=== PATIENT | female | born 1955 | race Caucasian/White ===

== ENCOUNTER 2019-11-27 08:09 | Outpatient (CLI) | payer OTHER, MEDICARE, SELFPAY ==
[2019-11-27 08:45] LABS: Basophils Percent Auto 0.6 % (0.2-1.2); Eosinophils Absolute Auto 0.1 K/mm3 (0-0.3); Eosinophils Percent Auto 1.4 % (0-4.4); Hematocrit 40.6 % (37.0-47.0); Hemoglobin 13.6 g/dL (12.0-15.0); Immature Granulocyte Absolute 0.01 K/mm3 (0.00-0.031); Immature Granulocyte Percent A 0.2 % (0-0.5); Lymphocytes Absolute Auto 1.58 K/mm3 (0.9-3.2); Lymphocytes Percent Auto 31.2 % (18.3-44.2); Mean Corpuscular HGB Conc 33.5 g/dl (32-36); Mean Corpuscular Hemoglobin 30.6 pg (26-34); Mean Corpuscular Volume 91.2 fl (80-100); Monocytes Absolute Auto 0.4 K/mm3 (0.1-0.6); Monocytes Percent Auto 7.5 % (2.6-8.5); Neutrophils Percent Auto 59.1 % (45.5-73.1); Platelet Count Result 275 k/mm3 (150-375); Red Blood Count 4.45 M/mm3 (4.2-5.4); Red Cell Distribution Width 13.2 % (11.5-14.5); White Blood Count 5.1 K/mm3 (4.5-10.0)
[2019-11-27 08:50] LABS: Add Urine Microscopic? YES; Appearance Urine Clear (Clear); Bacteria Urine Trace /hpf; Bilirubin Urine Negative (Negative); Blood Urine Negative (Negative); Color Urine Yellow (Yellow); Glucose Urine UA Negative (Negative); Ketones Urine Negative (Negative); Leukocyte Esterase Ur 1+ LEU/UL (NEGATIVE); Mucus Urine Rare /lpf; Nitrate Urine Negative (Negative); Protein Urine Negative (Negative); RBC Urine 0-2 /hpf (0-2); Specific Grav Ur 1.013 (1.001-1.035); Squamous Epithelial Cell Urine Many /hpf (Few); Transitional Epi Cells Urine Rare /hpf (None Seen); Urobilinogen Urine Negative mg/dL (<2.0)
[2019-11-27 08:59] LABS: Alanine Aminotransferase 52 U/L (4-35); Albumin Level 4.4 g/dL (3.5-5.1); Alkaline Phosphatase 127 U/L (38-126); Aspartate Amino Transferase 50 U/L (14-36); Bilirubin,Total 0.3 mg/dL (0.2-1.3); Blood Urea Nitrogen 13 mg/dL (7-17); Calcium 9.6 mg/dL (8.4-10.2); Carbon Dioxide 27 mmol/L (22-30); Chloride 105 mmol/L (98-107); Cholesterol 173 mg/dL (0-200); Estimated Glomerular Filt Rate > 60; Glucose 97 mg/dL (65-105); HDL Direct 51 mg/dL; Potassium 4.4 mmol/L (3.4-5.0); Sodium 139 mmol/L (137-145); Triglycerides 112 mg/dL (<150)
[2019-11-27 09:10] LABS: LDL Cholesterol Direct 77 mg/dL
[2019-11-27 09:48] LABS: Vitamin D 25 Hydroxy 35.3 ng/mL
== END 2019-11-27 08:10 | disposition home or self-care (01) ==
PROVIDERS: PCP Internal Medicine; Visit Provider Internal Medicine
DX: A04.72 Enterocolitis due to Clostridium difficile, not specified as recurrent (principal); I10 Essential (primary) hypertension; Z79.899 Other long term (current) drug therapy
CPT/HCPCS: 36415; 80053; 80061; 81001; 82306; 84443; 85025

== ENCOUNTER 2019-12-22 09:44 | Outpatient (CLI) | payer MEDICARE, OTHER, SELFPAY ==
[2019-12-22 10:39] LABS: Add Urine Microscopic? YES; Appearance Urine Clear (Clear); Bacteria Urine Trace /hpf; Bilirubin Urine Negative (Negative); Blood Urine Negative (Negative); Color Urine Straw (Yellow); Glucose Urine UA Negative (Negative); Ketones Urine Negative (Negative); Leukocyte Esterase Ur Trace LEU/UL (Negative); Nitrate Urine Negative (Negative); Protein Urine Negative (Negative); RBC Urine 0-2 /hpf (0-2); Squamous Epithelial Cell Urine Few /hpf (Few); Urobilinogen Urine Negative mg/dL (<2.0); WBC Urine 0-3 /hpf
[2019-12-22 11:23] LABS: Alanine Aminotransferase 55 U/L (4-35); Albumin Level 4.3 g/dL (3.5-5.1); Alkaline Phosphatase 140 U/L (38-126); Aspartate Amino Transferase 45 U/L (14-36); Bilirubin,Total 0.3 mg/dL (0.2-1.3); Blood Urea Nitrogen 10 mg/dL (7-17); Calcium 9.2 mg/dL (8.4-10.2); Carbon Dioxide 21 mmol/L (22-30); Chloride 107 mmol/L (98-107); Estimated Glomerular Filt Rate 56; Glucose 97 mg/dL (65-105); Potassium 4.3 mmol/L (3.4-5.0); Sodium 137 mmol/L (137-145)
== END 2019-12-22 09:45 | disposition home or self-care (01) ==
PROVIDERS: PCP Internal Medicine; Visit Provider Internal Medicine
DX: R10.9 Unspecified abdominal pain (principal); N39.0 Urinary tract infection, site not specified
CPT/HCPCS: 36415; 80053; 81001

== ENCOUNTER 2019-12-22 17:31 | Outpatient (CLI) | payer MEDICARE, OTHER, SELFPAY ==
--- NOTE | ~2019-12-22 | CT_ITS ---
EXAMINATION: CT abdomen wo/w con DATE: 12/22/2019 18:38 INDICATION: Abnormal liver function tests. Abdominal pain. TECHNIQUE: Computed tomography (CT) of the abdomen was performed without and with 100 mL Omnipaque 35 0 intravenous contrast. Automated exposure control and iterative reconstruction technique were employ ed. The dose-length product was 1572.37 mGy-cm. COMPARISON: CT abdomen 08/06/2018 FINDINGS: The visualized portions of the lung bases demonstrate mild atelectasis. Emphysema is noted. The heart size is normal. No pericardial effusion. The liver demonstrates focal steatosis adjacent t o ligamentum teres. There are changes of cholecystectomy. The spleen, pancreas, adrenal glands, and k idneys are normal. There are no dilated loops of bowel. There are no pathologically enlarged lymph no juan francisco. There is no free intraperitoneal fluid. There is moderate stenosis of celiac and mild stenosis o f superior mesenteric artery. There is severe lower lumbar spondylosis. IMPRESSION: 1. No etiology for the patient's symptoms. Reviewed, dictated and finalized at location A.
== END 2019-12-22 17:32 | disposition home or self-care (01) ==
LOC: ANHIMG 17:32
PROVIDERS: PCP Internal Medicine; Visit Provider Internal Medicine
DX: R79.89 Other specified abnormal findings of blood chemistry (principal); R10.9 Unspecified abdominal pain
CPT/HCPCS: 36415; 74170; 80053; 81001; Q9967

== ENCOUNTER 2020-01-01 09:25 | Outpatient (CLI) | payer MEDICARE, OTHER, SELFPAY ==
[2020-01-01 11:31] LABS: Hepatitis C Virus Antibody Reactive (Negative)
== END 2020-01-01 09:26 | disposition home or self-care (01) ==
LOC: ANHLAB 09:26
PROVIDERS: PCP Internal Medicine; Visit Provider Internal Medicine
DX: B19.20 Unspecified viral hepatitis C without hepatic coma (principal)
CPT/HCPCS: 36415; 86803; 87522

== ENCOUNTER 2020-02-24 09:36 | Outpatient (CLI) | payer MEDICARE, OTHER, SELFPAY ==
[2020-02-24 10:38] LABS: Hematocrit 37.1 % (37.0-47.0); Hemoglobin 12.5 g/dL (12.0-15.0); Mean Corpuscular HGB Conc 33.7 g/dl (32-36); Mean Corpuscular Hemoglobin 30.2 pg (26-34); Mean Corpuscular Volume 89.6 fl (80-100); Mean Platelet Volume 10.1 fl (7.4-10.4); Platelet Count Result 223 k/mm3 (150-375); Red Blood Count 4.14 M/mm3 (4.2-5.4); Red Cell Distribution Width 14.4 % (11.5-14.5); White Blood Count 5.2 K/mm3 (4.5-10.0)
[2020-02-24 10:48] LABS: Prothrombin Time 12.9 Seconds (11.1-14.7)
[2020-02-24 10:54] LABS: Alanine Aminotransferase 31 U/L (4-35); Albumin Level 4.2 g/dL (3.5-5.1); Alkaline Phosphatase 134 U/L (38-126); Anion Gap 8 mmol/L (8-16); Aspartate Amino Transferase 36 U/L (14-36); Bilirubin,Total 0.4 mg/dL (0.2-1.3); Blood Urea Nitrogen 11 mg/dL (7-17); Carbon Dioxide 21 mmol/L (22-30); Chloride 108 mmol/L (98-107); Estimated Glomerular Filt Rate > 60; Glucose 95 mg/dL (65-105); Potassium 4.5 mmol/L (3.4-5.0); Sodium 137 mmol/L (137-145)
[2020-02-24 11:43] LABS: Hepatitis B Surface Antigen Negative (Negative)
[2020-02-24 12:01] LABS: Hepatitis B Surface Anti Res Negative
[2020-02-27 15:21] LABS: Hepatitis C Viral RNA PCR 5300000 IU/mL
[2020-02-27 21:16] LABS: Hepatitis B Core Ab Total Nonreactive (Nonreactive)
[2020-03-02 16:25] LABS: HCV Genotype, LiPA 1a
[2020-03-03 23:12] LABS: ALT 23 U/L (6-29); Alpha-2-Macroglobulin 294 mg/dL (106-279); Apolipoprotein A1 166 mg/dL (101-198); Fibrosis Score 0.22; Fibrosis Stage F0-F1; GGT 15 U/L (3-65); Haptoglobin 186 mg/dL (43-212); Necroinflammat Act Grade A0; Total Bilirubin 0.4 mg/dL (0.2-1.2)
== END 2020-02-24 09:37 | disposition home or self-care (01) ==
LOC: ANHLAB 09:40
PROVIDERS: PCP Internal Medicine; Visit Provider Internal Medicine Gastroenterology
DX: B19.20 Unspecified viral hepatitis C without hepatic coma (principal); R74.8 Abnormal levels of other serum enzymes; R10.9 Unspecified abdominal pain
CPT/HCPCS: 36415; 80053; 81596; 85027; 85610; 86704; 86706; 87340; 87522

== ENCOUNTER → 2020-05-30 07:59 | Outpatient (CLI) | payer MEDICARE, OTHER, SELFPAY ==
--- NOTE | ~2020-05-30 | XR_ITS ---
EXAMINATION: XR hip BI 2V w AP pelvis DATE: 05/30/2020 08:18 INDICATION: Bilateral hip pain TECHNIQUE: Anteroposterior, frog leg, and cross-table lateral views of affected hip were obtained. COMPARISON: 12/07/2013 FINDINGS: Bone alignment is normal. There is no fracture. Mild bilateral hip osteoarthritis is unchan ged. There are phleboliths of the pelvis. Severe lower lumbar spondylosis is noted. IMPRESSION: 1. No acute osseous abnormality. Reviewed, dictated and finalized at location A. 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
== END ==
PROVIDERS: PCP Internal Medicine; Visit Provider Nurse Practitioner Adult Health
DX: M25.559 Pain in unspecified hip (principal)
CPT/HCPCS: 73521

== ENCOUNTER 2020-08-17 10:32 | Outpatient (CLI) | payer MEDICARE, OTHER, SELFPAY ==
[2020-08-17 11:27] LABS: Hematocrit 31.9 % (37.0-47.0); Hemoglobin 10.3 g/dL (12.0-15.0); Mean Corpuscular HGB Conc 32.3 g/dl (32-36); Mean Corpuscular Hemoglobin 27.3 pg (26-34); Mean Corpuscular Volume 84.6 fl (80-100); Mean Platelet Volume 9.7 fl (7.4-10.4); Platelet Count Result 249 k/mm3 (150-375); Red Blood Count 3.77 M/mm3 (4.2-5.4); White Blood Count 5.8 K/mm3 (4.5-10.0)
[2020-08-17 11:40] LABS: Alanine Aminotransferase 26 U/L (4-35); Alkaline Phosphatase 111 U/L (38-126); Anion Gap 8 mmol/L (8-16); Aspartate Amino Transferase 32 U/L (14-36); Bilirubin,Total 0.2 mg/dL (0.2-1.3); Blood Urea Nitrogen 13 mg/dL (7-17); CRP < 0.5 mg/dL (<1.0); Calcium 9.2 mg/dL (8.4-10.2); Carbon Dioxide 24 mmol/L (22-30); Chloride 108 mmol/L (98-107); Estimated Glomerular Filt Rate > 60; Glucose 95 mg/dL (65-105); Sodium 140 mmol/L (137-145)
[2020-08-17 11:52] LABS: Erythrocyte Sedimentation Rate 28 mm/hr (0-20)
[2020-08-23 15:33] LABS: Tissue Transglutaminase IgA Ab 1 U/mL (<4)
== END 2020-08-17 10:33 | disposition home or self-care (01) ==
PROVIDERS: PCP Internal Medicine; Visit Provider Nurse Practitioner Family
DX: R19.7 Diarrhea, unspecified (principal); R10.9 Unspecified abdominal pain
CPT/HCPCS: 36415; 80053; 83516; 84443; 85027; 85652; 86140

== ENCOUNTER → 2020-08-22 13:41 | Outpatient (CLI) | payer MEDICARE, OTHER, SELFPAY ==
--- NOTE | ~2020-08-22 | CT_ITS ---
EXAMINATION: CT abdomen pelvis w con DATE: 08/22/2020 15:31 INDICATION: Diffuse abdominal and pelvic pain for 6 months. Nausea, constipation, diarrhea. TECHNIQUE: Computed tomography (CT) of the abdomen and pelvis was performed with 100 cc Omnipaque 350 intravenous contrast. Automated exposure control and iterative reconstruction technique were employe d. Exam dose: 996.48 mGy-cm total exam DLP. COMPARISON: 12/22/2019 CT abdomen pelvis FINDINGS: There is mild discoid scarring at the middle lobe and lingula. No infiltrate or consolidati on at the lung bases. Normal heart size. No pericardial or pleural effusion. Status post cholecystectomy. No bile duct or pancreatic duct dilatation. No hepatic, splenic, pancrea tic, and adrenal or renal space-occupying mass lesion. No urinary tract calculus or hydroureteronephr osis. The urinary bladder is unremarkable. Status post hysterectomy. There is extensive calcification of the abdominal aorta and calcifications at the origins of the lexie l arteries. No abdominal aortic aneurysm. No intraperitoneal or retroperitoneal or pelvic mass lesion or adenopathy or ascites. No bowel obstruction, bowel wall thickening, pneumatosis or intraperitoneal free air. Prominent degenerative disc disease at L5-S1. Osteopenia. IMPRESSION: Status post cholecystectomy Status post hysterectomy Reviewed, dictated and finalized at Location [facility]. Reviewed, dictated and finalized at location A.
== END ==
PROVIDERS: Visit Provider Nurse Practitioner Family
DX: R10.9 Unspecified abdominal pain (principal); Z90.49 Acquired absence of other specified parts of digestive tract
CPT/HCPCS: 74177; Q9967

== ENCOUNTER 2020-09-14 10:29 | Outpatient (CLI) | payer MEDICARE, OTHER, SELFPAY ==
[2020-09-14 10:49] LABS: Hematocrit 34.8 % (37.0-47.0); Hemoglobin 11.2 g/dL (12.0-15.0); Mean Corpuscular HGB Conc 32.2 g/dl (32-36); Mean Corpuscular Hemoglobin 27.7 pg (26-34); Mean Corpuscular Volume 86.1 fl (80-100); Mean Platelet Volume 9.3 fl (7.4-10.4); Platelet Count Result 267 k/mm3 (150-375); Red Blood Count 4.04 M/mm3 (4.2-5.4); Red Cell Distribution Width 15.2 % (11.5-14.5); White Blood Count 6.5 K/mm3 (4.5-10.0)
[2020-09-14 11:16] LABS: Iron 29 ug/dL (37-170)
[2020-09-14 11:26] LABS: Percent Iron Saturation 6 % (20-50)
== END 2020-09-14 10:30 | disposition home or self-care (01) ==
PROVIDERS: PCP Internal Medicine; Visit Provider Nurse Practitioner Family
DX: D50.9 Iron deficiency anemia, unspecified (principal); R10.9 Unspecified abdominal pain
CPT/HCPCS: 36415; 83540; 83550; 85027

== ENCOUNTER 2020-09-16 10:31 | Outpatient (CLI) | payer MEDICARE, OTHER, SELFPAY | END 2020-09-16 10:32 | disposition home or self-care (01) | LOC: ANHLAB 10:36 | PROVIDERS: PCP Internal Medicine; Visit Provider Nurse Practitioner Family | DX: G89.29 Other chronic pain (principal); R10.9 Unspecified abdominal pain | CPT/HCPCS: 84106 ==

== ENCOUNTER 2020-10-13 11:11 | Outpatient (CLI) | payer MEDICARE, OTHER, SELFPAY ==
[2020-10-13 11:33] LABS: Basophils Percent Auto 0.6 % (0.2-1.2); Eosinophils Absolute Auto 0.1 K/mm3 (0-0.3); Eosinophils Percent Auto 1.3 % (0-4.4); Hematocrit 36.6 % (37.0-47.0); Hemoglobin 12.1 g/dL (12.0-15.0); Immature Granulocyte Absolute 0.02 K/mm3 (0.00-0.031); Immature Granulocyte Percent A 0.3 % (0-0.5); Immature Reticulocyte Fraction 13.7 % (3.0-15.9); Lymphocytes Absolute Auto 1.88 K/mm3 (0.9-3.2); Mean Corpuscular HGB Conc 33.1 g/dl (32-36); Mean Corpuscular Hemoglobin 29.4 pg (26-34); Mean Corpuscular Volume 89.1 fl (80-100); Mean Platelet Volume 9.3 fl (7.4-10.4); Monocytes Absolute Auto 0.5 K/mm3 (0.1-0.6); Monocytes Percent Auto 7.7 % (2.6-8.5); Neutrophils Absolute Auto 4.4 K/mm3 (1.3-6.7); Neutrophils Percent Auto 63.1 % (45.5-73.1); Platelet Count Result 309 k/mm3 (150-375); Red Blood Count 4.11 M/mm3 (4.2-5.4); Red Cell Distribution Width 17.6 % (11.5-14.5); Reticulocyte Hemoglobin Conten 39.3 pg (28.2-35.7); Reticulocytes Absolute 0.09 B/L (32.2-175.7)
[2020-10-13 13:16] LABS: Iron 120 ug/dL (37-170)
[2020-10-13 13:19] LABS: Alanine Aminotransferase 26 U/L (4-35); Albumin Level 4.4 g/dL (3.5-5.1); Alkaline Phosphatase 102 U/L (38-126); Anion Gap 8 mmol/L (8-16); Aspartate Amino Transferase 29 U/L (14-36); Bilirubin,Total 0.2 mg/dL (0.2-1.3); Blood Urea Nitrogen 14 mg/dL (7-17); Calcium 10.3 mg/dL (8.4-10.2); Carbon Dioxide 23 mmol/L (22-30); Chloride 107 mmol/L (98-107); Estimated Glomerular Filt Rate > 60; Glucose 92 mg/dL (65-105); Lactate Dehydrogenase 535 U/L (313-618); Potassium 4.7 mmol/L (3.4-5.0); Sodium 138 mmol/L (137-145)
[2020-10-13 13:26] LABS: Percent Iron Saturation 33 % (20-50)
[2020-10-13 14:24] LABS: Folic Acid 9.3 ng/mL (2.76->20)
[2020-10-18 08:21] LABS: Albumin 3.9 g/dL (3.8-4.8); Alpha 1 Globulin 0.3 g/dL (0.2-0.3); Beta 1 Globulin 0.5 g/dL (0.4-0.6); Gamma Globulin 1.6 g/dL (0.8-1.7); Protein, Total 7.5 g/dL (6.1-8.1)
== END 2020-10-13 11:12 | disposition home or self-care (01) ==
PROVIDERS: PCP Internal Medicine; Visit Provider Internal Medicine Hematology & Oncology
DX: D64.9 Anemia, unspecified (principal)
CPT/HCPCS: 36415; 80053; 82607; 82728; 82746; 83540; 83550; 83615; 84155; 84165; 85025; 85046

== ENCOUNTER 2020-11-03 08:00 | Outpatient (CLI) | payer MEDICARE, OTHER, SELFPAY ==
[2020-11-03 09:03] LABS: Anion Gap 6 mmol/L (8-16); Blood Urea Nitrogen 8 mg/dL (7-17); Calcium 9.6 mg/dL (8.4-10.2); Carbon Dioxide 29 mmol/L (22-30); Chloride 107 mmol/L (98-107); Estimated Glomerular Filt Rate > 60; Glucose 89 mg/dL (65-105); Potassium 4.3 mmol/L (3.4-5.0); Sodium 142 mmol/L (137-145)
== END 2020-11-03 08:01 | disposition home or self-care (01) ==
LOC: ANHLAB 08:05
PROVIDERS: PCP Internal Medicine; Referring Provider Internal Medicine; Visit Provider Internal Medicine Cardiovascular Disease
DX: R07.89 Other chest pain (principal); I10 Essential (primary) hypertension; I51.81 Takotsubo syndrome
CPT/HCPCS: 36415; 80048

== ENCOUNTER 2020-12-06 01:35 | Day surgery (SDC) | payer MEDICARE, OTHER, SELFPAY ==
[2020-11-21 14:52] VITALS: BMI 35.9
[2020-12-06 06:25] VITALS: BP 138/89; PULSE 96; RESP 22; TEMP 36.2; O2SAT 98; BMI 35.9
[2020-12-06] MEDS: LACTATED RINGERS 1,000 ML 150 ML IV CONT (06:39)
--- NOTE | 2020-12-06 07:19 | WPDANESEPPF ---
Anes - Initial Pre Proc Eval Procedure: Operation Date: 12/06/20 07:30 Proposed Procedures p Colonoscopy - Amish Thrasher MD Date/Time: 12/06/20 07:19 Surgeon: Amish Thrasher MD Pre Op Diagnosis: diarrhea, abdominal pain Patient Data Age: 65 Gender: F Height: 1.63 m Weight: 95.1 kg Last Vital Signs Temp 97.2 F L 12/06/20 06:25 Pulse 96 12/06/20 06:25 Resp 22 H 12/06/20 06:25 BP 138/89 12/06/20 06:25 Pulse Ox 98 12/06/20 06:25 Allergies Allergy/AdvReac Type Severity Reaction Status Date / Time codeine Allergy Unknown itching Verified 12/06/20 06:24 hydrocodone Allergy Unknown Itching Verified 12/06/20 06:24 Home Medications Medication Instructions Recorded Confirmed Type aspirin 81 mg tablet,delayed 81 mg PO DAILY 04/24/19 12/06/20 History release ferrous sulfate 325 mg (65 mg 325 mg PO BID #60 tablet 09/14/20 12/06/20 Rx iron) tablet albuterol sulfate 90 mcg/actuation 1 puff INHALATION Q4H PRN #25.5 gm 10/06/20 12/06/20 Rx aerosol inhaler fluticasone 250 mcg-salmeterol 50 1 inh INHALATION BID #180 each 10/06/20 12/06/20 Rx mcg/dose blistr powdr for inhalation ipratropium 0.5 mg-albuterol 3 mg 3 ml INHALATION QID PRN #360 vial 10/06/20 12/06/20 Rx (2.5 mg base)/3 mL nebulization soln metoprolol succinate 25 mg 25 mg PO DAILY #90 tablet 10/06/20 12/06/20 Rx tablet,extended release 24 hr nitroglycerin 0.4 mg sublingual 0.4 mg SUBLINGUAL Q5M PRN #30 10/06/20 12/06/20 Rx tablet tablet omeprazole 40 mg capsule,delayed 40 mg PO DAILY #90 cap 10/06/20 12/06/20 Rx release pramipexole 0.5 mg tablet 0.5 mg PO BID #180 tablet 10/06/20 12/06/20 Rx duloxetine 30 mg capsule,delayed 30 mg PO DAILY #90 cap 11/03/20 12/06/20 Rx release losartan 100 mg tablet 100 mg PO DAILY 11/03/20 12/06/20 History cholestyramine (with sugar) 4 gram 4 g PO DAILY #378 g 11/18/20 12/06/20 Rx oral powder dicyclomine 20 mg PO BID 11/21/20 12/06/20 History hydrocodone-acetaminophen 1 tablet PO DAILY PRN 11/21/20 12/06/20 History [id number] [Creon] 3 cap PO TID 11/21/20 12/06/20 History Patient hx anesthesia problems: none Family hx anesthesia problems: none PMFSH Past Medical History Medical History Chronic abdominal pain Colon cancer screening Diarrhea Elevated liver enzymes Surgical History Surgical History Hx laparoscopic cholecystectomy Hx of appendectomy Hx of hysterectomy Family History Family History Mother Hypertension Carcinoma of colon Family history of Alzheimer's disease Family history of malignant neoplasm of uterus Father MVA (motor vehicle accident) Sibling Carcinoma of colon Hypertension CHF (congestive heart failure) Lung cancer Other Family history of chronic obstructive pulmonary disease Family history of emphysema Social History Social History (Updated 11/03/20 @ 08:35 by Tish Isabel MA) Smoking packs per day: 1 Smoking cigarettes per day: 20.0 Years smoked: 40 Smoking pack-years: 40.00 Smoking status: Current every day smoker Tobacco type: e-cigarettes/vaping Second hand tobacco smoke exposure: Yes Smoking end date: 06/10/17 Alcohol intake: current Substance use: never Living arrangements: with family Spiritual care concerns: No Anes - Eval Final PreProcedure Day of Procedure 12/06/20 07:19 Patient weight: obese Heart: regular rate and rhythm Lungs: clear to auscultation Airway: Mallampati scale class II Neurological: alert and oriented Last oral intake: >/= 8 hours ASA classification: III Emergent: no Anesthetic plan: proceed Anesthesia type and monitoring: general GIVS and standard monitoring Informed Consent: The patient's anesthetic plan and its attendant risks and benef
--- NOTE | 2020-12-06 07:29 | PM.HPGS ---
History of Present Illness History of Present Illness Consent: Risks, benefits, and alternatives have been discussed and questions answered. Patient agrees to proceed with procedure. Chief complaint: diarrhea, abdominal pain Narrative: Cheryl Womack is a 65 year old female here for colonoscopy. She has a long history of chronic abdominal pain but worsen lately, she is on dicyclomine to 20 mg TID which is helping some, also loose stools with mucus. Colonoscopy 10/2019 (Dr. Linn) showed small polyps, no colitis, random bx were normal. CT scan unremarkable for symptoms. Trial of creon did not help. Review of Systems Constitutional: Constitutional: Denies headache(s) and Denies weakness Eyes: Eyes: Denies blurry vision ENT: Reports Normal hearing present, Denies headache(s) and Denies neck pain Cardiovascular: Cardiovascular: Denies chest pain and Denies dyspnea Respiratory: Respiratory: Denies dyspnea Gastrointestinal: Gastrointestinal: Reports no additional gastrointestinal complaints Genitourinary: Genitourinary: Denies dysuria Musculoskeletal: Musculoskeletal: Denies neck pain Integumentary/Breasts: Skin/Breast: Denies dry skin Neurologic: Reports Normal hearing present, Denies headache(s) and Denies weakness Psychiatric: Psychiatric: Denies anxiety Endocrine: Endocrine: Denies change in body appearance Hematologic/Lymphatic: Hematologic/Lymphatic: Denies easy bleeding Allergic/Immunologic: Allergic/Immunologic: Denies urticaria PMFSH Past Medical History Medical History Chronic abdominal pain Colon cancer screening Diarrhea Elevated liver enzymes Surgical History Surgical History Hx laparoscopic cholecystectomy Hx of appendectomy Hx of hysterectomy Family History Family History Mother Hypertension Carcinoma of colon Family history of Alzheimer's disease Family history of malignant neoplasm of uterus Father MVA (motor vehicle accident) Sibling Carcinoma of colon Hypertension CHF (congestive heart failure) Lung cancer Other Family history of chronic obstructive pulmonary disease Family history of emphysema Social History Social History (Updated 11/03/20 @ 08:35 by Tish Isabel MA) Smoking packs per day: 1 Smoking cigarettes per day: 20.0 Years smoked: 40 Smoking pack-years: 40.00 Smoking status: Current every day smoker Tobacco type: e-cigarettes/vaping Second hand tobacco smoke exposure: Yes Smoking end date: 06/10/17 Alcohol intake: current Substance use: never Living arrangements: with family Spiritual care concerns: No Meds Home Medications and Allergies Home Medications Medication Instructions Recorded Confirmed Type aspirin 81 mg tablet,delayed 81 mg PO DAILY 04/24/19 12/06/20 History release ferrous sulfate 325 mg (65 mg 325 mg PO BID #60 tablet 09/14/20 12/06/20 Rx iron) tablet albuterol sulfate 90 mcg/actuation 1 puff INHALATION Q4H PRN #25.5 gm 10/06/20 12/06/20 Rx aerosol inhaler fluticasone 250 mcg-salmeterol 50 1 inh INHALATION BID #180 each 10/06/20 12/06/20 Rx mcg/dose blistr powdr for inhalation ipratropium 0.5 mg-albuterol 3 mg 3 ml INHALATION QID PRN #360 vial 10/06/20 12/06/20 Rx (2.5 mg base)/3 mL nebulization soln metoprolol succinate 25 mg 25 mg PO DAILY #90 tablet 10/06/20 12/06/20 Rx tablet,extended release 24 hr nitroglycerin 0.4 mg sublingual 0.4 mg SUBLINGUAL Q5M PRN #30 10/06/20 12/06/20 Rx tablet tablet omeprazole 40 mg capsule,delayed 40 mg PO DAILY #90 cap 10/06/20 12/06/20 Rx release pramipexole 0.5 mg tablet 0.5 mg PO BID #180 tablet 10/06/20 12/06/20 Rx duloxetine 30 mg capsule,delayed 30 mg PO DAILY #90 cap 11/03/20 12/06/20 Rx release losartan 100 mg tablet 100 mg PO DAILY 11/03/20 12/06/20 His
[2020-12-06 07:47] VITALS: BP 122/80; PULSE 76; RESP 20; O2SAT 100
[2020-12-06 07:57] VITALS: BP 126/81; PULSE 71; RESP 17; O2SAT 97
[2020-12-06 08:07] VITALS: BP 130/84; PULSE 70; RESP 16; O2SAT 99
== END 2020-12-06 08:15 | disposition home or self-care (01) ==
PROVIDERS: PCP Internal Medicine; Visit Provider Internal Medicine Gastroenterology
PROC: 0DJD8ZZ Inspection of Lower Intestinal Tract, Via Natural or Artificial Opening Endoscopic (ICD-10-PCS; CPT 45378; principal; 2020-12-06 07:30)
DX: R19.4 Change in bowel habit (principal); R19.7 Diarrhea, unspecified; Z86.010 Personal history of colon polyps; K64.8 Other hemorrhoids; K57.30 Diverticulosis of large intestine without perforation or abscess without bleeding; K52.89 Other specified noninfective gastroenteritis and colitis; R10.9 Unspecified abdominal pain; R74.01 Elevation of levels of liver transaminase levels; F17.290 Nicotine dependence, other tobacco product, uncomplicated; Z79.82 Long term (current) use of aspirin; Z79.51 Long term (current) use of inhaled steroids; E66.9 Obesity, unspecified; Z68.36 Body mass index [BMI] 36.0-36.9, adult
CPT/HCPCS: 45380; 88305; J2704; J7120

== ENCOUNTER 2021-02-21 09:09 | Outpatient (CLI) | payer MEDICARE, OTHER, SELFPAY ==
--- NOTE | ~2021-02-21 | MM_ITS ---
EXAMINATION: MM screening lety BI w faisal HISTORY: Screening TECHNIQUE: Craniocaudal and mediolateral oblique 3-D tomosynthesis images were obtained and synthetic 2-D images were generated. CAD analysis was submitted and interpreted. COMPARISON: No prior mammogram is available for comparison at this institution. BREAST PARENCHYMAL COMPOSITION: There are scattered areas of fibroglandular density. FINDINGS: There is no evidence of suspicious mass, calcification, or architectural distortion to sugg est malignancy in either breast. There has been no suspicious interval change. IMPRESSION: 1. No mammographic evidence of malignancy. 2. Recommend routine screening mammography in one year. BI-RADS Category 1: Negative Reviewed, dictated and finalized at location A.
== END 2021-02-21 09:10 | disposition home or self-care (01) ==
LOC: ANHIMG 09:11
PROVIDERS: PCP Internal Medicine; Visit Provider Internal Medicine
DX: Z12.31 Encounter for screening mammogram for malignant neoplasm of breast (principal)
CPT/HCPCS: 77063; 77067

== ENCOUNTER 2021-06-01 10:20 | Outpatient (CLI) | payer MEDICARE, OTHER, SELFPAY ==
--- NOTE | ~2021-06-01 | CT_ITS ---
EXAMINATION: CT abdomen pelvis w con DATE: 06/01/2021 11:18 INDICATION: Gastroenteritis. TECHNIQUE: Computed tomography (CT) of the abdomen and pelvis was performed with 100 cc Omnipaque 350 intravenous contrast. The dose-length product was 919.96 mGy-cm. Automated exposure control and iter ative reconstruction technique were employed. COMPARISON: CT dated 08/22/2020. FINDINGS: Lung bases are unremarkable. Heart size is normal. No significant pleural or pericardial ef fusion. There is atherosclerosis of the aorta without evidence for aneurysm. No lymphadenopathy. No f ree air or free fluid. Status post cholecystectomy and hysterectomy. The liver, spleen, pancreas, adrenal glands and kidneys are unremarkable. No hydronephrosis. Bladder is unremarkable. Nonobstructive bowel gas pattern. No abnormal pelvic masses or fluid collections. Mi ld lower lumbar spondylosis. No acute osseous abnormality. Mild osteoarthritis of the hips. IMPRESSION: 1. No acute abdominal abnormality. Reviewed, dictated and finalized at location A. 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
[2021-06-01 11:06] LABS: Estimated Glomerular Filt Rate > 60
[2021-06-01 11:49] LABS: Hematocrit 33.2 % (37.0-47.0); Hemoglobin 10.9 g/dL (12.0-15.0); Mean Corpuscular HGB Conc 32.8 g/dl (32-36); Mean Corpuscular Hemoglobin 30.7 pg (26-34); Mean Corpuscular Volume 93.5 fl (80-100); Mean Platelet Volume 9.2 fl (7.4-10.4); Platelet Count Result 274 k/mm3 (150-375); Red Blood Count 3.55 M/mm3 (4.2-5.4); Red Cell Distribution Width 12.6 % (11.5-14.5); White Blood Count 5.9 K/mm3 (4.5-10.0)
[2021-06-01 12:00] LABS: Alanine Aminotransferase 19 U/L (4-35); Albumin Level 4.1 g/dL (3.5-5.1); Alkaline Phosphatase 85 U/L (38-126); Anion Gap 9 mmol/L (8-16); Aspartate Amino Transferase 23 U/L (14-36); Bilirubin,Total 0.4 mg/dL (0.2-1.3); Blood Urea Nitrogen 14 mg/dL (7-17); Carbon Dioxide 22 mmol/L (22-30); Chloride 103 mmol/L (98-107); Estimated Glomerular Filt Rate > 60; Glucose 100 mg/dL (65-110); Potassium 4.1 mmol/L (3.4-5.0); Sodium 134 mmol/L (137-145)
== END 2021-06-01 10:21 | disposition home or self-care (01) ==
LOC: ANHIMG 10:21
PROVIDERS: PCP Internal Medicine; Visit Provider Nurse Practitioner Family
DX: K52.9 Noninfective gastroenteritis and colitis, unspecified (principal); B19.20 Unspecified viral hepatitis C without hepatic coma
CPT/HCPCS: 74177; 80053; 85027; Q9967

== ENCOUNTER 2021-06-29 10:18 | Outpatient (CLI) | payer MEDICARE, OTHER, SELFPAY ==
[2021-06-29 10:44] LABS: Lipase 79 U/L (23-300)
== END 2021-06-29 10:19 | disposition home or self-care (01) ==
LOC: ANHLAB 10:21
PROVIDERS: PCP Internal Medicine; Visit Provider Nurse Practitioner Family
DX: R11.0 Nausea (principal); R10.13 Epigastric pain
CPT/HCPCS: 36415; 83690

== ENCOUNTER 2021-07-11 01:23 | Day surgery (SDC) | payer MEDICARE, OTHER, SELFPAY ==
[2021-07-07 10:03] VITALS: BMI 35.7
[2021-07-11 07:50] VITALS: BP 123/77; PULSE 84; RESP 18; TEMP 35.9; O2SAT 98
[2021-07-11] MEDS: LACTATED RINGERS 1,000 ML 150 ML IV CONT (08:00)
--- NOTE | 2021-07-11 08:24 | WPDANESEPPF ---
Anes - Initial Pre Proc Eval Procedure: Operation Date: 07/11/21 09:00 Proposed Procedures p Esophagogastroduodenoscopy - Amish Thrasher MD Date/Time: 07/11/21 08:24 Surgeon: Amish Thrasher MD Pre Op Diagnosis: nausea Patient Data Age: 65 Gender: F Height: 1.65 m Weight: 96.7 kg Last Vital Signs Temp 35.9 C L 07/11/21 07:50 Pulse 84 07/11/21 07:50 Resp 18 07/11/21 07:50 BP 123/77 07/11/21 07:50 Pulse Ox 98 07/11/21 07:50 Allergies Allergy/AdvReac Type Severity Reaction Status Date / Time codeine Allergy Unknown itching Verified 07/11/21 07:48 hydrocodone Allergy Unknown Itching Verified 07/11/21 07:48 Home Medications Medication Instructions Recorded Confirmed Type aspirin 81 mg tablet,delayed 81 mg PO DAILY 04/24/19 07/07/21 History release fluticasone 250 mcg-salmeterol 50 1 inh INHALATION BID #180 each 10/06/20 07/07/21 Rx mcg/dose blistr powdr for inhalation hydrocodone-acetaminophen 1 tablet PO DAILY PRN 11/21/20 07/07/21 History budesonide 3 mg 6 mg PO DAILY 30 Days #60 ea 01/26/21 07/07/21 Rx capsule,delayed,extended release losartan 100 mg tablet 100 mg PO DAILY 02/14/21 07/07/21 History mesalamine 1.2 gram tablet,delayed 3.6 g PO DAILY 30 Days #90 tablet 02/28/21 07/07/21 Rx release albuterol sulfate 90 mcg/actuation 1 puff INHALATION Q4H PRN #25.5 gm 04/06/21 07/07/21 Rx aerosol inhaler duloxetine 30 mg capsule,delayed 30 mg PO DAILY #90 cap 04/06/21 07/07/21 Rx release ipratropium 0.5 mg-albuterol 3 mg 3 ml INHALATION QID PRN #360 vial 04/06/21 07/07/21 Rx (2.5 mg base)/3 mL nebulization soln metoprolol succinate 25 mg 25 mg PO DAILY #90 tablet 04/06/21 07/11/21 Rx tablet,extended release 24 hr pramipexole 0.5 mg tablet 0.5 mg PO BID #180 tablet 04/06/21 07/07/21 Rx amlodipine 2.5 mg tablet 5 mg PO DAILY tablet 06/01/21 07/07/21 History omeprazole 40 mg capsule,delayed 40 mg PO DAILY #90 cap 06/12/21 07/07/21 Rx release dicyclomine 10 mg capsule 20 mg PO TID PRN 30 Days #180 cap 06/21/21 07/07/21 Rx ondansetron 4 mg disintegrating 4 mg PO Q8H PRN #30 tablet 06/30/21 07/07/21 Rx tablet Patient hx anesthesia problems: none Family hx anesthesia problems: none Results Review: All pre-operative results and documents have been reviewed as part of the pre-operative evaluation. [facility] Past Medical History Medical History Anxiety Chronic abdominal pain Chronic obstructive pulmonary disease Colitis Colon cancer screening Diarrhea Elevated liver enzymes Essential hypertension Hepatitis C Nausea LESTER (obstructive sleep apnea) Restless legs syndrome (RLS) Surgical History Surgical History Hx laparoscopic cholecystectomy Hx of appendectomy Hx of hysterectomy Family History Family History Mother Hypertension Carcinoma of colon Family history of Alzheimer's disease Family history of malignant neoplasm of uterus Father MVA (motor vehicle accident) Sibling Carcinoma of colon Hypertension CHF (congestive heart failure) Lung cancer Other Family history of chronic obstructive pulmonary disease Family history of emphysema Social History Social History Smoking packs per day: 1 Smoking cigarettes per day: 20.0 Years smoked: 40 Smoking pack-years: 40.00 Smoking status: Former smoker Tobacco type: cigarettes Second hand tobacco smoke exposure: Yes Smoking end date: 06/10/17 Alcohol intake: never Alcohol use details: Social Substance use: never Substance use type: does not use Living arrangements: with family Spiritual care concerns: No Anes - Eval Final PreProcedure Day of Procedure 07/11/21 08:24 Patient weight: obese
--- NOTE | 2021-07-11 08:46 | WPDHPUPDATE1 ---
History and Physical Update Update Date/Time: 07/11/21 08:46 History and Physical has been reviewed, including an updated exam of the patient. There are NO changes in the patient's condition. Risks, benefits, and alternatives have been discussed and questions answered. Patient agrees to proceed with procedure.
[2021-07-11] MEDS: BENZOCAINE (*SP) 60 ML SPRAY CAN (HURRICAINE) 1 SPRAY MUCOUS MEM (08:50)
[2021-07-11 09:04] VITALS: BP 95/70; PULSE 62; RESP 18; O2SAT 100
[2021-07-11 09:14] VITALS: BP 110/59; PULSE 55; RESP 19; O2SAT 100
[2021-07-11 09:24] VITALS: BP 123/67; PULSE 51; RESP 17; O2SAT 100
== END 2021-07-11 09:36 | disposition home or self-care (01) ==
PROVIDERS: PCP Internal Medicine; Visit Provider Internal Medicine Gastroenterology
PROC: 0DJ08ZZ Inspection of Upper Intestinal Tract, Via Natural or Artificial Opening Endoscopic (ICD-10-PCS; CPT 43235; principal; 2021-07-11 09:00)
DX: K31.84 Gastroparesis (principal); K29.50 Unspecified chronic gastritis without bleeding; J44.9 Chronic obstructive pulmonary disease, unspecified; I10 Essential (primary) hypertension; G47.33 Obstructive sleep apnea (adult) (pediatric); F41.9 Anxiety disorder, unspecified; G25.81 Restless legs syndrome; Z86.19 Personal history of other infectious and parasitic diseases; Z79.82 Long term (current) use of aspirin; Z79.51 Long term (current) use of inhaled steroids; Z87.891 Personal history of nicotine dependence; E66.9 Obesity, unspecified; Z68.35 Body mass index [BMI] 35.0-35.9, adult
CPT/HCPCS: 43239; 88305; J2704; J7120

== ENCOUNTER 2021-08-29 09:28 | Outpatient (CLI) | payer MEDICARE, OTHER, SELFPAY ==
--- NOTE | ~2021-08-29 | NM_ITS ---
EXAM: NM gastric emptying study DATE: 08/29/2021 14:59 CDT INDICATION: Nausea TECHNIQUE: A gastric emptying study was performed using the methodology of Rema DIAZ, et al. J Nucl Med 2007; 48:568-572. The patient was given a meal consisting of 2 scrambled eggs labeled with mCi T c-99m sulfur colloid, 2 slices of toast, two packages of jam, and approximately 120 mL of water. Simu ltaneous anterior and posterior 1-min images of the abdomen were obtained with the patient supine at multiple time points over a total period of 4 hours. The geometric mean of anterior and posterior vie ws was determined, and the percentage retention was calculated for each time point. COMPARISON: CT dated 06/01/2021 FINDINGS: Gastric retention of the radiotracer-labeled meal was 40%, 6%, and 5% at the 1-hour, 2-shahzad r, and 4-hour time points, respectively. With this technique, apparent rapid gastric emptying is sugg ested by <30% gastric retention at 1 hour. Delayed gastric emptying is defined by gastric retention o f >90% at 1 hour, >60% retention at 2 hours, or >10% retention at 4 hours. IMPRESSION: 1. Normal gastric emptying. Reviewed, dictated and finalized at location A. IMPRESSION: 1. Normal gastric emptying.
== END 2021-08-29 09:29 | disposition home or self-care (01) ==
LOC: ANHIMG 09:29
PROVIDERS: PCP Internal Medicine; Visit Provider Internal Medicine Gastroenterology
DX: R10.9 Unspecified abdominal pain (principal); R11.0 Nausea
CPT/HCPCS: 78264; A9541

== ENCOUNTER 2021-09-04 08:55 | Outpatient (CLI) | payer MEDICARE, OTHER, SELFPAY ==
[2021-09-04 09:50] LABS: Iron 40 ug/dL (37-170)
[2021-09-04 09:54] LABS: Percent Iron Saturation 8 % (20-50)
[2021-09-04 10:20] LABS: Ferritin 6.02 ng/mL (11.1-264)
== END 2021-09-04 08:56 | disposition home or self-care (01) ==
PROVIDERS: PCP Internal Medicine; Visit Provider Nurse Practitioner Family
DX: K51.90 Ulcerative colitis, unspecified, without complications (principal); G25.81 Restless legs syndrome
CPT/HCPCS: 36415; 82728; 83540; 83550

== ENCOUNTER 2021-09-14 10:03 | Outpatient (CLI) | payer MEDICARE, OTHER, SELFPAY ==
--- NOTE | 2021-09-28 16:14 | WPDSLEEPSTUD ---
Sleep Study Date of Study: 09/14/21 Ordering Provider: Rizwan Martinez APRN Interpreting Physician: Oralia Fairchild DO Sleep Study Type: Split Polysomnogram Height: 1.63 m Weight: 99.79 kg Body Mass Index: 37.8 Neck Circumference (inches): 15.5 [place]: 5 Reason for Sleep Study The patient had a HSAT on 12/19/2017 that showed an AHI of 12.4 It was recommended that she have a PAP Titration. She never pursued it. Sleep History The patient is a 65-year-old female with COPD, asthma, restless leg syndrome, anxiety, hypertension, ulcerative colitis, chronic back pain on opiates, history hepatitis-C and history of tobacco use that had a sleep study ordered by the pulmonary group for further evaluation of sleep apnea. The patient states she occasionally awakens from sleep short of breath. She occasionally awakens at night with heartburn, belching or cough. She frequently snores and is constantly loud enough that others complain. She constantly has trouble sleeping when she has a cold. She occasionally wakes up gasping for air throughout the night. She occasionally has breathing problems at night observed by herself or others. She occasionally sweats excessively at night. She frequently has heart palpitations or irregular heartbeats during the night. She occasionally falls asleep during the day but never while driving. She rarely feels unable to move while waking up or falling asleep. She denies experiencing loss of muscle tone when extremely emotional. She occasionally has vivid dreamlike scenes upon awakening or falling asleep. She denies feeling afraid to go to sleep. She rarely has nightmares. She occasionally remembers her dreams. She frequently has thoughts racing through her mind. She occasionally feels sad, depressed and anxious. She occasionally notices parts of her body jerk. She occasionally kicks during the night. She constantly has crawling and aching feelings in her legs and occasionally has leg pain during the night. She occasionally grinds her teeth during sleep but rarely awakens with a morning jaw pain. She is frequently bothered by pain during the day and occasionally awakened by pain during the night. She rarely wakes up feeling stiff in the morning. She rarely wakes up with sore achy muscles. She rarely wakes up with pain in the neck, spine and other joints. She goes to bed between 10 and 11:00 p.m. on both weekdays and weekends. It takes her 1 hour to fall asleep. She wakes up twice throughout the night to use the restroom. She is able to fall back asleep within 15-20 minutes. She wakes up between 5 and 6:00 a.m. on the weekdays and between 5 and 7:00 a.m. on the weekends. She typically gets 5-6 hours of sleep per night. She does not stay in bed after waking up in the morning. She currently lives with her . Does not consume any caffeinated beverages within 2 hours of bedtime. She does not engage in physical exercise before bedtime. She will watch television before falling asleep. She will take naps in the afternoon or the evening and they are refreshing. She quit smoking cigarettes in 2018. She denies alcohol and recreational drug use. [facility] Past Medical History Medical History (Updated 09/28/21 @ 16:46 by Oralia Fairchild DO) Anxiety Chronic abdominal pain Chronic obstructive pulmonary disease Colitis Colon cancer screening Diarrhea Elevated liver enzymes Essential hypertension Hepatitis C Nausea LESTER (obstructive sleep apnea) Restless legs syndrome (RLS) Surgical History Surgical History Hx laparoscopic cholecystectomy Hx of appendectomy Hx of hysterectomy Family History Family History Mother Hypertension Carcinoma of colon Family history of Alzheimer's disease Family history of malignant neoplasm of uterus Father MVA (motor vehicle accident) Sibling Car
[2021-09-28 16:21] VITALS: BMI 37.8
== END 2021-09-15 06:55 | disposition home or self-care (01) ==
LOC: ANHCSM 10:04
PROVIDERS: PCP Internal Medicine; Visit Provider Nurse Practitioner Family
DX: G47.30 Sleep apnea, unspecified (principal); G47.33 Obstructive sleep apnea (adult) (pediatric)
CPT/HCPCS: 95811

== ENCOUNTER 2021-11-30 12:13 | Outpatient (CLI) | payer MEDICARE, OTHER, SELFPAY ==
[2021-11-30 12:54] LABS: Hematocrit 34.3 % (37.0-47.0); Hemoglobin 10.2 g/dL (12.0-15.0); Mean Corpuscular HGB Conc 29.7 g/dl (32-36); Mean Corpuscular Hemoglobin 25.2 pg (26-34); Mean Corpuscular Volume 84.7 fl (80-100); Mean Platelet Volume 9.3 fl (7.4-10.4); Platelet Count Result 280 k/mm3 (150-375); Red Blood Count 4.05 M/mm3 (4.2-5.4); Red Cell Distribution Width 19.9 % (11.5-14.5); White Blood Count 9.2 K/mm3 (4.5-10.0)
[2021-11-30 13:15] LABS: Alanine Aminotransferase 25 U/L (6-35); Albumin Level 4.2 g/dL (3.5-5.1); Alkaline Phosphatase 95 U/L (38-126); Anion Gap 4 mmol/L (8-16); Aspartate Amino Transferase 34 U/L (14-36); Bilirubin,Total 0.2 mg/dL (0.2-1.3); Blood Urea Nitrogen 11 mg/dL (7-17); CRP 0.6 mg/dL (<1.0); Calcium 8.7 mg/dL (8.4-10.2); Carbon Dioxide 26 mmol/L (22-30); Chloride 108 mmol/L (98-107); Estimated Glomerular Filt Rate > 60; Glucose 98 mg/dL (65-110); Lipase 40 U/L (23-300); Potassium 3.8 mmol/L (3.4-5.0); Sodium 138 mmol/L (137-145)
[2021-11-30 13:55] LABS: Erythrocyte Sedimentation Rate 23 mm/hr (0-20)
[2021-12-03 12:10] LABS: Hepatitis C RNA, Quant PCR <15 IU/mL
== END 2021-11-30 12:14 | disposition home or self-care (01) ==
LOC: ANHLAB 12:16
PROVIDERS: PCP Internal Medicine; Visit Provider Nurse Practitioner Family
DX: R10.13 Epigastric pain (principal); K51.919 Ulcerative colitis, unspecified with unspecified complications; R11.0 Nausea; K21.9 Gastro-esophageal reflux disease without esophagitis; Z86.19 Personal history of other infectious and parasitic diseases
CPT/HCPCS: 36415; 80053; 83690; 85027; 85652; 86140; 87522

== ENCOUNTER 2021-12-12 08:49 | Outpatient (CLI) | payer MEDICARE, OTHER, SELFPAY ==
[2021-12-12 09:43] LABS: Iron 26 ug/dL (37-170)
[2021-12-12 09:53] LABS: Percent Iron Saturation 6 % (20-50)
== END 2021-12-12 08:50 | disposition home or self-care (01) ==
LOC: ANHLAB 08:50
PROVIDERS: PCP Internal Medicine; Visit Provider Internal Medicine
DX: K51.90 Ulcerative colitis, unspecified, without complications (principal); D64.9 Anemia, unspecified
CPT/HCPCS: 36415; 82607; 82728; 82746; 83540; 83550

== ENCOUNTER 2022-01-10 09:45 | Outpatient (CLI) | payer MEDICARE, OTHER, SELFPAY ==
--- NOTE | ~2022-01-10 | CT_ITS ---
EXAMINATION:CT diagnostic chest wo con DATE: 01/10/2022 10:12 INDICATION: Pulmonary nodules. TECHNIQUE: Computed tomography (CT) of the chest was performed without intravenous contrast. Automate d exposure control and iterative reconstruction technique were employed. The dose-length product (DLP ) was 175.27 mGy-cm. COMPARISON: Chest CT 10/24/2018 FINDINGS: There is moderate emphysema. There is mild atelectasis bilaterally. There is a stable 3 mm nodule in left upper lobe. There is a stable 3 mm nodule at left major fissure. No pleural effusion. The heart size is normal. No pericardial effusion. There are changes of cholecystectomy. There is mod erate thoracic spondylosis. There is mild chronic anterior wedging of multiple vertebral bodies. IMPRESSION: 1. Stable small pulmonary nodules, likely benign. 2. Moderate emphysema. Reviewed, dictated and finalized at location A.
== END 2022-01-10 09:46 | disposition home or self-care (01) ==
LOC: ANHIMG 09:45
PROVIDERS: PCP Internal Medicine; Visit Provider Internal Medicine
DX: R91.8 Other nonspecific abnormal finding of lung field (principal); J43.9 Emphysema, unspecified; M47.814 Spondylosis without myelopathy or radiculopathy, thoracic region; M48.50XA Collapsed vertebra, not elsewhere classified, site unspecified, initial encounter for fracture
CPT/HCPCS: 71250

== ENCOUNTER 2022-01-31 10:59 | Outpatient (CLI) | payer MEDICARE, OTHER, SELFPAY ==
[2022-01-31 11:36] LABS: Basophils Percent Auto 0.5 % (0.2-1.2); Eosinophils Absolute Auto 0.1 K/mm3 (0-0.3); Eosinophils Percent Auto 0.8 % (0-4.4); Hematocrit 38.2 % (37.0-47.0); Hemoglobin 11.9 g/dL (12.0-15.0); Immature Granulocyte Absolute 0.03 K/mm3 (0.00-0.031); Immature Granulocyte Percent A 0.4 % (0-0.5); Immature Reticulocyte Fraction 17.3 % (3.0-15.9); Lymphocytes Absolute Auto 1.02 K/mm3 (0.9-3.2); Lymphocytes Percent Auto 13.1 % (18.3-44.2); Mean Corpuscular HGB Conc 31.2 g/dl (32-36); Mean Corpuscular Hemoglobin 27.7 pg (26-34); Mean Platelet Volume 9.6 fl (7.4-10.4); Monocytes Absolute Auto 0.5 K/mm3 (0.1-0.6); Monocytes Percent Auto 5.9 % (2.6-8.5); Neutrophils Absolute Auto 6.2 K/mm3 (1.3-6.7); Neutrophils Percent Auto 79.3 % (45.5-73.1); Platelet Count Result 251 k/mm3 (150-375); Red Blood Count 4.29 M/mm3 (4.2-5.4); Red Cell Distribution Width 18.5 % (11.5-14.5); Reticulocyte Hemoglobin Conten 29.8 pg (28.2-35.7); Reticulocyte Percent 0.99 % (0.7-4.3); Reticulocytes Absolute 0.04 B/L (32.2-175.7); White Blood Count 7.8 K/mm3 (4.5-10.0)
[2022-01-31 11:45] LABS: Alanine Aminotransferase 24 U/L (6-35); Albumin Level 4.3 g/dL (3.5-5.1); Alkaline Phosphatase 98 U/L (38-126); Anion Gap 7 mmol/L (8-16); Aspartate Amino Transferase 27 U/L (14-36); Bilirubin,Total 0.3 mg/dL (0.2-1.3); Blood Urea Nitrogen 11 mg/dL (7-17); Calcium 9.1 mg/dL (8.4-10.2); Carbon Dioxide 28 mmol/L (22-30); Chloride 101 mmol/L (98-107); Estimated Glomerular Filt Rate > 60; Glucose 105 mg/dL (65-110); Lactate Dehydrogenase 243 U/L (120-246); Potassium 4.1 mmol/L (3.4-5.0); Sodium 136 mmol/L (137-145)
== END 2022-01-31 11:00 | disposition home or self-care (01) ==
PROVIDERS: PCP Nurse Practitioner; Visit Provider Internal Medicine Hematology & Oncology
DX: D64.9 Anemia, unspecified (principal)
CPT/HCPCS: 36415; 80053; 83615; 85025; 85046

== ENCOUNTER 2022-02-08 11:12 | Outpatient (CLI) | payer MEDICARE, OTHER, SELFPAY ==
--- NOTE | ~2022-02-08 | XR_ITS ---
EXAMINATION: XR hip RT min 2V DATE: 02/08/2022 11:36 INDICATION: Right hip pain. TECHNIQUE: 2 views of right hip were obtained. COMPARISON: Right hip radiographs 05/30/2020 FINDINGS: Bone alignment is normal. No fracture. There is mild right hip osteoarthritis. IMPRESSION: 1. Mild right hip osteoarthritis. Reviewed, dictated and finalized at location A.
== END 2022-02-08 11:13 | disposition home or self-care (01) ==
PROVIDERS: PCP Nurse Practitioner; Visit Provider Nurse Practitioner
DX: M16.11 Unilateral primary osteoarthritis, right hip (principal)
CPT/HCPCS: 73502

== ENCOUNTER → 2022-03-23 07:22 | Outpatient (CLI) | payer MEDICARE, OTHER, SELFPAY ==
--- NOTE | ~2022-03-23 | MR_ITS ---
EXAMINATION: MR hip RT wo con DATE: 03/23/2022 08:13 INDICATION: Right hip pain TECHNIQUE: Magnetic resonance imaging (MRI) of the right hip was performed without intravenous contr ast. Sequences included full-field axial PD-weighted FS FSE and T1-weighted FSE, coronal of the pelvi s with PD-weighted FS FSE, T2-weighted FSE and T1-weighted FSE, small field of view of the right hip with axial PD-weighted FS FSE, sagittal PD-weighted FS FSE, coronal PD-weighted FS FSE and coronal T2 weighted FSE. Additional radial T1-weighted FGR oriented orthogonal to the acetabular rim were obt ained for evaluation of the labrum. COMPARISON: Pelvis and right hip radiographs dated 03/09/[address] abdomen and pelvis dated 08/22/2020. FINDINGS: Bones/labrum/cartilage: Alignment is normal. There is prominent marrow edema centered around region of cortical irregularity at the anteroinferior right femoral head where there is overlying partial-thickness cartilage loss in volving greater than 50% of the cartilage thickness. No evident fracture lines or double line sign of osteonecrosis. There is additional partial thickness cartilage loss with underlying subchondral stacey a-like signal change at the superolateral rim of the right acetabulum. The anterosuperior to posterio r superior right acetabular labrum is small, partially replaced by marginal osteophytes along the rim of the acetabulum. There is a small tear at the base of the posterosuperior labrum. More irregular d egenerative tear at the anterior labrum. Similar mild to moderate osteoarthritis at the right hip wit h marginal osteophytes replacing portions of the left acetabular labrum on the larger field of view i mages. Severe disc height loss with degenerative endplate changes at L5-S1. Mild disc height loss at L4-L5. Severe lower lumbar facet osteoarthritis. Fluid: Small right hip joint effusion with mild synovitis. Physiologic amount fluid at the left hip. No burs itis or other abnormal fluid collections. Soft tissues: Normal and symmetric muscle bulk and signal in the pelvis and visualized proximal thighs. The iliopso as, gluteal and proximal hamstring tendons are normal. The uterus is not identified and has likely be en surgically resected. Limited evaluation of visceral organs of the pelvis is otherwise unremarkable . No pathologically enlarged pelvic/inguinal lymphadenopathy. IMPRESSION: 1. Moderate right hip osteoarthritis with associated labral degeneration. 2. Region of prominent marrow edema with overlying irregular articular cortex at the anterior right f emoral head likely related to overlying high-grade chondromalacia. Differential would include healing fracture although no fracture line is appreciated and the location would be unusual for either direc t trauma or stress/insufficiency fracture. No MR imaging features to more specifically suggest osteon ecrosis. 3. Severe lumbosacral spondylosis. Reviewed, dictated and finalized at location B. IMPRESSION: 1. Moderate right hip osteoarthritis with associated labral degeneration. 2. Region of prominent marrow edema with overlying irregular articular cortex a t the anterior right femoral head likely related to overlying high-grade chondr omalacia. Differential would include healing fracture although no fracture line is appreciated and the location would be unusual for either direct trauma or s tress/insufficiency fracture. No MR imaging features to more specifically sugge st osteonecrosis. 3. Severe lumbosacral spondylosis.
== END ==
PROVIDERS: PCP Internal Medicine; Visit Provider Nurse Practitioner Family
DX: M16.11 Unilateral primary osteoarthritis, right hip (principal); M47.896 Other spondylosis, lumbar region
CPT/HCPCS: 73721

== ENCOUNTER 2022-04-09 12:48 | Outpatient (CLI) | payer MEDICARE, OTHER, SELFPAY ==
--- NOTE | ~2022-04-09 | XR_ITS ---
EXAMINATION: XR lg joint inject/asp w image DATE: 04/09/2022 13:28 INDICATION: Right hip arthritis. TECHNIQUE: A time-out was performed to verify the patient's name, date of , and procedure to b e performed. The procedure including the risks, benefits, and alternatives was discussed with the pat ient. Risks discussed included bleeding and infection. The patient understood the risks and agreed to proceed. The skin overlying the right hip joint was prepped and draped in usual sterile fashion. A nesthetic was administered with 1% lidocaine subcutaneously. A 22 G needle was advanced under fluoro scopic guidance into the joint. Subsequently, injectate consisting of 2 mL 0.5% lidocaine and 1 mL 8 0 mg/mL Depo-Medrol was instilled. The needle was removed and the entry site was cleaned and dressed . There were no immediate complications. Fluoroscopy exposure time was 0.1 minutes. The total number of images was 1. FINDINGS: Real-time fluoroscopy demonstrates the needle in the right hip joint. Patient's pain prior to procedure:9/10. Patient's pain following the procedure: 0/10. IMPRESSION: 1. Fluoroscopy guided right hip joint injection of local anesthetic and steroid with decrease in the patient's presenting pain. Reviewed, dictated and finalized at location A.
== END 2022-04-09 12:49 | disposition home or self-care (01) ==
LOC: ANHIMG 12:52
PROVIDERS: PCP Internal Medicine; Visit Provider Nurse Practitioner Family
DX: M16.11 Unilateral primary osteoarthritis, right hip (principal)
CPT/HCPCS: 20610; 77002; J1040

== ENCOUNTER 2022-05-25 06:53 | Outpatient (CLI) | payer MEDICARE, OTHER, SELFPAY ==
--- NOTE | ~2022-05-25 | MR_ITS ---
MRI of the lumbar spine Clinical History: Radiculopathy Technique: Axial T2-weighted images, and sagittal T1-weighted, T2-weighted, and T2 fat-sat images wer e acquired. Findings: There is no fracture or subluxation of the lumbar spine. Vertebral bodies maintain normal h eight and alignment. No suspicious bone marrow signal abnormality identified. At L1-L2, there is no disc bulge or herniation. No spinal canal stenosis or neural foraminal narrowin g. At L2-L3, there is no disc bulge or herniation. No spinal canal stenosis or neural foraminal narrowin g. At L3-L4, there is disc bulge and facet arthropathy, which contribute to focally severe thecal sac co mpression. Bilateral neural foramina are preserved. At L4-L5, there is disc bulge with mild facet arthropathy. There is minimal thecal sac compression. B ilateral neural foramina are preserved. At L5-S1, there is disc bulge and facet joint arthropathy. No manisha spinal canal stenosis. There is m ild left right neural foraminal narrowing. Left neural foramen preserved. Paravertebral soft tissues are unremarkable. Impression: Multifactorial severe thecal sac compression at L3-L4. Mild right neural foraminal narrowing at L5-S1. Reviewed, dictated and finalized at location [] HASING ANALYST Impression: Multifactorial severe thecal sac compression at L3-L4. Mild right neural foraminal narrowing at L5-S1.
== END 2022-05-25 06:54 ==
PROVIDERS: PCP Internal Medicine; Visit Provider Nurse Practitioner Family
DX: M54.16 Radiculopathy, lumbar region (principal)
CPT/HCPCS: 72148

== ENCOUNTER 2022-06-12 12:03 | Outpatient (CLI) | payer MEDICARE, OTHER, SELFPAY ==
[2022-06-12 12:57] LABS: Basophils Percent Auto 0.4 % (0.2-1.2); Eosinophils Absolute Auto 0.1 K/mm3 (0-0.3); Eosinophils Percent Auto 0.7 % (0-4.4); Hemoglobin 13.5 g/dL (12.0-15.0); Immature Granulocyte Absolute 0.05 K/mm3 (0.00-0.031); Immature Granulocyte Percent A 0.6 % (0-0.5); Lymphocytes Absolute Auto 1.65 K/mm3 (0.9-3.2); Lymphocytes Percent Auto 18.5 % (18.3-44.2); Mean Corpuscular HGB Conc 32.9 g/dl (32-36); Mean Corpuscular Volume 100.2 fl (80-100); Mean Platelet Volume 9.5 fl (7.4-10.4); Monocytes Absolute Auto 0.7 K/mm3 (0.1-0.6); Monocytes Percent Auto 7.6 % (2.6-8.5); Neutrophils Absolute Auto 6.4 K/mm3 (1.3-6.7); Neutrophils Percent Auto 72.2 % (45.5-73.1); Platelet Count Result 237 k/mm3 (150-375); Red Blood Count 4.09 M/mm3 (4.2-5.4); Red Cell Distribution Width 13.7 % (11.5-14.5); White Blood Count 8.9 K/mm3 (4.5-10.0)
[2022-06-12 19:15] LABS: Iron 258 ug/dL (37-170)
[2022-06-12 19:24] LABS: Percent Iron Saturation 75 % (20-50)
[2022-06-12 20:36] LABS: Folic Acid 5.5 ng/mL (2.76->20)
== END 2022-06-12 12:04 | disposition home or self-care (01) ==
PROVIDERS: PCP Internal Medicine; Visit Provider Internal Medicine Hematology & Oncology
DX: D64.9 Anemia, unspecified (principal)
CPT/HCPCS: 36415; 82607; 82728; 82746; 83540; 83550; 85025

== ENCOUNTER 2022-07-11 12:40 | Outpatient (CLI) | payer MEDICARE, OTHER, SELFPAY ==
--- NOTE | ~2022-07-11 | XR_ITS ---
EXAMINATION: XR lg joint inject/asp w image DATE: 07/11/2022 13:50 INDICATION: Right hip osteoarthritis and pain TECHNIQUE: A time-out was performed to verify the patient's name, date of , and procedure to b e performed. The procedure including the risks, benefits, and alternatives was discussed with the pat ient. Risks discussed included bleeding and infection. The patient understood the risks and agreed to proceed. The skin overlying the right hip joint was prepped and draped in usual sterile fashion. A nesthetic was administered with 1% lidocaine subcutaneously. A 22 G needle was advanced under fluoro scopic guidance into the joint. Injection of a small amount of gas with fluoroscopy along with spont aneous reflux of a small amount of joint fluid confirmed intra-articular position of the needle. Sub sequently, injectate consisting of 3 mL of a 2:1 mixture of 0.5% Marcaine: 80 mg/mL Depo-Medrol for a total dosage of 80 mg Depo-Medrol was instilled. Washout of contrast was seen confirming intra-artic ular administration. The needle was removed and the entry site was cleaned and dressed. There were n o immediate complications. Fluoroscopy exposure time was 0.1 minutes. The total number of images was 2. FINDINGS: Real-time fluoroscopy demonstrates the needle in the right hip joint. Patient's pain prior to procedure:7/10. Patient's pain following the procedure: 0/10. IMPRESSION: 1. Successful right hip joint injection of local anesthetic and steroid with decrease in the patient' s presenting pain. Reviewed, dictated and finalized at location A. IAGE THERAPIST IMPRESSION: 1. Successful right hip joint injection of local anesthetic and steroid with de crease in the patient's presenting pain.
== END 2022-07-11 12:41 | disposition home or self-care (01) ==
PROVIDERS: PCP Internal Medicine; Visit Provider Nurse Practitioner Family
DX: M16.11 Unilateral primary osteoarthritis, right hip (principal)
CPT/HCPCS: 20610; 77002

== ENCOUNTER 2022-08-30 09:49 | Outpatient (CLI) | payer MEDICARE, OTHER, SELFPAY ==
[2022-08-30 10:36] LABS: Cholesterol 147 mg/dL (0-200); HDL Direct 59 mg/dL; Triglycerides 76 mg/dL (<150)
[2022-08-30 10:47] LABS: LDL Cholesterol Direct 50 mg/dL
== END 2022-08-30 09:50 | disposition home or self-care (01) ==
LOC: ANHLAB 09:51
PROVIDERS: PCP Internal Medicine; Visit Provider Internal Medicine
DX: E78.5 Hyperlipidemia, unspecified (principal)
CPT/HCPCS: 36415; 80061

== ENCOUNTER 2022-09-07 10:48 | Outpatient (CLI) | payer MEDICARE, OTHER, SELFPAY ==
--- NOTE | ~2022-09-07 | XR_ITS ---
Lumbosacral Spine: AP and lateral views, with neutral, flexion, extension positioning Clinical History: Spinal stenosis Findings: The normal lordotic curve is maintained. No fracture evident. Minimal grade 1 anterolisthes is of L3 over L4 present, without instability. There is moderate degenerative disc narrowing at L5-S1 . There is facet arthropathy from L3 through S1. The sacroiliac joints are normally outlined. Impression: Minimal grade I interosseous of L3 over L4, without evidence for instability. [id number] degenerative spondylitic changes, as above. Reviewed, dictated and finalized at location M. Impression: Minimal grade I interosseous of L3 over L4, without evidence for instability. [id number] degenerative spondylitic changes, as above.
--- NOTE | ~2022-09-07 | XR_ITS ---
AP and lateral views of the left hip Clinical history: Pain Findings: No acute fracture or dislocation is seen. Osseous alignment is anatomic. The left hip joint and the left SI joint are preserved. Soft tissues are unremarkable. Impression: No significant abnormality is seen. Reviewed, dictated and finalized at [facility]. Impression: No significant abnormality is seen.
== END 2022-09-07 10:49 | disposition home or self-care (01) ==
PROVIDERS: PCP Internal Medicine; Visit Provider Neurological Surgery
DX: M25.552 Pain in left hip (principal); M48.07 Spinal stenosis, lumbosacral region; M47.896 Other spondylosis, lumbar region
CPT/HCPCS: 72110; 73502

== ENCOUNTER 2023-02-15 09:23 | Outpatient (CLI) | payer MEDICARE, OTHER, SELFPAY ==
--- NOTE | ~2023-02-15 | XR_ITS ---
Lumbosacral Spine: AP and lateral views Clinical History: Pain Findings: The normal lordotic curve is maintained. No fracture evident. There is 6 mm anterolisthesis of L3 over L4. There is moderate to advanced facet arthropathy from L3 through S1. There is probable minimal grade 1 anterolisthesis of L5 over S1. The sacroiliac joints are normally outlined. Impression: 6 mm anterolisthesis of L3 over L4. Probable minimal grade 1 anterolisthesis of L5 over S1. Facet arthropathy at the lower lumbar spine, as detailed above. Reviewed, dictated and finalized at location M. Impression: 6 mm anterolisthesis of L3 over L4. Probable minimal grade 1 anterolisthesis of L5 over S1. Facet arthropathy at the lower lumbar spine, as detailed above.
== END 2023-02-15 09:24 | disposition home or self-care (01) ==
PROVIDERS: PCP Nurse Practitioner Family; Visit Provider Neurological Surgery
DX: Z98.890 Other specified postprocedural states (principal)
CPT/HCPCS: 72100

== ENCOUNTER 2023-02-25 14:00 | Outpatient (CLI) | payer MEDICARE, OTHER, SELFPAY ==
--- NOTE | ~2023-02-25 | CT_ITS ---
EXAMINATION:CT lung screening DATE: 02/25/2023 14:33 INDICATION: Personal history of nicotine dependence. Smoker who quit 5 years ago with 40 pack year hi story. TECHNIQUE: Computed tomography (CT) of the chest was performed without intravenous contrast. Automate d exposure control and iterative reconstruction technique were employed. The dose-length product (DLP ) was 120.48 mGy-cm. COMPARISON: Chest CT 01/10/2022 FINDINGS: There is moderate emphysema. There is mild bronchiectasis in the inferior lungs. There are peripheral groundglass opacities in the lower lobes, likely atelectasis. There are a few scattered no dules in the lungs measuring up to 3 mm. No pleural effusion. The heart size is normal. No pericardia l effusion. There is mild aortic atherosclerosis. There are changes of cholecystectomy. There is mild chronic height loss of multiple vertebral bodies. There is moderate thoracic spondylosis. IMPRESSION: 1. Lung-RADS category 2: Benign appearance or behavior. Continue annual screening with noncontrast lo w-dose chest CT in 12 months. Reviewed, dictated and finalized at location E. IMPRESSION: 1. Lung-RADS category 2: Benign appearance or behavior. Continue annual screeni ng with noncontrast low-dose chest CT in 12 months.
== END 2023-02-25 14:01 | disposition home or self-care (01) ==
LOC: ANHIMG 14:03
PROVIDERS: PCP Nurse Practitioner Family; Visit Provider Nurse Practitioner Family
DX: Z12.2 Encounter for screening for malignant neoplasm of respiratory organs (principal); Z87.891 Personal history of nicotine dependence
CPT/HCPCS: 71271

== ENCOUNTER 2023-05-09 13:05 | Outpatient (CLI) | payer MEDICARE, OTHER, SELFPAY ==
--- NOTE | ~2023-05-09 | XR_ITS ---
CORRECTED REPORT exam description [facility] [place] This report was recreated on 05/09/23. Original report was TRICITY TRADING ANALYST EXAMINATION: XR lg joint inject/asp w image DATE: 05/09/2023 13:59 INDICATION: Left hip arthritis. TECHNIQUE: A time-out was performed to verify the patient's name, date of , and procedure to be performed. The procedure including the risks, benefits, and alternatives was discussed with the patient. Risks discussed included bleeding and infection. The patient understood the risks and agreed to proceed. The skin overlying the left hip joint was prepped and draped in usual sterile fashion. Anesthetic was administered with 1% lidocaine subcutaneously. A 22 G needle was advanced under fluoroscopic guidance into the joint. Subsequently, injectate consisting of 2 mL 0.5% bupivacaine and 1 mL 80 mg/mL Depo-Medrol was instilled. The needle was removed and the entry site was cleaned and dressed. There were no immediate complications. Fluoroscopy exposure time was 0.1 minutes. The total number of images was 1. FINDINGS: Real-time fluoroscopy demonstrates the needle in the left hip joint. Patient's pain prior to procedure:02/17. Patient's pain following the procedure: 06/19. IMPRESSION: 1. Fluoroscopy guided left hip joint injection of local anesthetic and steroid with decrease in the patient's presenting pain. Reviewed, dictated and finalized at location A. TRICITY TRADING ANALYST MTDD
== END 2023-05-09 13:06 | disposition home or self-care (01) ==
PROVIDERS: PCP Nurse Practitioner Family; Visit Provider Nurse Practitioner Family
DX: M16.12 Unilateral primary osteoarthritis, left hip (principal)
CPT/HCPCS: 20610; 77002; J1040

== ENCOUNTER 2023-05-29 09:19 | Outpatient (CLI) | payer MEDICARE, OTHER, SELFPAY ==
[2023-05-29 10:13] LABS: Basophils Percent Auto 0.5 % (0.2-1.2); Eosinophils Absolute Auto 0.2 K/mm3 (0-0.3); Eosinophils Percent Auto 3.1 % (0-4.4); Hematocrit 33.4 % (37.0-47.0); Hemoglobin 10.5 g/dL (12.0-15.0); Immature Granulocyte Absolute 0.02 K/mm3 (0.00-0.031); Immature Granulocyte Percent A 0.3 % (0-0.5); Lymphocytes Absolute Auto 1.55 K/mm3 (0.9-3.2); Lymphocytes Percent Auto 24.9 % (18.3-44.2); Mean Corpuscular HGB Conc 31.4 g/dl (32-36); Mean Corpuscular Hemoglobin 27.6 pg (26-34); Mean Corpuscular Volume 87.9 fl (80-100); Mean Platelet Volume 9.7 fl (7.4-10.4); Monocytes Absolute Auto 0.5 K/mm3 (0.1-0.6); Monocytes Percent Auto 8.2 % (2.6-8.5); Neutrophils Absolute Auto 3.9 K/mm3 (1.3-6.7); Platelet Count Result 269 k/mm3 (150-375); Red Cell Distribution Width 14.6 % (11.5-14.5); White Blood Count 6.2 K/mm3 (4.5-10.0)
[2023-05-29 10:33] LABS: Alanine Aminotransferase 22 U/L (6-35); Albumin Level 4.3 g/dL (3.5-5.1); Alkaline Phosphatase 104 U/L (38-126); Anion Gap 9 mmol/L (8-16); Aspartate Amino Transferase 23 U/L (14-36); Bilirubin,Total 0.3 mg/dL (0.2-1.3); Blood Urea Nitrogen 13 mg/dL (7-17); Calcium 9.3 mg/dL (8.4-10.2); Carbon Dioxide 24 mmol/L (22-30); Chloride 104 mmol/L (98-107); Cholesterol 191 mg/dL (0-200); Estimated Glomerular Filt Rate > 60; Glucose 94 mg/dL (65-110); HDL Direct 85 mg/dL; Sodium 137 mmol/L (137-145); Triglycerides 92 mg/dL (<150)
[2023-05-29 10:37] LABS: LDL Cholesterol Direct 75 mg/dL
[2023-05-29 10:48] LABS: Hemoglobin A1C 5.6 % (<5.7)
[2023-05-29 10:49] LABS: Creatinine Urine 133.3 mg/dL
[2023-05-29 10:54] LABS: Potassium 4.7 mmol/L (3.4-5.0)
[2023-05-29 10:55] LABS: MALB Creatinine Ratio < 4.5 mg/g (0-30); Microalbumin Urine Random < 6.0 mg/L (0-16.7)
[2023-05-29 11:03] LABS: Iron 43 ug/dL (37-170)
[2023-05-29 11:13] LABS: Percent Iron Saturation 10 % (20-50)
[2023-05-29 11:21] LABS: Free T4 Free Thyroxine 1.14 ng/mL (0.78-2.19)
== END 2023-05-29 09:20 | disposition home or self-care (01) ==
PROVIDERS: PCP Nurse Practitioner Family; Visit Provider Nurse Practitioner Family
DX: D50.9 Iron deficiency anemia, unspecified (principal); R19.7 Diarrhea, unspecified; F17.210 Nicotine dependence, cigarettes, uncomplicated; I10 Essential (primary) hypertension; J44.9 Chronic obstructive pulmonary disease, unspecified; R53.83 Other fatigue; R73.01 Impaired fasting glucose; R74.8 Abnormal levels of other serum enzymes
CPT/HCPCS: 36415; 80053; 80061; 82043; 83036; 83540; 83550; 84439; 84443; 85025

== ENCOUNTER 2023-06-06 07:53 | Outpatient (CLI) | payer MEDICARE, OTHER, SELFPAY ==
--- NOTE | ~2023-06-06 | MR_ITS ---
EXAMINATION: MR lumbar spine wo con DATE: 06/06/2023 08:44 INDICATION: Lumbar radiculopathy. TECHNIQUE: Magnetic resonance imaging (MRI) of the lumbar spine was performed without intravenous con trast. Sequences included sagittal T2-weighted FSE, sagittal T2-weighted FS FSE, sagittal T1-weighted FSE, and axial T2-weighted FSE. COMPARISON: Lumbar spine MRI 05/25/2022 FINDINGS: There is 3 mm anterolisthesis of L3 on L4. Vertebral body heights are normal. There is mild ly decreased disc height at L2-L3, moderately decreased disc height at L3-L4 and L4-L5, and severely decreased disc height at L5-S1. The distal spinal cord signal intensity is normal. The conus medullar is is at L1-L2. The following disc levels are specifically discussed: L1-L2: There is a left central extrusion. There is mild bilateral facet joint osteoarthritis. There i s no neural foraminal stenosis. There is mild central canal stenosis. L2-L3: The disc is bulging. There is mild bilateral facet joint osteoarthritis. There is mild bilater al neural foraminal stenosis. There is mild central canal stenosis. L3-L4: The disc is bulging and has an annular fissure. There is severe bilateral facet joint osteoart hritis. There is mild bilateral neural foraminal stenosis. There is mild central canal stenosis. Ther e is posterior decompression. L4-L5: The disc is bulging and has an annular fissure. There is severe bilateral facet joint osteoart hritis. There is mild bilateral neural foraminal stenosis. There is mild central canal stenosis. L5-S1: The disc is bulging and has an annular fissure. There is severe bilateral facet joint osteoart hritis. There is mild bilateral neural foraminal stenosis. There is mild central canal stenosis. IMPRESSION: 1. Severe lumbar spondylosis with interval surgical decompression at L3-L4. Reviewed, dictated and finalized at location A. STRIAL HEALTH AND SAFETY PROFESSOR
== END 2023-06-06 07:54 ==
LOC: MICIMG 07:55
PROVIDERS: PCP Nurse Practitioner Family; Visit Provider Nurse Practitioner Family
DX: M47.26 Other spondylosis with radiculopathy, lumbar region (principal)
CPT/HCPCS: 72148

== ENCOUNTER 2023-08-27 08:28 | Outpatient (CLI) | payer MEDICARE, OTHER, SELFPAY ==
--- NOTE | ~2023-08-27 | XR_ITS ---
EXAMINATION: XR lg joint inject/asp w image DATE: 08/27/2023 09:33 INDICATION: Left hip arthritis TECHNIQUE: A time-out was performed to verify the patient's name, date of , and procedure to b e performed. The procedure including the risks, benefits, and alternatives was discussed with the pat ient. Risks discussed included bleeding and infection. The patient understood the risks and agreed to proceed. The skin overlying the left hip joint was prepped and draped in usual sterile fashion. An esthetic was administered with 1% lidocaine subcutaneously. A 22 G needle was advanced under fluoros copic guidance into the joint. Injection of 1 mL of Omnipaque 240 confirmed intra-articular position of the needle. Subsequently, injectate consisting of 3 mL of a 2:1 mixture of 0.5% bupivacaine: 80 mg/mL Depo-Medrol for a total dosage of 80 mg Depo-Medrol was instilled. Washout of contrast was seen confirming intra-articular administration. The needle was removed and the entry site was cleaned and dressed. There were no immediate complications. Fluoroscopy exposure time was 0.1 minutes. The tota l number of images was 2. Total DAP was 0.428 mGycm^2 FINDINGS: Real-time fluoroscopy demonstrates the needle in the left hip joint. Patient's pain prior t o procedure:02/17. Patient's pain following the procedure: 06/19. IMPRESSION: 1. Successful left hip joint injection of local anesthetic and steroid with decrease in the patient's presenting pain. Reviewed, dictated and finalized at location A. IMPRESSION: 1. Successful left hip joint injection of local anesthetic and steroid with dec rease in the patient's presenting pain.
== END 2023-08-27 08:29 | disposition home or self-care (01) ==
PROVIDERS: PCP Nurse Practitioner Family; Visit Provider Nurse Practitioner Family
DX: M16.12 Unilateral primary osteoarthritis, left hip (principal)
CPT/HCPCS: 20610; 77002; J1040; Q9966

== ENCOUNTER 2023-09-16 11:29 | Outpatient (CLI) | payer MEDICARE, OTHER, SELFPAY ==
[2023-09-16 11:49] LABS: Hematocrit 40.4 % (37.0-47.0); Hemoglobin 13.1 g/dL (12.0-15.0); Mean Corpuscular HGB Conc 32.4 g/dl (32-36); Mean Corpuscular Volume 95.7 fl (80-100); Mean Platelet Volume 9.1 fl (7.4-10.4); Platelet Count Result 267 k/mm3 (150-375); Red Blood Count 4.22 M/mm3 (4.2-5.4); White Blood Count 8.3 K/mm3 (4.5-10.0)
[2023-09-16 12:01] LABS: Alanine Aminotransferase 30 U/L (6-35); Albumin Level 4.4 g/dL (3.5-5.1); Alkaline Phosphatase 115 U/L (38-126); Anion Gap 7 mmol/L (4-12); Aspartate Amino Transferase 26 U/L (14-36); Bilirubin,Total 0.3 mg/dL (0.2-1.3); Blood Urea Nitrogen 9 mg/dL (7-17); CRP 0.7 mg/dL (<1.0); Calcium 9.8 mg/dL (8.4-10.2); Carbon Dioxide 24 mmol/L (22-30); Chloride 107 mmol/L (98-107); Estimated Glomerular Filt Rate > 60; Glucose 106 mg/dL (65-110); Potassium 4.5 mmol/L (3.4-5.0); Sodium 138 mmol/L (137-145)
[2023-09-16 13:10] LABS: Erythrocyte Sedimentation Rate 25 mm/hr (0-20)
== END 2023-09-16 11:30 | disposition home or self-care (01) ==
LOC: ANHLAB 11:32
PROVIDERS: PCP Nurse Practitioner Family; Visit Provider Nurse Practitioner Family
DX: F17.210 Nicotine dependence, cigarettes, uncomplicated (principal); R19.7 Diarrhea, unspecified; K51.90 Ulcerative colitis, unspecified, without complications
CPT/HCPCS: 36415; 80053; 85027; 85652; 86140

== ENCOUNTER 2023-09-19 11:20 | Outpatient (CLI) | payer MEDICARE, OTHER, SELFPAY ==
[2023-09-19 12:41] LABS: Toxigenic C. Diff NEGATIVE (NEGATIVE)
[2023-10-16 18:03] LABS: Calprotectin, Stool 92 mcg/g
== END 2023-09-19 11:21 | disposition home or self-care (01) ==
LOC: ANHLAB 11:21
PROVIDERS: PCP Nurse Practitioner Family; Visit Provider Nurse Practitioner Family
DX: R19.7 Diarrhea, unspecified (principal); K51.90 Ulcerative colitis, unspecified, without complications
CPT/HCPCS: 83993; 87045; 87177; 87209; 87427; 87449; 87493

== ENCOUNTER 2024-03-02 10:32 | Outpatient (CLI) | payer MEDICARE, OTHER, SELFPAY ==
--- NOTE | ~2024-03-02 | CT_ITS ---
CT Scan of the Chest without Contrast: Clinical Indication: Lung cancer screening, nicotine dependence Technique: Contiguous sections were acquired throughout the chest without intravenous contrast. Dose reduction technique was used on this scan by utilizing automated exposure control and iterative recon struction technique. The dose-length product (DLP) was 96.22 mGy-cm. COMPARISON: 02/25/2023 Findings: There is no evidence of any significant mediastinal, hilar or axillary lymphadenopathy. The mediastin al soft tissues appear normal. There is no evidence of pleural or pericardial effusion. There is moderate emphysema with associated areas of interstitial change. No pulmonary nodule evident . Images through the upper abdomen reveal no abnormalities. Impression: Lung RADS 2: Benign appearance. 12 month follow-up screening CT advised. Reviewed, dictated and finalized at location . Impression: Lung RADS 2: Benign appearance. 12 month follow-up screening CT advised.
[2024-03-02 12:22] LABS: Iron 135 ug/dL (37-170)
[2024-03-02 12:32] LABS: Percent Iron Saturation 37 % (20-50)
[2024-03-02 12:35] LABS: Hemoglobin A1C 5.3 % (<5.7)
== END 2024-03-02 10:33 | disposition home or self-care (01) ==
PROVIDERS: PCP Nurse Practitioner Family; Visit Provider Nurse Practitioner Family
DX: Z12.2 Encounter for screening for malignant neoplasm of respiratory organs (principal); D64.9 Anemia, unspecified; D50.8 Other iron deficiency anemias; R73.01 Impaired fasting glucose; Z87.891 Personal history of nicotine dependence
CPT/HCPCS: 36415; 71271; 82728; 83036; 83540; 83550

== ENCOUNTER 2024-05-04 09:07 | Outpatient (CLI) | payer MEDICARE, OTHER, SELFPAY ==
--- NOTE | ~2024-05-04 | XR_ITS ---
3 VIEWS LUMBAR SPINE Ordering provider: Rosa Maria Lizarraga, FOOTWEAR SALES COORDINATOR History: . No injury lbp at L4-L5 for 2 weeks pain down left leg . Comparison: None. FINDINGS: VERTEBRAL BODIES:Postoperative changes at the level of L3-4. No visible fracture or subluxation. DISK SPACES: Severe narrowing of the disc L5-S1. Moderate narrowing of the disc L3-L4 and L4-L5. SOFT TISSUES: Atherosclerotic changes of the little toe. IMPRESSION: No acute osseous abnormality lumbar spine. Multilevel degenerative disc disease. Reviewed, dictated and finalized at location A. ANALYSIS OPERATOR
== END 2024-05-04 09:08 | disposition home or self-care (01) ==
PROVIDERS: PCP Nurse Practitioner Family; Visit Provider Nurse Practitioner Family
DX: M47.816 Spondylosis without myelopathy or radiculopathy, lumbar region (principal)
CPT/HCPCS: 72110

== ENCOUNTER 2024-05-26 12:46 | Outpatient (CLI) | payer MEDICARE, OTHER, SELFPAY ==
[2024-05-26 13:38] LABS: Hematocrit 33.1 % (37.0-47.0); Mean Corpuscular HGB Conc 33.2 g/dl (32-36); Mean Corpuscular Hemoglobin 31.6 pg (26-34); Mean Corpuscular Volume 95.1 fl (80-100); Mean Platelet Volume 9.2 fl (7.4-10.4); Platelet Count Result 280 k/mm3 (150-375); Red Blood Count 3.48 M/mm3 (4.2-5.4); Red Cell Distribution Width 13.8 % (11.5-14.5); White Blood Count 9.3 K/mm3 (4.5-10.0)
[2024-05-26 14:07] LABS: Alanine Aminotransferase 18 U/L (6-35); Alkaline Phosphatase 111 U/L (38-126); Anion Gap 4 mmol/L (4-12); Aspartate Amino Transferase 23 U/L (14-36); Bilirubin,Total 0.2 mg/dL (0.2-1.3); Blood Urea Nitrogen 11 mg/dL (7-17); CRP 0.7 mg/dL (<1.0); Calcium 9.3 mg/dL (8.4-10.2); Carbon Dioxide 24 mmol/L (22-30); Chloride 108 mmol/L (98-107); Estimated Glomerular Filt Rate > 60; Glucose 98 mg/dL (65-110); Potassium 4.2 mmol/L (3.4-5.0); Sodium 136 mmol/L (137-145)
[2024-05-26 15:34] LABS: Erythrocyte Sedimentation Rate 27 mm/hr (0-20)
== END 2024-05-26 12:47 | disposition home or self-care (01) ==
LOC: ANHLAB 12:48
PROVIDERS: PCP Nurse Practitioner Family; Visit Provider Nurse Practitioner Family
DX: K51.90 Ulcerative colitis, unspecified, without complications (principal); K21.9 Gastro-esophageal reflux disease without esophagitis
CPT/HCPCS: 36415; 80053; 85027; 85652; 86140

== ENCOUNTER 2024-07-01 10:05 | Outpatient (CLI) | payer MEDICARE, OTHER, SELFPAY ==
--- OUTSIDE RECORDS SUMMARY | 2024-07-02 23:02 | XMS_ITS | Referral Summary ---
Author Organization [facility] [employer] Address [address] [place] [address] Care Team Providers Care Senior Vice President And Chief Information Officer Name Role Phone Ruben Felix MD Primary Care Provider Source Comments [facility],non-[facility] Affiliates and Associated Physician Practices is amultiple site organization consisting of ambulatory clinics and hospital sitesin [place], [place], [place] and [place]. This disclosure is being madepursuant to the Care Everywhere program and may not contain all information available regarding this patient. Last updated 18.[facility] Allergies Active Allergy Reactions Criticality Noted Date Comments Codeine Unknown 09/11/2018 Medications * Be aware that medications may not be up to date on this document. Alwaysverify current medications with the patient. Medication Sig Dispensed Refills Start Date End Date Status losartan (COZAAR) 100 MG tablet TK 1 T PO QD 12/22/2019 Active omeprazole (PRILOSEC) 40 MG capsule 10/16/2018 Active aspirin EC (ECOTRIN) 81 MG tablet Take 81 mg by mouth once daily Active pramipexole (MIRAPEX) 0.5 MG tablet Take 0.5 mg by mouth once daily Active metoprolol tartrate (LOPRESSOR) 25 MG tablet 25 mg 08/13/2018 Active Albuterol Sulfate 108 (90 Base) MCG/ACT Inhale 180 mcg by mouth Active amitriptyline (ELAVIL) 50 MG tablet Take 50 mg by mouth at bedtime Active Active Problems Problem Noted Date Diagnosed Date Median arcuate ligament syndrome Social History Tobacco Use Types Packs/Day Years Used Date Smoking Tobacco: Never Smokeless Tobacco: Never Alcohol Use Standard Drinks/Week Comments Not Currently 0 (1 standard drink = 0.6 oz pur e alcohol) AUDIT-C Answer Date Recorded Q1: How often do you have a drink containing alc ohol? Never 01/07/2020 Average Number of Drinks Not on file 020 Frequency of Binge Drinking Not on file 12/10 Sex and Gender Information Value Date Recorded Sex Assigned at Not on file Gender Identity Not on file Sexual Orientation Not on file Last Filed Vital Signs Vital Sign Reading Time Taken Comments Blood Pressure 157/98 03/03/2020 9:14 AM CDT Pulse 77 03/03/2020 9:14 AM CDT Temperature 36.7 ??C (98 ??F) 03/03/2020 9:14 AM CDT Respiratory Rate 16 03/03/2020 9:14 AM CDT Oxygen Saturation 97% 03/03/2020 9:14 AM CDT Inhaled Oxygen Concentration - - Weight 93.4 kg (205 lb 12.8 oz) 03/03/2020 9:14 AM CDT Height 165.1 cm (5' 5 ) 03/03/2020 9:14 AM CDT Body Mass Index 34.25 03/03/2020 9:14 AM CDT Plan of Treatment Not on file Procedures Procedure Name Priority Date/Time Associated Diagnosis Comments BASIC METABOLIC PANEL (CALCIUM TOTAL) STAT 01/19/2020 9:17 AM CDT Preprocedural examination from Last 3 Months or Most Recently Relevant to Health Maintenance Results * (ABNORMAL) BASIC METABOLIC PANEL (CALCIUM TOTAL) (01/19/2020 9:17 AM CDT) BUN 10 7 - 26 mg/dL 01/19/2020 9:58 AM CDT [facility] Creatinine 0.9 0.6 - 1.2 mg/dL 01/19/2020 9:58 AM CDT [facility] Sodium 142 136 - 145 mmol/L 01/19/2020 9:58 AM CDT [facility] Potassium 3.8 3.5 - 4.5 mmol/L 01/19/2020 9:58 AM CDT [facility] Chloride 111(H) 98 - 107 mmol/L 01/19/2020 9:58 AM [facility] CO2 24 22 - 29 mmol/L 01/19/2020 9:58 AM [facility] Glucose 82 70 - 115 mg/dL 01/19/2020 9:58 AM [facility] Calcium 8.8 8.4 - 10.2 mg/dL 01/19/2020 9:58 AM [facility] Anion Gap 11 8 - 18 01/19/2020 9:58 AM [facility] BUN/Creatinine Ratio 11 7 - 23 01/19/2020 9:58 AM [facility] Osmolality Calculated 292 270 - 300 mOsm/kg 01/19/2020 9:58 AM [facility] eGFR >60 >60 mL/min/1.7 3 m2 01/19/2020 9:58 AM [facility] Blood BLOOD SPECIMEN / Unknown Venipuncture / Unknown 01/19/2020 9:17 AM T 01/19/2020 9:25 AM [facility] Ronnie Saldana MD LAB - CHEMISTRY [place] [facility] Organization Address City/State/ZIP Co de Phone Number [address] [address] [phone] from Last 3 Months or Most Recently Relevant to Health Maintenance Care Teams Senior Vice President And Chief Information Officer Relationship Specialty Start Date End Date Ruben Felix MD [address] [place] [address] PCP - General 01/02/20
--- OUTSIDE RECORDS SUMMARY | 2024-07-02 23:02 | XMS_ITS | Patient Health Summary ---
Author Organization [facility] [employer] Address [address] [place] [address] Care Team Providers Care Inclusion Special Educator Name Role Phone Ruben Felix MD Primary Care Provider [phone] Note from Formerly named [facility],non-owned Affiliates and Associated Physician Practices is amultiple site organization consisting of ambulatory clinics and hospital sitesin [place], [place], [place] and [place]. This disclosure is being madepursuant to the Care Everywhere program and may not contain all information available regarding this patient. Last updated 18.[facility] Allergies * Codeine(Unknown) Medications * Be aware that medications may not be up to date on this document. Alwaysverify current medications with the patient. * losartan (COZAAR) 100 MG tablet(Started 12/22/2019) TK 1 T PO QD * omeprazole (PRILOSEC) 40 MG capsule(Started 10/16/2018) * aspirin EC (ECOTRIN) 81 MG tablet Take 81 mg by mouth once daily * pramipexole (MIRAPEX) 0.5 MG tablet Take 0.5 mg by mouth once daily * metoprolol tartrate (LOPRESSOR) 25 MG tablet(Started 08/13/2018) 25 mg * Albuterol Sulfate 108 (90 Base) MCG/ACT Inhale 180 mcg by mouth * amitriptyline (ELAVIL) 50 MG tablet Take 50 mg by mouth at bedtime Active Problems Problem Noted Date Diagnosed Date [...] Mass Index 34.25 03/03/2020 9:14 AM CDT Procedures * IR VISCERAL ANGIO(Performed 01/19/2020) Performed for Median arcuate ligament syndrome (HCC) * OXYGEN(Performed 01/19/2020) * PT-INR [facility](Performed 01/19/2020) Performed for Abnormal coagulation profile , Preprocedural examination * BASIC METABOLIC PANEL (CALCIUM TOTAL)(Performed 01/19/2020) Performed for Preprocedural examination * CBC W/O DIFFERENTIAL(Performed 01/19/2020) Performed for Preprocedural examination Results * IR VISCERAL ANGIO (01/19/2020 11:23 AM CDT) Anatomical Region Laterality Modality Abdomen X-Ray Angiograph y 01/20/2020 6:26 AM CDT Narrative 01/20/2020 8:05 AM CDT PRE-PROCEDURE DIAGNOSIS: Concern for median arcuate ligament syndrome POST-PROCEDURE DIAGNOSIS: Abdominal pain PROCEDURE: 1. Ultrasound-guided access of the left femoral artery 2. Aortoiliofemoral angiogram 3. Visceral angiogram ATTENDING: Ronnie Devries MD DIESEL TRACTOR OPERATOR: Vladislav Rhodes MD ANESTHESIA: Moderate sedation INDICATIONS FOR PROCEDURE: The patient is a pleasant 64-year-old female with past history of chronic abdominal pain of unknown origin. She presented with extensive GI workup unable to find an etiology now with concerns for celiac artery compression on imaging. She presents for angiography of her mesenteric vasculature as well as provocative testing for median arcuate ligament syndrome. Risk benefits and alternatives of procedure were discussed with the patient for which she understood and desire to proceed. PROCEDURE IN DETAIL: The patient was brought into the angiography suite and transferred to the angiography table in supine position. Preinduction and incision safety checklists were used to verify the correct patient procedure and other critical information prior to beginning the case. She was prepped and draped in standard fashion. The left common femoral artery was identified with ultrasound guidance and subsequently the skin and subcutaneous tissue overlying the vessel was anesthetized with 1 percent lidocaine. A micropuncture kit was used to access the common femoral artery and spot fluoroscopy determined appropriate anatomic location. The microcatheter was then advanced and a hand-held injection run demonstrated widely patent femoral system. The microcatheter was then exchanged for a short diagnostic length 5 Cameroonian sheath. The guidewire and omniflush catheter were advanced to the level of L1 and an aortoiliofemoral angiogram was obtained. Angiography demonstrated widely patent abdominal aorta and iliac arteries bilaterally. The flush catheter was then advanced above the celiac artery and other images obtained. The celiac and SMA arteries were both noted to be widely patent along with both renals and inferior mesenteric artery. At this point the Omni Flush catheter was exchanged for a SOS catheter and the superior mesentery artery was cannulated. After selection of the SMA serial rounds of 3 mg of papaverine were injected into the SMA at no point which were the patient's symptoms able to be reproduced. At this point the wires and catheters were then withdrawn and a minx closure device was brought to the field and was deployed through the sheath according to director of institutional research's specifications. Additional pressure was held for 5 minutes. Patient tolerated the procedure well and was taken to postprocedural holding in stable condition. COMPLICATIONS: None apparent FLUOROSCOPY TIME: 8.6 minutes CONTRAST: 66 mL of Isovue-300 SEDATION: 1 mg of Versed, 50 mcg fentanyl ANGIOGRAPHIC FINDINGS: Pre-intervention: 1. Aortoiliofemoral arteries without stenosis 2. Mesenteric arteries without significant stenosis Post-intervention: Same IDr. RONNIE M.D. have personally reviewed and interpreted this examination/study. This report was electronically signed by RONNIE DEVRIES M.D. ??on 01/20/2020 8:05 AM . Procedure Note Ronnie Devries MD - 01/20/2020 PRE-PROCEDURE DIAGNOSIS: Concern for median arcuate ligament syndrome POST-PROCEDURE DIAGNOSIS: Abdominal pain PROCEDURE: 1. Ultrasound-guided access of the left femoral artery 2. Aortoiliofemoral angiogram 3. Visceral angiogram ATTENDING: Ronnie Devries MD DIESEL TRACTOR OPERATOR: Vladislav Rhodes MD ANESTHESIA: Moderate sedation INDICATIONS FOR PROCEDURE: The patient is a pleasant 64-year-old female with past history of chronic abdominal pain of unknown origin. She presented with extensive GI workup unable to find an etiology now with concerns for celiac artery compression on imaging. She presents for angiography of her mesenteric vasculature as well as provocative testing for median arcuate ligament syndrome. Risk benefits and alternatives of procedure were discussed with the patient for which she understood and desire to proceed. PROCEDURE IN DETAIL: The patient was brought into the angiography suite and transferred to the angiography table in supine position.Preinduction and incision safety checklists were used to verify the correct patient procedure and other critical information prior to beginning the case.She was prepped and draped in standard fashion. The left common femoralartery was identified with ultrasound guidance and subsequently the skin and subcutaneous tissue overlying the vessel was anesthetized with 1 percent lidocaine. A micropuncture kit was used to access the common femoral artery and spot fluoroscopy determined appropriate anatomic location.The microcatheter was then advanced and a hand-held injection rundemonstrated widely patent femoral system. The microcatheter was then exchanged for a short diagnostic length 5 Cameroonian sheath. The guidewire and omniflush catheter were advanced to the level of L1 and an aortoiliofemoral angiogram was obtained. Angiography demonstrated widely patent abdominal aorta and iliac arteries bilaterally. The flush catheter was thenadvanced above the celiac artery and other images obtained. The celiac and SMA arteries were both noted to be widely patent along with both renals and inferior mesenteric artery. At this point the Omni Flush catheter was exchanged for a SOS catheter and the superior mesentery artery was cannulated. After selection of the SMA serial rounds of 3 mg ofpapaverine were injected into the SMA at no point which were the patient's symptoms able to be reproduced. At this point the wires and catheters were then withdrawn and a minx closure device was brought to the field and was deployed through the sheath according to director of institutional research's specifications. Additional pressure was held for 5 minutes. Patient tolerated the procedure well and was taken to postprocedural holding in stable condition. COMPLICATIONS: None apparent FLUOROSCOPY TIME: 8.6 minutes CONTRAST: 66 mL of Isovue-300 SEDATION: 1 mg of Versed, 50 mcg fentanyl ANGIOGRAPHIC FINDINGS: Pre-intervention: 1. Aortoiliofemoral arteries without stenosis 2. Mesenteric arteries without significant stenosis Post-intervention: Same I, Dr. RONNIE DEVRIES M.D. have personally reviewed and interpreted this examination/study. This report was electronically signed by RONNIE DEVRIES M.D. on01/20/2020 8:05 AM . Ronnie Devries MD IR ORDERABLES * PT-INR [facility] (01/19/2020 9:17 AM CDT) PT 13.4 12.1 - 14.8 Seconds 01/19/2020 10:02 AM CDT [facility] INR 1.1 See Comment 01/19/2020 10:02 AM CDT [facility] Comment:The suggested therap eutic range for standard coumadin (warfarin) therapy is an INR of 2.0-3.0. For high-risk patients (Mechanical Mitral Valve Prosthesis, etc.), the suggested prophylactic therapeutic range is an INR of 2.5-3.5. Blood BLOOD SPECIMEN / Unknown Venipuncture / Unknown 01/19/2020 9:17 AM CDT 01/19/2020 9:24 AM CDT Ronnie Devries MD LAB - COAGULATION OR DERABLES [address] [address], [facility] [phone] * CBC W/O DIFFERENTIAL (01/19/2020 9:17 AM CDT) WBC 5.5 3.5 - 10.5 10? 3 /uL 01/19/2020 9:34 AM [facility] RBC 4.10 3.90 - 5.00 10? 6 /uL 01/19/2020 9:34 AM [facility] Hemoglobin 12.1 12.0 - 15.5 g/dL 01/19/2020 9:34 AM [facility] Hematocrit 36.5 35.0 - 45.0 % 01/19/2020 9:34 AM [facility] MCV 89.0 81.0 - 97.0 fL 01/19/2020 9:34 AM [facility] MCH 29.5 28.0 - 34.0 pg 01/19/2020 9:34 AM [facility] MCHC 33.2 32.0 - 36.0 g/dL 01/19/2020 9:34 AM [facility] Platelet Count 218 150 - 400 10? 3 /uL 01/19/2020 9:34 AM [facility] RDW-SD 46.7 36.0 - 50.0 fL 01/19/2020 9:34 AM [facility] RDW-CV 14.3 11.2 - 14.8 % 01/19/2020 9:34 AM [facility] MPV 10.2 9.3 - 12.8 fL 01/19/2020 9:34 AM [facility] nRBC Absolute 0.00 0 10? 3 /uL 01/19/2020 9:34 AM [facility] nRBC Auto 0.0 0 /100 WBC 01/19/2020 9:34 AM [facility] Blood BLOOD SPECIMEN / Unknown Venipuncture / Unknown 01/19/2020 9:17 AM CDT 01/19/2020 9:25 AM CDT Ronnie Devries MD LAB - HEMATOLOGY ORD ERABLES [address] [address], [facility] [phone] * (ABNORMAL) BASIC METABOLIC PANEL (CALCIUM TOTAL) (01/19/2020 9:17 AM CDT) BUN 10 7 - 26 mg/dL 01/19/2020 9:58 AM [facility] Creatinine 0.9 0.6 - 1.2 mg/dL 01/19/2020 9:58 AM [facility] Sodium 142 136 - 145 mmol/L 01/19/2020 9:58 AM [facility] Potassium 3.8 3.5 - 4.5 mmol/L 01/19/2020 9:58 AM [facility] Chloride 111(H) 98 - 107 mmol/L 01/19/2020 9:58 AM [facility] CO2 24 22 - 29 mmol/L 01/19/2020 9:58 AM [facility] Glucose 82 70 - 115 mg/dL 01/19/2020 9:58 AM [facility] Calcium 8.8 8.4 - 10.2 mg/dL 01/19/2020 9:58 AM [facility] Anion Gap 11 8 - 18 01/19/2020 9:58 AM [facility] BUN/Creatinine Ratio 11 7 - 23 01/19/2020 9:58 AM [facility] Osmolality Calculated 292 270 - 300 mOsm/kg 01/19/2020 9:58 AM [facility] eGFR >60 >60 mL/min/1.7 3 m2 01/19/2020 9:58 AM [facility] Blood BLOOD SPECIMEN / Unknown Venipuncture / Unknown 01/19/2020 9:17 AM CDT 01/19/2020 9:25 AM T Ronnie Devries MD LAB - CHEMISTRY [place]UC[place] POND [facility] Organization Address City/State/ZIP Co de Phone Number [facility] [address] [place] [id number] [phone] Care Teams Inclusion Special Educator Relationship Specialty Start Date End Date Ruben Felix MD [address] [place] [address] PCP - General 01/02/20
--- OUTSIDE RECORDS SUMMARY | 2024-07-02 23:02 | XMS_ITS | Clinical Summary ---
Author Organization [facility] [employer] Address [address] [place] [address] Care Team Providers Care Pellet Mill Operator Name Role Phone Ruben Felix MD Primary Care Provider [phone] Source Comments [facility] Affiliates and Associated Physician Practices is amultiple site organization consisting of ambulatory clinics and hospital sitesin [place], [place], [place] and [place]. This disclosure is being madepursuant to the Care Everywhere program and may not contain all information available regarding this patient. Last updated 18.[facility] [address] [employer] Allergies Active Allergy Reactions Criticality Noted Date [...] 03/03/2020 9:14 AM CDT Plan of Treatment Health Maintenance Due Date Last Done Comments BONE DENSITY TESTING 1954 COLOGUARD (AGES 45-75) - COLON CA SCREENING 1954 COLON MONITORING 1954 COLONOSCOPY - COLON CA SCREENING 1954 CT COLONOGRAPHY - COLON CA SCREENING 1954 Colorectal Cancer Screening 1954 FIT - COLON CA SCREENING 1954 FLEX SIG - COLON CA SCREENING 1954 LIPID TESTING 1954 MAMMOGRAM 1954 MEDICARE AWV ? 12 MONTHS 1954 HEPATITIS C SCREENING 09/27/1972 DTAP/TDAP/TD VACCINES (1 - Tdap) 1973 PNEUMOCOCCAL VACCINE 50+ (1 of 1 - PCV) 2004 ZOSTER VACCINE (1 of 2) 2004 SCREENING FOR DIABETES 01/18/2023 01/19/2020 COVID-19 VACCINE (1 - 2023- season) 2024 INFLUENZA VACCINE (#1) 2024 0, 02/27/2019, 03/07/2018, Additional history exists DEPRESSION SCREENING 06/10/2024 Respiratory Syncytial Virus (RSV) Vaccine Pt: or over 60 yrs (1 - 1-dose 75+ series) 2029 HEPATITIS B VACCINE Aged Out No longe r eligible based on patient's age to complete this topic HIB VACCINE Aged Out No longer eligi ble based on patient's age to complete this topic HPV VACCINE Aged Out No longer eligi ble based on patient's age to complete this topic MENINGOCOCCAL (Group B) VACCINE Aged Out No longer eligible based on patient's age to complete this topic MENINGOCOCCAL VACCINE Aged Out No blayne omega eligible based on patient's age to complete this topic Procedures Procedure Name Priority Date/Time Associated Diagnosis Comments BASIC METABOLIC PANEL (CALCIUM TOTAL) STAT 01/19/2020 9:17 AM CDT Preprocedural examination from Last 3 Months or Most Recently Relevant to Health Maintenance Results * (ABNORMAL) BASIC METABOLIC PANEL (CALCIUM TOTAL) (01/19/2020 9:17 AM CDT) BUN 10 7 - 26 mg/dL 01/19/2020 9:58 AM [facility] Creatinine 0.9 0.6 - 1.2 mg/dL 01/19/2020 9:58 AM [facility] Sodium 142 136 - 145 mmol/L 01/19/2020 9:58 AM [facility] Potassium 3.8 3.5 - 4.5 mmol/L 01/19/2020 9:58 AM [facility] Chloride 111(H) 98 - 107 mmol/L 01/19/2020 9:58 AM [facility] CO2 24 22 - 29 mmol/L 01/19/2020 9:58 AM [facility] Glucose 82 70 - 115 mg/dL 01/19/2020 9:58 AM [facility] Calcium 8.8 8.4 - 10.2 mg/dL 01/19/2020 9:58 AM [facility] Anion Gap 11 8 - 18 01/19/2020 9:58 AM CDT [facility] BUN/Creatinine Ratio 11 7 - 23 01/19/2020 9:58 AM CDT [facility] Osmolality Calculated 292 270 - 300 mOsm/kg 01/19/2020 9:58 AM CDT [facility] eGFR >60 >60 mL/min/1.7 3 m2 01/19/2020 9:58 AM CDT [facility] Blood BLOOD SPECIMEN / Unknown Venipuncture / Unknown 01/19/2020 9:17 AM CDT 01/19/2020 9:25 AM CDT Ronnie Saldana MD LAB - CHEMISTRY [place] [facility] [address] [place] [id number] [phone] from Last 3 Months or Most Recently Relevant to Health Maintenance Care Teams Pellet Mill Operator Relationship Specialty Start Date End Date Ruben Felix MD [address] [place] [address] PCP - General 01/02/20
--- OUTSIDE RECORDS SUMMARY | 2024-07-02 23:03 | XMS_ITS | Encounter Summary ---
Author Organization [facility] Address [address] [place] [address]. [place] [address] [place] [address] Care Team Providers Care Correspondence Analyst Name Role Phone Ruben Felix MD Primary Care Provider [phone] Les Das MD Unavailable [phone] Rizwan Martinez NP Unavailable Lou Brooks AUTO SLIP COVER INSTALLER Unavailable [phone] Shanice Askew NP Primary Care Provider [phone] Encounter Details Date Type Department Care Team (Late st Contact Info) Description 03/07/2022 Abstract [facility] [id number] Yolanda Ambriz MA Social History Tobacco Use Types Packs/Day Years Used Date Smoking Tobacco: Former Electronic Cigarettes Quit: 2018 Smokeless Tobacco: Never Comments:quit cigs 2017-quit vapes jun 2020 Alcohol Use Standard Drinks/Week Comments Yes 0 (1 standard drink = 0.6 oz pur e alcohol) very rarely AUDIT-C Answer Date Recorded Q1: How often do you have a drink containing alc ohol? 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 No / Unsure 03/05/2022 3:19 PM CDT documented as of this encounter Functional Status * RETIRED Are you deaf or do you have serious difficulty hearing Answer Date of Assessment Author Status No 09/29/2020 6:41 PM CDT Activ e * RETIRED Are you blind or do you have serious difficulty seeing, even when wearing glasses? Answer Date of Assessment Author Status No 09/29/2020 6:41 PM CDT Activ e * Do you have serious difficulty walking or climbing stairs? Answer Date of Assessment Author Status No 09/29/2020 6:41 PM CDT Moe Crawford RN Active * Do you have difficulty dressing or bathing? Answer Date of Assessment Author Status No 09/29/2020 6:41 PM CDT Moe Crawford RN Active * Because of a physical, mental, or emotional condition, do you have difficulty doing errands alone such as visiting a doctor's office or shopping? Answer Date of Assessment Author Status No 09/29/2020 6:41 PM CDT Moe Crawford RN Active documented as of this encounter Mental Status * Because of a physical, mental, or emotional condition, do you have serious difficulty concentrating, remembering, or making decisions? Answer Entry Date Author Status No 09/29/2020 6:41 PM CDT Moe Crawford RN Active documented in this encounter Plan of Treatment Upcoming Encounters Date Type Department Care Team (Late st Contact Info) Description 08/03/2024 4:50 PM MAINTENANCE SUPERVISOR Allied Health/Nurse Visit [facility] [address] [place], [place] [phone] Les Das MD [facility] [address] [place], [place] [id number] 11/04/2024 10:00 AM CDT Office Visit [facility] [address] [place] [address] Les Das MD Three [facility] [address] [place] [address] documented as of this encounter Goals Goal Patient Goal Type Associated Problems Recent Progress Patient-Stated? Author Health - patient able to perform ADLs independently General Magno Gonzalez RN documented as of this encounter Procedures Procedure Name Priority Date/Time Associated Diagnosis Comments COMPREHENSIVE METABOLIC PANEL Routine 09/16/2023 CBC, MANUAL DIFF Routine 09/16/2023 CBC (OUTSIDE LAB) Routine 01/31/2022 IRON BINDING TEST Routine 01/31/2022 IRON Routine 12/12/2021 FERRITIN Routine 12/12/2021 documented in this encounter Results * COMPREHENSIVE METABOLIC PANEL (09/16/2023) Pathologist [facility] SODIUM S/P/B 138 GLUCOSE 106 mg/dL AST 26 BUN 9 CREATININE S/P/B 0.80 0.5 - 1.0 CALCIUM S/P/B 9.8 POTASSIUM S/P/B 4.5 CHLORIDE S/P/B 107 ALT 30 GFR ESTIMATE >60 us Default History Genericprovider LABORATORY Edited Result - Final * CBC, MANUAL DIFF (09/16/2023) Pathologist [facility] WBC 8.3 HGB 13.1 HCT 40.4 PLT 267 us Default History Genericprovider LABORATORY Edited Result - Final * IRON BINDING TEST (01/31/2022) Pathologist [facility] IRON BINDING CAPACITY 406 01/31/2022 us Doc [facility] Abstract LABORATORY Final Result * CBC (OUTSIDE LAB) (01/31/2022) Pathologist [facility] WBC 7.8 HGB 11.9 HCT 38.2 PLT 251 01/31/2022 us Doc [facility] Abstract LAB-OUTSIDE/ABSTRACTED Final Result * FERRITIN (12/12/2021) Pathologist [facility] FERRITIN 10.20 12/12/2021 us Doc [facility] LABORATORY Final Result * IRON (12/12/2021) IRON 26 12/12/2021 us Doc [facility] LABORATORY Final Result documented in this encounter Visit Diagnoses Not on filedocumented in this encounter Care Teams Correspondence Analyst Relationship Specialty Start Date End Date Ruben Felix MD [address] [facility] [address] [place] [address] PCP - General INTERNAL MEDICINE 03/22/20 10/09/22 Shanice Askew NP [address] [place] [address] PCP - General Nurse Practitioner [facility] 05/11/24 Les Das MD Three [facility], [address] [place] [address] Physician CARDIOVASCULAR DISEASE 09/21/22 Rizwan Martinez NP [address] [place] [id number] PULMONARY DISEASE 05/11/24 Lou Brooks NP [address] [facility] [address] [place] [address] GASTROENTEROLOGY 05/11/24 documented as of this encounter
--- OUTSIDE RECORDS SUMMARY | 2024-07-02 23:03 | XMS_ITS | Clinical Summary ---
Author Organization [facility] Address [address] [place] [address]. [place] [address] [place] [address] Care Team Providers Care Construction Helper Name Role Phone Les Das MD Unavailable [phone] Rizwan Martinez NP Unavailable Lou Brooks NP Unavailable [phone] Shanice Askew NP Primary Care Provider [phone] Allergies No known active allergies Medications PROAIR HFA 108 (90 Base) MCG/ACT inhaler Inhale 2 puffs into the lungs every 4 (four) hours as needed. 01/11/20 20 Active omeprazole 40 MG capsule Take 1 capsule (40 mg total) by mouth daily. 01/11/20 20 Active pramipexole 0.5 MG tablet Take 1 tablet (0.5 mg total) by mouth 2 (two) times daily. Takes at noon and hs Active ipratropium-albute rol 0.5-2.5 (3) MG/3ML Solution Take 3 mLs by nebulization 4 (four) times daily as needed. 07/25/19 21 Active DULoxetine 30 MG capsule Take 1 capsule (30 mg total) by mouth daily. 11/03/19 21 Active budesonide EC 3 MG capsule Take 2 capsules (6 mg total) by mouth every morning. 06/01/20 21 Active amitriptyline 50 MG tablet Take 1 tablet (50 mg total) by mouth nightly at bedtime. 12/01/19 Active BREO ELLIPTA 100-25 MCG/INH inhaler Inhale 1 puff into the lungs daily. 11/22/19 Active ondansetron 4 MG disintegrating tablet Take 1 tablet (4 mg total) by mouth every 8 (eight) hours as needed for Nausea. 06/30/19 22 Active roflumilast (DALIRESP) 500 MCG Tab Take 1 tablet (0.5 mg total) by mouth daily. 07/15/19 Active FEROSUL 325 (65 Fe) MG tablet Take 1 tablet (325 mg total) by mouth daily with breakfast. 12/23/19 24 Active HYDROcodone-acetam inophen (NORCO) 10-325 MG tablet Take 1 tablet by mouth every 8 (eight) hours as needed for Pain. 01/13/20 24 Active rosuvastatin (CRESTOR) 5 MG tablet Take 1 tablet (5 mg total) by mouth nightly at bedtime. 90 tablet 1 04/29/20 24 Active apixaban (ELIQUIS) 5 MG tablet Take 1 tablet (5 mg total) by mouth 2 (two) times daily. 180 tablet 1 04/29/20 24 Active losartan (COZAAR) 50 MG tablet Take 1 tablet (50 mg total) by mouth nightly. 90 tablet 1 04/29/20 24 Active naloxone (NARCAN) 4 MG/0.1ML nasal spray 1 spray by Nasal route as needed for Opioid reversal. may repeat every 2 to 3 minutes in alternating nostrils until medical assistance becomes available 1 each 05/15/20 24 025 Active carvedilol (COREG) 3.125 MG tablet Take 1 tablet (3.125 mg total) by mouth 2 (two) times daily. 180 tablet 1 06/29/19 25 Active carvedilol (COREG) 3.125 MG tablet Take 1 tablet (3.125 mg total) by mouth 2 (two) times daily. 180 tablet 1 04/29/20 24 025 Discontin ued(Reord er) Active Problems Problem Noted Date Diagnosed Date Trigger middle finger of left hand 04/24/2024 Trigger index finger of left hand 04/24/2024 Trigger ring finger of left hand 04/24/2024 Spondylolisthesis 12/10/2023 ADAIR (dyspnea on exertion) 10/08/2023 PAD (peripheral artery disease) 10/08/2023 Essential (primary) hypertension 10/08/2023 Chest discomfort 10/08/2023 Chronic obstructive pulmonar y disease, unspecified COPD type ([facility]) 10/08/2023 Pulmonary hypertension ([facility]) 024 Syncope and collapse 09/23/2023 Overview (09/23/2023): KRIS SILVER implanted 09/23/23 for Syncope. Status post placement of implantable loop record er 09/23/2023 Overview (09/23/2023): KRIS SILVER implanted 09/23/23 for Syncope. Lumbar spondylosis 10/09/2022 Median arcuate ligament syndrome 09/29/2020 Takotsubo cardiomyopathy 03/24/2020 Overview (03/24/2020): Normal coronary arteries 08/12/18. LVEF recovered to normal 08/13/19 Biventricular congestive heart failure ([facility]) 08/10/2019 Overview (03/24/2020): Last Assessment & Plan: Continue Lasix. Controlled. Hypotension due to drugs 11/12/2018 Overview (09/29/2020): Last Assessment & Plan: Reduce lisinopril and Lasix Celiac artery atherosclerosis 09/24/2018 Overview (09/29/2020): Last Assessment & Plan: Impression: Patient with significant past history of abdominal and epigastric pain who was recently hospitalized worked up for an a myocardial infarction. CT examination revealed acute colitis and a atherosclerotic aorta, superior mesenteric artery and celiac artery. Her symptoms are not consistent with mesenteric ischemia. She is able tolerate diet, denies any food avoidance or postprandial pain. She does report upcoming appointment with her extension educator with anticipated upper and lower endoscopy. Plan: Follow up with GI. Patient follow up with vascular surgery on as-needed basis. Vasovagal syncope 09/15/2018 Overview (03/24/2020): Last Assessment & Plan: No history of suggestive of aborted sudden cardiac . Repeat echo. NICM (nonischemic cardiomyopathy) ([facility]) 09/15/2018 Overview (09/29/2020): Last Assessment & Plan: No syncope. Repeat echocardiogram. Continue losartan and Toprol. Vasovagal syncope 09/15/2018 Overview (09/29/2020): Last Assessment & Plan: No history of suggestive of aborted sudden cardiac . Repeat echo. Chest pain 10/28/2017 Overview (09/29/2020): Last Assessment & Plan: Cardiac catheterization August last year negative. Would not recommend repeating ischemic workup discussed with patient. I spent a total of 15 Face to Face minutes of which more than 50% of the time was spent in counseling and coordination of care. This time included: Discussion of chest pain Resolved Problems Problem Noted Date Diagnosed Date Resolved Date Hypotension 09/29/2020 10/01/2020 Encounters Date Type Department Care Team Description 06/29/2024 4:45 PM REEL STRIPPER Allied Health/Nurse Visit [facility], [address] [address] Les Das MD Remote Device Check 06/24/2024 Scan HEALTH INFO SRVCS Scanned, Doc Med Group 05/25/2024 4:15 PM REEL STRIPPER Allied Health/Nurse Visit [facility], [address] [address] Les Das MD Remote Device Check 05/21/2024 8:40 AM REEL STRIPPER Office Visit [facility] - [place] [address] Fernando Sandy MD Postop Followup (Left index, middle, and ring trigger finger release sx 05/15/24) 05/21/2024 Travel 05/18/2024 MyChart Message Enc [facility] [address] [address] [place], [facility] Provider Carelink Transmission Received 05/15/2024 11:50 AM REEL STRIPPER - 05/15/2024 12:51 PM REEL STRIPPER [place] [address] Fernando Sandy MD left middle, ring and index open trigger finger release 05/15/2024 11:32 AM REEL STRIPPER Anesthesia [place] [address] Christopher German MD Jackson, Samantha Rae, ENGAGEMENT ENGINEER 05/15/2024 8:46 AM REEL STRIPPER - 05/15/2024 1:35 PM REEL STRIPPER Hospital Encounter [facility] [place] [address] Fernando Sandy MD Discharge Disposition: Home or Self Care (Routine Discharge) 05/15/2024 Travel 05/11/2024 Telephone [facility] [address] [address] Les Das MD Surgical Clearance 05/11/2024 Travel 05/08/2024 Telephone [facility] [address] [address] Debra Li RN Information (Symptom event on Linq) 05/01/2024 Telephone [facility] [place] [address] [place] [address] Fernando Sandy MD Pre-op Question(s) 04/29/2024 10:00 AM REEL STRIPPER Office Visit [facility] [address] [address] Lashon Bennett, ENGAGEMENT ENGINEER Hypertension; CHF; Peripheral Vascular Disease; Follow Up 04/29/2024 Travel 04/24/2024 Prep for Procedure [facility] Medicine [facility] [address] [place] [address] Fernando Sandy MD 04/23/2024 2:20 PM REEL STRIPPER Office Visit [facility] Orthopedic & Sports [facility] [address] [place] [address] Fernando Sandy MD Follow Up (Left middle and ring finger trigger) 04/23/2024 Travel 04/20/2024 4:10 PM REEL STRIPPER Allied Health/Nurse Visit [facility], [address] [address] Les Das MD Remote Device Check 04/09/2024 Telephone [facility] Orthopedic Sports [facility] [address] [place] [address] Fernando Sandy MD Appointment Request from Last 3 Months Immunizations Name Administration Dates Next Due Fluzone 6 Months+ Quad (0.5 mL Prefilled Syringe) 03/25/2020 Influenza (Generic) 02/27/2019,02/26/2013 Influenza Adult (Generic) 03/25/2020,,03/06/2018,2016,02/26/2016,02/23/2015,03/23/2014 Pneumococcal (Prevnar 13) 03/30/2018,02/23/2015 Tdap (Generic) 02/19/2017 Family History Medical History Relation Comments Colon Cancer Brother 1 Hypertension Brother 1 Hypertension Brother 2 CHF Brother 3 Coronary artery disease Brother 3 S/p PCI Hypertension Brother 3 Hypertension Father in a car ac cident COPD Mother Heart Attack Mother Hypertension Mother TIA Mother COPD Sister Hypertension Sister Lung Cancer Sister Relation Status Comments Brother 1 Alive Brother 2 (Age 30) Brother 3 Alive Father Mother Sister Alive Social History Tobacco Use Types Packs/Day Years Used Date Smoking Tobacco: Former Cigarettes 1 47 1 971 - 2018 Electronic Cigarettes Smokeless Tobacco: Never Tobacco Cessation:Counseling Given: No Comments:Currently vapes Alcohol Use Standard Drinks/Week Comments Not Currently 0 (1 standard drink = 0.6 oz pur e alcohol) very rarely B1300 Health Literacy Answer Date Recor ded How often do you need to hav e someone help you when you read instructions, pamphlets, or other written material from your doctor or pharmacy? Never 12/10/2023 [facility] Utilities Answer Date Recorded In the past 12 months has e [employer], gas, oil, or water [employer] threatened to shut off services in your home? No 12/10/2023 Humiliation, Afraid, Rape, and Kick questionnair e Answer Date Recorded Within the last year, have y ou been afraid of your partner or ex-partner? No 12/10/2023 Within the last year, have y ou been humiliated or emotionally abused in other ways by your partner or ex-partner? No Within the last year, have y ou been kicked, hit, slapped, or otherwise physically hurt by your partner or ex-partner? No 12/10/2023 Within the last year, have y ou been raped or forced to have any kind of sexual activity by your partner or ex-partner? No 12/10/2023 AUDIT-C Answer Date Recorded Q1: How often do you have a drink containing alc ohol? Never 03/24/2020 Average Number of Drinks Not on file 020 Frequency of Binge Drinking Not on file 03/10 Overall Financial Resource Strain (CARDIA) Answe r Date Recorded How hard is it for you to pa y for the very basics like food, housing, medical care, and heating? Not hard at all 12/10/2023 PHQ-2 Answer Date Recorded Patient Health Questionnaire-2 Score 0 03/23/2024 [facility] [place] of Occupat ional Health - Occupational Stress Questionnaire Answer Date Recorded Do you feel stress - tense, restless, nervous, or anxious, or unable to sleep at night because your mind is troubled all the time - these days? Not at all 12/10/2023 Exercise Vital Sign Answer Date Recorde d On average, how many days pe r week do you engage in moderate to strenuous exercise (like a brisk walk)? 0 days 12/10/2023 On average, how many minutes do you engage in exercise at this level? 0 min 12/10/2023 Hunger Vital Sign Answer Date Recorded Within the past 12 months, y ou worried that your food would run out before you got the money to buy more. Never true 12/10/19 24 Within the past 12 months, t he food you bought just didn't last and you didn't have money to get more. Never true 12/10/2023 PRAPARE - Transportation Answer Date Re corded In the past 12 months, has l ack of transportation kept you from medical appointments or from getting medications? No 07/2023 In the past 12 months, has l ack of transportation kept you from meetings, work, or from getting things needed for daily living? No 12/10/2023 Housing Stability Vital Sign Answer Benito e Recorded In the last 12 months, was t here a time when you were not able to pay the mortgage or rent on time? No 10/09/2022 In the last 12 months, how many places have you lived? 1 10/09/2022 In the last 12 months, was t here a time when you did not have a steady place to sleep or slept in a jail (including now)? No 10/09/2022 Housing Stability Vital Sign Answer Benito e Recorded In the last 12 months, was t here a time when you were not able to pay the mortgage or rent on time? No 12/10/2023 In the past 12 months, how m any times have you moved where you were living? 1 12/10/2023 At any time in the past 12 m [facility], were you homeless or living in a jail (including now)? No 12/10/2023 Comments No Sex and Gender Information Value Date Recorded Sex Assigned at Not on file Legal Sex Female 6:32 PM CDT Gender Identity Female 06/02/2021 8:12 AM REEL STRIPPER Sexual Orientation Not on file Last Filed Vital Signs Vital Sign Reading Time Taken Comments Blood Pressure 125/68 05/21/2024 8:23 AM REEL STRIPPER Pulse 81 05/21/2024 8:23 AM REEL STRIPPER Temperature 35.9 ??C (96.7 ??F) 05/21/2024 8:23 AM CS T Respiratory Rate 18 05/15/2024 1:30 PM REEL STRIPPER Oxygen Saturation 100% 05/15/2024 1:30 PM REEL STRIPPER Inhaled Oxygen Concentration - - Weight 89.8 kg (198 lb) 05/21/2024 8:23 AM REEL STRIPPER Height 165.1 cm (5' 5 ) 05/21/2024 8:23 AM REEL STRIPPER Body Mass Index 32.95 05/21/2024 8:23 AM REEL STRIPPER Plan of Treatment Upcoming Encounters Date Type Department Care Team (Late st Contact Info) Description 08/03/2024 4:50 PM REEL STRIPPER Allied Health/Nurse Visit [facility], [address] [address] Les Das MD [facility], [address] [place] [address] 11/04/2024 10:00 AM CDT Office Visit [facility] [address] [address] Les Das MD [facility], [address] [place] [address] Health Maintenance Due Date Last Done Comments Colorectal Cancer Screening Colonoscopy (10 Years) 1954 Hepatitis C 1972 Mammogram Screening 1994 Lung Cancer Screening 2004 Zoster Vaccines (1 of 2) 2004 RSV Immunization or 60+ Years (1 - Risk 60-74 years 1-dose series) 2014 Pneumococcal Vaccine: 65+ Years (2 of 2 - PPSV23 or PCV20) 05/25/2018 03/30/2018, 02/23/2015 Annual Medicare Wellness Visit 10/03/2019 Dexa Scan (General) 10/03/2019 COVID-19 Vaccine ( season) 2024 04/15/2022, 06/08/2021, 10/05/2020, Additional history exists Influenza Adult (#1) 2024 03/25/2020, 03/25/2020, 02/27/2019, Additional history exists PHQ-2 (Physician [place]) 03/23/2025 03/23/2024 DTaP, Tdap and Td Vaccines (2 - Td or Tdap) 02/19/2027 02/19/2017 Meningococcal B Vaccine Aged Out No l onger eligible based on patient's age to complete this topic Meningococcal Vaccine Aged Out No blayne omega eligible based on patient's age to complete this topic RSV Immunizations Under 20 Months Aged Out No longer eligible based on patient's age to complete this topic Goals Goal Patient Goal Type Associated Problems Recent Progress Patient-Stated? Author Health - patient able to perform ADLs independently General No Magno Urrutia, data center solutions architect - family caregiver with be involved in care transitions and discharge planning Lifestyle No Oral Springer i, RN Medical Devices Implanted Type Area Room Cooler Installer Device Identifier Shelf Expiration Date Model / Serial / Lot Graft Bone Cancellous 5ml Freeze Dried Chips 9.5x4mm - [id number] Implanted:Qty: 1 on 12/10/2023 by Maya Smith MD at [facility] Bone N/A: Spine Lumbar [employer] [id number] 04/05/2028 [id number] / / [id number] Magnetos Implanted:Qty: 1 on 12/10/2023 by Maya Smith MD at [facility] Graft N/A: Spine Lumbar 08/09/2027 [id number] / / [id number] Implantable Loop Recorder Medtronic-09/22 Implanted:Qty: 1 on 09/23/2023 by Thomas Gaona MD Implantable Loop Recorder [employer] 02/23/2025 [id number] / [id number] / Juan Implanted:Qty: 2 on 12/10/2023 by Maya Smith MD at [facility] Juan N/A: Spine Lumbar [id number] / / Orthofix Body Top Loading Implanted:Qty: 4 on 12/10/2023 by Maya Smith MD at [facility] Screw N/A: Spine Lumbar [id number] / / Orthofix Set Screw Implanted:Qty: 4 on 12/10/2023 by Maya Smith MD at [facility] Screw N/A: Spine Lumbar [id number] / / Orthofix Screw Implanted:Qty: 4 on 12/10/2023 by Maya Smith MD at [facility] Screw N/A: Spine Lumbar [id number] / / Tissue Surgiflo 8ml - [id number] Implanted:Qty: 1 on 12/10/2023 by Maya Smith MD at [facility] [employer] [id number] / / Procedures Procedure Name Priority Date/Time Associated Diagnosis Comments INCISE FINGER TENDON SHEATH 05/15/2024 11:32 AM REEL STRIPPER Trigger middle finger of left hand Trigger index finger of left hand Trigger ring finger of left hand Case Notes SCHED BY CLIFF GUPTA from Last 3 Months Insurance [facility] MEDICARE [facility] Advance Directives * Full Code (Latest Code Status on File) Date Activated Date Inactivated Comments 12/10/2023 12:44 PM 12/11/2023 3:46 PM * Full Code Date Activated Date Inactivated Comments 09/29/2020 6:53 PM 10/01/2020 7:31 PM Care Teams Construction Helper Relationship Specialty Start Date End Date Shanice Askew NP [address] [place] [address] PCP - General Nurse Practitioner Family 05/11/24 Les Das MD [facility] [address] [place] [address] Physician CARDIOVASCULAR DISEASE 09/21/22 Rizwan Martinez NP [address] [facility] [address] [place] [id number] PULMONARY DISEASE 05/11/24 Lou Brooks NP [address] [facility] [address] [place], [place] [id number] GASTROENTEROLOGY 05/11/24
--- OUTSIDE RECORDS SUMMARY | 2024-07-02 23:03 | XMS_ITS | Encounter Summary ---
Author Organization [facility] Address [address] [place] [address]. 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 No / Unsure 10/18/2020 11:30 AM CDT documented as of this encounter Functional [...] st Contact Info) Description 08/03/2024 4:50 PM PROOFING MACHINE OPERATOR Allied Health/Nurse Visit [facility] THREE [facility], [address] [place] [address] Les Das MD Three [facility] [address] [place] [address] 11/04/2024 10:00 AM CDT Office Visit [facility] THREE [facility], [address] [place], [place] [id number] Les Das MD Three [facility] [address] [place], [place] [address] documented as of this encounter Goals Goal Patient Goal Type Associated Problems Recent Progress Patient-Stated? Author Health - patient able to perform ADLs independently General Magno Gonzalez RN documented as of this encounter Procedures Procedure Name Priority Date/Time Associated Diagnosis Comments BASIC METABOLIC PANEL Routine 11/03/2020 documented in this encounter Results * BASIC METABOLIC PANEL (11/03/2020) SODIUM S/P/B 142 POTASSIUM S/P/B 4.3 CO2 29 CHLORIDE S/P/B 107 GLUCOSE 89 mg/dL CALCIUM S/P/B 9.6 BUN 8 CREATININE S/P/B 0.70 0.5 - 1.0 EGFR NON-AFR. AMER. >60 <=90 11/03/2020 us Doc [facility] Abstract LABORATORY Final Result documented in this encounter Visit Diagnoses Not on filedocumented in this encounter Care Teams Cutter Barrel Drum Relationship Specialty Start Date End Date Ruben Felix MD [address] [place] [address] PCP - General INTERNAL MEDICINE 03/22/20 10/09/22 Shanice Askew NP [address] [place] [address] PCP - General Nurse Practitioner Family 05/11/24 Les Das MD Three [facility]., [address] [place], [place] [id number] Physician CARDIOVASCULAR DISEASE 09/21/22 Rizwan Martinez NP [address] [place] [address] PULMONARY DISEASE 05/11/24 Lou Brooks NP [address] [place], [place] [address] GASTROENTEROLOGY 05/11/24 documented as of this encounter
--- OUTSIDE RECORDS SUMMARY | 2024-07-02 23:03 | XMS_ITS | Encounter Summary ---
Author Organization [facility] Care Team Providers Care Stonemason Supervisor Name Role Phone Xander Patel MD Primary Care Provider [phone] Ruben Felix MD Primary Care Provider [phone] Jensen Lizarraga MD Unavailable [phone] Encounter Details Date Type Department Care Team (Latest Contact Info) Description 08/14/2018 Orders Only [facility] CLINCONV ProviderJohn MD [address] [place] [address] Social History Tobacco Use Types Packs/Day Years Used Date Smoking Tobacco: Never Assessed Comments Unknown Sex and Gender Information Value Date Recorded Sex Assigned at Not on file 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 Historical Provider [facility] GEREMIAS FARRELL Final Result documented in this encounter Visit Diagnoses Not on filedocumented in this encounter Additional Health Concerns Infection Onset Date Last Indicated Resolved Time MRSA Comment:under left arm 2013 03/24/2015 03/23/2015 01/25/2021 5 :00 AM CDT C. difficile 08/25/2019 08/24/2019 documented as of this encounter Care Teams Stonemason Supervisor Relationship Specialty Start Date End Date Xander Patel MD [address] [place] [address] PCP - General 07/25/18 05/19/19 Ruben Felix MD [address] [place] [address] PCP - General 05/20/19 Jensen Lizarraga MD [address] [place] [address] Early Childhood Education Instructor Cardiovascular Disease 08/14/19 documented as of this encounter
--- OUTSIDE RECORDS SUMMARY | 2024-07-02 23:03 | XMS_ITS | Encounter Summary ---
Author Organization [facility] Address [address] [place] [address]. [place] [address] [place] [address] Care Team Providers Care Agricultural Real Estate Agent Name Role Phone Les Das MD Unavailable [phone] Rizwan Martinez NP Unavailable Lou Brooks DYE EXPERT Unavailable [phone] Shanice Askew NP Primary Care Provider Encounter Details Date Type Department Care Team (Late st Contact Info) Description 05/18/2024 Knotice Message Enc [facility] [address] [address] [place], [facility] Provider Carelink Transmission Received Social History Tobacco Use Types Packs/Day Years Used Date Smoking Tobacco: Former Cigarettes 1 47 1 971 - 2018 Electronic Cigarettes Smokeless Tobacco: Never Comments:Currently vapes Alcohol Use Standard Drinks/Week Comments Not Currently 0 (1 standard drink = 0.6 oz pur e alcohol) very rarely B1300 Health Literacy Answer Date Recor ded How often do you need to hav e someone help you when you read instructions, pamphlets, or other written material from your doctor or pharmacy? Never 12/10/2023 [facility] Utilities Answer Date Recorded In the past 12 months has e electric, gas, oil, or water company threatened to shut off services in your [...] Recorded Patient Health Questionnaire-2 Score 0 03/23/2024 [facility] Occupat ional Health - Occupational Stress [...] place to sleep or slept in a usp (including now)? No 10/09/2022 Housing Stability Vital Sign Answer Benito e Recorded In the last 12 months, was t here a time when you were not able to pay the mortgage or rent on time? No 12/10/2023 In the past 12 months, how m any times have you moved where you were living? 1 12/10/2023 At any time in the past 12 m [facility], were you homeless or living in a usp (including now)? No 12/10/2023 Comments No Sex and Gender Information Value Date Recorded Sex Assigned at Not on file Legal Sex Female 6:32 PM CDT Gender Identity Female 06/02/2021 8:12 AM WAITRESS Sexual Orientation Not on file documented as of this encounter Functional Status * Are you deaf or do you have serious difficulty hearing Answer Date of Assessment Author Status No 12/10/2023 12:52 PM VIRGINIAT Vidya Sainz RN Active * Are you blind or do you have serious difficulty seeing, even when wearing glasses? Answer Date of Assessment Author Status No 12/10/2023 12:52 PM VIRGINIAT Vidya Sainz RN Active * Do you have serious difficulty walking or climbing stairs? Answer Date of Assessment Author Status No 12/10/2023 12:52 PM Vidya Brothers RN Active * Do you have difficulty dressing or bathing? Answer Date of Assessment Author Status No 12/10/2023 12:52 PM VIRGINIAT Vidya Sainz RN Active * Because of a physical, mental, or emotional condition, do you have difficulty doing errands alone such as visiting a doctor's office or shopping? Answer Date of Assessment Author Status No 12/10/2023 12:52 PM CDT Vidya Sainz RN Active documented as of this encounter Mental Status * Because of a physical, mental, or emotional condition, do you have serious difficulty concentrating, remembering, or making decisions? Answer Entry Date Author Status No 12/10/2023 12:52 PM CDT Vidya Sainz RN Active documented in this encounter Plan of Treatment Upcoming Encounters Date Type Department Care Team (Late st Contact Info) Description 08/03/2024 4:50 PM WAITRESS Allied Health/Nurse Visit [facility] [address] [place] [address] Les Das MD [facility], [address] [place] [address] 11/04/2024 10:00 AM CDT Office Visit [facility] [address] [place] [address] Les Das MD [facility], [address] [place], [place] [address] documented as of this encounter Goals Goal Patient Goal Type Associated Problems Recent Progress Patient-Stated? Author Health - patient able to perform ADLs independently General Magno Gonzalez RN Family - family caregiver with be involved in care transitions and discharge planning Lifestyle No Oral Springer i, RN documented as of this encounter Visit Diagnoses Not on filedocumented in this encounter Care Teams Agricultural Real Estate Agent Relationship Specialty Start Date End Date Shanice Askew NP [address] [facility] [place] [address] PCP - General Nurse Practitioner Family 05/11/24 Les Das MD [facility], [address] [place] [address] Physician CARDIOVASCULAR DISEASE 09/21/22 Rizwan Martinez NP [address] [place] [address] PULMONARY DISEASE 05/11/24 Lou Brooks NP [address] [place] [address] GASTROENTEROLOGY 05/11/24 documented as of this encounter
--- OUTSIDE RECORDS SUMMARY | 2024-07-02 23:03 | XMS_ITS | Encounter Summary ---
Author Organization [facility] Address [address] [place] [address]. [place] [address] [place] [address] Care Team Providers Care Certification Engineer Name Role Phone Les Das MD Unavailable [phone] Rizwan Martinez NP Unavailable Lou Brooks CARDIAC CATHETERIZATION TECHNOLOGIST Unavailable [phone] Shanice Askew NP Primary Care Provider [phone] Encounter Details Date Type Department Care Team (Late st Contact Info) Description 11/09/2023 Coremetricst Message Enc [facility] [place], [address] [place] [address] Prasanth Muro MD Three [facility]. [address] [place] [address] Earlier appointment Social History Tobacco Use Types Packs/Day Years Used Date Smoking Tobacco: Some Days Electronic Cigarettes Smokeless Tobacco: Never Alcohol Use Standard Drinks/Week Comments Not Currently 0 (1 standard drink = 0.6 oz pur e alcohol) very rarely Humiliation, Afraid, Rape, and Kick questionnair e Answer Date Recorded Within the last year, have y ou been afraid of your partner or ex-partner? No 10/09/2022 Within the last year, have y ou been humiliated or emotionally abused in other ways by your partner or ex-partner? No Within the last year, have y ou been kicked, hit, slapped, or otherwise physically hurt by your partner or ex-partner? No 10/09/2022 Within the last year, have y ou been raped or forced to have any kind of sexual activity by your partner or ex-partner? No 10/09/2022 AUDIT-C Answer Date Recorded Q1: How often [...] care, and heating? Not hard at all 10/09/2022 [facility] [place] of Occupat ional Health - Occupational Stress Questionnaire Answer Date Recorded Do you feel stress - tense, restless, nervous, or anxious, or unable to sleep at night because your mind is troubled all the time - these days? Not at all 10/09/2022 Exercise Vital Sign Answer Date Recorde d On average, how many days pe r week do you engage in moderate to strenuous exercise (like a brisk walk)? 0 days 10/09/2022 On average, how many minutes do you engage in exercise at this level? 0 min 10/09/2022 Hunger Vital Sign Answer Date Recorded Within the past 12 months, y ou worried that your food would run out before you got the money to buy more. Never true 10/10/19 23 Within the past 12 months, t he food you bought just didn't last and you didn't have money to get more. Never true 10/09/2022 PRAPARE - Transportation Answer Date Re corded In the past 12 months, has l ack of transportation kept you from medical appointments or from getting medications? No 07/2022 In the past 12 months, has l ack of transportation kept you from meetings, work, or from getting things needed for daily living? No 10/09/2022 Housing Stability Vital Sign Answer [...] place to sleep or slept in a residential (including now)? No 10/09/2022 Comments No Sex and Gender Information Value Date Recorded Sex Assigned at Not on file Legal Sex Female 6:32 PM CDT Gender Identity Female 06/02/2021 8:12 AM SOCIAL SCIENCE INSTRUCTOR Sexual Orientation Not on file documented as of this encounter Functional Status * Are you deaf or do you have serious difficulty hearing Answer Date of Assessment Author Status No 10/09/2022 3:36 PM CDT Vidya Sainz RN Active * Are you blind or do you have serious difficulty seeing, even when wearing glasses? Answer Date of Assessment Author Status No 10/09/2022 3:36 PM CDT Vidya Sainz RN Active * Do you have serious difficulty walking or climbing stairs? Answer Date of Assessment Author Status No 10/09/2022 3:36 PM CDT Vidya Sainz RN Active * Do you have difficulty dressing or bathing? Answer Date of Assessment Author Status No 10/09/2022 3:36 PM CDT Vidya Sainz RN Active * Because of a physical, mental, or emotional condition, do you have difficulty doing errands alone such as visiting a doctor's office or shopping? Answer Date of Assessment Author Status No 10/09/2022 3:36 PM VIRGINIAT Vidya Sainz RN Active documented as of this encounter Mental Status * Because of a physical, mental, or emotional condition, do you have serious difficulty concentrating, remembering, or making decisions? Answer Entry Date Author Status No 10/09/2022 3:36 PM Vidya Brothers RN Active documented in this encounter Plan of Treatment Upcoming Encounters Date Type Department Care Team (Late st Contact Info) Description 08/03/2024 4:50 PM SOCIAL SCIENCE INSTRUCTOR Allied Health/Nurse Visit [facility] [place], [address] [place] [address] Les Das MD Three [facility]., [address] [place], [place] [address] 11/04/2024 10:00 AM CDT Office Visit [facility] [place], [address] [place] [address] Les Das MD Three [facility], [address] [place] [address] documented as of this encounter Goals Goal Patient Goal Type Associated Problems Recent Progress Patient-Stated? Author Health - patient able to perform ADLs independently General No Magno Urrutia installation service representative - family caregiver with be involved in care transitions and discharge planning Lifestyle No Oral Springer i, RN documented as of this encounter Visit Diagnoses Not on filedocumented in this encounter Care Teams Certification Engineer Relationship Specialty Start Date End Date Shanice Askew NP [address] [place], [place] [address] PCP - General Nurse Practitioner Family 05/11/24 Les Das MD [facility], [address] [place] [address] Physician CARDIOVASCULAR DISEASE 09/21/22 Rizwan Martinez NP [address] [place] [address] PULMONARY DISEASE 05/11/24 Lou Brooks NP [address] [place] [address] GASTROENTEROLOGY 05/11/24 documented as of this encounter
--- OUTSIDE RECORDS SUMMARY | 2024-07-02 23:03 | XMS_ITS | Encounter Summary ---
Author Organization [facility] Care Team Providers Care Narcotics Agent Name Role Phone Xander Patel MD Primary Care Provider [phone] Ruben Felix MD Primary Care Provider [phone] Jensen Lizarraga MD Unavailable [phone] Encounter Details Date Type Department Care Team (Latest Contact Info) Description 08/11/2018 Orders Only [facility] CLINCONV ProviderJohn MD [address] [place] [address] Social History Tobacco Use Types Packs/Day Years Used Date Smoking Tobacco: Never Assessed Comments Unknown Sex and Gender Information Value Date Recorded Sex Assigned at Not on file Legal Sex Female 6:59 PM ORTHOPHOTOGRAPHY TECHNICIAN Gender Identity Not on file Sexual Orientation [...] documented as of this encounter Care Teams Narcotics Agent Relationship Specialty Start Date End Date Xander Patel MD [address] [place] [address] PCP - General 07/25/18 05/19/19 Ruben Felix MD [address] [place] [address] PCP - General 05/20/19 Jensen Lizarraga MD [address] [place] [address] Legal Services Professional Cardiovascular Disease 08/14/19 documented as of this encounter
--- OUTSIDE RECORDS SUMMARY | 2024-07-02 23:03 | XMS_ITS | Encounter Summary ---
Author Organization [facility] Address [address] [place] [address]. [place] [address] [place] [address] Care Team Providers Care Hospital Orderly Name Role Phone Les Das MD Unavailable [phone] Rizwan Martinez NP Unavailable Lou Brooks MARKETING RESEARCHER Unavailable Shanice Askew NP Primary Care Provider [phone] Encounter Details Date Type Department Care Team (Latest Contact Info) Description 06/24/2024 Scan HEALTH INFO SRVCS Scanned, Doc Med Group Social History Tobacco Use Types Packs/Day Years Used Date Smoking Tobacco: Former Cigarettes 1 47 1 97 - 2017 Electronic Cigarettes Smokeless Tobacco: Never Comments:Currently vapes Alcohol Use Standard Drinks/Week Comments Not Currently 0 (1 standard drink = 0.6 oz pur e alcohol) very rarely B1300 Health Literacy Answer Date Recor ded How often do you need to hav e someone help you when you read instructions, pamphlets, or other written material from your doctor or pharmacy? Never 12/10/2023 [facility] Utilities Answer Date Recorded In the [...] Recorded Patient Health Questionnaire-2 Score 0 03/23/2024 [facility] Occupat ional [facility] - Occupational Stress Questionnaire Answer Date Recorded [...] any time in the past 12 m [facility], were you homeless or living in a usp (including now)? No 12/10/2023 Comments No Sex and Gender Information Value Date Recorded Sex Assigned at Not on file Legal Sex Female 6:32 PM CDT Gender Identity Female 06/02/2021 8:12 AM WARP TESTER Sexual Orientation Not on file documented as of this encounter Functional Status * Are you deaf or do you have serious difficulty hearing Answer Date of Assessment Author Status No 12/10/2023 12:52 PM VIRGINIAT Vidya Saniz RN Active * Are you blind or [...] 12/10/2023 12:52 PM Vidya Brothers RN Active documented as of this encounter [...] st Contact Info) Description 08/03/2024 4:50 PM WARP TESTER Allied Health/Nurse Visit [facility] [address] [place] [address] Les Das MD [facility], [address] [place], [place] [address] 11/04/2024 10:00 AM CDT Office Visit [facility] [address] [place] [address] Les Das MD [facility], [address] [place], [place] [address] documented as of this encounter Goals Goal Patient Goal Type Associated Problems Recent Progress Patient-Stated? Author Health - patient able to perform ADLs independently General No Magno Urrutia RN Family - family caregiver with be involved in care transitions and discharge planning Lifestyle No Oral Springer i RN documented as of this encounter Visit Diagnoses Not on filedocumented in this encounter Care Teams Hospital Orderly Relationship Specialty Start Date End Date Shanice Askew NP [address] [facility] [place] [address] PCP - General Nurse Practitioner Family 05/11/24 Les Das MD [facility], [address] [place], [place] [address] Physician CARDIOVASCULAR DISEASE 09/21/22 Rizwan Martinez NP [address] [place] [address] PULMONARY DISEASE 05/11/24 Lou Brooks NP [address] [place], [place] [address] GASTROENTEROLOGY 05/11/24 documented as of this encounter
--- OUTSIDE RECORDS SUMMARY | 2024-07-02 23:03 | XMS_ITS | Clinical Summary ---
Author Organization [facility] Srikanth Baca Address [address] [place] [address] Care Team Providers Care Armor Reconnaissance Specialist Name Role Phone Ruben Felix MD Primary Care Provider [phone] Allergies Active Allergy Reactions Criticality Noted Date Comments Codeine Hives,Unknown High 09/11/2018 Medications albuterol HFA 90 mcg inhaler Take 2 Puffs by inhalation every 4 hours as needed. 0 Active amitriptyline (ELAVIL) 50 mg tablet Take 25 mg by mouth. Active aspirin (ECOTRIN EC) 81 mg Tablet, Delayed Release (E.C.) Take 81 mg by mouth. Active dicyclomine (BENTYL) 10 mg capsule Take 20 mg by mouth. 1 Active ferrous sulfate 325 mg (65 mg iron) tablet Take 325 mg by mouth. 9 Active fluticasone propion-salmetero L (ADVAIR DISKUS,WIXELA INHUB) 250-50 mcg/dose disk inhaler Take 1 Puff by inhalation. Active HYDROcodone-aceta minophen (NORCO) 7.5-325 mg Tablet Take 1 Tablet by mouth. 1 Active ipratropium-albut Favio (DUONEB) 0.5 mg-3 mg(2.5 mg base)/3 mL Solution for Nebulization Take 3 mL by inhalation. 9 Active metoprolol succinate (TOPROL XL) 25 mg Extended Release 24 hour tablet Take 25 mg by mouth. 0 Active nitroglycerin (NITROSTAT) 0.4 mg Tablet, Sublingual Place 0.4 mg under tongue every 5 minutes as needed. 0 Active omeprazole (PriLOSEC) 40 mg Capsule, Delayed Release(E.C.) Take 40 mg by mouth. 9 Active pramipexole (MIRAPEX) 0.5 mg tablet Take 0.5 mg by mouth. Active budesonide (ENTOCORT EC) 3 mg Enteric Coated 24 hour capsule TAKE TWO CAPSULES BY MOUTH DAILY FOR ONE MONTH 2 Active DULoxetine (CYMBALTA) 30 mg Capsule, Delayed Release(E.C.) 2 Active Breo Ellipta 100-25 mcg/dose Disk with Device 2 Active losartan (COZAAR) 100 mg tablet Take 100 mg by mouth daily. 2 Active ondansetron (ZOFRAN ODT) 4 mg Tablet, Rapid Dissolve dissolve ONE TABLET EVERY EIGHT HOURS NEEDED FOR NAUSEA AND VOMITING 2 Active ferrous sulfate 325 mg (65 mg iron) tabletIndications :Chronic anemia Take 1 Tablet (325 mg) by mouth 2 times daily. 60 Tablet 3 2 Active Active Problems Problem Noted Date Diagnosed Date Chronic anemia 10/13/2020 Family History Medical History Relation Name Comments Colon Cancer Brother 2 Uterine Cancer Mother Lung Cancer Sister Relation Name Status Comments Brother 1 Brother 2 Alive Brother 3 Alive Daughter Alive Father Mother Sister Alive Son 1 Alive Son 2 Alive Social History Tobacco Use Types Packs/Day Years Used Date Smoking Tobacco: Unknown Smokeless Tobacco: Never Tobacco Cessation:Counseling Given: Not Answered Alcohol Use Standard Drinks/Week Comments Yes 0 (1 standard drink = 0.6 oz pur e alcohol) Comments Unknown Sex and Gender Information Value Date Recorded Sex Assigned at Not on file Legal Sex Female 12:23 PM CDT Gender Identity Not on file Sexual Orientation Not on file Last Filed Vital Signs Vital Sign Reading Time Taken Comments Blood Pressure 169/87 02/07/2022 2:24 PM CDT Pulse 55 02/07/2022 2:24 PM CDT Temperature 36.2 ??C (97.1 ??F) 02/07/2022 2:24 PM CD T Respiratory Rate - - Oxygen Saturation 97% 02/07/2022 2:24 PM CDT Inhaled Oxygen Concentration - - Weight 100.7 kg (221 lb 14.4 oz) 02/07/2022 2:24 PM CDT Height 165.1 cm (5' 5 ) 02/07/2022 2:24 PM CDT Body Mass Index 36.93 02/07/2022 2:24 PM CDT Plan of Treatment Health Maintenance Due Date Last Done Comments BREAST CANCER SCREENING 1994 FIT-DNA Q 3 years 10/03/1999 FIT/FOBT Q 1 year 10/03/1999 Flex Sig/CT Colonography Q 5 years 10/03/1999 ZOSTER VACCINE (1 of 2) 2004 PNEUMOCOCCAL VACCINE 65+ YEA RS (2 of 2 - PPSV23) 03/31/2019 03/31/2018, 02/23/2015 OSTEOPOROSIS SCREENING 10/03/2019 INFLUENZA VACCINE (#1) 2024 03/25/2020, 2017 DTAP/TDAP/TD VACCINES (2 - Td or Tdap) 02/19/2027 RSV VACCINE (60+ or ) (1 - 1-dose 75+ series) 2029 COLORECTAL SCREENING 12/06/2030 12/06/2020, 10/16/19 20 Colorectal Cancer Screening 12/06/2030 Insurance MEDICARE PART A AND B [employer] Care Teams Armor Reconnaissance Specialist Relationship Specialty Start Date End Date Ruben Felix MD [address] [place] [address] PCP - General Internal Medicine 10/13/20
--- OUTSIDE RECORDS SUMMARY | 2024-07-02 23:03 | XMS_ITS | Clinical Summary ---
Author Organization [facility] [place] [facility] Address [address] [place] [address] Care Team Providers Care Wind Turbine Machinist Name Role Phone Ruben Felix MD Primary Care Provider [phone] Jensen Lizarraga MD Unavailable [phone] Allergies Active Allergy Reactions Criticality Noted Date Comments Codeine Unknown 09/11/2018 Medications albuterol sulfate 90 mcg/actuation aerosol powdr breath activated Inhale 180 mcg as needed Active amitriptyline (ELAVIL) 50 mg tablet Take 50 mg by mouth nightly Active aspirin 81 mg enteric coated tablet Take 81 mg by mouth daily Active fluticasone-salmete rol (ADVAIR DISKUS) 250-50 mcg/dose diskus inhaler Inhale 1 puff 2 (two) times a day Rinse mouth with water after use. Do not swallow. Active mirabegron ER (MYRBETRIQ) 25 mg tablet extended release 24 hr Take 25 mg by mouth daily Active pramipexole (MIRAPEX) 0.5 mg tablet Take 0.5 mg by mouth nightly Active ondansetron (ZOFRAN) 4 mg tablet Take 4 mg by mouth every 8 (eight) hours as needed Active oxyCODONE-acetamino phen (PERCOCET) 7.5-325 mg per tablet TAKE 1 TABLET PO EVERY 6 HOURS PRN 0 9 Active ipratropium-albuter ol (DUO-NEB) 0.5-2.5 mg/3 mL nebulizer solution 9 Active omeprazole (PriLOSEC) 40 mg capsule 9 Active furosemide (LASIX) 20 mg tablet Take 1 tablet (20 mg total) by mouth daily 90 tablet 3 9 Active nitroglycerin (NITROSTAT) 0.[address] 1 tablet (0.4 mg total) under the tongue every 5 (five) minutes as needed for chest pain 25 tablet 0 Active dicyclomine (BENTYL) 20 mg tablet 20 mg 0 Active ferrous sulfate 325 mg (65 mg of elemental iron) tablet 9 Active ibuprofen (ADVIL,MOTRIN) 600 mg tablet TAKE 1 TABLET PO TID PRN FOR PAIN 0 Active mesalamine (DELZICOL) 400 mg capsule (with del rel tablets) TK 2 CS PO TID 0 Active ondansetron ODT (ZOFRAN-ODT) 4 mg disintegrating tablet TAKE 1 TABLET PO BID PRN FOR NAUSEA DIRECTED 0 Active metroNIDAZOLE (FLAGYL) 500 mg tablet 500 mg 0 Active metoprolol (LOPRESSOR) 25 mg tablet 25 mg 9 Active Dificid tablet 0 Active hyoscyamine (LEVSIN) 0.125 mg SL tablet DISSOLVE 1 TABLET UNDER THE TONGUE Q 4 H PRN 0 Active metoprolol XL (TOPROL-XL) 25 mg extended release tablet Take 1 tablet (25 mg total) by mouth daily 90 tablet 0 Active losartan (COZAAR) 100 mg tablet TAKE 1 TABLET BY MOUTH EVERY DAY 90 tablet 0 Active Active Problems Problem Noted Date Diagnosed Date Biventricular congestive heart failure (CMS/HCC) 08/10/2019 Assessment & Plan (08/10/2019 8:30 AM TRANSPLANT WORKER): Continue Lasix. Controlled. Hypotension due to drugs 11/12/2018 Assessment & Plan (11/12/2018 9:55 AM CDT): Reduce lisinopril and Lasix Celiac artery atherosclerosis 09/24/2018 Assessment & Plan (09/24/2018 4:17 PM CDT): Impression: Patient with significant past history of [...] She does report upcoming appointment with her chick sexer with anticipated upper and lower endoscopy. Plan: Follow up with GI. Patient follow up with vascular surgery on as-needed basis. Dilated cardiomyopathy (CMS/HCC) 09/15/2018 Assessment & Plan (08/10/2019 8:28 AM TRANSPLANT WORKER): No syncope. Repeat echocardiogram. Continue losartan and Toprol. Assessment & Plan (11/12/2018 9:57 AM CDT): Newly diagnosed August this year. Cardiac catheterization negative. Blood pressure too low. Reduce lisinopril to 10 mg daily reduce Lasix to 20 mg daily. Repeat echocardiogram. Check CMP. If no significant improvement will consider ICD. Discussed with patient. Assessment & Plan (09/15/2018 8:50 AM CDT): Newly diagnosed. No history of syncope suggestive of arrhythmia. Continue lisinopril and metoprolol. Check CMP. Will repeat echocardiogram this summer. Vasovagal syncope 09/15/2018 Assessment & Plan (08/10/2019 8:29 AM TRANSPLANT WORKER): No history of suggestive of aborted sudden cardiac . Repeat echo. Assessment & Plan (11/12/2018 9:56 AM CDT): Two events not suggestive of arrhythmia Assessment & Plan (09/15/2018 8:51 AM CDT): Not suggestive of arrhythmia. Would not recommend outpatient monitoring at this time. Again follow up with GI and PV. Chest pain 10/28/2017 Assessment & Plan (08/10/2019 8:29 AM TRANSPLANT WORKER): Cardiac catheterization August last year negative. Would not recommend repeating ischemic workup discussed with patient. I spent a total of 15 Face to Face minutes of which more than 50% of the time was spent in counseling and coordination of care. This time included: Discussion of chest pain Immunizations Name Administration Dates Next Due Influenza, Quadrivalent, Spl it, Preservative Free, Intramuscular 03/07/2018 Pneumococcal Conjugate PCV 13 03/31/2018 Surgical History Surgery Date Site/Laterality Comments HYSTERECTOMY CHOLECYSTECTOMY NECK SURGERY Medical History Medical History Date Comments COPD (chronic obstructive pulmonary disease) (HC C) Pancreatitis Diabetes (HCC) Takotsubo cardiomyopathy Family History Medical History Relation Name Comments Hypertension Mother Relation Name Status Comments Father Mother Social History Tobacco Use Types Packs/Day Years Used Date Smoking Tobacco: Former Smokeless Tobacco: Never Alcohol Use Standard Drinks/Week Comments Never 0 (1 standard drink = 0.6 oz pur e alcohol) AUDIT-C Answer Date Recorded Frequency of Alcohol Consumption Never 09/15/2018 Average Number of Drinks Not on file 019 Frequency of Binge Drinking Not on file 01/2019 Comments Unknown Sex and Gender Information Value Date Recorded Sex Assigned at Not on file Legal Sex Female 6:59 PM TRANSPLANT WORKER Gender Identity Not on file Sexual Orientation Not on file Obstetrics History Last Filed Vital Signs Vital Sign Reading Time Taken Comments Blood Pressure 149/95 03/14/2020 9:45 PM CDT Pulse 59 03/14/2020 9:45 PM CDT Temperature 35.8 ??C (96.4 ??F) 03/14/2020 9:45 PM CD T Respiratory Rate - - Oxygen Saturation 99% 03/14/2020 9:45 PM CDT Inhaled Oxygen Concentration - - Weight 42.8 kg (94 lb 6.4 oz) 03/14/2020 9:45 PM CDT Height 162.6 cm (5' 4 ) 03/14/2020 9:45 PM CDT Body Mass Index 16.2 03/14/2020 9:45 PM CDT Plan of Treatment Health Maintenance Due Date Last Done Comments Breast Cancer Screening-Mammogram 1954 Colon Cancer Screening-Colonoscopy 1954 Depression Screening 1954 Fall Risk Assessment 1954 Osteoporosis Screening-Bone Density Scan 1954 Hepatitis B Screening 1972 Zoster Vaccine (1 of 2) 2004 Pneumococcal vaccine 65+ (2 of 2 - PPSV23 or PCV20) 05/26/2018 03/31/2018, 02/23/2015 Well Visit 65+ 10/03/2019 Covid-19 Vaccine (5 - 2023-2 5 season) 2024 04/15/2022, 06/08/2021, 10/05/2020, Additional history exists Influenza Vaccine (#1) 2024 2, 03/25/2020, 02/27/2019, Additional history exists DTaP/Tdap/Td Vaccine (2 - Td or Tdap) 02/19/2027 02/19/2017 Hepatitis C Screening Completed 02/06/2017 , 01/03/2017, 01/03/2017 Procedures Procedure Name Priority Date/Time Associated Diagnosis Comments HEPATITIS C RNA, QUANTITATIVE, PCR Routine 01/03/2017 8:06 AM CDT from Last 3 Months or Most Recently Relevant to Health Maintenance Results * (ABNORMAL) Hepatitis C (HCV) RNA PCR, quantitative (01/03/2017 8:06 AM CDT) Pathologist [facility] HBsAb log IU/mL 6.9 log IU 7 1:54 PM CDT [facility] HISTORICAL RESULTS Comment: INTERPRETIVE INFORMATION: Hepatitis C Virus by Quantitative ?? PCR ?? The quantitative range of this assay is 1.2 - 8.0 log IU/mL ?? (15- 100,000,000 IU/mL). ?? Limit of detection (LOD): ?? 15 IU/mL (1.2 log IU/mL) ?? LOD values do not apply to diluted specimens. ?? An interpretation of Not Detected does not rule out the ?? presence of PCR inhibitors in the patient specimen or ?? hepatitis C virus RNA concentrations below the level of ?? detection of the test. Care should be taken when ?? interpreting any single viral load determination. ?? This test should not be used for blood donor screening, ?? associated re-entry protocols, or for screening Human Cell, ?? Tissues and Cellular Tissue-Based Products (HCT/P). ?? HCV RNA IU/mL 7,400,000 IU/mL 01/05/2017 1:54 PM CDT [facility] HISTORICAL RESULTS HCV RNA result Detected( H) Not Detected 01/05/2017 1:54 PM [employer] [facility] HISTORICAL RESULTS HCV RNA See Note 01/05/2017 1:54 PM CDT [facility] HISTORICAL RESULTS Comment: Access [employer] Report using either link below: ?? -Direct access: ?? [email or web address] ?? -Enter Username, Password: [email or web address] ?? Username: [email or web address] ?? Password: [email or web address] ?? Performed by [employer], ?? [address] [place] [address] ?? [email or web address], Henrry Ocampo MD, Lab. Director ?? 01/03/2017 8:06 AM CDT 01/03/2017 8:33 AM CDT Reginald Linn MD LAB MICROBIOLOGY - GENERA L ORDERABLES Final Result [facility] HISTORICAL RESULTS from Last 3 Months or Most Recently Relevant to Health Maintenance Additional Health Concerns Infection Onset Date Last Indicated C. difficile 08/25/2019 08/24/2019 Insurance [facility] CLAIMS MEDICARE Care Teams Wind Turbine Machinist Relationship Specialty Start Date End Date Ruben Felix MD [address] [place] [address] PCP - General 05/20/19 Jensen Lizarraga MD [address] [place], [place] [id number] Machine Steak Tenderizer Cardiovascular Disease 08/14/19
--- OUTSIDE RECORDS SUMMARY | 2024-07-02 23:03 | XMS_ITS | Encounter Summary ---
Author Organization [facility] Address [address] [place] [address]. [place] [address] [place] [address] Care Team Providers Care Clubhouse Manager Name Role Phone Les Das MD Unavailable [phone] Rizwan Martinez NP Unavailable Lou Brooks STUDENT DEVELOPMENT ADVISOR Unavailable [phone] Shanice Askew NP Primary Care Provider [phone] Encounter Details Date Type Department Care Team (Late st Contact Info) Description 10/17/2023 Viroprot Message Enc [facility] [place] [address] Lashon Bennett, VICTORIAN LITERATURE PROFESSOR [address] [facility] [address] [place] [address] Test results Social History Tobacco Use Types Packs/Day Years [...] and heating? Not hard at all 10/09/2022 [facility] - [facility] Stress [...] place to sleep or slept in a intermediate (including now)? No 10/09/2022 Comments No Sex and Gender Information Value Date Recorded Sex Assigned at Not on file Legal Sex Female 6:32 PM CDT Gender Identity Female 06/02/2021 8:12 AM SHAREPOINT DEVELOPER Sexual Orientation Not on file documented as of this encounter Functional Status * Are you deaf or do you have serious difficulty hearing Answer Date of Assessment Author Status No 10/09/2022 3:36 PM VIRGINIAT Vidya Sainz RN Active * Are you blind or do you have serious difficulty seeing, even when wearing glasses? Answer Date of Assessment Author Status No 10/09/2022 3:36 PM VIRGINIAT Vidya Sainz RN Active * Do you have serious difficulty walking or climbing stairs? Answer Date of Assessment Author Status No 10/09/2022 3:36 PM VIRGINIAT Vidya Sainz RN Active * Do you have difficulty dressing or bathing? Answer Date of Assessment Author Status No 10/09/2022 3:36 PM VIRGINIAT Vidya Sainz RN Active * Because of a physical, mental, or emotional condition, do you have difficulty doing errands alone such as visiting a doctor's office or shopping? Answer Date of Assessment Author Status No 10/09/2022 3:36 PM Vidya Brothers RN Active documented as [...] st Contact Info) Description 08/03/2024 4:50 PM SHAREPOINT DEVELOPER Allied Health/Nurse Visit [facility], [address] [address] Les Das MD [facility] [address] [place], [place] [address] 11/04/2024 10:00 AM CDT Office Visit [facility] [place], [place] [address] Les Das MD Three [facility] [address] [place] [address] documented as of this encounter Goals Goal Patient Goal Type Associated Problems Recent Progress Patient-Stated? Author Health - patient able to perform ADLs independently General No Magno Urrutia, electronic components assembler - family caregiver with be involved in care transitions and discharge planning Lifestyle No Oral Springer i RN documented as of this encounter Visit Diagnoses Not on filedocumented in this encounter Care Teams Clubhouse Manager Relationship Specialty Start Date End Date Shanice Askew NP [address] [place], [place] [id number] PCP - General Nurse Practitioner Family 05/11/24 Les Das MD [facility] [address] [place], [place] [address] Physician CARDIOVASCULAR DISEASE 09/21/22 Rizwan Martinez NP [address] [place] [address] PULMONARY DISEASE 05/11/24 Lou Brooks NP [address] [place] [address] GASTROENTEROLOGY 05/11/24 documented as of this encounter
--- OUTSIDE RECORDS SUMMARY | 2024-07-02 23:03 | XMS_ITS | Referral Summary ---
Author Organization [facility] [place] [facility] Address [address] [place] [address] Care Team Providers Care Apprentice Funeral Director Name Role Phone Ruben Felix MD Primary Care Provider [phone] Jensen Lizarraga MD Unavailable [phone] Allergies Active Allergy Reactions Criticality Noted Date [...] 08/10/2019 Assessment & Plan (08/10/2019 8:30 AM SEARCH MARKETING SPECIALIST): Continue Lasix. Controlled. Hypotension due to drugs [...] She does report upcoming appointment with her international trade analyst with anticipated upper and lower endoscopy. Plan: Follow up with GI. Patient follow up with vascular surgery on as-needed basis. Dilated cardiomyopathy (CMS/HCC) 09/15/2018 Assessment & Plan (08/10/2019 8:28 AM SEARCH MARKETING SPECIALIST): No syncope. Repeat echocardiogram. Continue losartan and [...] 09/15/2018 Assessment & Plan (08/10/2019 8:29 AM SEARCH MARKETING SPECIALIST): No history of suggestive of aborted sudden cardiac . Repeat echo. Assessment & Plan (11/12/2018 9:56 AM CDT): Two events not suggestive of arrhythmia Assessment & Plan (09/15/2018 8:51 AM CDT): Not suggestive of arrhythmia. Would not recommend outpatient monitoring at this time. Again follow up with GI and PV. Chest pain 10/28/2017 Assessment & Plan (08/10/2019 8:29 AM SEARCH MARKETING SPECIALIST): Cardiac catheterization August last year negative. Would [...] Intramuscular 03/07/2018 Pneumococcal Conjugate PCV 13 03/31/2018 Social History Tobacco Use Types Packs/Day Years [...] on file Legal Sex Female 6:59 PM SEARCH MARKETING SPECIALIST Gender Identity Not on file Sexual Orientation [...] kg (94 lb 6.4 oz) 03/14/2020 9:45 P M CDT Height 162.6 cm (5' 4 ) 03/14/2020 9:45 PM CDT Body Mass Index 16.2 03/14/2020 9:45 PM CDT Plan of Treatment Not on file Procedures Procedure Name Priority Date/Time Associated Diagnosis Comments HEPATITIS C RNA, QUANTITATIVE, PCR Routine 01/03/2017 8:06 AM CDT from Last 3 Months or Most Recently Relevant to Health Maintenance Results * (ABNORMAL) Hepatitis C (HCV) RNA PCR, quantitative (01/03/2017 8:06 AM CDT) HBsAb log IU/mL 6.9 log IU 7 1:[address] [facility] HISTORICAL RESULTS Comment: INTERPRETIVE INFORMATION: Hepatitis C [...] RNA IU/mL 7,400,000 IU/mL 01/05/2017 1:54 PM T [facility] [employer] HISTORICAL RESULTS HCV RNA result Detected( H) Not Detected 01/05/2017 1:54 PM [facility] [employer] HISTORICAL RESULTS HCV RNA See Note 01/05/2017 1:54 PM [facility] [employer] HISTORICAL RESULTS Comment: Access [employer] Report using either link below: ?? -Direct access: ?? [email or web address] ?? -Enter Username, Password: [email or web address] ?? Username: [email or web address] ?? Password: [email or web address] ?? Performed by [employer], ?? [address] [place] [address] ?? [email or web address], Henrry Ocampo MD, Lab. Director ?? 01/03/2017 8:06 AM CDT 01/03/2017 8:33 AM CDT us Reginald Linn MD LAB MICROBIOLOGY - GENERA L ORDERABLES Final Result [facility] HISTORICAL RESULTS from Last 3 Months or Most Recently Relevant to Health Maintenance Additional Health Concerns Infection Onset Date Last Indicated C. difficile 08/25/2019 08/24/2019 Insurance [facility] CLAIMS MEDICARE Care Teams Apprentice Funeral Director Relationship Specialty Start Date End Date Ruben Felix MD [address] [place] [address] PCP - General 05/20/19 Jensen Lizarraga MD [address] [place] [address] Wig Dresser Cardiovascular Disease 08/14/19
--- OUTSIDE RECORDS SUMMARY | 2024-07-02 23:03 | XMS_ITS | Encounter Summary ---
Author Organization [facility] Address [address] [place] [address]. [place] [address] [place] [address] Care Team Providers Care Supervisory Clerk Name Role Phone Ruben Felix MD Primary Care Provider [phone] Les Das MD Unavailable [phone] Rizwan Martinez NP Unavailable Lou Brooks ENVIRONMENTAL QUALITY ANALYST Unavailable [phone] Shanice Askew NP Primary Care Provider [phone] Encounter Details Date Type Department Care Team (Late st Contact Info) Description 03/25/2020 Abstract [facility] at [address] [address] Yolanda Ambriz MA Social History Tobacco Use Types Packs/Day Years Used Date Smoking Tobacco: Every Day Electronic Cigarettes Last attem pted to quit: 2018 Smokeless Tobacco: Never Comments:quit cigs 2018-curr ently vapes Alcohol Use Standard Drinks/Week Comments Never 0 (1 standard drink = 0.6 oz pur e alcohol) AUDIT-C Answer Date Recorded Q1: How often do you have a drink containing alc ohol? Never 03/24/2020 Average Number of Drinks Not on file 020 Frequency of Binge Drinking Not on file 03/10 Comments Unknown Sex and Gender Information Value Date Recorded Sex Assigned at Not on file Legal Sex Female 6:32 PM CDT Gender Identity Female 06/02/2021 8:12 AM DISABILITY RATER Sexual Orientation Not on file COVID-19 Exposure Response Date Recorded In the last month, have you been in contact with someone who was confirmed or suspected to have Coronavirus / COVID-19? No / Unsure 03/24/2020 11:32 AM CDT documented as of this encounter Plan of Treatment Upcoming Encounters Date Type Department Care Team (Late st Contact Info) Description 08/03/2024 4:50 PM DISABILITY RATER [facility], [address] [address] Les Das MD [facility] [address] [place] [address] 11/04/2024 10:00 AM CDT [facility], [address] [address] Les Das MD [facility] [address] [place] [address] documented as of this encounter Procedures Procedure Name Priority Date/Time Associated Diagnosis Comments BNP Routine 03/15/2020 LIPID PANEL Routine 03/15/2020 documented in this encounter Results * LIPID PANEL (03/15/2020) CHOLESTEROL 161 HDL 63 TRIGLYCERIDES 134 LDL (CALCULATED) 71 03/15/2020 us Doc [facility] Final Result * BNP (03/15/2020) B TYPE NATRIURETIC PEPTIDE 10 03/15/2020 us Doc [facility] Final Result documented in this encounter Visit Diagnoses Not on filedocumented in this encounter Care Teams Supervisory Clerk Relationship Specialty Start Date End Date Ruben Felix MD [address] [place] [address] PCP - General INTERNAL MEDICINE 03/22/20 10/09/22 Shanice Askew NP [address] [place] [address] PCP - General Nurse Practitioner Family 05/11/24 Les Dsa MD [facility], [address] [place] [address] Physician CARDIOVASCULAR DISEASE 09/21/22 Rizwan Martinez NP [address] [place] [address] PULMONARY DISEASE 05/11/24 Lou Brooks NP [address] [place] [address] GASTROENTEROLOGY 05/11/24 documented as of this encounter
--- OUTSIDE RECORDS SUMMARY | 2024-07-02 23:03 | XMS_ITS | Encounter Summary ---
Author Organization [facility] Facility Care Team Providers Care Hand Meat Salter Name Role Phone Xander Patel MD Primary Care Provider [phone] Ruben Felix MD Primary Care Provider [phone] Jensen Lizarraga MD Unavailable [phone] Encounter Details Date Type Department Care Team (Latest Contact Info) Description 08/26/2018 Orders Only [facility] CLINCONV ProviderJohn MD [address] [place] [address] Social History Tobacco Use Types Packs/Day Years Used Date Smoking Tobacco: Never Assessed Comments Unknown Sex and Gender Information Value Date Recorded Sex Assigned at Not on file Legal Sex Female 6:59 PM AUDIO VISUAL PROJECT MANAGER Gender Identity Not on file Sexual Orientation [...] documented as of this encounter Care Teams Hand Meat Salter Relationship Specialty Start Date End Date Xander Patel MD [address] [place] [address] PCP - General 07/25/18 05/19/19 Ruben Felix MD [address] [place] [address] PCP - General 05/20/19 Jensen Lizarraga MD [address] [place] [address] Fur Dyer Cardiovascular Disease 08/14/19 documented as of this encounter
[2024-07-05 13:03] LABS: Fecal Fat, Ql Normal (Normal)
[2024-07-06 12:13] LABS: Lactoferrin, Stool COMMENT:
[2024-07-07 23:29] LABS: Pancreatic Elastase, Stool 173 mcg/g (>200)
== END 2024-07-01 10:06 | disposition home or self-care (01) ==
PROVIDERS: PCP Nurse Practitioner Family; Visit Provider Nurse Practitioner Family
DX: R19.7 Diarrhea, unspecified (principal); K51.919 Ulcerative colitis, unspecified with unspecified complications
CPT/HCPCS: 82653; 82705; 83630; 83993

== ENCOUNTER 2024-07-01 10:28 | Outpatient (CLI) | payer MEDICARE, OTHER, SELFPAY ==
--- NOTE | ~2024-07-01 | CT_ITS ---
EXAMINATION: CT lumbar spine wo con DATE: 07/01/2024 10:55 INDICATION: Lumbar radiculopathy. TECHNIQUE: Computed tomography (CT) of the lumbar spine was performed without intravenous contrast. A utomated exposure control and iterative reconstruction technique were employed. The dose-length produ ct was 751.83 mGy-cm. COMPARISON: Lumbar spine MRI 06/06/2023 FINDINGS: There is 8 degrees dextrocurvature of lumbar spine. There is 3 mm anterolisthesis of L3 on L4. There are changes of posterior fusion procedure at L3-L4 with pedicle screws. Vertebral body heig hts are normal. There is moderately decreased disc height at L2-L3, L3-L4, and L4-L5 and severely dec reased disc height at L5-S1. The following disc levels are specifically discussed: L1-L2: The disc does not extend beyond the endplate margin. There is mild bilateral facet joint osteo arthritis. There is no neural foraminal stenosis. There is no central canal stenosis. L2-L3: The disc is bulging. There is mild bilateral facet joint osteoarthritis. There is mild bilater al neural foraminal stenosis. There is mild central canal stenosis. L3-L4: The disc is bulging. There is severe bilateral facet joint osteoarthritis. There is mild bilat eral neural foraminal stenosis. There is mild central canal stenosis. There is posterior decompressio n. There is resection of left L3 inferior facet. L4-L5: The disc is bulging. There is severe bilateral facet joint osteoarthritis. There is mild bilat eral neural foraminal stenosis. There is mild central canal stenosis. L5-S1: The disc is bulging. There is severe bilateral facet joint osteoarthritis. There is mild bilat eral neural foraminal stenosis. There is mild central canal stenosis. IMPRESSION: 1. Severe lumbar spondylosis with mild worsening from 06/06/2023. 2. Posterior fusion procedure at L3-L4. Reviewed, dictated and finalized at location B. TRIC MOTOR REBUILDER
== END 2024-07-01 10:29 | disposition home or self-care (01) ==
LOC: MICIMG 10:28
PROVIDERS: PCP Nurse Practitioner Family; Visit Provider Nurse Practitioner Family
DX: M47.26 Other spondylosis with radiculopathy, lumbar region (principal); Z98.1 Arthrodesis status
CPT/HCPCS: 72131

== ENCOUNTER → 2024-09-23 06:58 | Outpatient (CLI) | payer MEDICARE, OTHER, SELFPAY ==
--- OUTSIDE RECORDS SUMMARY | 2024-09-23 07:56 | XMS_ITS | Encounter Summary ---
Author Organization [facility] Facility Care Team Providers Care Battery Repairer Name Role Phone Xander Patel MD Primary Care Provider [phone] Ruben Felix MD Primary Care Provider [phone] Jensen Lizarraga MD Unavailable [phone] Encounter Details Date Type Department Care Team (Latest Contact Info) Description 08/14/2018 Orders Only [facility] CLINCONV ProviderJohn MD [address] [place] [address] Social History Tobacco Use Types Packs/Day Years Used Date Smoking Tobacco: Never Assessed Comments Unknown Sex and Gender Information Value Date Recorded Sex Assigned at Not on file Legal Sex Female 6:59 PM EVIDENCE SPECIALIST Gender Identity Not on file Sexual [...] documented as of this encounter Care Teams Battery Repairer Relationship Specialty Start Date End Date Xander Patel MD [address] [place] [address] PCP - General 07/25/18 05/19/19 Ruben Felix MD [address] [facility] [address] [place] [address] PCP - General 05/20/19 Jensen Lizarraga MD [address] [facility] [address] [place] [address] Test Design Engineer Cardiovascular Disease 08/14/19 documented as of this encounter
--- OUTSIDE RECORDS SUMMARY | 2024-09-23 07:56 | XMS_ITS | Encounter Summary ---
Author Organization [facility] Address [address] [place] [address] Care Team Providers Care Audiologist Name Role Phone Ruben Felix MD Primary Care Provider [phone] Les Das MD Unavailable [phone] Rizwan Martinez NP Unavailable Lou Brooks REHABILITATION ENGINEER Unavailable [phone] Shanice Askew NP Primary Care Provider Encounter Details Date Type Department Care Team (Late st Contact Info) Description 03/25/2020 Abstract [facility] at [address] [address] Yolanda Ambriz MA Social History [...] Information Value Date Recorded Sex Assigned at Female 08/06/2024 9:35 AM DIRECTOR OF EVENT SALES Legal Sex Female 6:32 PM CDT Gender Identity Female 06/02/2021 8:12 AM DIRECTOR OF EVENT SALES Sexual Orientation Not on file COVID-19 Exposure Response Date Recorded In the last month, have you been in contact with someone who was confirmed or suspected to have Coronavirus / COVID-19? No / Unsure 03/24/2020 11:32 AM CDT documented as of this encounter Plan of Treatment Upcoming Encounters Date Type Department Care Team (Late st Contact Info) Description 10/12/2024 4:50 PM CDT Allied Health/[facility], [address] [address] Les Das MD [facility], [address] [place] [address] 10/28/2024 2:20 PM CDT Office Visit [facility] - [place] [place] [address] Imer Holly MD [address] [place] [address] 11/04/2024 10:00 AM CDT [facility] on [address] [address] Les Das MD [facility], [address] [place] [address] documented as of this encounter Procedures Procedure [...] on filedocumented in this encounter Care Teams Audiologist Relationship Specialty Start Date End Date Ruben Felix MD [address] [facility] [address] [place], [place] [address] PCP - General INTERNAL MEDICINE 03/22/20 10/09/22 Shanice Askew NP [address] [place], [place] [address] PCP - General Nurse Practitioner Family 05/11/24 Les Das MD [facility], [address] [place] [address] Physician CARDIOVASCULAR DISEASE 09/21/22 Rizwan Martinez NP [address] [place] [address] PULMONARY DISEASE 05/11/24 Lou Brooks NP [address] [place], [place] [address] GASTROENTEROLOGY 05/11/24 documented as of this encounter
--- OUTSIDE RECORDS SUMMARY | 2024-09-23 07:56 | XMS_ITS | Encounter Summary ---
Author Organization [facility] Address [address] [place] [address] Care Team Providers Care Vending Machine Operator Name Role Phone Ruben Felix MD Primary Care Provider [phone] Les Das MD Unavailable [phone] Rizwan Martinez NP Unavailable Lou Brooks MEDIA DEVELOPER Unavailable [phone] Shanice Askew NP Primary Care Provider [phone] Encounter Details Date Type Department Care Team (Late st Contact Info) Description 11/03/2020 Abstract [facility] [id number] Yolanda Ambriz MA Social History Tobacco Use [...] Sex Assigned at Female 08/06/2024 9:35 AM LOCKER PLANT ATTENDANT Legal Sex Female 6:32 PM CDT Gender Identity Female 06/02/2021 8:12 AM LOCKER PLANT ATTENDANT Sexual Orientation Not on file COVID-19 Exposure [...] 10/12/2024 4:50 PM CDT Allied Health/Nurse Visit [facility] on [facility], [address] [place], [place] [phone] Les Das MD [facility]., [address] [place], [place] [phone] 10/28/2024 2:20 PM CDT Office Visit [facility] Orthopedic & Sports Medicine - [address] [place] [address] Imer Holly MD [address] [place] [address] 11/04/2024 10:00 AM CDT [facility] Visit [facility], [address] [place] [address] Les Das MD [facility]., [address] [place], [place] [address] documented as of this encounter Goals Goal [...] on filedocumented in this encounter Care Teams Vending Machine Operator Relationship Specialty Start Date End Date Ruben Felix MD [address] [place] [address] PCP - General INTERNAL MEDICINE 03/22/20 10/09/22 Shanice Askew NP [address] [place] [address] PCP - General Nurse Practitioner Family 05/11/24 Les Das MD [facility], [address] [place] [address] Physician CARDIOVASCULAR DISEASE 09/21/22 Rizwan Martinez NP [address] [place] [address] PULMONARY DISEASE 05/11/24 Lou Brooks NP [address] [place] [address] GASTROENTEROLOGY 05/11/24 documented as of this encounter
--- OUTSIDE RECORDS SUMMARY | 2024-09-23 07:56 | XMS_ITS | Referral Summary ---
Author Organization [facility] Address [address] [place] [address] Care Team Providers Care Portable Grinding Machine Operator Name Role Phone Ruben Felix MD Primary Care Provider [phone] Jensen Lizarraga MD Unavailable [phone] Allergies Active Allergy Reactions Criticality Noted Date [...] Date Diagnosed Date Biventricular congestive heart failure 0 Assessment & Plan (08/10/2019 8:30 AM DIRECTOR MISSION): Continue Lasix. Controlled. Hypotension due to drugs [...] She does report upcoming appointment with her engine lathe tender with anticipated upper and lower endoscopy. Plan: Follow up with GI. Patient follow up with vascular surgery on as-needed basis. Dilated cardiomyopathy 09/15/2018 Assessment & Plan (08/10/2019 8:28 AM DIRECTOR MISSION): No syncope. Repeat echocardiogram. Continue losartan and [...] 09/15/2018 Assessment & Plan (08/10/2019 8:29 AM DIRECTOR MISSION): No history of suggestive of aborted sudden cardiac . Repeat echo. Assessment & Plan (11/12/2018 9:56 AM CDT): Two events not suggestive of arrhythmia Assessment & Plan (09/15/2018 8:51 AM CDT): Not suggestive of arrhythmia. Would not recommend outpatient monitoring at this time. Again follow up with GI and PV. Chest pain 10/28/2017 Assessment & Plan (08/10/2019 8:29 AM DIRECTOR MISSION): Cardiac catheterization August last year negative. Would not recommend repeating ischemic workup discussed with patient. I spent a total of 15 Face to Face minutes of which more than 50% of the time was spent in counseling and coordination of care. This time included: Discussion of chest pain Immunizations Immunization Administration Dates Next Due Influenza, Quadrivalent, Spl [...] on file Legal Sex Female 6:59 PM DIRECTOR MISSION Gender Identity Not on file Sexual Orientation Not on file Last Filed Vital Signs Vital Sign Reading Time Taken Comments Blood Pressure 149/95 03/14/2020 9:45 PM CDT Pulse 59 03/14/2020 9:45 PM CDT Temperature 35.8 C (96.4 F) 03/14/2020 9:45 PM CDT Respiratory Rate - - Oxygen Saturation 99% [...] 6.9 log IU 7 1:54 PM CDT [facility] HISTORICAL RESULTS Comment: INTERPRETIVE INFORMATION: Hepatitis C Virus by Quantitative PCR The quantitative range of this assay is 1.2 - 8.0 log IU/mL (15- 100,000,000 IU/mL). Limit of detection (LOD): 15 IU/mL (1.2 log IU/mL) LOD values do not apply to diluted specimens. An interpretation of Not Detected does not rule out the presence of PCR inhibitors in the patient specimen or hepatitis C virus RNA concentrations below the level of detection of the test. Care should be taken when interpreting any single viral load determination. This test should not be used for blood donor screening, associated re-entry protocols, or for screening Human Cell, Tissues and Cellular Tissue-Based Products (HCT/P). HCV RNA IU/mL 7,400,000 IU/mL 01/05/2017 1:[address] [facility] HISTORICAL RESULTS HCV RNA result Detected( H) Not Detected 01/05/2017 1:[address] [facility] HISTORICAL RESULTS HCV RNA See Note 01/05/2017 1:54 PM [facility] HISTORICAL RESULTS Comment: Access [employer] Enhanced Report using either link below: -Direct access: [email or web address] -Enter Username, Password: [email or web address] Username: [email or web address] Password: [email or web address] Performed by [employer], [address] [place] [address] [email or web address], Henrry Ocampo MD, Lab. Director 01/03/2017 8:06 AM CDT 01/03/2017 8:33 AM CDT Reginald Linn MD LAB MICROBIOLOGY - GENERA L ORDERABLES Final Result [facility] [employer] HISTORICAL RESULTS from Last 3 Months or Most Recently Relevant to Health Maintenance Additional Health Concerns Infection Onset Date Last Indicated C. difficile 08/25/2019 08/24/2019 Insurance [facility] MEDICARE Care Teams Portable Grinding Machine Operator Relationship Specialty Start Date End Date Ruben Felix MD [address] [address] PCP - General 05/20/19 Jensen Lizarraga MD [address] [place] [address] Bank Officer Cardiovascular Disease 08/14/19
--- OUTSIDE RECORDS SUMMARY | 2024-09-23 07:56 | XMS_ITS | Encounter Summary ---
Author Organization [facility] Facility Care Team Providers Care Auto Claim Representative Name Role Phone Xander Patel MD Primary Care Provider [phone] Ruben Felix MD Primary Care Provider [phone] Jensen Lizarraga MD Unavailable [phone] Encounter Details Date Type Department Care Team (Latest Contact Info) Description 08/11/2018 Orders Only [facility] CLINCONV ProviderJohn MD [address] [place] [address] Social History Tobacco Use Types Packs/Day Years Used Date Smoking Tobacco: Never Assessed Comments Unknown Sex and Gender Information Value Date Recorded Sex Assigned at Not on file Legal Sex Female 6:59 PM GUIDANCE AND CONTROL SYSTEM ENGINEER Gender Identity Not on file Sexual Orientation [...] documented as of this encounter Care Teams Auto Claim Representative Relationship Specialty Start Date End Date Xander Patel MD [address] [place] [address] PCP - General 07/25/18 05/19/19 Ruben Felix MD [address] [facility] [address] [place] [address] PCP - General 05/20/19 Jensen Lizarraga MD [address] [facility] [address] [place] [address] Procurement Professional Cardiovascular Disease 08/14/19 documented as of this encounter
--- OUTSIDE RECORDS SUMMARY | 2024-09-23 07:56 | XMS_ITS | Clinical Summary ---
Author Organization [facility] Address [address] [facility] [place] [address] Care Team Providers Care Lease Operator Name Role Phone Ruben Felix MD Primary Care Provider [phone] Source Comments [facility],non-[facility] Affiliates and Associated Physician Practices is amultiple site organization consisting of ambulatory clinics and hospital sitesin [place], [place], [place] and [place]. This disclosure is being madepursuant to the Care Everywhere program and may not contain all information available regarding this patient. Last updated 18.[facility] Allergies Active Allergy Reactions Criticality Noted Date Comments Codeine Unknown 09/11/2018 Medications * Be aware that medications may not be up to date on this document. Alwaysverify current medications with the patient. losartan (COZAAR) 100 MG tablet TK 1 [...] of Binge Drinking Not on file 12/10 Comments Unknown Sex and Gender Information Value Date Recorded Sex Assigned at Not on file Legal Sex Female 5:24 AM TRANSPORT TECHNICIAN Gender Identity Not on file Sexual Orientation Not on file Last Filed Vital Signs Vital Sign Reading Time Taken Comments Blood Pressure 157/98 03/03/2020 9:14 AM CDT Pulse 77 03/03/2020 9:14 AM CDT Temperature 36.7 C (98 F) 03/03/2020 9:14 AM CDT Respiratory Rate 16 [...] LIPID TESTING 1954 MAMMOGRAM 1954 MEDICARE AWV 12 MONTHS 1954 HEPATITIS C SCREENING 09/27/1972 DTAP/TDAP/TD VACCINES (1 - Tdap) 1973 PNEUMOCOCCAL VACCINE 50+ (1 of 1 - PCV) 2004 ZOSTER VACCINE (1 of 2) 2004 SCREENING FOR DIABETES 01/18/2023 01/19/2020 COVID-19 VACCINE ( season) 2024 DEPRESSION SCREENING 06/10/2024 INFLUENZA VACCINE (Season Ended) 2025 03/25/2020, 02/27/2019, 03/07/2018, Additional history exists Respiratory Syncytial Virus (RSV) Vaccine Pt: or [...] complete this topic MENINGOCOCCAL (Group B) VACCINE SHARED DECISION-MAKING Aged Out No longer eligible based on patient's age to complete this topic MENINGOCOCCAL GROUPS A/C/Y/W VACCINE Aged Out No longer eligible based [...] 7 - 26 mg/dL 01/19/2020 9:58 AM [facility] Creatinine 0.9 0.6 - 1.2 mg/dL 01/19/2020 9:58 AM [facility] Sodium 142 136 - 145 mmol/L 01/19/2020 9:58 AM [facility] Potassium 3.8 3.5 - 4.5 mmol/L 01/19/2020 9:58 AM [facility] Chloride 111(H) 98 - 107 mmol/L 01/19/2020 9:58 AM [facility] CO2 24 22 - 29 mmol/L 01/19/2020 9:58 AM [facility] Glucose 82 70 - 115 mg/dL 01/19/2020 9:58 AM [facility] Calcium 8.8 8.4 - 10.2 mg/dL 01/19/2020 9:58 AM [facility] Anion Gap 11 8 - 18 01/19/2020 9:58 AM [facility] BUN/Creatinine Ratio 11 7 - 23 01/19/2020 9:58 AM [facility] Osmolality Calculated 292 270 - 300 mOsm/kg 01/19/2020 9:58 AM CDT [facility] eGFR >60 >60 mL/min/1.7 3 m2 01/19/2020 9:58 AM [facility] Blood BLOOD SPECIMEN / Unknown Venipuncture / Unknown 01/19/2020 9:17 AM CDT 01/19/2020 9:25 AM CDT us Ronnie Saldana MD LAB - CHEMISTRY ORDERABLES nal Result [address] [address], [facility] [phone] from Last 3 Months or Most Recently Relevant to Health Maintenance Insurance MEDICARE [facility] Care Teams Lease Operator Relationship Specialty Start Date End Date Ruben Felix MD [address] [place] [phone] PCP - General 01/02/20
--- OUTSIDE RECORDS SUMMARY | 2024-09-23 07:56 | XMS_ITS | Encounter Summary ---
Author Organization [facility] Facility Care Team Providers Care Automotive Maintenance Technician Name Role Phone Xander Patel MD Primary Care Provider [phone] Ruben Felix MD Primary Care Provider [phone] Jensen Lizarraga MD Unavailable [phone] Encounter Details Date Type Department Care Team (Latest Contact Info) Description 08/26/2018 Orders Only [facility] CLINCONV ProviderJohn MD [address] [place] [address] Social History Tobacco Use Types Packs/Day Years Used Date Smoking Tobacco: Never Assessed Comments Unknown Sex and Gender Information Value Date Recorded Sex Assigned at Not on file Legal Sex Female 6:59 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
--- OUTSIDE RECORDS SUMMARY | 2024-09-23 07:56 | XMS_ITS | Encounter Summary ---
Author Organization [facility] Address [address] [place] [address] Care Team Providers Care Mixing Machine Tender Name Role Phone Les Das MD Unavailable [phone] Rizwan Martinez NP Unavailable Lou Brooks STEAM HEATING INSTALLER Unavailable [phone] Shanice Askew NP Primary Care Provider [phone] Encounter Details Date Type Department Care Team (Late st Contact Info) Description 11/09/2023 [employer] Message Enc [facility], [address] [place] [address] Prasanth Muro MD Three [facility]. [address] [place] [address] Earlier appointment Social History Tobacco [...] and heating? Not hard at all 10/09/2022 [facility] [place] of Occupat ional Health - Occupational Stress [...] place to sleep or slept in a mcc (including now)? No 10/09/2022 Comments No Sex and Gender Information Value Date Recorded Sex Assigned at Female 08/06/2024 9:35 AM BOND BROKER Legal Sex Female 6:32 PM CDT Gender Identity Female 06/02/2021 8:12 AM BOND BROKER Sexual Orientation Not on file documented as [...] 3:36 PM CDT Vidya Sainz RN Active documented as of this encounter Mental Status * Because of a physical, mental, or emotional condition, do you have serious difficulty concentrating, remembering, or making decisions? Answer Entry Date Author Status No 10/09/2022 3:36 PM VIRGINIAT Vidya Sainz RN Active documented in this encounter Plan of Treatment Upcoming Encounters Date Type Department Care Team (Late st Contact Info) Description 10/12/2024 4:50 PM CDT Allied Health/Nurse Visit [facility] THREE [facility], [place] [address] [place] [address] Les Das MD [facility], [address] [place], [place] [id number] 10/28/2024 2:20 PM CDT Office Visit [facility] Orthopedic & Sports Medicine - [place] [address] [place], [place] [phone] Imer Holly MD [address] [place], [place] [address] 11/04/2024 10:00 AM CDT Office Visit [facility] THREE [facility], [address] [place], [place] [id number] Les Das MD [facility], [address] [place], [place] [id number] documented as of this encounter Goals Goal Patient Goal Type Associated Problems Recent Progress Patient-Stated? Author Health - patient able to perform ADLs independently General No Magno Urrutia, offline cutter - family caregiver with be involved in care transitions and discharge planning Lifestyle No Oral Springer i, RN documented as of this encounter Visit Diagnoses Not on filedocumented in this encounter Care Teams Mixing Machine Tender Relationship Specialty Start Date End Date Shanice Askew NP [address] [place] [address] PCP - General Nurse Practitioner Family 05/11/24 Les Das MD [facility], [address] [place], [place] [id number] Physician CARDIOVASCULAR DISEASE 09/21/22 Rizwan Martinez NP [address] [place] [address] PULMONARY DISEASE 05/11/24 Lou Brooks NP [address] [facility] [address] [facility] [address] [place] [address] GASTROENTEROLOGY 05/11/24 documented as of this encounter
--- OUTSIDE RECORDS SUMMARY | 2024-09-23 07:56 | XMS_ITS | Encounter Summary ---
Author Organization [facility] Address [address] [place] [address] Care Team Providers Care Concrete Stone Finisher Name Role Phone Ruben Felix MD Primary Care Provider [phone] Les Das MD Unavailable [phone] Rizwan Martinez NP Unavailable Lou Brooks FINISHING FRAME RUNNER Unavailable [phone] Shanice Askew NP Primary Care Provider [phone] Encounter Details Date Type Department Care Team (Late st Contact Info) Description 03/07/2022 Abstract [facility] [id number] Yolanda Ambriz MA Social History Tobacco Use [...] Sex Assigned at Female 08/06/2024 9:35 AM LUMBER SALES SUPERVISOR Legal Sex Female 6:32 PM CDT Gender Identity Female 06/02/2021 8:12 AM LUMBER SALES SUPERVISOR Sexual Orientation Not on file COVID-19 [...] 10/12/2024 4:50 PM CDT Allied Health/Nurse Visit [facility] THREE [facility], [address] [place], [place] [id number] Les Das MD [facility] [address] [place], [place] [id number] 10/28/2024 2:20 PM CDT Office Visit [facility] Orthopedic & Sports Medicine - [place] [address] [place] [address] Imer Holly MD [address] [place] [address] 11/04/2024 10:00 AM CDT Office Visit [facility], [address] [place] [address] Les Das MD Three [facility]., [address] [place], [place] [address] documented as of this encounter Goals Goal Patient Goal Type Associated Problems Recent Progress Patient-Stated? Author Health - patient able to perform ADLs independently Magno Ferris RN documented as of this encounter Procedures Procedure Name Priority Date/Time Associated Diagnosis Comments COMPREHENSIVE METABOLIC PANEL Routine 09/16/2023 CBC, MANUAL DIFF Routine 09/16/2023 CBC (OUTSIDE LAB) Routine 01/31/2022 IRON BINDING TEST Routine 01/31/2022 IRON Routine 12/12/2021 FERRITIN Routine 12/12/2021 documented in this encounter Results * COMPREHENSIVE METABOLIC PANEL (09/16/2023) SODIUM S/P/B 138 GLUCOSE 106 mg/dL AST 26 BUN 9 CREATININE S/P/B 0.80 0.5 - 1.0 CALCIUM S/P/B 9.8 POTASSIUM S/P/B 4.5 CHLORIDE S/P/B 107 ALT 30 GFR ESTIMATE >60 us Default History Genericprovider LABORATORY Edited Result - Final * CBC, MANUAL DIFF (09/16/2023) Pathologist [facility] WBC 8.3 HGB 13.1 HCT 40.4 PLT 267 us Default History Genericprovider LABORATORY Edited Result - Final * IRON BINDING TEST (01/31/2022) Pathologist [facility] IRON BINDING CAPACITY 406 01/31/2022 us Doc [facility] Abstract LABORATORY Final Result * CBC (OUTSIDE LAB) (01/31/2022) Pathologist [facility] WBC 7.8 HGB 11.9 HCT 38.2 PLT 251 01/31/2022 us Doc [facility] Abstract LAB-OUTSIDE/ABSTRACTED Final Result * FERRITIN (12/12/2021) Pathologist [facility] FERRITIN 10.20 12/12/2021 us Doc [facility] Abstract LABORATORY Final Result * IRON (12/12/2021) Pathologist [facility] IRON 26 12/12/2021 us Doc [facility] Abstract LABORATORY Final Result documented in this encounter Visit Diagnoses Not on filedocumented in this encounter Care Teams Concrete Stone Finisher Relationship Specialty Start Date End Date Ruben Felix MD [address] [place] [address] PCP - General INTERNAL MEDICINE 03/22/20 10/09/22 Shanice Askew NP [address] [place] [address] PCP - General Nurse Practitioner [facility] 05/11/24 Les Das MD [facility], [address] [facility] [place] [address] Physician CARDIOVASCULAR DISEASE 09/21/22 Rizwan Martinez NP [address] [place] [address] PULMONARY DISEASE 05/11/24 Lou Brooks NP [address] [place] [address] GASTROENTEROLOGY 05/11/24 documented as of this encounter
--- OUTSIDE RECORDS SUMMARY | 2024-09-23 07:56 | XMS_ITS | Clinical Summary ---
Author Organization [facility] Address [address] [place] [address] Care Team Providers Care Water Trainer Name Role Phone Ruben Felix MD Primary Care Provider [phone] Jensen Lizarraga MD Unavailable [phone] Allergies Active Allergy Reactions Criticality Noted Date [...] 0 Assessment & Plan (08/10/2019 8:30 AM INSPECTOR WATER POLLUTION CONTROL): Continue Lasix. Controlled. Hypotension due to drugs [...] She does report upcoming appointment with her home health aid with anticipated upper and lower endoscopy. Plan: Follow up with GI. Patient follow up with vascular surgery on as-needed basis. Dilated cardiomyopathy 09/15/2018 Assessment & Plan (08/10/2019 8:28 AM INSPECTOR WATER POLLUTION CONTROL): No syncope. Repeat echocardiogram. Continue losartan and [...] 09/15/2018 Assessment & Plan (08/10/2019 8:29 AM INSPECTOR WATER POLLUTION CONTROL): No history of suggestive of aborted sudden cardiac . Repeat echo. Assessment & Plan (11/12/2018 9:56 AM CDT): Two events not suggestive of arrhythmia Assessment & Plan (09/15/2018 8:51 AM CDT): Not suggestive of arrhythmia. Would not recommend outpatient monitoring at this time. Again follow up with GI and PV. Chest pain 10/28/2017 Assessment & Plan (08/10/2019 8:29 AM INSPECTOR WATER POLLUTION CONTROL): Cardiac catheterization August last year negative. Would [...] on file Legal Sex Female 6:59 PM INSPECTOR WATER POLLUTION CONTROL Gender Identity Not on file Sexual Orientation [...] Pneumococcal vaccine 65+ (2 of 2 - PPSV23) 05/26/2018 03/31/2018, 02/23/2015 Well Visit 65+ 10/03/2019 Covid-19 Vaccine (2023-2 5 season) 2024 04/15/2022, 06/08/2021, 10/05/2020, Additional [...] IU/mL 6.9 log IU 7 1:54 PM 5k [facility] HISTORICAL RESULTS Comment: INTERPRETIVE INFORMATION: Hepatitis C [...] RNA IU/mL 7,400,000 IU/mL 01/05/2017 1:54 PM [facility]k [facility] HISTORICAL RESULTS HCV RNA result Detected( H) Not Detected 01/05/2017 1:54 PM [facility]k [facility] HISTORICAL RESULTS HCV RNA See Note 01/05/2017 1:54 PM 5k [facility] HISTORICAL RESULTS Comment: Access [facility] Enhanced Report using either link below: -Direct access: [email or web address] -Enter Username, Password: [email or web address] Username: [email or web address] Password: [email or web address] Performed by [facility], [address] [place] [id number] [email or web address], Henrry Ocampo MD, Lab. Director 01/03/2017 8:06 AM CDT 01/03/2017 8:33 AM CDT us Reginald Linn MD LAB MICROBIOLOGY - GENERA L ORDERABLES Final Result [facility] HISTORICAL RESULTS from Last 3 Months or Most Recently Relevant to Health Maintenance Additional Health Concerns Infection Onset Date Last Indicated C. difficile 08/25/2019 08/24/2019 Insurance [facility] CLAIMS MEDICARE Care Teams Water Trainer Relationship Specialty Start Date End Date Ruben Felix MD [address] [address] PCP - General 05/20/19 Jensen Lizarraga MD [address] [place] [address] Discharge Planner Cardiovascular Disease 08/14/19
--- OUTSIDE RECORDS SUMMARY | 2024-09-23 07:56 | XMS_ITS | Continuity of Care Document ---
Author Name [facility] Organization [facility] Care Team Providers Care Clinical Rehab Liaison Name Role Phone [facility] Unavailable Unavailable Medications Combined list of outpatient medications from Department of Defense and Veterans Affairs facilities.Medications provided include 1) outpatient medications from the last 15 months, and 2) patient-reported medications. Medication Details Route Status Patient Instructions Prescription Expires Prescription Number Last Dispense Date Ordering Provider Order Date Order Qty Source albuterol 2.5mg/3mL (0.083%) inhalation soln (3mL) See Instruct ions, # 360 mL, 1 total refill(s ), Hard Stop Complet ed 02/18/2024 3 2023 360.0 Ambulat ory Pharmac y albuterol 90 mcg inhaler [8.5g] See Instruct ions, 0, # 25.5 g, 1 total refill(s ), Hard Stop Ordered 12/17/2024 4 2023 25.5 Ambulat ory Pharmac y albuterol 90 mcg inhaler [8.5g] = 2 puff(s), Inhale, # 25.5 g, 1 total refill(s ), Hard Stop Inhala tion (breat he in) Ordered 04/29/2025 4 2023 25.5 Ambulat ory Pharmac y albuterol 90 mcg/inh inhalation aerosol INHALE 1 PUFF EVERY FOUR HOURS NEEDED FOR COPD DIRECTED , # 25.5 g, 1 total refill(s ), Acute Complet ed 08/05/2023 3 2023 25.5 Ambulat ory Pharmac y amitriptyli ne 50 mg tablet 50 mg, Oral, every day at bedtime, # 90 EA, 1 total refill(s ), Soft Stop Oral (given by mouth) Ordered 5 2024 90.0 Ambulat ory Pharmac y amitriptyli ne 50 mg tablet 50 mg, Oral, # 90 EA, 1 total refill(s ), Hard Stop Oral (given by mouth) Discont inued 08/17/2024 5 2024 90.0 Ambulat ory Pharmac y budesonide 3 mg oral delayed release capsule TAKE TWO CAPSULES BY MOUTH DAILY FOR ONE MONTH, # 60 EA, 2 total refill(s ), Acute Complet ed 03/26/2023 3 2022 60.0 Ambulat ory Pharmac y carvedilol 3.125 mg tablet See Instruct ions, # 180 EA, 1 total refill(s ), Hard Stop Ordered 06/29/2025 5 2024 180.0 Ambulat ory Pharmac y carvedilol 3.125 mg tablet See Instruct ions, # 180 EA, 0 total refill(s ), Hard Stop Complet ed 03/18/2024 4 2023 180.0 Ambulat ory Pharmac y carvedilol 3.125 mg tablet 3.125 mg, Oral, BID, # 180 EA, 1 total refill(s ), Hard Stop Oral (given by mouth) Ordered 04/29/2025 4 2023 180.0 Ambulat ory Pharmac y Daliresp 500 mcg tablet 500 mcg, Oral, Daily, # 90 EA, 3 total refill(s ), Hard Stop Oral (given by mouth) Ordered 12/17/2024 5 2024 90.0 Ambulat ory Pharmac y dicyclomine 10 mg capsule See Instruct ions, Oral, # 270 EA, 3 total refill(s ), Hard Stop Oral (given by mouth) Ordered 06/11/2025 5 2024 270.0 Ambulat ory Pharmac y dicyclomine 20 mg tablet 20 mg, Oral, TID, # 270 EA, 0 total refill(s ), Hard Stop Oral (given by mouth) Complet ed 02/18/2024 3 2023 270.0 Ambulat ory Pharmac y DULoxetine DR 30 mg capsule See dose instruct ions in comments , # 90 EA, 1 total refill(s ), Acute Complet ed 11/08/2023 3 2023 90.0 Ambulat ory Pharmac y DULoxetine DR 30 mg capsule 30 mg, Oral, Daily, # 90 EA, 1 total refill(s ), Hard Stop Oral (given by mouth) Discont inued 02/21/2024 4 2023 90.0 Ambulat ory Pharmac y DULoxetine DR 30 mg capsule See Instruct ions, # 90 EA, 1 total refill(s ), Soft Stop Ordered 5 2024 90.0 Ambulat ory Pharmac y DULoxetine DR 30 mg capsule 30 mg, Oral, Daily, # 90 EA, 1 total refill(s ), Hard Stop Oral (given by mouth) Discont inued 08/17/2024 4 2024 90.0 Ambulat ory Pharmac y Eliquis 5 mg tablet See Instruct ions, # 180 EA, 1 total refill(s ), Hard Stop Ordered 04/29/2025 5 2024 180.0 Ambulat ory Pharmac y Eliquis 5 mg tablet See Instruct ions, # 180 EA, 1 total refill(s ), Hard Stop Discont inued 07/13/2024 4 2024 180.0 Ambulat ory Pharmac y ferrous sulfate 325 mg tablet 325 mg, Oral, Daily, # 90 EA, 1 total refill(s ), Hard Stop Oral (given by mouth) Discont inued 02/21/2024 4 2023 90.0 Ambulat ory Pharmac y ferrous sulfate 325 mg tablet 325 mg, Oral, Daily, # 90 EA, 1 total refill(s ), Soft Stop Oral (given by mouth) Ordered 5 2024 90.0 Ambulat ory Pharmac y ferrous sulfate 325 mg tablet 325 mg, Oral, Daily, # 90 EA, 1 total refill(s ), Hard Stop Oral (given by mouth) Discont inued 08/17/2024 5 2024 90.0 Ambulat ory Pharmac y fluticasone -vilanterol 100-25 mcg inh(60EA/30 Dose) See Instruct ions, 0, # 180 EA, 3 total refill(s ), Hard Stop Discont inued 05/01/2024 4 2023 180.0 Ambulat ory Pharmac y fluticasone -vilanterol 100-25 mcg inh(60EA/30 Dose) = 1 puff(s), Oral, 0, # 180 EA, 3 total refill(s ), Hard Stop Oral (given by mouth) Discont inued 12/18/2023 4 2023 180.0 Ambulat ory Pharmac y fluticasone -vilanterol 100-25 mcg inh(60EA/30 Dose) See Instruct ions, 0, 0, # 180 EA, 3 total refill(s ), Hard Stop Ordered 04/29/2025 5 2024 180.0 Ambulat ory Pharmac y losartan 50 mg oral tablet TAKE ONE AND ONE-HALF TABLETS (75 MG TOTAL) BY MOUTH EVERY DAY *NEW DOSE*, # 135 EA, 1 total refill(s ), Acute Complet ed 03/05/2023 2 2022 135.0 Ambulat ory Pharmac y losartan 50 mg tablet See Instruct ions, # 90 EA, 1 total refill(s ), Hard Stop Ordered 04/29/2025 5 2024 90.0 Ambulat ory Pharmac y losartan 50 mg tablet 50 mg, Oral, Daily, # 90 EA, 1 total refill(s ), Hard Stop Oral (given by mouth) Discont inued 02/21/2024 4 2023 90.0 Ambulat ory Pharmac y losartan 50 mg tablet 50 mg, Oral, # 90 EA, 0 total refill(s ), Hard Stop Oral (given by mouth) Discont inued 12/23/2023 4 2023 90.0 Ambulat ory Pharmac y losartan 50 mg tablet 50 mg, Oral, Daily, # 90 EA, 1 total refill(s ), Hard Stop Oral (given by mouth) Discont inued 05/14/2024 4 2023 90.0 Ambulat ory Pharmac y mesalamine 1.2 g oral delayed release tablet TAKE 3 TABLETS BY MOUTH EVERY DAY DIRECTED , # 270 EA, 1 total refill(s ), Acute Complet ed 03/25/2023 3 2022 270.0 Ambulat ory Pharmac y mesalamine EC [Lialda] 1.2 g tablet 3.6 g, Oral, Daily, # 270 EA, 3 total refill(s ), Hard Stop Oral (given by mouth) Ordered 06/11/2025 5 2024 270.0 Ambulat ory Pharmac y metoprolol succinate 25 mg oral tablet, extended release TAKE ONE TABLET DAILY, # 90 EA, 1 total refill(s ), Acute Complet ed 11/07/2023 3 2023 90.0 Ambulat ory Pharmac y metoprolol succinate 25 mg oral tablet, extended release TAKE ONE TABLET DAILY, # 90 EA, 1 total refill(s ), Acute Complet ed 08/05/2023 3 2023 90.0 Ambulat ory Pharmac y omeprazole DR 40 mg capsule See dose instruct ions in comments , # 90 EA, 1 total refill(s ), Acute Complet ed 11/08/2023 3 2023 90.0 Ambulat ory Pharmac y omeprazole DR 40 mg capsule 40 mg, Oral, Daily, # 90 EA, 1 total refill(s ), Hard Stop Oral (given by mouth) Discont inued 02/21/2024 4 2023 90.0 Ambulat ory Pharmac y omeprazole DR 40 mg capsule 40 mg, Oral, Daily, # 90 EA, 1 total refill(s ), Soft Stop Oral (given by mouth) Ordered 5 2024 90.0 Ambulat ory Pharmac y omep[address]ole DR 40 mg capsule 40 mg, Oral, Daily, # 90 EA, 1 total refill(s ), Hard Stop Oral (given by mouth) Discont inued 08/17/2024 4 2024 90.0 Ambulat ory Pharmac y pramipexole 0.5 mg tablet See dose instruct ions in comments , # 180 EA, 1 total refill(s ), Acute Complet ed 11/07/2023 3 2023 180.0 Ambulat ory Pharmac y pramipexole 0.5 mg tablet 0.5 mg, Oral, BID, # 180 EA, 1 total refill(s ), Soft Stop Oral (given by mouth) Ordered 5 2024 180.0 Ambulat ory Pharmac y pramipexole 0.5 mg tablet 0.5 mg, Oral, BID, # 180 EA, 1 total refill(s ), Hard Stop Oral (given by mouth) Discont inued 02/21/2024 4 2023 180.0 Ambulat ory Pharmac y pramipexole 0.5 mg tablet 0.5 mg, Oral, BID, # 180 EA, 1 total refill(s ), Hard Stop Oral (given by mouth) Discont inued 08/17/2024 4 2024 180.0 Ambulat ory Pharmac y rosuvastati n 5 mg tablet 5 mg, Oral, Daily, # 90 EA, 0 total refill(s ), Hard Stop Oral (given by mouth) Complet ed 03/18/2024 4 2023 90.0 Ambulat ory Pharmac y rosuvastati n 5 mg tablet See Instruct ions, # 90 EA, 1 total refill(s ), Hard Stop Ordered 04/29/2025 5 2024 90.0 Ambulat ory Pharmac y Procedures Combined list of: 1) Procedures from Department of Veterans Affairs facilities going back up to thelast 18 months, not all VA non-surgical procedures are included; 2) All procedures from the Department of Defense facilities. Procedure Procedure Type Code Date Perfomer Comments Sourc e No data available for this section Ambulatory P harmacy Assessment and Plan Combined list of future care activities from Department of Defense and Veterans Affairs facilities (e.g., assessment and plan notes, appointments, orders, and referrals). Additional future care activities may be listed in the Plan of Care section. Result Assessment and Plan Date Source Assessment and Plan No data available for this section 09/23/2024 Ambulatory Pharmacy Functional Status Combined list of recent functional and cognitive assessments recorded at Department of Defense and Veterans Affairs (VA).VA Functional Leonard Measurement (FIM) Scale: 1 = Total Assistance (Subject = 0% +), 2 = Maximal Assistance (Subject = 25% +), 3 = Moderate Assistance (Subject = 50% +), 4 = Minimal Assistance (Subject = 75% +), 5 = Supervision, 6 = Modified Leonard (Device), 7 = Complete Leonard (Timely, Safely). Assessment Date/Time Source Assessment Type Assessment Skill Assessment Score Assessment Details No data available for this section
--- OUTSIDE RECORDS SUMMARY | 2024-09-23 07:56 | XMS_ITS | Encounter Summary ---
Author Organization [facility] Address [address] [place] [address] Care Team Providers Care Park Guard Name Role Phone Les Das MD Unavailable [phone] Rizwan Martinez NP Unavailable Lou Brooks SUPERINTENDENT TERMINAL Unavailable [phone] Shanice Askew NP Primary Care Provider [phone] Encounter Details Date Type Department Care Team (Late st Contact Info) Description 10/17/2023 [facility] Message Enc [facility] [address] [facility] [address], [address] [place] [address] Lashon Bennett FNP [address] [facility] [address] [place] [address] Test results Social History Tobacco [...] and heating? Not hard at all 10/09/2022 [facility] of Occupat ional Health - Occupational Stress [...] place to sleep or slept in a alf (including now)? No 10/09/2022 Comments No Sex and Gender Information Value Date Recorded Sex Assigned at Female 08/06/2024 9:35 AM SAFETY LEAD Legal Sex Female 6:32 PM CDT Gender Identity Female 06/02/2021 8:12 AM SAFETY LEAD Sexual Orientation Not on file documented as [...] 4:50 PM CDT Allied Health/Nurse Visit [facility] THREE [facility], [address] [address] Les Das MD [facility], [address] [place], [place] [id number] 10/28/2024 2:20 PM CDT Office Visit [facility] Orthopedic & Sports Medicine - [place] [address] [place], [place] [address] [phone] Imer Holly MD [address] [place] [address] 11/04/2024 10:00 AM CDT Office Visit [facility] THREE [facility], [address] [place], [place] [phone] Les Das MD [facility], [address] [place], [place] [id number] documented as of this encounter Goals Goal Patient Goal Type Associated Problems Recent Progress Patient-Stated? Author Health - patient able to perform ADLs independently General No Magno Urrutia RN Family - family caregiver with be involved in care transitions and discharge planning Lifestyle No Oral Springer i, RN documented as of this encounter Visit Diagnoses Not on filedocumented in this encounter Care Teams Park Guard Relationship Specialty Start Date End Date Shanice Askew NP [address] [place] [address] PCP - General Nurse Practitioner Family 05/11/24 Les Das MD [facility], [address] [place], [place] [phone] Physician CARDIOVASCULAR DISEASE 09/21/22 Rizwan Martinez NP [address] [place] [id number] PULMONARY DISEASE 05/11/24 Lou Brooks NP [address] [facility] [address] [place], [place] [address] GASTROENTEROLOGY 05/11/24 documented as of this encounter
--- OUTSIDE RECORDS SUMMARY | 2024-09-23 07:56 | XMS_ITS | Clinical Summary ---
Author Organization [facility] Address [address] [place] [address] Care Team Providers Care Tree Worker Name Role Phone Ruben Felix MD Primary Care Provider [phone] Allergies Active Allergy Reactions Criticality Noted Date [...] 55 02/07/2022 2:24 PM CDT Temperature 36.2 C (97.1 F) 02/07/2022 2:24 PM CDT Respiratory Rate - - Oxygen Saturation 97% 02/07/2022 2:24 PM CDT Inhaled Oxygen Concentration - - Weight 100.7 kg (221 lb 14.4 oz) 02/07/2022 2:24 PM CDT Height 165.1 cm (5' 5 ) 02/07/2022 2:24 PM CDT Body Mass Index 36.93 02/07/2022 2:24 PM CDT Plan of Treatment Health Maintenance Due Date Last Done Comments FIT-DNA Q 3 years 10/03/1999 FIT/FOBT Q 1 year 10/03/1999 Flex Sig/CT Colonography Q 5 years 10/03/1999 ZOSTER VACCINE (1 of 2) 2004 PNEUMOCOCCAL VACCINE 50+ YEA RS (2 of 2 - PPSV23) 03/31/2019 03/31/2018, 02/23/2015 OSTEOPOROSIS SCREENING 10/03/2019 BREAST CANCER SCREENING 02/21/2022 02/22/20, 02/21/2021, 05/26/2020 INFLUENZA VACCINE (#1) 2024 03/25/2020, 2017 DTAP/TDAP/TD VACCINES (2 - T d or Tdap) 02/19/2027 02/19/2017 RSV VACCINE (60+ or ) (1 - 1-dose 75+ series) 2029 COLORECTAL SCREENING 12/06/2030 12/06/2020, 10/16/19 Colorectal Cancer Screening 12/06/2030 Insurance MEDICARE PART A AND B [employer] Care Teams Tree Worker Relationship Specialty Start Date End Date Ruben Felix MD [address] [place] [id number] PCP - General Internal Medicine 10/13/20
--- OUTSIDE RECORDS SUMMARY | 2024-09-23 07:57 | XMS_ITS | Encounter Summary ---
Author Organization [facility] Address [address] [place] [id number] Care Team Providers Care Marketer Name Role Phone Les Das MD Unavailable [phone] Rizwan Martinez NP Unavailable Lou Brooks SOFTWARE LEAD Unavailable [phone] Shanice Askew NP Primary Care Provider [phone] Encounter Details Date Type Department Care Team (Late st Contact Info) Description 05/18/2024 [place] Message Enc [facility], [address] [address] [place], [facility] Provider Carelink Transmission Received Social History Tobacco [...] from your doctor or pharmacy? Never 12/10/2023 [facility] Utilities Answer Date Recorded In the past 12 months has th e electric, gas, oil, or water company [...] Recorded Patient Health Questionnaire-2 Score 0 03/23/2024 [facility] - Occupational Stress Questionnaire Answer Date Recorded [...] place to sleep or slept in a assisted (including now)? No 10/09/2022 Housing Stability Vital Sign Answer Benito e Recorded In the last 12 months, was t here a time when you were not able to pay the mortgage or rent on time? No 12/10/2023 In the past 12 months, how m any times have you moved where you were living? 1 12/10/2023 At any time in the past 12 m [facility], were you homeless or living in a assisted (including now)? No 12/10/2023 Comments No Sex and Gender Information Value Date Recorded Sex Assigned at Female 08/06/2024 9:35 AM SLIP MAKER Legal Sex Female 6:32 PM CDT Gender Identity Female 06/02/2021 8:12 AM SLIP MAKER Sexual Orientation Not on file documented as [...] 10/12/2024 4:50 PM CDT Allied Health/Nurse Visit [facility], [facility] [address] [place] [address] Les Das MD [facility], [address] [place], [place] [address] 10/28/2024 2:20 PM CDT Office Visit [facility] - [place] [address] [place] [address] Imer Holly MD [address] [place] [address] 11/04/2024 10:00 AM CDT Office Visit [facility], [facility] [address] [place] [address] Les Das MD [facility], [address] [place], [place] [address] documented as of this encounter Goals Goal Patient Goal Type Associated Problems Recent Progress Patient-Stated? Author Health - patient able to perform ADLs independently General No Magno Urrutia diesel engine tester - family caregiver with be involved in care transitions and discharge planning Lifestyle No Oral Springer i, RN documented as of this encounter Visit Diagnoses Not on filedocumented in this encounter Care Teams Marketer Relationship Specialty Start Date End Date Shanice Askew NP [address] [place] [address] PCP - General Nurse Practitioner Family 05/11/24 Les Das MD [facility], [address] [place] [address] Physician CARDIOVASCULAR DISEASE 09/21/22 Rizwan Martinez NP [address] [place] [address] PULMONARY DISEASE 05/11/24 Lou Brooks NP [address] [place], [place] [id number] GASTROENTEROLOGY 05/11/24 documented as of this encounter
--- OUTSIDE RECORDS SUMMARY | 2024-09-23 07:57 | XMS_ITS | Clinical Summary ---
Author Organization [facility] Address [address] [place] [address] Care Team Providers Care Organizational Development Specialist Name Role Phone Les Das MD Unavailable [phone] Rizwan Martinez NP Unavailable Lou Brooks FIXTURE REPAIRER FABRICATOR Unavailable [phone] Shanice Askew NP Primary Care Provider Allergies No known active allergies Medications PROAIR [...] 1 puff into the lungs daily. 11/22/19 22 Active ondansetron 4 MG disintegrating tablet Take 1 tablet (4 mg total) by mouth every 8 (eight) hours as needed for Nausea. 06/30/19 22 Active roflumilast (DALIRESP) 500 MCG Tab Take 1 tablet (0.5 mg total) by mouth daily. 07/15/19 24 Active FEROSUL 325 (65 Fe) MG tablet [...] daily. 180 tablet 1 06/29/19 25 Active Active Problems Problem Noted Date Diagnosed Date Trigger middle finger of left hand 04/24/2024 Trigger index finger of left hand 04/24/2024 Trigger ring finger of left hand 04/24/2024 Spondylolisthesis 12/10/2023 ADAIR (dyspnea on exertion) 10/08/2023 PAD (peripheral artery disease) 10/08/2023 Essential (primary) hypertension 10/08/2023 Chest discomfort 10/08/2023 Chronic obstructive pulmonar y disease, unspecified COPD type ([facility]) 10/08/2023 Pulmonary hypertension ([facility]) 024 Syncope and collapse 09/23/2023 Overview (09/23/2023): DOMENICO SILVER implanted 09/23/23 for Syncope. Status post placement of implantable loop record er 09/23/2023 Overview (09/23/2023): DOMENICO SILVER implanted 09/23/23 for Syncope. Lumbar spondylosis 10/09/2022 Median arcuate ligament syndrome 09/29/2020 Takotsubo cardiomyopathy 03/24/2020 Overview (03/24/2020): Normal coronary arteries 08/12/18. LVEF recovered to normal 08/13/19 Biventricular congestive heart failure ([facility]) 08/10/2019 Overview (03/24/2020): Last Assessment & Plan: [...] She does report upcoming appointment with her contract administration manager with anticipated upper and lower endoscopy. Plan: Follow up with GI. Patient follow up with vascular surgery on as-needed basis. Vasovagal syncope 09/15/2018 Overview (03/24/2020): Last Assessment & Plan: No history of suggestive of aborted sudden cardiac . Repeat echo. NICM (nonischemic cardiomyopathy) ([facility]) 09/15/2018 Overview (09/29/2020): Last Assessment & [...] Encounters Date Type Department Care Team Description 09/08/2024 6:42 AM CDT - 09/08/2024 11:59 PM CDT Hospital Encounter [place] [address] Artem Smith MD Discharge Disposition: Home or Self Care (Routine Discharge) 09/08/2024 Travel 09/07/2024 4:55 PM CDT Allied Health/Nurse Visit [facility], [place] [address] [place] [address] Les Das MD Remote Device Check 08/06/2024 9:38 AM PRICING CLERK - 08/06/2024 11:59 PM PRICING CLERK Hospital Encounter [facility] [place] [address] Artem Smith MD Discharge Disposition: Home or Self Care (Routine Discharge) 08/06/2024 Scan [facility] [address], [address] [place] [address] Scanned, Doc Pccl 08/06/2024 Telephone [facility] [address], [facility] [address] [place] [address] Samara Byers MA Other (MRI Compatibility ) 08/06/2024 Travel 08/03/2024 4:50 PM PRICING CLERK Allied Health/Nurse Visit [facility], [facility] [address] [place] [address] Les Das MD Remote Device Check 07/23/2024 Telephone [facility] [address], [facility] [address] [place] [address] Les Das MD Surgical Clearance 07/20/2024 10:50 AM PRICING CLERK Allied Health/Nurse Visit [facility], [facility] [address] [place] [address] Les Das MD Remote Device Check 06/29/2024 4:45 PM PRICING CLERK Allied Health/Nurse Visit [facility], [facility] [address] [place] [address] Les Das MD Remote Device Check from Last 3 Months Immunizations Immunization Administration Dates Next Due Fluzone 6 Months+ [...] from your doctor or pharmacy? Never 12/10/2023 [facility] Utilities Answer Date Recorded In the past 12 months has e [place], gas, oil, or water [employer] threatened to shut off services in your [...] Recorded Patient Health Questionnaire-2 Score 0 03/23/2024 [facility] [place] of Occupat ional Health - Occupational Stress [...] any time in the past 12 m [facility], were you homeless or living in a assisted (including now)? No 12/10/2023 Comments No Sex and Gender Information Value Date Recorded Sex Assigned at Female 08/06/2024 9:35 AM PRICING CLERK Legal Sex Female 6:32 PM CDT Gender Identity Female 06/02/2021 8:12 AM PRICING CLERK Sexual Orientation Not on file Last Filed Vital Signs Vital Sign Reading Time Taken Comments Blood Pressure 125/68 05/21/2024 8:23 AM PRICING CLERK Pulse 81 05/21/2024 8:23 AM PRICING CLERK Temperature 35.9 C (96.7 F) 05/21/2024 8:23 AM PRICING CLERK Respiratory Rate 18 05/15/2024 1:30 PM PRICING CLERK Oxygen Saturation 100% 05/15/2024 1:30 PM PRICING CLERK Inhaled Oxygen Concentration - - Weight 89.8 kg (198 lb) 05/21/2024 8:23 AM PRICING CLERK Height 165.1 cm (5' 5 ) 05/21/2024 8:23 AM PRICING CLERK Body Mass Index 32.95 05/21/2024 8:23 AM PRICING CLERK Plan of Treatment Upcoming Encounters Date Type Department Care Team (Late st Contact Info) Description 10/12/2024 4:50 PM CDT Allied Health/Nurse Visit [facility] on [address] [address] Les Das MD [facility], [address] [place], [place] [address] 10/28/2024 2:20 PM CDT Office Visit [facility] Orthopedic & Sports Medicine - [place] [address] [place] [address] Imer Holly MD [address] [place] [address] 11/04/2024 10:00 AM CDT Office Visit [facility] [address] [address] Les Das MD [facility], [address] [place], [place] [address] Health Maintenance Due Date Last Done Comments Colorectal Cancer Screening Colonoscopy (10 Years) 1954 Hepatitis C 1972 Mammogram Screening 1994 Lung Cancer Screening 2004 Zoster Vaccines (1 of 2) 2004 RSV Immunization or 60+ Years (1 - Risk 60-74 years 1-dose series) 2014 Pneumococcal Vaccine: 50+ Years (2 of 2 - PPSV23) 05/25/2018 03/30/2018, 02/23/2015 Annual Medicare Wellness Visit 10/03/2019 Dexa Scan (General) 10/03/2019 COVID-19 Vaccine ( season) 2024 04/15/2022, 06/08/2021, 10/05/2020, Additional history exists PHQ-2 (Physician [place]) 06/10/2024 03/23/2024 DTaP, Tdap and Td Vaccines (2 [...] perform ADLs independently General No Magno Urrutia, ash worker - family caregiver with be involved in care transitions and discharge planning Lifestyle No Oral Springer i, RN Medical Devices Implanted Type Area Welding Machine Operator Friction Device Identifier Shelf Expiration Date Model / Serial / Lot Graft Bone Cancellous 5ml Freeze Dried Chips 9.5x4mm - [id number] Implanted:Qty: 1 on 12/10/2023 by Artem Smith MD at [facility] Bone N/A: Spine Lumbar [employer] [id number] 04/05/2028 [id number] / / [id number] Magnetos Implanted:Qty: 1 on 12/10/2023 by Artem Smith MD at [facility] Graft N/A: Spine Lumbar 08/09/2027 [id number] / / [id number] Implantable Loop Recorder Medtronic-09/22 Implanted:Qty: 1 on 09/23/2023 by Thomas Gaona MD Implantable Loop Recorder [employer] 02/23/2025 [id number] / [id number] / Juan Implanted:Qty: 2 on 12/10/2023 by Artem Smith MD at [facility] Juan N/A: Spine Lumbar [id number] / / Orthofix Body Top Loading Implanted:Qty: 4 on 12/10/2023 by rAtem Smith MD at [facility] Screw N/A: Spine Lumbar [id number] / / Orthofix Set Screw Implanted:Qty: 4 on 12/10/2023 by Artem Smith MD at [facility] Screw N/A: Spine Lumbar [id number] / / Orthofix Screw Implanted:Qty: 4 on 12/10/2023 by Artem Smith MD at [facility] Screw N/A: Spine Lumbar [id number] / / Tissue Surgiflo 8ml - [id number] Implanted:Qty: 1 on 12/10/2023 by Artem Smith MD at [facility] [employer] 2991 / / Procedures Procedure Name Priority Date/Time Associated Diagnosis Comments MRI LUMB SPINE WO CON Routine 09/08/2024 8:09 AM CDT Lumbar spondylosis XR LUMB SPINE AP+LAT ONLY Routine 08/06/2024 9:53 AM PRICING CLERK Lumbar spondylosis from Last 3 Months Results * MRI LUMB SPINE WO CON (09/08/2024 8:09 AM CDT) Anatomical Region Laterality Modality Spine Magnetic Resonan ce 09/10/2024 2:24 AM CDT Impressions 09/10/2024 2:30 AM CDT IMPRESSION: 1. Multilevel degenerative changes as detailed above. 2. Posterior fusion hardware at L3-L4. Referred By: ARTEM SMITH Interpreted By: Eliseo Kaur MD, 09/10/2024 2:24 AM Narrative 09/10/2024 2:30 AM CDT [address] [address] EXAMINATION: MRI lumbar spine without contrast EXAM DATE/TIME: 09/08/2024 7:32 AM REASON FOR EXAM: 68 years of age, Female, with chronic low back pain, radiation to bilateral legs COMPARISON: Lumbar spine radiographs 08/06/2024 TECHNIQUE: Multiplanar, multisequence MRI of the lumbar spine was obtained without the use of an IV contrast agent. FINDINGS: Posterior fusion hardware at L3-L4. Vertebral body height and alignment are preserved. No edema is seen on STIR images. No suspicious marrow lesions are seen. Degenerative discogenic endplate marrow signal changes are seen at L5-S1. The visualized aspects of the distal cord are without signal abnormality. Level by level degenerative changes are as below: T12-L1: Bilateral facet hypertrophy. No spinal canal or neural foraminal stenosis. L1-L2: Bilateral facet hypertrophy. No spinal canal or neural foraminal stenosis. L2-L3: Bilateral facet hypertrophy. No significant spinal canal stenosis. Mild left neural foraminal stenosis. L3-L4: Postsurgical level. Bilateral facet hypertrophy. No significant spinal canal stenosis. Mild left neural foraminal stenosis. L4-L5: Disc bulge and bilateral facet hypertrophy resulting in mild/moderate spinal canal stenosis as well as mild left and mild/moderate right neural foraminal stenosis. L5-S1: Disc bulge and bilateral facet hypertrophy resulting in minimal spinal canal stenosis. There is also mild/moderate bilateral neural foraminal stenosis, right greater than left. No prevertebral soft tissue swelling is identified. Procedure Note Eliseo Kaur MD - 09/10/[address] [place] [address] EXAMINATION: MRI lumbar spine without contrast EXAM DATE/TIME: 09/08/2024 7:32 AM REASON FOR EXAM: 68 years of age, Female, with chronic low back pain,radiation to bilateral legs COMPARISON: Lumbar spine radiographs 08/06/2024 TECHNIQUE: Multiplanar, multisequence MRI of the lumbar spine was obtainedwithout the use of an IV contrast agent. FINDINGS: Posterior fusion hardware at L3-L4. Vertebral body height and alignment are preserved. No edema is seen onSTIR images. No suspicious marrow lesions are seen. Degenerative discogenic endplatemarrow signal changes are seen at L5-S1. The visualized aspects of the distal cord are without signalabnormality. Level by level degenerative changes are as below: T12-L1: Bilateral facet hypertrophy. No spinal canal or neural foraminalstenosis. L1-L2: Bilateral facet hypertrophy. No spinal canal or neural foraminalstenosis. L2-L3: Bilateral facet hypertrophy. No significant spinal canal stenosis.Mild left neural foraminal stenosis. L3-L4: Postsurgical level. Bilateral facet hypertrophy. No significantspinal canal stenosis. Mild left neural foraminal stenosis. L4-L5: Disc bulge and bilateral facet hypertrophy resulting inmild/moderate spinal canal stenosis as well as mild left and mild/moderateright neural foraminal stenosis. L5-S1: Disc bulge and bilateral facet hypertrophy resulting in minimalspinal canal stenosis. There is also mild/moderate bilateral neuralforaminal stenosis, right greater than left. No prevertebral soft tissue swelling is identified. IMPRESSION: 1. Multilevel degenerative changes as detailed above. 2. Posterior fusion hardware at L3-L4. Referred By: ARTEM SMITH Interpreted By: Eliseo Kaur MD, 09/10/2024 2:24 AM Artem Smith MD MRI Final Result * XR LUMB SPINE AP+LAT ONLY (08/06/2024 9:53 AM PRICING CLERK) Anatomical Region Laterality Modality Spine Radiographic Trini ging 08/10/2024 8:58 AM PRICING CLERK Impressions 08/10/2024 8:59 AM PRICING CLERK IMPRESSION: Posterior fusion of L3 and L4. No evidence of hardware failure or fracture. No malalignment or fracture. Moderate degenerative changes of the lumbar spine remain. Referred By: Interpreted By: Will Arroyo MD, 08/10/2024 8:58 AM Narrative 08/10/2024 8:59 AM PRICING CLERK [place] [address] EXAMINATION: LUMBAR SPINE EXAM DATE: 08/06/2024 9:53 AM REASON FOR EXAM: per neurosurgery Postoperative follow-up COMPARISON: 08/06/2024 TECHNIQUE:2 views FINDINGS: 5 lumbar-type vertebrae are identified. Posterior fusion of L3 and L4. No evidence of hardware failure or fracture. No malalignment or fracture. Moderate bilateral sacroiliac osteoarthritis. Moderate degenerative changes of the lumbar spine remain. Prior cholecystectomy. Atherosclerosis. Procedure Note Will Arroyo MD - 08/10/[address] [address] EXAMINATION: LUMBAR SPINE EXAM DATE: 08/06/2024 9:53 AM REASON FOR EXAM: per neurosurgery Postoperative follow-up COMPARISON: 08/06/2024 TECHNIQUE:2 views FINDINGS: 5 lumbar-type vertebrae are identified. Posterior fusion of L3 and L4. No evidence of hardware failure orfracture. No malalignment or fracture. Moderate bilateral sacroiliac osteoarthritis. Moderate degenerativechanges of the lumbar spine remain. Prior cholecystectomy. Atherosclerosis. IMPRESSION: Posterior fusion of L3 and L4. No evidence of hardware failure orfracture. No malalignment or fracture. Moderate degenerative changes ofthe lumbar spine remain. Referred By: Interpreted By: Will Arroyo MD, 08/10/2024 8:58 AM Artem Smith MD GENERAL IMAGING Final Result from Last 3 Months Insurance H[employer] MEDICARE [employer] Advance Directives * Full Code (Latest Code Status on File) Date Activated Date Inactivated Comments 12/10/2023 12:44 PM 12/11/2023 3:46 PM * Full Code Date Activated Date Inactivated Comments 09/29/2020 6:53 PM 10/01/2020 7:31 PM Care Teams Organizational Development Specialist Relationship Specialty Start Date End Date Shanice Askew NP [address] [place] [address] PCP - General Nurse Practitioner Family 05/11/24 Les Das MD [facility], [address] [place] [address] Physician CARDIOVASCULAR DISEASE 09/21/22 Rizwan Martinez NP [address] [facility] [address] [place] [address] PULMONARY DISEASE 05/11/24 Lou Brooks NP [address] [facility] [address] [place] [address] GASTROENTEROLOGY 05/11/24
[2024-10-21 14:07] VITALS: BMI 32.3
--- NOTE | 2024-10-21 14:07 | P.SLEEP_ITS ---
Sleep Study Date of Study: 09/23/24 Ordering Provider: Rizwan Martinez APRN Interpreting Physician: Oralia Fairchild DO Sleep Study Type: Split Polysomnogram Height: 1.65 m Weight: 87.997 kg Body Mass Index: 32.3 Neck Circumference (inches): 16 Bascom: 8 Reason for Sleep Study snoring, daytime hypersomnia Sleep History The patient is a 69-year-old female that had a sleep study ordered by the pulmonary group for evaluation of sleep apnea. The patient occasionally awakens from sleep short of breath. She occasionally snores and is frequently loud enough that others complain. She frequently has trouble sleeping when she has cold. She occasionally wakes gasping for air throughout the night. She frequently has breathing problems at night observed by herself or others. She occasionally sweats excessively night. He rarely has heart palpitations or irregular heartbeats during night. She rarely falls asleep during the day but never while driving. She denies cataplexy. She denies having trouble at school or work due to sleepiness. She rarely feels unable to move while waking up or falling asleep. She occasionally experiences vivid dreamlike scenes upon awakening or falling asleep. She rarely feels afraid of going to sleep. She occasionally has nightmares. She occasionally remembers her dreams. She occasionally has thoughts racing through her mind. She occasionally feels sad or depressed. She frequently has anxiety. She rarely has muscular tension. She occasionally notices parts of her body jerk. She rarely kicks during the night. She frequently has crawling and aching feelings in her legs and occasionally has leg pain during the night. She rarely grinds her teeth during sleep never awakens with jaw pain. She is frequently bothered by pain during the day but rarely awakened by pain night. She occasionally wakes up feeling stiff. She rarely wakes up with sore or achy muscles. She rarely wakes up with pain neck, spine joints. The patient goes to bed between 11:00 p.m. to 1:00 a.m. on weekdays and between 11:00 p.m. to 2:00 a.m. on the weekends. It takes her 15 minutes or longer to fall asleep. She wakes up 2-3 times throughout the night to urinate and it can take up to 2 hours to fall back asleep. She wakes up at 7:00 a.m. on weekdays and between 7-8 a.m. the weekends. She typically gets 4-6 sleep per night. She does not stay in bed after waking up in the morning. She currently lives . She denies consuming any caffeinated beverages within 2 hours of bedtime. She denies engaging in physical exercise before bedtime. She will watch television before falling asleep. She will take naps in the afternoon or the evening and they are refreshing. She consumes 1 cup of caffeinated beverage per day. She currently smokes half a pack of cigarettes per day. She denies alcohol and recreational drug use. 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 Trochanteric bursitis, right hip Hip pain Acute right hip pain History of tobacco abuse Asthma-COPD overlap syndrome Anemia Epigastric pain Ulcerative colitis Nausea Trochanteric bursitis of right hip LESTER (obstructive sleep apnea) Screening mammogram, encounter for Obesity (BMI 30-39.9) Colitis Chronic abdominal pain Anxiety Chronic abdominal pain Diarrhea Colon cancer screening Elevated liver enzymes Essential hypertension Chronic obstructive pulmonary disease Former smoker Restless legs syndrome (RLS) Chronic ulcerative colitis without complication Surgical History Surgical History Status post lumbar spine surgery for decompression of spinal cord History of neck surgery 2004 Hx of appendectomy Hx laparoscopic cholecystectomy Hx of hysterectomy Family History Family History Mother Hypertension Carcinoma of colon Family history of Alzheimer's disease Family history of malignant neoplasm of uterus Father MVA (motor vehicle accident) Alcoholism Sibling Carcinoma of colon Hypertension CHF (congestive heart failure) Lung cancer Other Family history of chronic obstructive pulmonary disease Family history of emphysema Social History Social History Social History: Patient stopped smoking 2017 Smoking packs per day: 1 Smoking cigarettes per day: 20.0 Years smoked: 40 Smoking pack-years: 40.00 Smoking status: Former smoker Tobacco type: cigarettes and e-cigarettes/vaping Second hand tobacco smoke exposure: Yes Smoking end date: 06/10/17 Alcohol intake: never Alcohol use details: Social Substance use: never Substance use type: does not use Do You Feel Safe in your Home?: Yes Lack of Transportation: No Lack of Food: Never True Current Housing: I Have Housing Concerned About Future Housing: No Difficulty Paying Gas/Electric Bills: No Difficulty Paying for Meds: No Currently Unemployed: No Education: High School Diploma/GED Difficulty w/ Childcare or Family Care: No Living arrangements: with family Occupation/Education: retired Gender identity (if verbalized by the patient): Female Sexual Orientation (if Verbalized by the Patient): Straight or Heterosexual Spiritual care concerns: No Agree to blood products: Yes Medications Home Medications Medication Instructions Recorded Confirmed Type ondansetron 4 mg disintegrating 4 mg PO Q8H PRN nausea and 04/10/22 08/13/24 Rx tablet vomiting #30 tabs carvedilol 3.125 mg tablet 3.125 mg PO BID 02/15/23 08/13/24 History albuterol sulfate 2.5 mg/3 mL 2.5 mg (3 mL) inhalation Q6H PRN 02/18/23 08/13/24 Rx (0.083 %) solution for nebulization shortness of breath or wheezing #360 mL cyclobenzaprine 10 mg tablet 10 mg PO TID PRN muscle spasm #1 02/18/23 08/13/24 Rx tablet hydrocodone 10 mg-acetaminophen 1 tablet PO QHS PRN 02/18/23 08/13/24 History 325 mg tablet inhalational spacing device #1 ea 04/03/23 08/13/24 Rx apixaban 5 mg tablet (Eliquis) 5 mg PO BID 10/29/23 08/13/24 History roflumilast 500 mcg tablet 500 mcg PO DAILY 90 days #90 tabs 12/18/23 08/13/24 Rx losartan 50 mg tablet 50 mg PO DAILY #90 tabs 02/13/24 08/07/24 Rx albuterol sulfate 90 mcg/actuation 1 - 2 puff inhalation Q4-6H PRN 04/29/24 08/13/24 Rx aerosol inhaler shortness of breath or wheezing 90 days #25.5 grams fluticasone furoate 100 1 inh inhalation DAILY 90 days 04/29/24 08/13/24 Rx mcg-vilanterol 25 mcg/dose #180 ea inhalation powder (Breo Ellipta) dicyclomine 10 mg capsule 10 mg PO TID PRN abdominal pain 3 06/11/24 08/13/24 Rx months #270 caps mesalamine 1.2 gram tablet,delayed 3.6 g (3 x 1.2 gram) PO DAILY 3 06/11/24 08/13/24 Rx release (Lialda) months #270 tabs budesonide 3 mg 3 mg PO DAILY #126 ea 07/09/24 08/13/24 Rx capsule,delayed,extended release amitriptyline 50 mg tablet See Rx Instructions .Route 08/13/24 08/13/24 Rx .COMPLEX #90 tabs duloxetine 30 mg capsule,delayed See Rx Instructions .Route 08/13/24 08/13/24 Rx release .COMPLEX #90 caps ferrous sulfate 325 mg (65 mg 325 mg PO DAILY #90 tabs 08/13/24 08/13/24 Rx iron) tablet (FeroSul) omeprazole 40 mg capsule,delayed 40 mg PO DAILY #90 caps 08/13/24 08/13/24 Rx release pramipexole 0.5 mg tablet 0.5 mg PO BID #180 tabs 08/13/24 08/13/24 Rx triamcinolone acetonide 0.1 % 1 applic topical BID PRN rash #30 08/13/24 08/13/24 Rx topical ointment grams eszopiclone 2 mg tablet 2 mg PO ONCE #1 tablet 09/21/24 Rx Sleep Procedure A full night split study using the [place] [email or web address] multi-channel system recorded the standard physiologic parameters including EEG, EOG, submentalis EMG, anterior tibialis EMG, EKG, body position, nasal and oral airflow using nasal pressure sensor and thermistor. Respiratory parameters of chest and abdominal movements were recorded with Respiratory Inductance Plethysmography belts. Oxygen saturation was recorded by pulse oximetry. Video monitoring was also performed. Sleep stages, periodic limb movements, and EEG arousals were scored in 30 second epochs according to the criteria of the AASM Scoring Manual. The Apnea-Hypopnea Index was calculated using CMS guidelines for definition of hypopnea with 4% O2 desaturations while scoring respiratory events. Sleep Architecture During the diagnostic portion of the study, the total recording time was 167.3 minutes. The total sleep time was 151.0 minutes. Sleep latency was 3.3 minutes. REM sleep was not achieved during this portion of the study. Sleep Efficiency was 90.3%. The patient had 9 awakenings for an awakening index of 3.6. Wake after sleep onset time was 13.0 minutes. The patient spent 17.5 minutes, 11.6% of total sleep time in Stage N1. The patient spent 125.0 minutes, 82.8% in Stage N2. The patient spent 8.5 minutes, 5.6% in Stage N3. The patient spent 0.0 minutes, 0.0% in Stage REM sleep. At 12:43:26 AM the patient was placed on PAP treatment and was titrated at pressures ranging from 5 cm H20 up to 15 cm H20. During the treatment portion of the study, the total recording time was 331.4 minutes. The total sleep time was 282.0 minutes. Sleep latency was 0.5 minutes. REM latency was 182.5 minutes. Sleep Efficiency was 85.1%. Wake after Sleep Onset time was 49.0 minutes. The patient spent 47.0 minutes, 16.7% of total sleep time in Stage N1. The patient spent 214.0 minutes, 75.9% in Stage N2. The patient spent 0.0 minutes, 0.0% in Stage N3. The patient spent 21.0 minutes, 7.4% in Stage REM. Respiratory Analysis During the diagnostic portion of the study, the patient had 25 hypopneas for an overall Apnea Hypopnea Index of 9.9 events per hour. The REM Apnea Hypopnea Index was 0. The NREM Apnea Hypopnea Index was 9.9. The patient had a Central Apnea Hypopnea Index of 0. There was no evidence of Roberto-Hidalgo Respirations. During the treatment portion of the study, the patient had 16 hypopneas and 6 obstructive apneas for an overall Apnea Hypopnea Index of 4.7 events per hour. The REM Apnea Hypopnea Index was 8.6. The NREM Apnea Hypopnea Index was 4.4. The patient had a Central Apnea Hypopnea Index of 0. There was no evidence of Roberto-Hidalgo Respirations. The patient was started on CPAP 5 cm H2O and titrated to CPAP 15 cm H2O due to obstructive apneas and hypopneas. The patient was able to fall asleep starting on CPAP 5 cm H2O. The patient was able to achieve REM sleep started on CPAP 11 cm H2O. The patient was able to achieve a residual AHI less than 5 with both NREM and REM sleep on 11 cm H2O. On CPAP 11 cm H2O, the patient spent 52 minutes in NREM and 21 minutes in REM with 4 hypopneas, resulting in an AHI of 3.3. On CPAP 13 cm H2O, the patient spent 46.5 minutes in NREM with no respiratory events, resulting in an AHI of 0. On CPAP 15 cm H2O, the patient spent 56.5 minutes in NREM with 1 hypopnea, resulting in an AHI of 3.2. The patient had a sleep efficiency of 94.8% on 11 cm, 76.9% on 13 cm and 91.9% on 15 cm. Arousals During the diagnostic portion of the study, there were a total of 101 arousals for an arousal index of 40.1. There were 16 respiratory arousals for an index of 6.4. There were 40 periodic limb movement arousals for an index of 15.9. There were 14 isolated limb movement arousals for an index of 5.6. There were 31 spontaneous arousals for an index of 12.3. During the treatment portion of the study, there were a total of 159 arousals for an index of 33.8. There were 19 respiratory arousals for an index of 4.0. There were 84 periodic limb movement arousals for an index of 17.9. There were 27 isolated limb movement arousals for an index of 5.7. There were 32 spontaneous arousals for an index of 6.8. Periodic Limb Movements During the diagnostic portion of the study, the patient had 19 isolated limb movements with an index of 7.5. The patient had 51 periodic limb movements with an index of 20.3, which is elevated (normal < 15). The patient had a total of 70 limb movements with a total limb movement index of 27.8. During the treatment portion of the study, the patient had 44 isolated limb movements with an index of 9.4. The patient had 138 periodic limb movements with an index of 29.4, which is elevated (normal < 15). The patient had a total of 182 limb movements with a total limb movement index of 38.7. Oximetry Data During the diagnostic portion of the study, the patient had an average oxygen saturation of 96% in wake with a minimum oxygen saturation of 90% and a maximum oxygen saturation of 99%. The patient had an average oxygen saturation of 92.1% in sleep with a minimum oxygen saturation of 86.0% and a maximum oxygen saturation of 99.0%. The patient had 38 oxygen desaturations resulting in an Oxygen Desaturation Index of 15.1. The patient spent 0.6 minutes, 0.3% of total sleep time with an oxygen saturation less than 88%. During the treatment portion of the study, the patient had an average oxygen saturation of 96.6% in wake with a minimum oxygen saturation of 91.0% and a maximum oxygen saturation of 99.0%. The patient had an average oxygen saturation of 95.4% in sleep with a minimum oxygen saturation of 89.0% and a maximum oxygen saturation of 99.0%. The patient had 32 oxygen desaturations resulting in an Oxygen Desaturation Index of 6.8. The patient spent 0 minutes of total sleep time with an oxygen saturation less than 88%. Snoring Profile Mild to moderate snoring was present in the baseline portion of the study. The snoring resolved once the patient was titrated to 13 cm H2O. Cardiac Profile The EKG lead showed normal sinus rhythm with rare PVCs. During the diagnostic portion of the study, the average pulse rate was 79.2 bpm. The minimum pulse rate was 60.0 bpm. The maximum pulse rate was 86.0 bpm. During the treatment portion of the study, the average pulse rate was 74.2 bpm. The minimum pulse rate was 52.0 bpm. The maximum pulse rate was 205.0 bpm. EEG Profile No signs of seizure activity seen. Assessment and Plan Assessment and Plan (1) LESTER (obstructive sleep apnea): Code(s): G47.33 - Obstructive sleep apnea (adult) (pediatric) Status: Acute Assessment and Plan: In the baseline portion of the study, the patient had an overall AHI of 9.9 with desaturation down to 86%. This is consistent with mild sleep apnea. The patient was started on CPAP 5 cm H2O and titrated to CPAP 15 cm H2O due to obstructive apneas and hypopneas. I recommend that the patient be prescribed CPAP 14 cm H2O, size medium Resmed AirTouch F20 full face mask, CPAP filters/tubing and heated humidity. This should be used with all episodes of sleep. Compliance should be reviewed within 31-90 days of starting therapy for usage greater than 4 hours per night greater than 70% of the nights. The patient should be asked about symptoms such as excessive daytime sleepiness, quality of sleep, decreased nocturia, increased mental functioning such as memory, mood, and concentration. The patient had a significant amount of periodic limb movements during the study. The frequency decreased drastically once the patient reached the optimal pressure setting. The patient's sleep history is suggestive of Restless Leg Syndrome. I recommend that the patient have a serum ferritin drawn for evaluation of iron deficiency anemia. If the patient has a serum ferritin less than 75 ng/mL, I recommend starting a daily iron supplement and a Vitamin C supplement for better absorption. If the serum ferritin is greater than 75 ng/mL, I recommend starting a dopamine agonist and titrating the dose until symptoms resolve. There are nonpharmacological methods to treat limb movements including daily exercise, stretching calf muscles before bed, avoiding excessive amounts of caffeine and alcohol, vitamin B supplementation, magnesium lotion massaged into legs before bed, and use of a weighted blanket. Data The data obtained during this sleep study is adequate for interpretation. Certification This sleep study has been reviewed by a board certified sleep medicine physician.
--- OUTSIDE RECORDS SUMMARY | 2024-10-30 07:00 | XMS_ITS | Continuity of Care Document ---
Author Name [facility] Organization [facility] Care Team Providers Care Communications Project Lead Name Role Phone [facility] Unavailable Unavailable Medications Combined list of outpatient [...] Pharmac y amitriptyli ne 50 mg tablet = 1 tab(s), Oral, every day at bedtime, # 90 EA, 1 total refill(s ), Soft Stop Oral (given by mouth) Ordered 5 2024 90.0 Ambulat ory Pharmac y amitriptyli ne 50 mg tablet = 1 tab(s), Oral, # 90 EA, 1 total refill(s ), Hard Stop Oral (given by mouth) Discont inued 08/17/2024 5 2024 90.0 Ambulat ory Pharmac y apixaban 5 mg tablet See Instruct ions, # 180 EA, 1 total refill(s ), Hard Stop Ordered 04/29/2025 5 2024 180.0 Ambulat ory Pharmac y budesonide 3 mg [...] ory Pharmac y carvedilol 3.125 mg tablet = 1 tab(s), Oral, BID, # 180 EA, 1 total refill(s ), Hard Stop Oral (given by mouth) Ordered 04/29/2025 4 2023 180.0 Ambulat ory Pharmac y CHOLESTYRAM INE (cholestyra mine (with sugar)), 4 G, POWDER, ORAL, Total Eclipse, 378 g CAN Active [id number] 4 2023 378 Pharmac y Data Transac tion Service Facilit y COZAAR (BRAND) 50 MG ORAL TAB Be careful if taking OTCs.Efrain e or use exactly as directed .Do not take if . 10/07/2024 [id number] 4 2023 90 [employer] Kali JO ([facility] dicyclomine 10 mg capsule See Instruct ions, Oral, # 270 EA, 3 total refill(s ), Hard Stop Oral (given by mouth) Ordered 06/11/2025 5 2024 270.0 Ambulat ory Pharmac y dicyclomine 20 mg tablet 20 mg, Oral, TID, # 270 EA, 0 total refill(s ), Hard Stop Oral (given by mouth) Complet ed 02/18/2024 3 2023 270.0 Ambulat ory Pharmac y DICYCLOMINE HCL (dicyclomin e HCl), 20 MG, TABLET, ORAL, AUROB[employer] PHARM, 100 ea. BOTTLE Active [id number] 4 2023 270 Pharmac y Data Transac tion Service Facilit y DULoxetine DR 30 mg capsule See [...] Pharmac y DULoxetine DR 30 mg capsule = 1 cap(s), Oral, Daily, # 90 EA, 1 total refill(s ), Hard Stop Oral (given by mouth) Discont inued 08/17/2024 4 2024 90.0 Ambulat ory Pharmac y DULOXETINE HCL (duloxetine HCl), 30 MG, CAPSULE DR, ORAL, Synchronized PHARMA L, 1000 ea. BOTTLE Active [id number] 4 2023 90 Pharmac y Data Transac tion Service Facilit y ELIQUIS (APIXABAN), 5 MG, TABLET, ORAL, BMS PRIMARYCARE , 60 ea. BOTTLE Active [id number] 4 2023 60 Pharmac y Data Transac tion Service Facilit y ELIQUIS (APIXABAN), 5 MG, TABLET, ORAL, BMS PRIMARYCARE , 60 ea. BOTTLE Active [id number] 4 2023 60 Pharmac y Data Transac tion Service Facilit y Eliquis 5 mg tablet See Instruct [...] Pharmac y ferrous sulfate 325 mg tablet = 1 tab(s), Oral, Daily, # 90 EA, 1 total refill(s ), Soft Stop Oral (given by mouth) Ordered 5 2024 90.0 Ambulat ory Pharmac y ferrous sulfate 325 mg tablet = 1 tab(s), Oral, Daily, # 90 EA, 1 total [...] 5 2024 180.0 Ambulat ory Pharmac y HYDROCODONE -ACETAMINOP HEN (HYDROCODON E/ACETAMINO PHEN), 10MG-325MG, TABLET, ORAL, MALLINCKROD T PH, 500 ea. BOTTLE Active [id number] 4 2023 90 Pharmac y Data Transac tion Service Facilit y HYDROCODONE -ACETAMINOP HEN (HYDROCODON E/ACETAMINO PHEN), 10MG-325MG, TABLET, ORAL, MALLINCKROD T PH, 500 ea. BOTTLE Active [id number] 4 2023 90 Pharmac y Data Transac tion Service Facilit y HYDROCODONE -ACETAMINOP HEN (HYDROCODON E/ACETAMINO PHEN), 10MG-325MG, TABLET, ORAL, MALLINCKROD T PH, 500 ea. BOTTLE Active [id number] 4 2023 90 Pharmac y Data Transac tion Service Facilit y LIDOCAINE (LIDOCAINE) , 5%(700MG), ADH. PATCH, TOPICAL, QUALITEST, 30 ea. BOX Active [id number] 4 2023 30 Pharmac y Data Transac tion Service Facilit y losartan 50 mg oral tablet TAKE ONE AND ONE-HALF TABLETS (75 MG TOTAL) BY MOUTH EVERY DAY *NEW DOSE*, # 135 EA, 1 total refill(s ), Acute Complet ed 03/05/2023 2 2022 135.0 Ambulat ory Pharmac y losartan 50 mg tablet See Instruct ions, # 90 EA, 1 total refill(s ), Hard Stop Discont inued 10/13/2024 5 2024 90.0 Ambulat ory Pharmac y [...] ory Pharmac y losartan 50 mg tablet = 1 tab(s), Oral, # 90 EA, 0 total refill(s ), Soft Stop Oral (given by mouth) Ordered 5 2024 90.0 Ambulat ory Pharmac y losartan 50 mg tablet = 1 tab(s), Oral, Daily, # 90 EA, 1 total refill(s ), Hard Stop Oral (given by mouth) Discont inued 05/14/2024 4 2023 90.0 Ambulat ory Pharmac y MESALAMINE (mesalamine ), 1.2 G, TABLET DR, ORAL, [employer], 120 ea. BOTTLE Active [id number] 4 2023 90 Pharmac y Data Transac tion Service Facilit y MESALAMINE (mesalamine ), 1.2 G, TABLET DR, ORAL, [employer], 120 ea. BOTTLE Active [id number] 4 2023 90 Pharmac y Data Transac tion Service Facilit y MESALAMINE (mesalamine ), 1.2 G, TABLET DR, ORAL, Celect, 120 ea. BOTTLE Active [id number] 4 2023 90 Pharmac y Data Transac tion Service Facilit y mesalamine 1.2 g oral delayed release tablet TAKE 3 TABLETS BY MOUTH EVERY DAY DIRECTED , # 270 EA, 1 total refill(s ), Acute Complet ed 03/25/2023 3 2022 270.0 Ambulat ory Pharmac y mesalamine EC [Lialda] 1.2 g tablet = 3 tab(s), Oral, Daily, # 270 EA, 3 total [...] 3 2023 90.0 Ambulat ory Pharmac y METRONIDAZO LE (metronidaz ole), 500 MG, TABLET, ORAL, VIONA PHARMACEU, 100 ea. BOTTLE Active [id number] 4 2023 30 Pharmac y Data Transac tion Service Facilit y OMEPRAZOLE (omeprazole ), 40 MG, CAPSULE DR, ORAL, [employer] PHARMA, 1000 ea. BOTTLE Active [id number] 4 2023 90 Pharmac y Data Transac tion Service Facilit y omeprazole DR 40 mg capsule See [...] Pharmac y omeprazole DR 40 mg capsule = 1 cap(s), Oral, Daily, # 90 EA, 1 total refill(s ), Soft Stop Oral (given by mouth) Ordered 5 2024 90.0 Ambulat ory Pharmac y omeprazole DR 40 mg capsule = 1 cap(s), Oral, Daily, # 90 EA, 1 total refill(s ), Hard Stop Oral (given by mouth) Discont inued 08/17/2024 4 2024 90.0 Ambulat ory Pharmac y pramipexole 0.5 mg tablet See dose instruct ions in comments , # 180 EA, 1 total refill(s ), Acute Complet ed 11/07/2023 3 2023 180.0 Ambulat ory Pharmac y pramipexole 0.5 mg tablet = 1 tab(s), Oral, BID, # 180 EA, 1 total refill(s ), Soft Stop Oral (given by mouth) Ordered 5 2024 180.0 Ambulat ory Pharmac y pramipexole 0.5 mg tablet 0.5 mg, Oral, BID, # 180 EA, 1 total refill(s ), Hard Stop Oral (given by mouth) Discont inued 02/21/2024 4 2023 180.0 Ambulat ory Pharmac y pramipexole 0.5 mg tablet = 1 tab(s), Oral, BID, # 180 EA, 1 total refill(s ), Hard Stop Oral (given by mouth) Discont inued 08/17/2024 4 2024 180.0 Ambulat ory Pharmac y PRAMIPEXOLE DIHYDROCHLO RIDE (PRAMIPEXOL E DI-HCL), 0.5 MG, TABLET, ORAL, TORRENT PHARMAC, 90 ea. BOTTLE Active [id number] 4 2023 180 Pharmac y Data Transac tion Service Facilit y ROFLUMILAST (roflumilas t), 500 MCG, TABLET, ORAL, AUROBINDO PHARM, 30 ea. BOTTLE Active [id number] 4 2023 30 Pharmac y Data Transac tion Service Facilit y ROFLUMILAST (roflumilas t), 500 MCG, TABLET, ORAL, AUROBINDO PHARM, 30 ea. BOTTLE Active [id number] 4 2023 30 Pharmac y Data Transac tion Service Facilit y roflumilast 500 mcg tablet = 1 tab(s), Oral, Daily, # 90 EA, 3 total refill(s ), Hard Stop Oral (given by mouth) Ordered 12/17/2024 5 2024 90.0 Ambulat ory Pharmac y rosuvastati n 5 mg tablet 5 mg, Oral, Daily, # 90 EA, 0 total refill(s ), Hard Stop Oral (given by mouth) Complet ed 03/18/2024 4 2023 90.0 Ambulat ory Pharmac y rosuvastati n 5 mg tablet = 1 tab(s), Oral, nightly at bedtime, # 90 EA, 0 total refill(s ), Soft Stop Oral (given by mouth) Ordered 5 2024 90.0 Ambulat ory Pharmac y rosuvastati n 5 mg tablet See Instruct ions, # 90 EA, 1 total refill(s ), Hard Stop Ordered 04/29/2025 5 2024 90.0 Ambulat ory Pharmac y ROSUVASTATI N CALCIUM (rosuvastat in calcium), 5 MG, TABLET, ORAL, [employer], 90 ea. BOTTLE Cancele d [id number] : 2023 0 Pharmac y Data Transac tion Service Facilit y Allergies, Adverse Reactions, Alerts Combined list of allergies from Department of Defense and Veterans Affairs facilities. It does not include entries that were removed or entered in error. Substance Category Reaction Severity Reaction type Status Date Reported Comments Source No Known Allergies Drug allergy (disorder) active 10/27/2010 [facility] ([facility] Immunizations Combined list of available immunizations from the Department of Defense and Veterans Affairs facilities. Immunization Series Date Given Administered By Site Reaction Lot Number CVX Code Drug Preschool Head Teacher Status Comments Source COVID-19, mRNA, LNP-S, PF, 30 mcg/0.3 mL dose 2020 JUSTINA, () Not Given COVID-19, mRNA, LNP-S, PF, 30 mcg/0.3 mL dose DoD COVID-19, mRNA, LNP-S, PF, 100 mcg or 50 mcg dose 2020 PAULO, [employer] (MOD) Not Given COVID-19, mRNA, LNP-S, PF, 100 mcg or 50 mcg dose DoD COVID-19, mRNA, LNP-S, PF, 100 mcg or 50 mcg dose 2020 PAULO, [employer] (MOD) Not Given COVID-19, mRNA, LNP-S, PF, 100 mcg or 50 mcg dose DoD influenza, injectable, quadrivalent, preservative free 2019 ALUL, () Not Given influenza , injectabl e, quadrival ent, preservat jennifer free DoD Procedures Combined list of: 1) Procedures from Department of Veterans Affairs facilities going back up to thelast 18 months, not all [place] non-surgical procedures are included; 2) All procedures from the Department of Defense facilities. Procedure Procedure Type Code Date Perfomer Comments Sourc e No data available for this section Ambulatory P harmacy Social History Combined list of available smoking, tobacco, and other social history from Department of Defense and Veterans Affairs facilities. Social History Type Response Date Comment Sourc e This section is an empty social history section. DoD Assessment and Plan Combined list of future care activities from Department of Defense and Veterans Affairs facilities (e.g., assessment and plan notes, appointments, orders, and referrals). Additional future care activities may be listed in the Plan of Care section. Result Assessment and Plan Date Source Assessment and Plan No data available for this section 10/30/2024 Ambulatory Pharmacy Functional Status Combined list of recent functional and cognitive assessments recorded at Department of Defense and Veterans Affairs (OR).VA Functional [place] Measurement (FIM) Scale: 1 = Total Assistance (Subject = 0% +), 2 = Maximal Assistance (Subject = 25% +), 3 = Moderate Assistance (Subject = 50% +), 4 = Minimal Assistance (Subject = 75% +), 5 = Supervision, 6 = Modified [place] (Device), 7 = Complete [place] (Timely, Safely). Assessment Date/Time Source Assessment Type Assessment Skill Assessment Score Assessment Details No data available for this section
--- OUTSIDE RECORDS SUMMARY | 2024-10-30 07:00 | XMS_ITS | Clinical Summary ---
Author Organization [facility] Srikanth Baca Address [address] [place] [address] Care Team Providers Care Senior Software Quality Engineer Name Role Phone Ruben Felix MD Primary Care Provider [phone] Allergies Active Allergy Reactions Criticality Noted Date [...] 12/06/2030 Insurance MEDICARE PART A AND B [employer] Care Teams Senior Software Quality Engineer Relationship Specialty Start Date End Date Ruben Felix MD [address] [place] [id number] PCP - General Internal Medicine 10/13/20
--- OUTSIDE RECORDS SUMMARY | 2024-10-30 07:00 | XMS_ITS | Patient Health Record ---
Author Organization [facility] Address [address] [address] Care Team Providers Care Water Gas Operator Name Role Phone OLGA STAFFORD Unavailable [phone] Reason For Referral No Information Plan Of Treatment No Information Insurance Providers Payer Name Payer Address Payer Phone Subscriber Number Group Number Insured Name Patient Relationship to Insured Coverage Start Date Coverage End Date [facility] [address] [place], [place] [id number] Cheryl Womack Self - patient is the insured 1
--- OUTSIDE RECORDS SUMMARY | 2024-10-30 07:00 | XMS_ITS | Encounter Summary ---
Author Organization [facility] Care Team Providers Care Senior Ios Software Engineer Name Role Phone Xander Patel MD Primary Care Provider [phone] Ruben Felix MD Primary Care Provider [phone] Jensen Lizarraga MD Unavailable [phone] Encounter Details Date Type Department Care Team (Latest Contact Info) Description 08/11/2018 Orders Only [facility] CLINCONV ProviderJohn MD [address] [place] [address] Social History Tobacco Use Types Packs/Day Years Used Date Smoking Tobacco: Never Assessed Comments Unknown Sex and Gender Information Value Date Recorded Sex Assigned at Not on file Legal Sex Female 6:59 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
--- OUTSIDE RECORDS SUMMARY | 2024-10-30 07:00 | XMS_ITS | Encounter Summary ---
Author Organization [facility] Facility Care Team Providers Care Human Resources Records Clerk Name Role Phone Xander Patel MD Primary Care Provider Ruben Felix MD Primary Care Provider [phone] Jensen Lizarraga MD Unavailable [phone] Encounter Details Date Type Department Care Team (Latest Contact Info) Description 08/14/2018 Orders Only [facility] CLINCONV ProviderJohn MD [address] [place] [address] Social History Tobacco Use Types Packs/Day Years Used Date Smoking Tobacco: Never Assessed Comments Unknown Sex and Gender Information Value Date Recorded Sex Assigned at Not on file 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 Gender Identity Not on file Sexual [...] documented as of this encounter Care Teams Human Resources Records Clerk Relationship Specialty Start Date End Date Xander Patel MD [address] [place] [address] PCP - General 07/25/18 05/19/19 Ruben Felix MD [address] [facility] [address] [place] [address] PCP - General 05/20/19 Jensen Lizarraga MD [address] [facility] [address] [place] [address] Programming Equipment Operator Cardiovascular Disease 08/14/19 documented as of this encounter
--- OUTSIDE RECORDS SUMMARY | 2024-10-30 07:00 | XMS_ITS | Clinical Summary ---
Author Organization [facility] [email or web address] Address [address] [place] [address] Care Team Providers Care Touch Up Painter Hand Name Role Phone Ruben Felix MD Primary Care Provider [phone] Source Comments [facility] Affiliates and Associated Physician Practices is amultiple site organization consisting of ambulatory clinics and hospital sitesin [place], [place], [place] and [place]. This disclosure is being madepursuant to the Care Everywhere program and may not contain all information available regarding this patient. Last updated 18.[facility] Allergies Active Allergy Reactions Criticality Noted [...] on file Legal Sex Female 5:24 AM CLIMATE CHANGE RISK ASSESSOR Gender Identity Not on file Sexual Orientation [...] 7 - 26 mg/dL 01/19/2020 9:58 AM [facility] Creatinine 0.9 0.6 - 1.2 mg/dL 01/19/2020 9:58 AM [facility] Sodium 142 136 - 145 mmol/L 01/19/2020 9:58 AM [facility] Potassium 3.8 3.5 - 4.5 mmol/L 01/19/2020 9:58 AM [facility] Chloride 111(H) 98 - 107 mmol/L 01/19/2020 9:58 AM [facility] CO2 24 22 - 29 mmol/L 01/19/2020 9:58 AM [facility] Glucose 82 70 - 115 mg/dL 01/19/2020 9:58 AM [facility] Calcium 8.8 8.4 - 10.2 mg/dL 01/19/2020 9:58 AM [facility] Anion Gap 11 8 - 18 01/19/2020 9:58 AM [facility] BUN/Creatinine Ratio 11 7 - 23 01/19/2020 9:58 AM [facility] Osmolality Calculated 292 270 - 300 mOsm/kg 01/19/2020 9:58 AM CDT [facility] eGFR >60 >60 mL/min/1.7 3 m2 01/19/2020 9:58 AM [facility] Blood BLOOD SPECIMEN / Unknown Venipuncture / Unknown 01/19/2020 9:17 AM CDT 01/19/2020 9:25 AM CDT us Ronnie Saldana MD LAB - CHEMISTRY ORDERABLES nal Result [address] [address], [facility] [phone] from Last 3 Months or Most Recently Relevant to Health Maintenance Insurance MEDICARE [facility] [place] Care Teams Touch Up Painter Hand Relationship Specialty Start Date End Date Ruben Felix MD [address] [place] [id number] PCP - General 01/02/20
--- OUTSIDE RECORDS SUMMARY | 2024-10-30 07:00 | XMS_ITS | Clinical Summary ---
Author Organization [facility] Address [address] [place] [address] Care Team Providers Care Bankruptcy Assistant Name Role Phone Ruben Felix MD Primary Care Provider [phone] Jensen Lizarraga MD Unavailable [phone] Allergies Active Allergy Reactions Criticality Noted Date [...] 0 Assessment & Plan (08/10/2019 8:30 AM RUBBER FACTORY WORKER): Continue Lasix. Controlled. Hypotension due to [...] She does report upcoming appointment with her adult basic education manager with anticipated upper and lower endoscopy. Plan: Follow up with GI. Patient follow up with vascular surgery on as-needed basis. Dilated cardiomyopathy 09/15/2018 Assessment & Plan (08/10/2019 8:28 AM RUBBER FACTORY WORKER): No syncope. Repeat echocardiogram. Continue losartan [...] 09/15/2018 Assessment & Plan (08/10/2019 8:29 AM RUBBER FACTORY WORKER): No history of suggestive of aborted sudden cardiac . Repeat echo. Assessment & Plan (11/12/2018 9:56 AM CDT): Two events not suggestive of arrhythmia Assessment & Plan (09/15/2018 8:51 AM CDT): Not suggestive of arrhythmia. Would not recommend outpatient monitoring at this time. Again follow up with GI and PV. Chest pain 10/28/2017 Assessment & Plan (08/10/2019 8:29 AM RUBBER FACTORY WORKER): Cardiac catheterization August last year negative. [...] on file Legal Sex Female 6:59 PM RUBBER FACTORY WORKER Gender Identity Not on file Sexual [...] 06/08/2021, 10/05/2020, Additional history exists Influenza Vaccine (Season Ended) 2025 04/15/2022, 03/25/2020, 02/27/2019, Additional history exists DTaP/Tdap/Td Vaccine [...] IU/mL 6.9 log IU 7 1:54 PM [employer] HISTORICAL RESULTS Comment: INTERPRETIVE INFORMATION: Hepatitis C [...] RNA IU/mL 7,400,000 IU/mL 01/05/2017 1:54 PM [employer] HISTORICAL RESULTS HCV RNA result Detected( H) Not Detected 01/05/2017 1:54 PM [employer] HISTORICAL RESULTS HCV RNA See Note 01/05/2017 1:54 PM [employer] HISTORICAL RESULTS Comment: Access [employer] Enhanced Report using either link below: -Direct access: [email or web address] -Enter Username, Password: [email or web address] Username: [email or web address] Password: [email or web address] Performed by [employer], [address] [place] [id number] [email or web address], Henrry Ocampo MD, Lab. Director 01/03/2017 8:06 AM CDT 01/03/2017 8:33 AM CDT us Reginald Linn MD LAB MICROBIOLOGY - GENERA L ORDERABLES Final Result [employer] HISTORICAL RESULTS from Last 3 Months or Most Recently Relevant to Health Maintenance Additional Health Concerns Infection Onset Date Last Indicated C. difficile 08/25/2019 08/24/2019 Insurance [facility] CLAIMS MEDICARE Care Teams Bankruptcy Assistant Relationship Specialty Start Date End Date Ruben Felix MD [address] [address] PCP - General 05/20/19 Jensen Lizarraga MD [address] [place] [address] Assessment Expert Cardiovascular Disease 08/14/19
--- OUTSIDE RECORDS SUMMARY | 2024-10-30 07:00 | XMS_ITS | Encounter Summary ---
Author Organization [facility] Facility Care Team Providers Care Head Grower Name Role Phone Xander Patel MD Primary Care Provider [phone] Ruben Felix MD Primary Care Provider [phone] Jensen Lizarraga MD Unavailable [phone] Encounter Details Date Type Department Care Team (Latest Contact Info) Description 08/26/2018 Orders Only [facility] CLINCONV ProviderJohn MD [address] [place] [address] Social History Tobacco Use Types Packs/Day Years Used Date Smoking Tobacco: Never Assessed Comments Unknown Sex and Gender Information Value Date Recorded Sex Assigned at Not on file Legal Sex Female 6:59 PM BAND CUTTING MACHINE OPERATOR Gender Identity Not on file Sexual [...] documented as of this encounter Care Teams Head Grower Relationship Specialty Start Date End Date Xander Patel MD [address] [place] [address] PCP - General 07/25/18 05/19/19 Ruben Felix MD [address] [facility] [address] [place] [address] PCP - General 05/20/19 Jensen Lizarraga MD [address] [facility] [address] [place] [address] Latin Teacher Cardiovascular Disease 08/14/19 documented as of this encounter
--- OUTSIDE RECORDS SUMMARY | 2024-10-30 07:00 | XMS_ITS | Referral Summary ---
Author Organization [facility] Address [address] [place] [address] Care Team Providers Care Freight Rate Analyst Name Role Phone Ruben Felix MD Primary Care Provider [phone] Jensen Lizarraga MD Unavailable [phone] Allergies Active Allergy Reactions Criticality Noted Date [...] 0 Assessment & Plan (08/10/2019 8:30 AM WAREHOUSE LOGISTICS COORDINATOR): Continue Lasix. Controlled. Hypotension due to drugs [...] She does report upcoming appointment with her catcher helper with anticipated upper and lower endoscopy. Plan: Follow up with GI. Patient follow up with vascular surgery on as-needed basis. Dilated cardiomyopathy 09/15/2018 Assessment & Plan (08/10/2019 8:28 AM WAREHOUSE LOGISTICS COORDINATOR): No syncope. Repeat echocardiogram. Continue losartan and [...] 09/15/2018 Assessment & Plan (08/10/2019 8:29 AM WAREHOUSE LOGISTICS COORDINATOR): No history of suggestive of aborted sudden cardiac . Repeat echo. Assessment & Plan (11/12/2018 9:56 AM CDT): Two events not suggestive of arrhythmia Assessment & Plan (09/15/2018 8:51 AM CDT): Not suggestive of arrhythmia. Would not recommend outpatient monitoring at this time. Again follow up with GI and PV. Chest pain 10/28/2017 Assessment & Plan (08/10/2019 8:29 AM WAREHOUSE LOGISTICS COORDINATOR): Cardiac catheterization August last year negative. Would [...] on file Legal Sex Female 6:59 PM WAREHOUSE LOGISTICS COORDINATOR Gender Identity Not on file Sexual Orientation [...] log IU 7 1:54 PM CDT [facility] HISTORICAL RESULTS Comment: INTERPRETIVE INFORMATION: Hepatitis C [...] IU/mL 7,400,000 IU/mL 01/05/2017 1:54 PM T [facility] HISTORICAL RESULTS HCV RNA result Detected( H) Not Detected 01/05/2017 1:54 PM CDT [facility] HISTORICAL RESULTS HCV RNA See Note 01/05/2017 1:54 PM [facility] [employer] HISTORICAL RESULTS Comment: Access [facility] Enhanced Report using either link below: -Direct access: [email or web address] -Enter Username, Password: [email or web address] Username: [email or web address] Password: [email or web address] Performed by [facility] [employer], [address] [place] [address] [email or web address], Henrry Ocampo MD, Lab. Director 01/03/2017 8:06 AM CDT 01/03/2017 8:33 AM CDT Reginald Linn MD LAB MICROBIOLOGY - GENERA L ORDERABLES Final Result [facility] [employer] HISTORICAL RESULTS from Last 3 Months or Most Recently Relevant to Health Maintenance Additional Health Concerns Infection Onset Date Last Indicated C. difficile 08/25/2019 08/24/2019 Insurance [facility] CLAIMS MEDICARE Care Teams Freight Rate Analyst Relationship Specialty Start Date End Date Ruben Felix MD [address] [address] PCP - General 05/20/19 Jensen Lizarraga MD [address] [place] [address] Colon Therapist Cardiovascular Disease 08/14/19
== END ==
LOC: ANHCSM 10-30 06:58
PROVIDERS: PCP Nurse Practitioner Family; Visit Provider Nurse Practitioner Family
DX: G47.33 Obstructive sleep apnea (adult) (pediatric) (principal)
CPT/HCPCS: 95811

== ENCOUNTER 2024-12-08 09:17 | Outpatient (CLI) | payer MEDICARE, OTHER, SELFPAY ==
--- OUTSIDE RECORDS SUMMARY | 2024-12-08 09:25 | XMS_ITS | Clinical Summary ---
Author Organization [facility] kajeet Address [address] [facility] [place] [address] Care Team Providers Care Seam Stayer Name Role Phone Ruben Felix MD Primary Care Provider [phone] Source Comments [facility] Affiliates and Associated Physician Practices is amultiple site organization consisting of ambulatory clinics and hospital sitesin [place] and [place]. This disclosure is being madepursuant to the Care Everywhere program and may not contain all information available regarding this patient. 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9 0.6 - 1.2 mg/dL 01/19/2020 9:58 AM [facility] Sodium 142 136 - 145 mmol/L 01/19/2020 9:58 AM [facility] Potassium 3.8 3.5 - 4.5 mmol/L 01/19/2020 9:58 AM [facility] Chloride 111(H) 98 - 107 mmol/L 01/19/2020 9:58 AM [facility] CO2 24 22 - 29 mmol/L 01/19/2020 9:58 AM [facility] Glucose 82 70 - 115 mg/dL 01/19/2020 9:58 AM [facility] Calcium 8.8 8.4 - 10.2 mg/dL 01/19/2020 9:58 AM CDT [facility] Anion Gap 11 8 - 18 01/19/2020 9:58 AM T [facility] BUN/Creatinine Ratio 11 7 - 23 01/19/2020 9:58 AM T [facility] Osmolality Calculated 292 270 - 300 mOsm/kg 01/19/2020 9:58 AM CDT [facility] eGFR >60 >60 mL/min/1.7 3 m2 01/19/2020 9:58 AM T [facility] Blood BLOOD SPECIMEN / Unknown Venipuncture / Unknown 01/19/2020 9:17 AM CDT 01/19/2020 9:25 AM CDT Ronnie Saldana MD LAB - CHEMISTRY ORDERABLES nal Result [address] [address], [facility] [phone] from Last 3 Months or Most Recently Relevant to Health Maintenance Insurance MEDICARE [facility] Care Teams Seam Stayer Relationship Specialty Start Date End Date Ruben Felix MD [address] [place] [address] PCP - General 01/02/20
--- OUTSIDE RECORDS SUMMARY | 2024-12-08 09:25 | XMS_ITS | Clinical Summary ---
Author Organization [facility] Srikanth Baca Address [address] [facility] [place] [address] Care Team Providers Care Wound Treatment Rn Name Role Phone Ruben Felix MD Primary Care Provider [phone] Allergies Active Allergy Reactions Criticality Noted Date [...] 2:24 PM CDT Height 165.1 cm (5' 5) 02/07/2022 2:24 PM CDT Body Mass Index [...] 12/06/2030 Insurance MEDICARE PART A AND B [employer] Care Teams Wound Treatment Rn Relationship Specialty Start Date End Date Ruben Felix MD [address] [place] [address] PCP - General Internal Medicine 10/13/20
--- OUTSIDE RECORDS SUMMARY | 2024-12-08 09:25 | XMS_ITS | Encounter Summary ---
Author Organization [facility] Facility Care Team Providers Care Chemist Organic Name Role Phone Xander Patel MD Primary Care Provider [phone] Ruben Felix MD Primary Care Provider [phone] Jensen Lizarraga MD Unavailable [phone] Encounter Details Date Type Department Care Team (Latest Contact Info) Description 08/11/2018 Orders Only [facility] CLINCONV ProviderJohn MD [address] [place] [address] Social History Tobacco Use Types Packs/Day Years Used Date Smoking Tobacco: Never Assessed Comments Unknown Sex and Gender Information Value Date Recorded Sex Assigned at Not on file Legal Sex 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
--- OUTSIDE RECORDS SUMMARY | 2024-12-08 09:25 | XMS_ITS | Encounter Summary ---
Author Organization [facility] Facility Care Team Providers Care Clinical Laboratory Aide Name Role Phone Xander Patel MD Primary Care Provider [phone] Ruben Felix MD Primary Care Provider [phone] Jensen Lizarraga MD Unavailable [phone] Encounter Details Date Type Department Care Team (Latest Contact Info) Description 08/26/2018 Orders Only [facility] CLINCONV ProviderJohn MD [address] [place] [address] Social History Tobacco Use Types Packs/Day Years Used Date Smoking Tobacco: Never Assessed Comments Unknown Sex and Gender Information Value Date Recorded Sex Assigned at Not on file 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
--- OUTSIDE RECORDS SUMMARY | 2024-12-08 09:25 | XMS_ITS | Encounter Summary ---
Author Organization [facility] Address [address] [place] [address] Care Team Providers Care Cleaning Validation Consultant Name Role Phone Ruben Felix MD Primary Care Provider [phone] Les Das MD Unavailable [phone] Rizwan Martinez NP Unavailable Lou Brooks INSPECTOR [employer] Unavailable [phone] Shanice Askew NP Primary Care Provider [phone] Encounter Details Date Type Department Care Team (Late st Contact Info) Description 11/03/2020 Abstract [facility] [id number] Yolanda Ambriz MA Social History Tobacco Use [...] Sex Assigned at Female 08/06/2024 9:35 AM SENIOR DATABASE PROGRAMMER Legal Sex Female 6:32 PM CDT Gender Identity Female 06/02/2021 8:12 AM SENIOR DATABASE PROGRAMMER Sexual Orientation Not on file COVID-19 Exposure [...] Author Status No 09/29/2020 6:41 PM CDT oMe Crawford RN Active documented in this encounter Plan of Treatment Upcoming Encounters Date Type Department Care Team (Late st Contact Info) Description 12/21/2024 4:45 PM CDT Allied Health/Nurse Visit [facility] Nguyen-O'F fidelia [facility], [address] [place], [place] [id number] Les Das MD [facility], [address] [place], [place] [id number] 12/23/2024 2:00 PM CDT Appointment [facility] [place] [address] Imer Holly MD [address] [place] [address] 12/28/2024 7:40 AM CDT Office Visit [facility] Orthopedic & Sports Medicine - [place] [address] [place] [address] Temo Peralta PA [address] [place] [address] 01/12/2025 10:35 AM CDT Hospital Encounter [facility] [place] [address] Imer Holly MD [address] [place] [address] 01/12/2025 10:35 AM CDT - 01/12/2025 1:17 PM CDT Surgery [facility] [place] [address] Imer Holly MD [address] [place] [address] LEFT TOTAL HIP ARTHROPLASTY 01/25/2025 8:40 AM CDT Office Visit [facility] Orthopedic & Sports [facility] [address] [place] [address] Temo Peralta PA [address] [place] [address] 05/18/2025 10:15 AM SENIOR DATABASE PROGRAMMER Office Visit [facility] Nguyen-O'F allon [facility], [address] [place] [address] Les Das MD Three [facility], [address] [place] [address] Scheduled Procedures Name Priority Associated Diagnoses Date/Ti me ARTHROPLASTY HIP TOTAL ANTERIOR APPROACH Primary osteoarthritis of left hip 01/12/2025 10:35 AM CDT documented as of this encounter Goals Goal [...] on filedocumented in this encounter Care Teams Cleaning Validation Consultant Relationship Specialty Start Date End Date Ruben Felix MD [address] [place] [address] PCP - General INTERNAL MEDICINE 03/22/20 10/09/22 Shanice Askew NP [address] [place] [address] PCP - General Nurse Practitioner Family 05/11/24 Les Das MD [address] [place] [address] Physician CARDIOVASCULAR DISEASE 09/21/22 Rizwan Martinez NP [address] [place] [address] PULMONARY DISEASE 05/11/24 Lou Brooks NP [address] [place] [address] GASTROENTEROLOGY 05/11/24 documented as of this encounter
--- OUTSIDE RECORDS SUMMARY | 2024-12-08 09:25 | XMS_ITS | Encounter Summary ---
Author Organization 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
--- OUTSIDE RECORDS SUMMARY | 2024-12-08 09:25 | XMS_ITS | Encounter Summary ---
Author Organization [facility] Address [address] [place] [address] Care Team Providers Care Turpentiner Name Role Phone Les Das MD Unavailable [phone] Rizwan Martinez NP Unavailable Lou Brooks COORDINATOR OF HEALTH SERVICES Unavailable [phone] Shanice Askew NP Primary Care Provider [phone] Encounter Details Date Type Department Care Team (Late st Contact Info) Description 05/18/2024 Yunait Message Enc [facility]O'[facility]o arroyo [facility], [address] [address] [place], [facility] Provider Carelink Transmission Received Social History [...] from your doctor or pharmacy? Never 12/10/2023 [facility] Utilities Answer Date Recorded In [...] Recorded Patient Health Questionnaire-2 Score 0 03/23/2024 [facility] Occupat ional [facility] - Occupational Stress Questionnaire Answer Date [...] Sex Assigned at Female 08/06/2024 9:35 AM HEAD ANIMAL KEEPER Legal Sex Female 6:32 PM CDT Gender Identity Female 06/02/2021 8:12 AM HEAD ANIMAL KEEPER Sexual Orientation Not on file documented as [...] 12/21/2024 4:45 PM CDT Allied Health/Nurse Visit [facility], [address] [place] [address] Les Das MD Three [facility], [address] [place] [address] 12/23/2024 2:00 PM CDT Appointment [facility] [place] [address] Imer Holly MD [address] [place] [address] 12/28/2024 7:40 AM CDT Office Visit [facility] Orthopedic & Sports Medicine - [place] [address] [place] [address] Temo Peralta PA [address] [place] [address] 01/12/2025 10:35 AM CDT Hospital Encounter [facility] [place] [address] Imer Holly MD [address] [place] [address] 01/12/2025 10:35 AM CDT - 01/12/2025 1:17 PM CDT Surgery [facility] [place] [address] Imer Holly MD [address] [place] [address] LEFT TOTAL HIP ARTHROPLASTY 01/25/2025 8:40 AM CDT Office Visit [facility] Orthopedic & Sports Medicine - [place] [address] [place] [address] Temo Peralta PA [address] [place] [address] 05/18/2025 10:15 AM HEAD ANIMAL KEEPER Office Visit [place] Wendy-O'F allon [facility], [address] [place] [address] Les Das MD Three [facility] [address] [place] [address] Scheduled Procedures Name Priority Associated Diagnoses Date/Ti me ARTHROPLASTY HIP TOTAL ANTERIOR APPROACH Primary osteoarthritis of left hip 01/12/2025 10:35 AM CDT documented as of this encounter Goals Goal Patient Goal Type Associated Problems Recent Progress Patient-Stated? Author Health - patient able to perform ADLs independently General No Magno Urrutia fabric finisher - family caregiver with be involved in care transitions and discharge planning Lifestyle No Orla Springer i RN documented as of this encounter Visit Diagnoses Not on filedocumented in this encounter Care Teams Turpentiner Relationship Specialty Start Date End Date Shanice Askew NP [address] [place] [address] PCP - General Nurse Practitioner Family 05/11/24 Les Das MD Three [facility] [address] [place] [address] Physician CARDIOVASCULAR DISEASE 09/21/22 Rizwan Martinez NP [address] [place] [id number] PULMONARY DISEASE 05/11/24 Lou Brooks NP [address] [place], [place] [id number] GASTROENTEROLOGY 05/11/24 documented as of this encounter
--- OUTSIDE RECORDS SUMMARY | 2024-12-08 09:25 | XMS_ITS | Encounter Summary ---
Author Organization [facility] Address [address] [place] [address] Care Team Providers Care Central Office Repairer Name Role Phone Ruben Felix MD Primary Care Provider [phone] Les Das MD Unavailable [phone] Rizwan Martinez NP Unavailable Lou Brooks MOLDER FOAM RUBBER Unavailable [phone] Shanice Askew NP Primary Care Provider [phone] Encounter Details Date Type Department Care Team (Late st Contact Info) Description 03/25/2020 Abstract [facility] at [address] [address] Yolanda Ambriz MA Social History [...] Assigned at Female 08/06/2024 9:35 AM HEAD OF LOSS PREVENTION Legal Sex Female 6:32 PM CDT Gender Identity Female 06/02/2021 8:12 AM HEAD OF LOSS PREVENTION Sexual Orientation Not on file COVID-19 Exposure [...] 4:45 PM CDT Allied Health/Nurse Visit [facility]'F allonancy [facility], [address] [place] [address] Les Das MD Three [facility], [address] [place] [address] 12/23/2024 2:00 PM CDT Appointment [facility] [place] [address] Imer Holly MD [address] [place] [address] 12/28/2024 7:40 AM CDT Office Visit [facility] Medical Group Orthopedic & Sports Medicine - [place] [address] [place] [address] Temo Peralta PA [address] [place] [address] 01/12/2025 10:35 AM CDT Hospital Encounter [facility] [address] Imer Holly MD [address] [place] [address] 01/12/2025 10:35 AM CDT - 01/12/2025 1:17 PM CDT Surgery [facility] [place] [address] Imer Holly MD [address] [place] [address] LEFT TOTAL HIP ARTHROPLASTY 01/25/2025 8:40 AM CDT Office Visit [facility] Medical Group Orthopedic & Sports Medicine - [place] [address] [place] [address] Teom Peralta PA [address] [place] [address] 05/18/2025 10:15 AM HEAD OF LOSS PREVENTION Office Visit [facility] Nguyen-O'Raul mistry [facility], [address] [place] [address] Les Das MD Three [facility] [address] [place] [address] Scheduled Procedures Name Priority Associated Diagnoses Date/Ti me ARTHROPLASTY HIP TOTAL ANTERIOR APPROACH Primary osteoarthritis of left hip 01/12/2025 10:35 AM CDT documented as of this encounter Procedures Procedure Name Priority Date/Time Associated Diagnosis Comments BNP Routine 03/15/2020 LIPID PANEL Routine 03/15/2020 documented in this encounter Results * LIPID PANEL (03/15/2020) Pathologist [facility] CHOLESTEROL 161 HDL 63 TRIGLYCERIDES 134 LDL (CALCULATED) 71 03/15/2020 us Doc [facility]ORATORY Final Result * BNP (03/15/2020) Pathologist [facility] B TYPE NATRIURETIC PEPTIDE 10 03/15/2020 us Doc [facility] LABORATORY Final Result documented in this encounter Visit Diagnoses Not on filedocumented in this encounter Care Teams Central Office Repairer Relationship Specialty Start Date End Date Ruben Felix MD [address] [facility] [address] [place] [address] PCP - General INTERNAL MEDICINE 03/22/20 10/09/22 Shanice Askew NP [address] [place] [address] PCP - General Nurse Practitioner Family 05/11/24 Les Das MD [facility], [address] [place] [address] Physician CARDIOVASCULAR DISEASE 09/21/22 Rizwan Martinez NP [address] [place] [address] PULMONARY DISEASE 05/11/24 Lou Brooks NP [address] [place] [address] GASTROENTEROLOGY 05/11/24 documented as of this encounter
--- OUTSIDE RECORDS SUMMARY | 2024-12-08 09:25 | XMS_ITS | Encounter Summary ---
Author Organization [facility] Address [address] [place] [address] Care Team Providers Care Dampener Name Role Phone Les Das MD Unavailable [phone] Rizwan Martinez NP Unavailable Lou Brooks [address] STRE[address] DEPARTMENT Unavailable [phone] Shanice Askew NP Primary Care Provider [phone] Encounter Details Date Type Department Care Team (Late st Contact Info) Description 10/17/2023 [employer]arms Message Enc [facility] [address] [facility] [address], [address] [place] [address] Lashon Bennett FNP 3 [facility] [address] [place] [address] Test results Social History Tobacco [...] and heating? Not hard at all 10/09/2022 [facility]at ional [facility] - Occupational Stress [...] place to sleep or slept in a nursing home (including now)? No 10/09/2022 Comments No Sex and Gender Information Value Date Recorded Sex Assigned at Female 08/06/2024 9:35 AM PEER EDUCATOR Legal Sex Female 6:32 PM CDT Gender Identity Female 06/02/2021 8:12 AM PEER EDUCATOR Sexual Orientation Not on file documented as [...] CDT Allied Health/Nurse Visit Steph Nguyen-O'F fidelia [address] [address] Les Das MD Three [facility], [address] [place] [address] 12/23/2024 2:00 PM CDT Appointment [facility] [place] [address] Imer Holly MD [address] [place] [address] 12/28/2024 7:40 AM CDT Office Visit [facility] Medical Group Orthopedic & Sports Medicine [facility] [address] [place] [address] Temo Peralta PA [address] [place] [address] 01/12/2025 10:35 AM CDT Hospital Encounter [facility] [place] [address] Imer Holly MD [address] [place] [address] 01/12/2025 10:35 AM CDT - 01/12/2025 1:17 PM CDT Surgery [facility] [place] [address] Imer Holly MD [address] [place] [address] LEFT TOTAL HIP ARTHROPLASTY 01/25/2025 8:40 AM CDT Office Visit [facility] Medical [facility] Orthopedic & Sports [facility] [address] [place] [address] Temo Peralta PA [address] [place] [address] 05/18/2025 10:15 AM PEER EDUCATOR Office Visit [facility] THREE [facility], [address] [place] [address] Les Das MD Three [facility], [address] [place] [address] Scheduled Procedures Name Priority Associated Diagnoses Date/Ti [...] on filedocumented in this encounter Care Teams Dampener Relationship Specialty Start Date End Date Shanice Askew NP [address] [place], [place] [id number] PCP - General Nurse Practitioner Family 05/11/24 Les Das MD Three [facility], [address] [place] [address] Physician CARDIOVASCULAR DISEASE 09/21/22 Rizwan Martinez NP [address] [place] [id number] PULMONARY DISEASE 05/11/24 Lou Brooks NP [address] [place] [address] GASTROENTEROLOGY 05/11/24 documented as of this encounter
--- OUTSIDE RECORDS SUMMARY | 2024-12-08 09:25 | XMS_ITS | Referral Summary ---
Author Organization [facility] Address [address] [place] [address] Care Team Providers Care Cmo Name Role Phone Ruben Felix MD Primary Care Provider [phone] Jensen Lizarraga MD Unavailable [phone] Allergies Active Allergy Reactions Criticality Noted Date [...] 0 Assessment & Plan (08/10/2019 8:30 AM GAS TURBINE MECHANIC): Continue Lasix. Controlled. Hypotension due to drugs [...] She does report upcoming appointment with her beam warper with anticipated upper and lower endoscopy. Plan: Follow up with GI. Patient follow up with vascular surgery on as-needed basis. Dilated cardiomyopathy 09/15/2018 Assessment & Plan (08/10/2019 8:28 AM GAS TURBINE MECHANIC): No syncope. Repeat echocardiogram. Continue losartan and [...] 09/15/2018 Assessment & Plan (08/10/2019 8:29 AM GAS TURBINE MECHANIC): No history of suggestive of aborted sudden cardiac . Repeat echo. Assessment & Plan (11/12/2018 9:56 AM CDT): Two events not suggestive of arrhythmia Assessment & Plan (09/15/2018 8:51 AM CDT): Not suggestive of arrhythmia. Would not recommend outpatient monitoring at this time. Again follow up with GI and PV. Chest pain 10/28/2017 Assessment & Plan (08/10/2019 8:29 AM GAS TURBINE MECHANIC): Cardiac catheterization August last year negative. Would [...] on file Legal Sex Female 6:59 PM GAS TURBINE MECHANIC Gender Identity Not on file Sexual Orientation [...] 9:45 PM CDT Height 162.6 cm (5' 4) 03/14/2020 9:45 PM CDT Body Mass Index [...] 6.9 log IU 7 1:54 PM CDT [facility] HISTORICAL RESULTS Comment: INTERPRETIVE INFORMATION: Hepatitis [...] IU/mL 7,400,000 IU/mL 01/05/2017 1:54 PM T [facility] HISTORICAL RESULTS HCV RNA result Detected( H) Not Detected 01/05/2017 1:54 PM CDT [facility] HISTORICAL RESULTS HCV RNA See Note 01/05/2017 1:54 PM [facility] HISTORICAL RESULTS Comment: Access Bumpr Enhanced Report using either link below: -Direct access: [email or web address] -Enter Username, Password: [email or web address] Username: [email or web address] Password: [email or web address] Performed by [employer], [address] [place] [address] [email or web address], Henrry Ocampo MD, Lab. Director 01/03/2017 8:06 AM CDT 01/03/2017 8:33 AM CDT Reginald Linn MD LAB MICROBIOLOGY - GENERA L ORDERABLES Final Result [facility] [email or web address] HISTORICAL RESULTS from Last 3 Months or Most Recently Relevant to Health Maintenance Additional Health Concerns Infection Onset Date Last Indicated C. difficile 08/25/2019 08/24/2019 Insurance [facility] CLAIMS MEDICARE Care Teams Cmo Relationship Specialty Start Date End Date Ruben Felix MD [address] [address] PCP - General 05/20/19 Jensen Lizarraga MD [address] [place] [address] Home Theatre Technician Cardiovascular Disease 08/14/19
--- OUTSIDE RECORDS SUMMARY | 2024-12-08 09:25 | XMS_ITS | Encounter Summary ---
Author Organization [facility] Address [address] [place] [address] Care Team Providers Care Hip Hop Dancer Name Role Phone Ruben Felix MD Primary Care Provider [phone] Les Das MD Unavailable [phone] Rizwan Martinez NP Unavailable Lou Brooks LANGUAGES AND LITERATURE INSTRUCTOR Unavailable [phone] Shanice Askew NP Primary Care Provider [phone] Encounter Details Date Type Department Care Team (Late st Contact Info) Description 03/07/2022 Abstract [facility] [id number] Yolanda Ambriz MA Social History Tobacco Use [...] Sex Assigned at Female 08/06/2024 9:35 AM BILLING SPECIALIST Legal Sex Female 6:32 PM CDT Gender Identity Female 06/02/2021 8:12 AM BILLING SPECIALIST Sexual Orientation Not on file COVID-19 Exposure [...] Allied Health/Nurse Visit Steph Nguyen-[facility] f[facility] THREE [facility], [address] [place] [address] Les Das MD [facility] [address] [place], [place] [id number] 12/23/2024 2:00 PM CDT Appointment [facility] [place] [address] Imer Holly MD [address] [place] [address] 12/28/2024 7:40 AM CDT Office Visit [facility] Orthopedic & Sports Medicine [facility] [address] [place] [address] Temo Peralta PA [address] [place] [address] 01/12/2025 10:35 AM CDT Hospital Encounter [facility] [place] [address] Imer Holly MD [address] [place] [address] 01/12/2025 10:35 AM CDT - 01/12/2025 1:17 PM CDT Surgery [facility] [place] [address] Imer Holly MD [address] [place] [address] LEFT TOTAL HIP ARTHROPLASTY 01/25/2025 8:40 AM CDT Office Visit [facility] Orthopedic & Sports [facility] [address] [place] [address] Temo Peralta PA [address] [place] [address] 05/18/2025 10:15 AM BILLING SPECIALIST Office Visit [facility] f[facility] THREE [facility] [address] [place] [address] Les Das MD Three [facility] [address] [place] [address] Scheduled Procedures Name Priority Associated Diagnoses Date/Ti [...] Results * COMPREHENSIVE METABOLIC PANEL (09/16/2023) Pathologist [facility] SODIUM S/P/B 138 GLUCOSE 106 mg/dL AST 26 BUN 9 CREATININE S/P/B 0.80 0.5 - 1.0 CALCIUM S/P/B 9.8 POTASSIUM S/P/B 4.5 CHLORIDE S/P/B 107 ALT 30 GFR ESTIMATE >60 us Default History Genericprovider LABORATORY Edited Result - Final * CBC, MANUAL DIFF (09/16/2023) Pathologist [facility] WBC 8.3 HGB 13.1 HCT 40.4 PLT 267 us Default History Genericprovider LABORATORY Edited Result - Final * IRON BINDING TEST (01/31/2022) Pathologist [facility] IRON BINDING CAPACITY 406 01/31/2022 us Doc [facility] Abstract LABORATORY Final Result * CBC (OUTSIDE LAB) (01/31/2022) WBC 7.8 HGB 11.9 HCT 38.2 PLT 251 01/31/2022 us Doc [facility] Abstract LAB-OUTSIDE/ABSTRACTED Final Result * FERRITIN (12/12/2021) FERRITIN 10.20 12/12/2021 us Doc [facility] LABORATORY Final Result * IRON (12/12/2021) IRON 26 12/12/2021 us Doc [facility] LABORATORY Final Result documented in this encounter Visit Diagnoses Not on filedocumented in this encounter Care Teams Hip Hop Dancer Relationship Specialty Start Date End Date Ruben Felix MD [address] [place], [place] [id number] PCP - General INTERNAL MEDICINE 03/22/20 10/09/22 Shanice Askew NP [address] [place] [address] PCP - General Nurse Practitioner Family 05/11/24 Les Das MD Three [facility], [address] [place] [address] Physician CARDIOVASCULAR DISEASE 09/21/22 Rizwan Martinez NP [address] [place] [address] PULMONARY DISEASE 05/11/24 Lou Brooks NP [address] [facility] [address] [place] [address] GASTROENTEROLOGY 05/11/24 documented as of this encounter
--- OUTSIDE RECORDS SUMMARY | 2024-12-08 09:25 | XMS_ITS | Encounter Summary ---
Author Organization [facility] Address [address] [place] [address] Care Team Providers Care Marketing Communications Manager Name Role Phone Les Das MD Unavailable [phone] Rizwan Martinez NP Unavailable Lou Brooks DIRECTOR OF SUSTAINABILITY PROGRAMS Unavailable [phone] Shanice Askew NP Primary Care Provider [phone] Encounter Details Date Type Department Care Team (Late st Contact Info) Description 11/09/2023 Invisible Puppy Message Enc [facility] THREE [facility], [address] [place] [address] Prasanth Muro MD Three [facility]. [address] [place] [address] Earlier appointment Social History Tobacco [...] and heating? Not hard at all 10/09/2022 [facility] of Occupat ional Health - Occupational Stress [...] place to sleep or slept in a senior living (including now)? No 10/09/2022 Comments No Sex and Gender Information Value Date Recorded Sex Assigned at Female 08/06/2024 9:35 AM TALENT ACQUISITION ASSISTANT Legal Sex Female 6:32 PM CDT Gender Identity Female 06/02/2021 8:12 AM TALENT ACQUISITION ASSISTANT Sexual Orientation Not on file documented as [...] PM CDT Allied Health/Nurse Visit Steph Nguyen-O'F allon THREE [facility], [address] [address] Les Cummins MD Three [facility], [address] [place] [address] 12/23/2024 2:00 PM CDT Appointment [facility] [place] [address] Imer Holly MD [address] [place] [address] 12/28/2024 7:40 AM CDT Office Visit [facility] Medical Group Orthopedic & Sports Medicine [facility] [address] [place] [address] Temo Peralta PA [address] [place] [address] 01/12/2025 10:35 AM CDT Hospital Encounter [facility] [place] [address] Imer Holly MD [address] [place] [address] 01/12/2025 10:35 AM CDT - 01/12/2025 1:17 PM CDT Surgery [facility] [place] [address] Imer Holly MD [address] [place] [address] LEFT TOTAL HIP ARTHROPLASTY 01/25/2025 8:40 AM CDT Office Visit [facility] Medical [facility] Orthopedic & Sports [facility] [address] [place] [address] Temo Peralta PA [address] [place] [address] 05/18/2025 10:15 AM TALENT ACQUISITION ASSISTANT Office Visit [facility] THREE [facility], [address] [place] [address] Les Das MD Three [facility], [address] [place] [address] Scheduled Procedures Name Priority Associated Diagnoses Date/Ti [...] on filedocumented in this encounter Care Teams Marketing Communications Manager Relationship Specialty Start Date End Date Shanice Askew NP [address] [place] [address] PCP - General Nurse Practitioner Family 05/11/24 Les Das MD Three [facility], [address] [place] [address] Physician CARDIOVASCULAR DISEASE 09/21/22 Rizwan Martinez NP [address] [place] [id number] PULMONARY DISEASE 05/11/24 Lou Brooks NP [address] [place] [address] GASTROENTEROLOGY 05/11/24 documented as of this encounter
--- OUTSIDE RECORDS SUMMARY | 2024-12-08 09:25 | XMS_ITS | Clinical Summary ---
Author Organization [facility] Address [address] [place] [address] Care Team Providers Care Aircraft Sheet Metal Mechanic Name Role Phone Ruben Felix MD Primary Care Provider [phone] Jensen Lizarraga MD Unavailable [phone] Allergies Active Allergy Reactions Criticality Noted Date [...] 0 Assessment & Plan (08/10/2019 8:30 AM HARP REGULATOR): Continue Lasix. Controlled. Hypotension due to drugs [...] She does report upcoming appointment with her medical territory manager with anticipated upper and lower endoscopy. Plan: Follow up with GI. Patient follow up with vascular surgery on as-needed basis. Dilated cardiomyopathy 09/15/2018 Assessment & Plan (08/10/2019 8:28 AM HARP REGULATOR): No syncope. Repeat echocardiogram. Continue losartan and [...] 09/15/2018 Assessment & Plan (08/10/2019 8:29 AM HARP REGULATOR): No history of suggestive of aborted sudden cardiac . Repeat echo. Assessment & Plan (11/12/2018 9:56 AM CDT): Two events not suggestive of arrhythmia Assessment & Plan (09/15/2018 8:51 AM CDT): Not suggestive of arrhythmia. Would not recommend outpatient monitoring at this time. Again follow up with GI and PV. Chest pain 10/28/2017 Assessment & Plan (08/10/2019 8:29 AM HARP REGULATOR): Cardiac catheterization August last year negative. Would [...] on file Legal Sex Female 6:59 PM HARP REGULATOR Gender Identity Not on file Sexual Orientation [...] IU/mL 6.9 log IU 7 1:54 PM [employer] HISTORICAL RESULTS Comment: INTERPRETIVE INFORMATION: Hepatitis C [...] RNA IU/mL 7,400,000 IU/mL 01/05/2017 1:54 PM [employer] HISTORICAL RESULTS HCV RNA result Detected( H) Not Detected 01/05/2017 1:54 PM [employer] HISTORICAL RESULTS HCV RNA See Note 01/05/2017 1:54 PM [employer] HISTORICAL RESULTS Comment: Access Serveron Enhanced Report using either link below: -Direct access: [email or web address] -Enter Username, Password: [email or web address] Username: [email or web address] Password: [email or web address] Performed by [employer], [address] [place] [id number] [email or web address], Henrry Ocampo MD, Lab. Director 01/03/2017 8:06 AM CDT 01/03/2017 8:33 AM CDT us Reginald Linn MD LAB MICROBIOLOGY - GENERA L ORDERABLES Final Result [facility] HISTORICAL RESULTS from Last 3 Months or Most Recently Relevant to Health Maintenance Additional Health Concerns Infection Onset Date Last Indicated C. difficile 08/25/2019 08/24/2019 Insurance [facility] CLAIMS MEDICARE Care Teams Aircraft Sheet Metal Mechanic Relationship Specialty Start Date End Date Ruben Felix MD [address] [address] PCP - General 05/20/19 Jensen Lizarraga MD [address] [place] [address] Deputy Probation Officer Cardiovascular Disease 08/14/19
--- OUTSIDE RECORDS SUMMARY | 2024-12-08 09:26 | XMS_ITS | Continuity of Care Document ---
Author Name [facility] Organization [facility] Care Team Providers Care Custom Seamstress Name Role Phone [facility] Unavailable Unavailable Medications Combined list of outpatient medications from Department of Defense and Veterans Affairs facilities.Medications provided include 1) outpatient medications from the last 15 months, and 2) patient-reported medications. Medication Details Route Status Patient Instructions Prescription Expires Prescription Number Last Dispense Date Ordering Provider Order Date Order Qty Source CHOLESTYRAM INE (cholestyra mine (with sugar)), 4 G, POWDER, ORAL, Epicrisis, 378 g CAN Active [id number] 4 2023 378 Pharmac y Data Transac tion Service Facilit y COZAAR (BRAND) 50 MG ORAL TAB Be careful if taking OTCs.Efrain e or use exactly as directed .Do not take if . 10/07/2024 [id number] 2023 90 [facility] Kali JO ([facility]) ELIQUIS (APIXABAN), 5 MG, TABLET, ORAL, [facility] , 60 ea. BOTTLE Active [id number] 4 2023 60 Pharmac y Data Transac tion Service Facilit y ELIQUIS (APIXABAN), 5 MG, TABLET, ORAL, [facility] , 60 ea. BOTTLE Active [id number] 4 2023 60 Pharmac y Data Transac tion Service Facilit y HYDROCODONE -ACETAMINOP HEN (HYDROCODON E/ACETAMINO PHEN), 10MG-325MG, TABLET, ORAL, MALLINCKROD T PH, 500 ea. BOTTLE Active [id number] 4 2023 90 Pharmac y Data Transac tion Service Facilit y HYDROCODONE -ACETAMINOP HEN (HYDROCODON E/ACETAMINO PHEN), 10MG-325MG, TABLET, ORAL, MALLINCKROD T PH, 500 ea. BOTTLE Active [id number] 4 2023 90 Pharmac y Data Transac tion Service Facilit y LIDOCAINE (LIDOCAINE) , 5%(700MG), ADH. PATCH, TOPICAL, QUALITEST, 30 ea. BOX Active [id number] 2023 30 Pharmac y Data Transac tion Service Facilit y MESALAMINE (mesalamine ), 1.2 G, TABLET DR, ORAL, [employer], 120 ea. BOTTLE Active [id number] 4 2023 90 Pharmac y Data Transac tion Service Facilit y MESALAMINE (mesalamine ), 1.2 G, TABLET DR, ORAL, [employer], 120 ea. BOTTLE Active [id number] 4 2023 90 Pharmac y Data Transac tion Service Facilit y MESALAMINE (mesalamine ), 1.2 G, TABLET DR, ORAL, [employer], 120 ea. BOTTLE Active [id number] 4 2023 90 Pharmac y Data Transac tion Service Facilit y METRONIDAZO LE (metronidaz ole), 500 MG, TABLET, ORAL, VIONA PHARMACEU, 100 ea. BOTTLE Active [id number] 4 2023 30 Pharmac y Data Transac tion Service Facilit y OMEPRAZOLE (omeprazole ), 40 MG, CAPSULE DR, ORAL, ESTmob PHARMA, 1000 ea. BOTTLE Active [id number] 2023 90 Pharmac y Data Transac tion Service Facilit y PRAMIPEXOLE DIHYDROCHLO RIDE (PRAMIPEXOL E DI-HCL), 0.5 MG, TABLET, ORAL, TORRENT PHARMAC, 90 ea. BOTTLE Active [id number] 2023 180 Pharmac y Data Transac tion Service Facilit y ROFLUMILAST (roflumilas t), 500 MCG, TABLET, ORAL, AUROBINDO PHARM, 30 ea. BOTTLE Active [id number] 4 2023 30 Pharmac y Data Transac tion Service Facilit y ROFLUMILAST (roflumilas t), 500 MCG, TABLET, ORAL, AUROBINDO PHARM, 30 ea. BOTTLE Active [id number] 4 2023 30 Pharmac y Data Transac tion Service Facilit y ROSUVASTATI N CALCIUM (rosuvastat in calcium), 5 MG, TABLET, ORAL, [facility], 90 ea. BOTTLE Cancele d [id number] : 2023 0 Pharmac y Data Transac tion Service Facilit y Allergies, Adverse Reactions, Alerts Combined list of allergies from Department of Defense and Veterans Affairs facilities. It does not include entries that were removed or entered in error. Substance Category Reaction Severity Reaction type Status Date Reported Comments Source No Known Allergies Drug allergy (disorder) active 10/27/2010 [facility] Kali JO ([facility]) Immunizations Combined list of available immunizations from the Department of Defense and Veterans Affairs facilities. Immunization Series Date Given Administered By Site Reaction Lot Number CVX Code Drug Radiology Clerk Status Comments Source COVID-19, mRNA, LNP-S, PF, 30 mcg/0.3 mL dose 2020 JUSTINA, () Not Given COVID-19, mRNA, LNP-S, PF, 30 mcg/0.3 mL dose [facility] COVID-19, mRNA, LNP-S, PF, 100 mcg or 50 mcg dose 2020 PAULO, [employer] (MOD) Not Given COVID-19, mRNA, LNP-S, PF, 100 mcg or 50 mcg dose [facility] COVID-19, mRNA, LNP-S, PF, 100 mcg or 50 mcg dose 2020 PAULO, [employer] (MOD) Not Given COVID-19, mRNA, LNP-S, PF, 100 mcg or 50 mcg dose [facility] influenza, injectable, quadrivalent, preservative free 2019 ALUL, () Not Given influenza , injectabl e, quadrival ent, preservat jennifer free [facility] Social History Combined list of available smoking, tobacco, and other social history from Department of Defense and Veterans Affairs facilities. Social History Type Response Date Comment Sour e This section is an empty social history section. [facility]
--- OUTSIDE RECORDS SUMMARY | 2024-12-08 09:26 | XMS_ITS | Clinical Summary ---
Author Organization [facility] Address [address] [place] [address] Care Team Providers Care Hand Icer Name Role Phone Les Das MD Unavailable [phone] iRzwan Martinez NP Unavailable Lou Brooks RELATIONS SPECIALIST Unavailable [phone] Shanice Askew NP Primary Care Provider [phone] Allergies No known active allergies Medications PROAIR [...] total) by mouth nightly at bedtime. 12/01/19 22 Active BREO ELLIPTA 100-25 MCG/INH inhaler Inhale [...] as needed for Pain. 01/13/20 24 Active apixaban (ELIQUIS) 5 MG tablet Take 1 tablet (5 mg total) by mouth 2 (two) times daily. 180 tablet 1 04/29/20 24 Active naloxone (NARCAN) 4 MG/0.1ML nasal spray 1 spray by Nasal route as needed for Opioid reversal. may repeat every 2 to 3 minutes in alternating nostrils until medical assistance becomes available 1 each 05/15/20 24 025 Active Additional Information Patient not taking.Reported on 11/04/2024 carvedilol (COREG) 3.125 MG tablet Take 1 tablet (3.125 mg total) by mouth 2 (two) times daily. 180 tablet 1 06/29/19 25 Active losartan (COZAAR) 50 MG tablet Take 1 tablet (50 mg total) by mouth nightly. 90 tablet 10/13/19 25 Active rosuvastatin (CRESTOR) 5 MG tablet Take 1 tablet (5 mg total) by mouth nightly at bedtime. 90 tablet 10/27/19 25 Active dicyclomine (BENTYL) 10 MG capsule Take 3 capsules (30 mg total) by mouth 3 (three) times daily. Active esomeprazole (NEXIUM) 20 MG capsule (20 MG) Active mesalamine EC (LIALDA) 1.2 g Tab EC tablet 09/13/19 25 Active oxyCODONE-acetamin ophen (PERCOCET) 7.5-325 MG tablet (7.5-325 MG) Active Mesalamine (LIALDA OR) Take by mouth 3 (three) times daily. Active triamcinolone (KENALOG) 0.1 % ointment APPLY TOPICALLY TO THE AFFECTED AREA TWICE DAILY NEEDED FOR RASH 08/14/19 25 Active Active Problems Problem Noted Date Diagnosed Date Primary osteoarthritis of left hip 11/19/2024 Trigger middle finger of left hand 04/24/2024 Trigger index finger of left hand 04/24/2024 Trigger ring finger of left hand 04/24/2024 Spondylolisthesis 12/10/2023 ADAIR (dyspnea on exertion) 10/08/2023 PAD (peripheral artery disease) 10/08/2023 Essential (primary) hypertension 10/08/2023 Chest discomfort 10/08/2023 Chronic obstructive pulmonar y disease, unspecified COPD type ([facility]) 10/08/2023 Pulmonary hypertension ([facility]) 024 Syncope and collapse 09/23/2023 Overview (09/23/2023): KRIS SILVER implanted 09/23/23 for Syncope. Status post placement of implantable loop record er 09/23/2023 Overview (09/23/2023): KRIS SILVER implanted 09/23/23 for Syncope. Lumbar spondylosis 10/09/2022 Median arcuate ligament syndrome 09/29/2020 Takotsubo cardiomyopathy 03/24/2020 Overview (03/24/2020): Normal coronary arteries 08/12/18. LVEF recovered to normal 08/13/19 Biventricular congestive heart failure ([facility]) 08/10/2019 Overview (03/24/2020): Last Assessment & Plan: [...] She does report upcoming appointment with her polishing wheel repairer with anticipated upper and lower endoscopy. Plan: Follow up with GI. Patient follow up with vascular surgery on as-needed basis. Vasovagal syncope 09/15/2018 Overview (03/24/2020): Last Assessment & Plan: No history of suggestive of aborted sudden cardiac . Repeat echo. NICM (nonischemic cardiomyopathy) ([facility]) 09/15/2018 Overview (09/29/2020): Last Assessment & [...] Encounters Date Type Department Care Team Description 11/19/2024 Prep for Procedure [facility] Orthopedic & [facility] Medicine - [place] [address] [place] [address] Imer Holly MD 11/18/2024 Orders Only [facility] - [place] [address] [place] [address] Temo Peralta PA 11/16/2024 4:50 PM CDT Allied Health/Nurse Visit [facility], [address] [address] Les Das MD Remote Device Check 11/04/2024 10:00 AM CDT Office Visit [facility] [address] [address] Les Das MD Hypertension (6mo) 11/04/2024 Travel 11/04/2024 Telephone [facility] Orthopedic & Sports Medicine [facility] [address] [place] [address] Imer Holly MD Schedule Surgery 10/28/2024 2:20 PM CDT Office Visit [facility] Orthopedic & Sports Medicine [facility] [address] [place] [address] Imer Holly MD New Patient (Left hip) 10/28/2024 Travel 10/27/2024 Orders Only [facility]opedic [facility] Sports Medicine [facility] [address] [place] [address] Imer Holly MD 10/26/2024 Telephone [facility] [address] [address] Cindy Cunha [facility] Refill Request (Rosuvastatin/) 10/21/2024 8:45 AM CDT Allied Health/Nurse Visit [facility], [address] [address] Les Das MD 10/12/2024 4:50 PM CDT Allied Health/Nurse Visit [facility], [address] [address] Les Das MD Remote Device Check 10/12/2024 Telephone [facility], [address] [address] Les Das MD Refill Request (LOSARTAN) 09/08/2024 6:42 AM CDT - 09/08/2024 11:59 PM CDT Hospital En[facility] [place] [address] Artem Smith MD Discharge Disposition: Home or Self Care (Routine Discharge) 09/08/2024 Travel from Last 3 Months Immunizations Immunization Administration Dates Next Due Fluzone 6 Months+ Quad (0.5 mL Prefilled Syringe) 03/25/2020 Influenza (Generic) 02/27/2019,02/26/2013 Influenza Adult (Generic) 03/25/2020,,03/06/2018,2016,02/26/2016,02/23/2015,03/23/2014 Pneumococcal (Prevnar 13) 03/30/2018,02/23/2015 Tdap (Generic) 02/19/2017 Family History Medical History Relation Comments Colon Cancer Brother 1 Hypertension Brother 1 Drug Abuse Brother 2 Hypertension Brother 2 CHF Brother 3 Coronary artery disease Brother 3 S/p PCI Hypertension Brother 3 Alcohol Abuse Father Hypertension Father in a car ac cident Alcohol Abuse Mother Arthritis Mother COPD Mother Heart Attack Mother Hypertension Mother TIA Mother COPD Sister Cancer Sister Hypertension Sister Lung Cancer Sister Relation Status Comments Brother 1 Alive Brother 2 (Age 30) Brother 3 Alive Father Mother Sister Alive Social History Tobacco Use Types Packs/Day Years Used Date Smoking Tobacco: Some Days Cigarettes 1 47 Started: 1970; Last attempted to quit: 10/07/2018 Smokeless Tobacco: Never Tobacco Cessation:Ready to Q uit: Yes; Counseling Given: Yes Comments:Currently vapes Alcohol Use Standard Drinks/Week Comments Not Currently 0 (1 standard drink = 0.6 oz pur e alcohol) very rarely B1300 Health Literacy Answer Date Recor ded How often do you need to hav e someone help you when you read instructions, pamphlets, or other written material from your doctor or pharmacy? Never 12/10/2023 [facility] Utilities Answer Date Recorded In the past 12 months has [facility] electric, gas, oil, or water company threatened [...] Answer Date Recorded Patient Health Questionnaire-2 Score 1 10/28/2024 [facility] - Occupational [...] place to sleep or slept in a penitentiary (including now)? No 10/09/2022 Housing Stability Vital Sign Answer Benito e Recorded In the last 12 months, was t here a time when you were not able to pay the mortgage or rent on time? No 12/10/2023 In the past 12 months, how m any times have you moved where you were living? 1 12/10/2023 At any time in the past 12 m [facility], were you homeless or living in a penitentiary (including now)? No 12/10/2023 Comments No Sex and Gender Information Value Date Recorded Sex Assigned at Female 08/06/2024 9:35 AM JEWEL OLIVING MACHINE OPERATOR Legal Sex Female 6:32 PM CDT Gender Identity Female 06/02/2021 8:12 AM JEWEL OLIVING MACHINE OPERATOR Sexual Orientation Not on file Last Filed Vital Signs Vital Sign Reading Time Taken Comments Blood Pressure 118/74 11/04/2024 9:58 AM CDT Pulse 75 11/04/2024 9:58 AM CDT Temperature 36 C (96.8 F) 10/28/2024 2:34 PM CDT Respiratory Rate 18 05/15/2024 1:30 PM JEWEL OLIVING MACHINE OPERATOR Oxygen Saturation 94% 11/04/2024 9:58 AM CDT Inhaled Oxygen Concentration - - Weight 85.9 kg (189 lb 6.4 oz) 11/04/2024 9:58 A M CDT Height 165.1 cm (5' 5) 11/04/2024 9:58 AM CDT Body Mass Index 31.52 11/04/2024 9:58 AM CDT Plan of Treatment Upcoming Encounters Date Type Department Care Team (Late st Contact Info) Description 12/21/2024 4:45 PM CDT Allied Health/Nurse Visit [facility], [address] [place] [address] Les Das MD Three [facility] [address] [place] [address] 12/23/2024 2:00 PM CDT Appointment [facility] [address] Imer Holly MD [address] [place] [address] 12/28/2024 7:40 AM CDT Office Visit [facility] - [place] [address] [place] [address] Temo Peralta PA [address] [place] [address] 01/12/2025 10:35 AM CDT Hospital Encounter [facility] [address] Imer Holly MD [address] [place] [address] 01/12/2025 10:35 AM CDT - 01/12/2025 1:17 PM CDT [place] [address] Imer Holly MD [address] [place] [address] LEFT TOTAL HIP ARTHROPLASTY 01/25/2025 8:40 AM CDT Office Visit [facility] - [place] [address] [place] [address] Temo Peralta PA [address] [place] [address] 05/18/2025 10:15 AM JEWEL OLIVING MACHINE OPERATOR Office Visit [facility], [address] [place] [address] Les Das MD Three [facility] [address] [place] [address] Scheduled Procedures Name Priority Associated Diagnoses Date/Ti me ARTHROPLASTY HIP TOTAL ANTERIOR APPROACH Primary osteoarthritis of left hip 01/12/2025 10:35 AM CDT Health Maintenance Due Date Last Done Comments [...] Dexa Scan (General) 10/03/2019 COVID-19 Vaccine ( - season) 2024 04/15/2022, 06/08/2021, 10/05/2020, Additional history exists ASCVD LDL 10/09/2024 10/10/2023, 09/09, 03/15/2020 DTaP, Tdap and Td Vaccines (2 - Td or Tdap) 02/19/2027 02/19/2017 PHQ-2 (Physician [place]) Completed 10/28/2024 Meningococcal B Vaccine Aged Out No l [...] perform ADLs independently General No Magno Urrutia, safety and occupational health manager - family caregiver with be involved in care transitions and discharge planning Lifestyle No Oral Rios RN Autogenerated Goal Care Plan Autogenerated Problem No Vandana Dickey RN Medical Devices Implanted Type Area Production Pattern Maker Device Identifier Shelf Expiration Date Model / Serial / Lot Graft Bone Cancellous 5ml Freeze Dried Chips 9.5x4mm - [id number] Implanted:Qty: 1 on 12/10/2023 by Artem Smith MD at [facility] Bone N/A: Spine Lumbar [employer] [id number] 04/05/2028 [id number] / / [id number] Magnetos Implanted:Qty: 1 on 12/10/2023 by Artem Smith MD at [facility] Graft N/A: Spine Lumbar 08/09/2027 [id number] / / [id number] Implantable Loop Recorder Medtronic-09/22 Implanted:Qty: 1 on 09/23/2023 by Thomas Gaona MD Implantable Loop Recorder [employer] 02/23/2025 [id number] / [id number] / Juan Implanted:Qty: 2 on 12/10/2023 by Artem Smith MD at [facility] Juan N/A: Spine Lumbar [id number] / / Orthofix Body Top Loading Implanted:Qty: 4 on 12/10/2023 by Artem Smith MD at [facility] Screw N/A: Spine Lumbar 36-210 / / Orthofix Set Screw Implanted:Qty: 4 on 12/10/2023 by Artem Smith MD at [facility] Screw N/A: Spine Lumbar 36-2000 / / Orthofix Screw Implanted:Qty: 4 on 12/10/2023 by Artem Smith MD at [facility] Screw N/A: Spine Lumbar [id number] / / Tissue Surgiflo 8ml - [id number] Implanted:Qty: 1 on 12/10/2023 by Artem Smith MD at [facility] Sealant [employer] - [id number] / / Procedures Procedure Name Priority Date/Time Associated Diagnosis Comments OXR PELVIS AP+LT HIP 2V Routine 10/28/2024 2:20 PM CDT Left hip pain MRI LUMB SPINE WO CON Routine 09/08/2024 8:09 AM CDT Lumbar spondylosis LIPID PANEL Routine 10/10/2023 8:32 AM CDT PAD (peripheral artery disease) Essential (primary) hypertension from Last 3 Months or Most Recently Relevant to Health Maintenance Results * OXR PELVIS AP+LT HIP 2V (10/28/2024 2:20 PM CDT) Anatomical Region Laterality Modality Pelvis, Hip Radiographic Trini ging Narrative 10/29/2024 10:46 AM CDT PROCEDURE: OXR PELVIS AP+LT HIP 2V VIEWS: 3 DATE: 10/28/24 CLINICAL INDICATION: FINDINGS: Severe degenerative changes of the left hip with joint space loss. Spurring also present around the hip. Moderate degenerative changes of the right hip. No fractures. IMPRESSION: Degenerative changes of the bilateral hips left worse than right. us Imer Holly MD GENERAL IMAGING Final Result * MRI LUMB SPINE WO CON (09/08/2024 8:09 AM CDT) Anatomical Region Laterality Modality Spine Magnetic Resonan ce 09/10/2024 2:24 AM CDT Impressions 09/10/2024 2:30 AM CDT IMPRESSION: 1. Multilevel degenerative changes as detailed above. 2. Posterior fusion hardware at L3-L4. Referred By: ARTEM SMITH Interpreted By: Eliseo Kaur MD, 09/10/2024 2:24 AM Narrative 09/10/2024 2:30 AM CDT [address] [address] EXAMINATION: MRI lumbar spine without contrast EXAM [...] Procedure Note Eliseo Kaur MD - 09/10/2024 [facility] [address] [place], [place] [address] EXAMINATION: MRI lumbar spine without contrast EXAM [...] Artem Smith MD MRI Final Result * LIPID PANEL (10/10/2023 8:32 AM CDT) CHOLESTEROL 163 <200 MG/DL 10/10/2023 9:48 AM CDT [facility] TRIGLYCERIDES 90 <150 MG/DL 10/10/2023 9:48 AM CDT [facility] HDL 71 >40.0 MG/DL 10/10/2023 9:48 AM CDT [facility] LDL (CALCULATED) 74 <100 MG/DL 10/10/19 9:48 AM CDT [facility] NON HDL CHOLESTEROL 92 <130 MG/DL 10/09 9:48 AM CDT [facility] CHOL/HDL RATIO 2.3 0.0 - 4.5 10/10/2023 9:48 AM CDT [facility] VLDL CALCULATION 18 5 - 55 MG/DL 10/10/2023 9:48 AM CDT [facility] LIPID INTERPRETATION 10/10/2023 9:48 AM CDT [facility] Comment: NIH CONCENSUS REPORT RECOMMENDATIONS: ADULT CHILD LOW RISK: CHOLESTEROL <200 <170 TRIGLYCERIDE <150 --- HDL >=60 --- LDL <100 <110 BORDERLINE: CHOLESTEROL 200-239 170-199 TRIGLYCERIDE 150-199 --- HDL 40-59 --- LDL 100-159 110-129 HIGH RISK: CHOLESTEROL >=240 >=200 TRIGLYCERIDE >=200 --- HDL <40 --- LDL >=160 >=130 10/10/2023 8:32 AM CDT [facility] Final Result [facility] [address] [place] [address], [place] [phone] from Last 3 Months or Most Recently Relevant to Health Maintenance Additional Health Concerns Active Problems Noted Date Diagnosed Date Autogenerated Problem 11/19/2024 Insurance [facility]IC[facility] [employer] Advance Directives * Full Code (Latest Code Status on File) Date Activated Date Inactivated Comments 12/10/2023 12:44 PM 12/11/2023 3:46 PM * Full Code Date Activated Date Inactivated Comments 09/29/2020 6:53 PM 10/01/2020 7:31 PM Care Teams Hand Icer Relationship Specialty Start Date End Date Shanice Askew NP [address] [place], [place] [phone] PCP - General Nurse Practitioner Family 05/11/24 Les Das MD [facility], [address] [place] [address] Physician CARDIOVASCULAR DISEASE 09/21/22 Rizwan Martinez NP [address] [place] [address] PULMONARY DISEASE 05/11/24 Lou Brooks NP [address] [place], [place] [id number] GASTROENTEROLOGY 05/11/24
[2024-12-08 09:44] LABS: Hematocrit 33.0 % (37.0-47.0); Hemoglobin 10.8 g/dL (12.0-15.0); Mean Corpuscular HGB Conc 32.7 g/dl (32-36); Mean Corpuscular Hemoglobin 32.3 pg (26-34); Mean Corpuscular Volume 98.8 fl (80-100); Platelet Count Result 245 k/mm3 (150-375); Red Blood Count 3.34 M/mm3 (4.2-5.4); White Blood Count 8.6 K/mm3 (4.5-10.0)
[2024-12-08 10:12] LABS: Alanine Aminotransferase 20 U/L (6-35); Albumin Level 4.0 g/dL (3.5-5.1); Alkaline Phosphatase 88 U/L (38-126); Anion Gap 7 mmol/L (4-12); Aspartate Amino Transferase 27 U/L (14-36); Bilirubin,Total 0.2 mg/dL (0.2-1.3); Blood Urea Nitrogen 9 mg/dL (7-17); CRP. < 0.5 mg/dL (<1.0); Calcium 9.1 mg/dL (8.4-10.2); Carbon Dioxide 23 mmol/L (22-30); Chloride 109 mmol/L (98-107); Estimated Glomerular Filt Rate > 60; Glucose 102 mg/dL (65-110); Potassium 4.0 mmol/L (3.4-5.0); Sodium 139 mmol/L (137-145); Total Protein 7.2 g/dL (6.3-8.2)
[2024-12-08 11:17] LABS: Toxigenic C. Diff NEGATIVE (NEGATIVE)
[2024-12-14 17:18] LABS: Calprotectin, Stool. 72 mcg/g
== END 2024-12-08 09:18 | disposition home or self-care (01) ==
PROVIDERS: PCP Nurse Practitioner Family; Visit Provider Nurse Practitioner Family
DX: R19.7 Diarrhea, unspecified (principal)
CPT/HCPCS: 36415; 80053; 83993; 85027; 85652; 86140; 87045; 87177; 87209; 87269; 87427; 87449; 87493

== ENCOUNTER 2025-03-11 10:51 | Outpatient (CLI) | payer MEDICARE, OTHER, SELFPAY ==
--- OUTSIDE RECORDS SUMMARY | 2025-03-11 11:26 | XMS_ITS | Encounter Summary ---
Author Organization [facility] Address [address] [place] [address] Care Team Providers Care Hydrogen Cell Tender Name Role Phone Ruben Felix MD Primary Care Provider [phone] Les Das MD Unavailable [phone] Rizwan Martinez NP Unavailable Lou Brooks DRYWALL HANGER HELPER Unavailable [phone] Shanice Askew NP Primary Care Provider [phone] Encounter Details Date Type Department Care Team (Late st Contact Info) Description 03/07/2022 Abstract [facility], [address] [address] Yolanda Ambriz MA Social History Tobacco Use [...] Sex Assigned at Female 08/06/2024 9:35 AM OCCUPATIONAL HEALTH MANAGER Legal Sex Female 6:32 PM CDT Gender Identity Female 06/02/2021 8:12 AM OCCUPATIONAL HEALTH MANAGER Sexual Orientation Not on file COVID-19 Exposure [...] No 09/29/2020 6:41 PM CDT Moe Crawford R N Active * Because of a physical, mental, [...] Care Team (Late st Contact Info) Description 03/03/2025 11:59 PM CDT Anesthesia Event [facility] [place] [address] Abiola Turner, BREAKER MACHINE TENDER [address] [place] [address] 03/23/2025 Hospital Encounter [facility] [place] [address] Imer Holly MD [address] [place] [address] 03/24/2025 10:00 AM CDT Appointment [facility] [place] [address] Samina Maurer PA [address] [address] 04/05/2025 4:20 PM CDT Allied Health/Nurse Visit [facility] [address] Les Das MD [facility], [address] [place] [address] 05/18/2025 10:15 AM OCCUPATIONAL HEALTH MANAGER Office Visit [facility] THREE [address] [address] Les Das MD [facility], [address] [place] [address] Scheduled Procedures Name Priority Associated Diagnoses Date/Ti me ARTHROPLASTY HIP TOTAL ANTER IOR APPROACH Primary osteoarthritis of left hip documented as of this encounter Goals Goal [...] * COMPREHENSIVE METABOLIC PANEL (09/16/2023) Pathologist [facility] SODIUM S/P/B 138 GLUCOSE 106 mg/dL AST 26 BUN 9 CREATININE S/P/B 0.80 0.5 - 1.0 CALCIUM S/P/B 9.8 POTASSIUM S/P/B 4.5 CHLORIDE S/P/B 107 ALT 30 GFR ESTIMATE >60 us Default History Genericprovider LABORATORY Edited Result - Final * CBC, MANUAL DIFF (09/16/2023) Pathologist [facility] WBC 8.3 HGB 13.1 HCT 40.4 PLT 267 us Default History Genericprovider LABORATORY Edited Result - Final * IRON BINDING TEST (01/31/2022) Pathologist [facility] IRON BINDING CAPACITY 406 01/31/2022 us Doc [facility] Abstract LABORATORY Final Result * CBC (OUTSIDE LAB) (01/31/2022) Pathologist [facility] WBC 7.8 HGB 11.9 HCT 38.2 PLT 251 01/31/2022 us Doc [facility] Abstract LAB-OUTSIDE/ABSTRACTED Final Result * FERRITIN (12/12/2021) [facility] FERRITIN 10.20 12/12/2021 us Doc [facility] Abstract LABORATORY Final Result * IRON (12/12/2021) IRON 26 12/12/2021 us Doc [facility] Abstract LABORATORY Final Result documented in this encounter Visit Diagnoses Not on filedocumented in this encounter Care Teams Hydrogen Cell Tender Relationship Specialty Start Date End Date Ruben Felix MD [address] [place], [place] [phone] PCP - General INTERNAL MEDICINE 03/22/20 10/09/22 Shanice Askew NP [address] [place] [address] PCP - General Nurse Practitioner Family 05/11/24 Les Das MD [facility], [address] [place] [address] Physician CARDIOVASCULAR DISEASE 09/21/22 Rizwan Martinez NP [address] [place] [id number] PULMONARY DISEASE 05/11/24 Lou Brooks NP [address] [place], [place] [id number] GASTROENTEROLOGY 05/11/24 documented as of this encounter
--- OUTSIDE RECORDS SUMMARY | 2025-03-11 11:26 | XMS_ITS | Encounter Summary ---
Author Organization [facility] Address [address] [place] [address] Care Team Providers Care Industrial Court Magistrate Name Role Phone Les Das MD Unavailable [phone] Rizwan Martinez NP Unavailable Lou Brooks MECHANICAL DRAWING TEACHER Unavailable [phone] Shanice Askew NP Primary Care Provider [phone] Encounter Details Date Type Department Care Team (Late st Contact Info) Description 11/09/2023 [facility] Message Enc [facility], [facility] [address] [place] [address] Prasanth Muor MD Three [facility]. [facility] [address] [place] [address] Earlier appointment Social History Tobacco [...] and heating? Not hard at all 10/09/2022 [facility] - Occupational [...] place to sleep or slept in a fpc (including now)? No 10/09/2022 Comments No Sex and Gender Information Value Date Recorded Sex Assigned at Female 08/06/2024 9:35 AM WHITEPRINTING MACHINE OPERATOR Legal Sex Female 6:32 PM CDT Gender Identity Female 06/02/2021 8:12 AM WHITEPRINTING MACHINE OPERATOR Sexual Orientation Not on file documented as [...] Description 03/03/2025 11:59 PM CDT Anesthesia Event [facility] [place] [address] Abiola Turner, OCCUPATIONAL THERAPY MANAGER [address] [place] [address] 03/23/[address] [facility] [place] [address] Imer Holly MD [address] [place] [address] 03/24/2025 10:00 AM CDT Appointment [facility] [place] [address] Samina Maurer PA [address] [address] 04/05/2025 4:20 PM CDT Allied Health/Nurse Visit [facility] [address] [address] Les Das MD Three [facility], [address] [address] 05/18/2025 10:15 AM WHITEPRINTING MACHINE OPERATOR Office Visit [facility] [address] [address] Les Das MD [facility], [facility] [address] [place], [place] [address] Scheduled Procedures Name Priority Associated Diagnoses Date/Ti me ARTHROPLASTY HIP TOTAL ANTER IOR APPROACH Primary osteoarthritis of left hip documented as of this encounter Goals Goal Patient Goal Type Associated Problems Recent Progress Patient-Stated? Author Health - patient able to perform ADLs independently General Magno Gonzalez, hotel yardperson - family caregiver with be involved in care transitions and discharge planning Lifestyle No Casimiro rob er, Oral Aleman RN documented as of this encounter Visit Diagnoses Not on filedocumented in this encounter Care Teams Industrial Court Magistrate Relationship Specialty Start Date End Date Shanice Askew NP [address] [facility], [place] [phone] PCP - General Nurse Practitioner Family 05/11/24 Les Das MD [facility], [address] [place] [address] Physician CARDIOVASCULAR DISEASE 09/21/22 Rizwan Martinez NP [address] [place] [phone] PULMONARY DISEASE 05/11/24 Lou Brooks NP [address] [place], [place] [id number] GASTROENTEROLOGY 05/11/24 documented as of this encounter
--- OUTSIDE RECORDS SUMMARY | 2025-03-11 11:26 | XMS_ITS | Encounter Summary ---
Author Organization [facility] Address [address] [place] [address] Care Team Providers Care Board Lining Machine Operator Name Role Phone Ruben Felix MD Primary Care Provider [phone] Les Das MD Unavailable [phone] Rizwan Martinez NP Unavailable Lou Brooks PROPERTY INSPECTOR Unavailable [phone] Shanice Askew NP Primary Care Provider [phone] Encounter Details Date Type Department Care Team (Late st Contact Info) Description 11/03/2020 Abstract [facility], [address] [address] Yolanda Ambriz MA Social History Tobacco Use [...] Sex Assigned at Female 08/06/2024 9:35 AM UNDERCUTTER OPERATOR Legal Sex Female 6:32 PM CDT Gender Identity Female 06/02/2021 8:12 AM UNDERCUTTER OPERATOR Sexual Orientation Not on file COVID-19 [...] Description 03/03/2025 11:59 PM CDT Anesthesia Event [facility] [place] [address] Abiola Turner, BURNER TENDER 1 [place] [address] 03/23/2025 Hospital Encounter [facility] [place] [address] Imer Holly MD [address] [place] [address] 03/24/2025 10:00 AM CDT Appointment [facility] [place] [address] Samina Maurer PA [address] [address] 04/05/2025 4:20 PM CDT Allied Health/Nurse Visit [facility] THREE [facility], [address] [address] Les Das MD Three [facility], [address] [place] [address] 05/18/2025 10:15 AM UNDERCUTTER OPERATOR Office Visit [facility] [place] [facility], [address] [address] Les Das MD Three [facility], [address] [place] [address] Scheduled Procedures Name Priority Associated Diagnoses Date/Ti me ARTHROPLASTY HIP TOTAL ANTER IOR APPROACH Primary osteoarthritis of left hip documented as of this encounter Goals Goal Patient Goal Type Associated Problems Recent Progress Patient-Stated? Author Health - patient able to perform ADLs independently Magno Ferris, RN documented as of this encounter Procedures [...] on filedocumented in this encounter Care Teams Board Lining Machine Operator Relationship Specialty Start Date End Date Ruben Felix MD [address] [facility] [address] [place] [address] PCP - General INTERNAL MEDICINE 03/22/20 10/09/22 Shanice Askew NP [address] [place] [address] PCP - General Nurse Practitioner Family 05/11/24 Les Das MD [facility], [address] [place] [address] Physician CARDIOVASCULAR DISEASE 09/21/22 Rizwan Martinez NP [address] [place] [address] PULMONARY DISEASE 05/11/24 Lou Brooks NP [address] [place] [address] GASTROENTEROLOGY 05/11/24 documented as of this encounter
--- OUTSIDE RECORDS SUMMARY | 2025-03-11 11:26 | XMS_ITS | Clinical Summary ---
Author Organization [facility] Address [address] [facility] [place] [address] Care Team Providers Care Human Resources Team Member Name Role Phone Ruben Fleix MD Primary Care Provider [phone] Source Comments [facility] Affiliates and Associated Physician Practices is amultiple site organization consisting of ambulatory clinics and hospital sitesin [place], [place], [place] and [place]. This disclosure is being madepursuant to the Care Everywhere program and may not contain all information available regarding this patient. Last updated 18.[facility] Allergies Active Allergy Reactions Criticality Noted Date [...] on file Legal Sex Female 5:24 AM CLINICAL INFORMATICS MANAGER Gender Identity Not on file Sexual [...] 2) 2004 SCREENING FOR DIABETES 01/18/2023 01/19/2020 DEPRESSION SCREENING 06/10/2024 COVID-19 VACCINE ( season) 2025 INFLUENZA VACCINE (#1) 2025 0, 02/27/2019, 03/07/2018, Additional history exists Respiratory Syncytial [...] 7 - 26 mg/dL 01/19/2020 9:58 AM [facility] Creatinine 0.9 0.6 - 1.2 mg/dL 01/19/2020 9:58 AM [facility] Sodium 142 136 - 145 mmol/L 01/19/2020 9:58 AM [facility] Potassium 3.8 3.5 - 4.5 mmol/L 01/19/2020 9:58 AM [facility] Chloride 111(H) 98 - 107 mmol/L 01/19/2020 9:58 AM [facility] CO2 24 22 - 29 mmol/L 01/19/2020 9:58 AM [facility] Glucose 82 70 - 115 mg/dL 01/19/2020 9:58 AM [facility] Calcium 8.8 8.4 - 10.2 mg/dL 01/19/2020 9:58 AM [facility] Anion Gap 11 8 - 18 01/19/2020 9:58 AM [facility] BUN/Creatinine Ratio 11 7 - 23 01/19/2020 9:58 AM [facility] Osmolality Calculated 292 270 - 300 mOsm/kg 01/19/2020 9:58 AM CDT [facility] eGFR >60 >60 mL/min/1.7 3 m2 01/19/2020 9:58 AM [facility] Blood BLOOD SPECIMEN / Unknown Venipuncture / Unknown 01/19/2020 9:17 AM CDT 01/19/2020 9:25 AM CDT us Ronnie Saldana MD LAB - CHEMISTRY ORDERABLES nal Result [address] [address], [facility] [phone] from Last 3 Months or Most Recently Relevant to Health Maintenance Insurance MEDICARE [facility] Care Teams Human Resources Team Member Relationship Specialty Start Date End Date Ruben Felix MD [address] [place] [phone] PCP - General 01/02/20
--- OUTSIDE RECORDS SUMMARY | 2025-03-11 11:26 | XMS_ITS | Encounter Summary ---
Author Organization [facility] Address [address] [place] [address] Care Team Providers Care Broker Assistant Name Role Phone Les Das MD Unavailable [phone] Rizwan Martinez NP Unavailable Lou Brooks REINFORCER Unavailable [phone] Shanice Askew NP Primary Care Provider [phone] Encounter Details Date Type Department Care Team (Late st Contact Info) Description 10/17/2023 [facility] Message Enc [facility] THREE [facility], [address] [place] [address] Lashon Bennett FNP 3 [facility] [address] [place], [place] [id number] Test results Social History Tobacco Use Types [...] and heating? Not hard at all 10/09/2022 [facility] - Occupational [...] place to sleep or slept in a care home (including now)? No 10/09/2022 Comments No Sex and Gender Information Value Date Recorded Sex Assigned at Female 08/06/2024 9:35 AM FRONT END DRUPAL DEVELOPER Legal Sex Female 6:32 PM CDT Gender Identity Female 06/02/2021 8:12 AM FRONT END DRUPAL DEVELOPER Sexual Orientation Not on file documented [...] Date Author Status No 10/09/2022 3:36 PM CDT Vidya Sainz RN Active documented in this encounter Plan of Treatment Upcoming Encounters Date Type Department Care Team (Late st Contact Info) Description 03/03/2025 11:59 PM CDT Anesthesia Event [facility] [place] [address] Abiola Turner, TARA [address] [place] [address] 03/23/[address] [facility] [place] [address] Imer Holly MD [address] [place] [address] 03/24/2025 10:00 AM CDT Appointment [facility] [place] [address] Samina Maurer PA [address] [address] 04/05/2025 4:20 PM CDT Allied Health/Nurse Visit [facility] [address] Les Das MD Three [facility], [address] [address] 05/18/2025 10:15 AM FRONT END DRUPAL DEVELOPER Office Visit [facility] [address] [address] Les Das MD [facility], [address] [address] Scheduled Procedures Name Priority Associated Diagnoses Date/Ti me ARTHROPLASTY HIP TOTAL ANTER IOR APPROACH Primary osteoarthritis of left hip documented as of this encounter Goals Goal Patient Goal Type Associated Problems Recent Progress Patient-Stated? Author Health - patient able to perform ADLs independently General No Magno Urrutia, transmission worker - family caregiver with be involved in care transitions and discharge planning Lifestyle No Oral Springer i RN documented as of this encounter Visit Diagnoses Not on filedocumented in this encounter Care Teams Broker Assistant Relationship Specialty Start Date End Date Shanice Askew NP [address] [facility] [place], [place] [address] PCP - General Nurse Practitioner Family 05/11/24 Les Das MD [facility], [address] [place] [address] Physician CARDIOVASCULAR DISEASE 09/21/22 Rizwan Martinez NP [address] [place] [address] PULMONARY DISEASE 05/11/24 Lou Brooks NP [address] [place], [place] [address] GASTROENTEROLOGY 05/11/24 documented as of this encounter
--- OUTSIDE RECORDS SUMMARY | 2025-03-11 11:27 | XMS_ITS | Encounter Summary ---
Author Organization [facility] Address [address] [place] [address] Care Team Providers Care Salesforce Specialist Name Role Phone Ruben Felix MD Primary Care Provider [phone] Les Das MD Unavailable [phone] Rizwan Martinez NP Unavailable Lou Brooks OCCUPATIONAL HEALTH AND SAFETY ADVISER Unavailable [phone] Shanice Askew NP Primary Care Provider [phone] Encounter Details Date Type Department Care Team (Late st Contact Info) Description 03/25/2020 Abstract [facility], [address] [address] Yolanda Ambriz MA Social History Tobacco Use [...] Sex Assigned at Female 08/06/2024 9:35 AM INSTRUMENT PROCESSING TECH Legal Sex Female 6:32 PM CDT Gender Identity Female 06/02/2021 8:12 AM INSTRUMENT PROCESSING TECH Sexual Orientation Not on file COVID-19 Exposure [...] Description 03/03/2025 11:59 PM CDT Anesthesia [place] [address] Abiola Turner CNP 1 [place] [address] 03/23/[address] [facility] [place] [address] Imer Holly MD [address] [place] [address] 03/24/2025 10:00 AM CDT Appointment [facility] [place] [address] Samina Maurer PA [address] [address] 04/05/2025 4:20 PM CDT Allied Health/Nurse Visit [facility] THREE [facility], [facility] [address] [place], [place] [address] Les Das MD Three [facility] [address] [place], [place] [address] 05/18/2025 10:15 AM INSTRUMENT PROCESSING TECH Office Visit [facility] THREE [facility], [address] [place] [address] Les Das MD Three [facility] [address] [place] [address] Scheduled Procedures Name Priority Associated Diagnoses Date/Ti me ARTHROPLASTY HIP TOTAL ANTER IOR APPROACH Primary osteoarthritis of left hip documented as of this encounter Procedures Procedure [...] on filedocumented in this encounter Care Teams Salesforce Specialist Relationship Specialty Start Date End Date Ruben Felix MD [address] [place] [address] PCP - General INTERNAL MEDICINE 03/22/20 10/09/22 Shanice Askew NP [address] [place] [address] PCP - General Nurse Practitioner Family 05/11/24 Les Das MD Three [facility] [address] [place] [address] Physician CARDIOVASCULAR DISEASE 09/21/22 Rizwan Martinez NP [address] [facility] [address] [place] [address] PULMONARY DISEASE 05/11/24 Lou Brooks NP [address] [place], [place] [address] GASTROENTEROLOGY 05/11/24 documented as of this encounter
--- OUTSIDE RECORDS SUMMARY | 2025-03-11 11:27 | XMS_ITS | Clinical Summary ---
Author Organization [facility] Srikanth Baca Address [address] [facility] [place] [address] Care Team Providers Care Therapist Respiratory Name Role Phone Ruben Felix MD Primary Care Provider [phone] Allergies Active Allergy Reactions Criticality Noted Date [...] 50+ YEA RS (2 of 2 - PCV20 or PCV21) 03/31/2019 03/31/2018, 02/23/2015 OSTEOPOROSIS SCREENING 10/03/2019 BREAST CANCER SCREENING 02/21/2022 02/22/20, 02/21/2021, 05/26/2020 INFLUENZA VACCINE (#1) 2025 03/25/2020, 2017 DTAP/TDAP/TD VACCINES (2 - T d or Tdap) 02/19/2027 02/19/2017 RSV VACCINE (60+ or ) (1 - 1-dose 75+ series) 2029 COLORECTAL SCREENING 12/06/2030 12/06/2020, 10/16/19 20 Colorectal Cancer Screening 12/06/2030 Insurance MEDICARE PART A AND B [employer] Care Teams Therapist Respiratory Relationship Specialty [place] [address] [place] [phone] PCP - General Internal Medicine 10/13/20
--- OUTSIDE RECORDS SUMMARY | 2025-03-11 11:27 | XMS_ITS | Encounter Summary ---
Author Organization [facility] Care Team Providers Care Tufting Machine Operator Single Needle Name Role Phone Xander Patel MD Primary Care Provider [phone] Ruben Felix MD Primary Care Provider [phone] Jensen Lizarraga MD Unavailable [phone] Encounter Details Date Type Department Care Team (Latest Contact Info) Description 08/11/2018 Orders Only [facility] ProviderJohn MD [address] [place] [address] Social History Tobacco Use Types Packs/Day Years Used Date Smoking Tobacco: Never Assessed Comments Unknown Sex and Gender Information Value Date Recorded Sex Assigned at Not on file Legal Sex Female 6:59 PM FARM RANCHER Gender Identity Not on file Sexual Orientation [...] documented as of this encounter Care Teams Tufting Machine Operator Single Needle Relationship Specialty Start Date End Date Xander Patel MD PCP - General 07/25/18 05/19/19 Ruben Felix MD [address] [address] PCP - General 05/20/19 Jensen Lizarraga MD [address] [address] Mill Machinist Cardiovascular Disease 08/14/19 documented as of this encounter
--- OUTSIDE RECORDS SUMMARY | 2025-03-11 11:27 | XMS_ITS | Clinical Summary ---
Author Organization [facility] Address [address] [place] [address] Care Team Providers Care Relay Shop Tester Name Role Phone Ruben Felix MD Primary Care Provider [phone] Jensen Lizarraga MD Unavailable [phone] Allergies Active Allergy Reactions Criticality Noted Date [...] 0 Assessment & Plan (08/10/2019 8:30 AM ENGLISH TUTOR): Continue Lasix. Controlled. Hypotension due to drugs [...] She does report upcoming appointment with her planogrammer with anticipated upper and lower endoscopy. Plan: Follow up with GI. Patient follow up with vascular surgery on as-needed basis. Dilated cardiomyopathy 09/15/2018 Assessment & Plan (08/10/2019 8:28 AM ENGLISH TUTOR): No syncope. Repeat echocardiogram. Continue losartan and [...] 09/15/2018 Assessment & Plan (08/10/2019 8:29 AM ENGLISH TUTOR): No history of suggestive of aborted sudden cardiac . Repeat echo. Assessment & Plan (11/12/2018 9:56 AM CDT): Two events not suggestive of arrhythmia Assessment & Plan (09/15/2018 8:51 AM CDT): Not suggestive of arrhythmia. Would not recommend outpatient monitoring at this time. Again follow up with GI and PV. Chest pain 10/28/2017 Assessment & Plan (08/10/2019 8:29 AM ENGLISH TUTOR): Cardiac catheterization August last year negative. Would [...] Date Comments COPD (chronic obstructive pulmonary disease) Pancreatitis Diabetes Takotsubo cardiomyopathy Family History Medical History Relation [...] on file Legal Sex Female 6:59 PM ENGLISH TUTOR Gender Identity Not on file Sexual Orientation [...] Pneumococcal vaccine 65+ (2 of 2 - PPSV23, PCV20, or PCV21) 05/26/2018 03/31/2018, 02/23/2015 Well Visit 65+ 10/03/2019 Covid-19 Vaccine (2024-2 6 season) 2025 04/15/2022, 06/08/2021, 10/05/2020, Additional history exists Influenza Vaccine (#1) 2025 2, 03/25/2020, 02/27/2019, Additional history exists DTaP/Tdap/Td [...] IU/mL 6.9 log IU 7 1:54 PM Grid Net[employer] [facility] HISTORICAL RESULTS Comment: INTERPRETIVE INFORMATION: Hepatitis C [...] RNA IU/mL 7,400,000 IU/mL 01/05/2017 1:54 PM Grid [employer] [facility] HISTORICAL RESULTS HCV RNA result Detected( H) Not Detected 01/05/2017 1:54 PM Grid [employer] [facility] [facility] HISTORICAL RESULTS HCV RNA See Note 01/05/2017 1:54 PM Grid [employer] HISTORICAL RESULTS Comment: Access Cupple Enhanced Report using either link below: -Direct access: [email or web address] -Enter Username, Password: [email or web address] Username: [email or web address] Password: [email or web address] Performed by [employer], [address] [place] [address] www.[employer], Henrry Ocampo MD, Lab. Director 01/03/2017 8:06 AM CDT 01/03/2017 8:33 AM CDT us Reginald Linn MD LAB MICROBIOLOGY - GENERA L ORDERABLES Final Result [employer] [facility] HISTORICAL RESULTS from Last 3 Months or Most Recently Relevant to Health Maintenance Additional Health Concerns Infection Onset Date Last Indicated C. difficile 08/25/2019 08/24/[address] [facility] CLAIMS Care Teams Relay Shop Tester Relationship Specialty Start Date End Date Ruben Felix MD [address] [address] PCP - General 05/20/19 Jensen Lizarraga MD [address] [address] Security Management Specialist Cardiovascular Disease 08/14/19
--- OUTSIDE RECORDS SUMMARY | 2025-03-11 11:27 | XMS_ITS | Encounter Summary ---
Author Organization [facility] Address [address] [place] [address] Care Team Providers Care Manager Private Name Role Phone Les Das MD Unavailable [phone] Rizwan Martinez NP Unavailable Lou Brooks CHEMIST ASSISTANT Unavailable Shanice Askew NP Primary Care Provider [phone] Reason for Referral * Imaging (Routine) - Authorized Specialty Diagnoses / Procedures Referred By Contac t Referred To Contact RADIOLOGY Diagnoses Leg pain Leg swelling Procedures [facility] Samina Maurer PA 3 [facility] [address] [place] [address] Phone: tel: fax: Referral ID Status Reason Start Date Expiration Date V isits Requested Visits Authorized [id number] Authorized 03/10/2025 04/10/2026 1 1 Encounter Details Date Type Department Care Team (Late st Contact Info) Description 03/10/2025 Orders Only [facility] THREE [facility] [address] [place], [place] [id number] Samina Maurer PA [address] [address] Social History Tobacco Use Types Packs/Day Years Used Date Smoking Tobacco: Former Cigarettes 1 47.2 1 971 - 10/07/2018 Smokeless Tobacco: Never Comments:Currently vapes Alcohol Use Standard Drinks/Week Comments Not Currently 0 (1 standard drink = 0.6 oz pur e alcohol) very rarely B1300 Health Literacy Answer Date Recor ded How often do you need to hav e someone help you when you read instructions, pamphlets, or other written material from your doctor or pharmacy? Never 12/10/2023 [facility] Utilities Answer Date Recorded In the past 12 months has [facility], gas, oil, or water [employer] threatened to shut off services in your [...] Recorded Patient Health Questionnaire-2 Score 1 10/28/2024 [facility] [place] of Occupat ional Health - Occupational Stress [...] place to sleep or slept in a prison (including now)? No 10/09/2022 Housing Stability Vital [...] time in the past [address] [facility], were you homeless or living in a prison (including now)? No 12/10/2023 Comments No Sex and Gender Information Value Date Recorded Sex Assigned at Female 08/06/2024 9:35 AM ACQUISITION ASSOCIATE Legal Sex Female 6:32 PM CDT Gender Identity Female 06/02/2021 8:12 AM ACQUISITION ASSOCIATE Sexual Orientation Not on file documented as of this encounter Functional Status * Are you deaf or do you have serious difficulty hearing Answer Date of Assessment Author Status No 12/10/2023 12:52 PM CDT Vidya Sainz RN Active * Are you blind or do you have serious difficulty seeing, even when wearing glasses? Answer Date of Assessment Author Status No 12/10/2023 12:52 PM CDT Vidya Sainz RN Active * Do you have serious difficulty walking or climbing stairs? Answer Date of Assessment Author Status No 12/10/2023 12:52 PM CDT Vidya Sainz RN Active * Do you have difficulty dressing or bathing? Answer Date of Assessment Author Status No 12/10/2023 12:52 PM CDT Vidya Sainz RN Active * [...] Date Author Status No 12/10/2023 12:52 PM VIRGINIAT Vidya Sainz RN Active documented in this encounter Plan of Treatment Upcoming Encounters Date Type Department Care Team (Late st Contact Info) Description 03/03/2025 11:59 PM CDT Anesthesia Event [place] [address] Abiola Turner, HAIR BALER 1 [place] [address] 03/23/[address] [facility] [facility] [place] [address] Imer Holly MD [address] [place] [address] 03/24/2025 10:00 AM CDT Appointment [facility] Vascular Lab ONE [facility] [place] [address] Samina Maurer PA [address] [address] 04/05/2025 4:20 PM CDT Allied Health/Nurse Visit [facility] THREE [facility], [address] [address] Les Das MD Three [facility]., Suite [facility] [place] [address] 05/18/2025 10:15 AM ACQUISITION ASSOCIATE [facility] THREE [facility], [address] [address] Les Das MD Three [facility]., [address] [place] [address] Scheduled Orders Name Type Priority Associated Diagnoses Orde r Schedule [facility] Routine Leg pain Leg swelling Expected: 03/10/2025 (Approximate), Expires: 03/10/2026 Scheduled Procedures Name Priority Associated Diagnoses Date/Ti me ARTHROPLASTY HIP TOTAL ANTER IOR APPROACH Primary osteoarthritis of left hip documented as of this encounter Goals Goal Patient Goal Type Associated Problems Recent Progress Patient-Stated? Author Health - patient able to perform ADLs independently General No Magno Urrutia, material liaison - family caregiver with be involved in care transitions and discharge planning Lifestyle No Oral Rios RN Autogenerated Goal Care Plan Autogenerated Problem No Vandana Dickey RN documented as of this encounter Visit Diagnoses Diagnosis Primary osteoarthritis of left hip- Primary Primary localized osteoarthrosis, pelvic region and thigh Leg pain- Primary Pain in limb Leg swelling Swelling of limb documented in this encounter Additional Health Concerns Active Problems Noted Date Diagnosed Date Autogenerated Problem 11/19/2024 documented as of this encounter Care Teams Manager Private Relationship Specialty Start Date End Date Shanice Askew NP [address] [place] [address] PCP - General Nurse Practitioner Family 05/11/24 Les Das MD [facility], [address] [place] [address] Physician CARDIOVASCULAR DISEASE 09/21/22 Rizwan Martinez NP [address] [facility] [address] [place] [address] PULMONARY DISEASE 05/11/24 Lou Brooks NP [address] [facility] [address] [place] [address] GASTROENTEROLOGY 05/11/24 documented as of this encounter
--- OUTSIDE RECORDS SUMMARY | 2025-03-11 11:27 | XMS_ITS | Encounter Summary ---
Author Organization [facility] Address [address] [place] [address] Care Team Providers Care Cane Stripper Name Role Phone Les Das MD Unavailable [phone] Rizwan Martinez NP Unavailable Lou Brooks LOG MARKER Unavailable [phone] Shanice Askew NP Primary Care Provider [phone] Reason for Visit * Reason Onset Date Comments Advise 03/09/2025 Encounter Details Date Type Department Care Team (Late st Contact Info) Description 03/09/2025 Telephone [facility], [address] [place] [address] Les Das MD [facility], [address] [place] [address] Advise Social History Tobacco Use Types Packs/Day Years [...] your doctor or pharmacy? Never 12/10/2023 [facility] Utilities Answer Date Recorded In the past 12 months has [facility] electric, gas, oil, or water company [...] Recorded Patient Health Questionnaire-2 Score 1 10/28/2024 [facility] - Occupational [...] a senior living (including now)? No 10/09/2022 Housing Stability Vital Sign Answer Benito e Recorded In the last 12 months, was t here a time when you were not able to pay the mortgage or rent on time? No 12/10/2023 In the past 12 months, how m any times have you moved where you were living? 1 12/10/2023 At any time in the past 12 m [facility], were you homeless or living in a senior living (including now)? No 12/10/2023 Comments No Sex and Gender Information Value Date Recorded Sex Assigned at Female 08/06/2024 9:35 AM SAWMILL WORKER Legal Sex Female 6:32 PM CDT Gender Identity Female 06/02/2021 8:12 AM SAWMILL WORKER Sexual Orientation Not on file documented as [...] Sainz RN Active documented in this encounter Progress Notes * Shelly Mendez - 03/10/2025 2:00 PM CDT Ordered. Contacted pt to let them know I was calling CS to schedule and will call them back with a day/time. * Rea Weeks RN - 03/10/2025 1:49 PM CDT Patient voiced understanding and is agreeable to the plan. No further questions at this time Rea LUND * TERRELL Hernandez - 03/10/2025 1:11 PM CDT Please order ABIs. We can consider a referral to Dr. Muro after those are done depending on the results. I reviewed her ECG. It looks similar to her prior ones and is not a cause of concern. She had a reassuring stress test 08/2023 as well. * Gunjan Lira RN - 03/09/2025 4:35 PM CDT Patient is stating that she is having pain in her legs-the front from the knee down bilaterally andshe states that she was supposed to have surgery with Dr. Holly for hip replacement but Dr. Holly is now out on medical leave until June so that is being post phoned. However she states that Dr. Holly told her that her leg pain is not hip related and to reach outto our office for further testing Also she had a EKG and she saw the mychart and is wanting us to review this as it said possible [place] on the narrative. I did offer reassurance that it could be computer relayed now physician relayed and that did offer reassurance. I told her I would still have it reviewed and let her know. documented in this encounter Plan of Treatment Upcoming Encounters Date Type Department Care Team (Late st Contact Info) Description 03/03/2025 11:59 PM CDT Anesthesia Event [facility] [place] [address] Abiola Turner, DIAMOND GRINDER [address] [place] [address] 03/23/[address] [facility] [place] [address] Imer Holly MD [address] [place] [address] 03/24/2025 10:00 AM CDT Appointment [facility] [place] [address] Samina Maurer PA [address] [address] 04/05/2025 4:20 PM CDT Allied Health/Nurse Visit [facility], [facility] [address] [place] [address] Les Das MD [facility], [address] [place] [address] 05/18/2025 10:15 AM SAWMILL WORKER Office Visit [facility] [place] [facility], [facility] [address] [place] [address] Les Das MD [facility], [facility] [address] [place], [place] [id number] Scheduled Procedures Name Priority Associated Diagnoses Date/Ti [...] filedocumented in this encounter Additional Health Concerns Active Problems Noted Date Diagnosed Date Autogenerated Problem 11/19/2024 documented as of this encounter Care Teams Cane Stripper Relationship Specialty Start Date End Date Shanice Askew NP [address] [place], [place] [id number] PCP - General Nurse Practitioner Family 05/11/24 Les Das MD [facility], [address] [place] [address] Physician CARDIOVASCULAR DISEASE 09/21/22 Rizwan Martinez NP [address] [place] [id number] PULMONARY DISEASE 05/11/24 Lou Brooks NP [address] [facility] [address] [place] [address] GASTROENTEROLOGY 05/11/24 documented as of this encounter
--- OUTSIDE RECORDS SUMMARY | 2025-03-11 11:27 | XMS_ITS | Encounter Summary ---
Author Organization [facility] Care Team Providers Care Hi Lift Operator Name Role Phone Xander Patel MD Primary Care Provider [phone] Ruben Felix MD Primary Care Provider [phone] Jensen Lizarraga MD Unavailable [phone] Encounter Details Date Type Department Care Team (Latest Contact Info) Description 08/14/2018 Orders Only [facility] ProviderJohn MD [address] [place] [address] Social History Tobacco Use Types Packs/Day Years Used Date Smoking Tobacco: Never Assessed Comments Unknown Sex and Gender Information Value Date Recorded Sex Assigned at Not on file Legal Sex Female 6:59 PM COMPOSITE WORKER Gender Identity Not on file Sexual [...] documented as of this encounter Care Teams Hi Lift Operator Relationship Specialty Start Date End Date Xander Patel MD PCP - General 07/25/18 05/19/19 Ruben Felix MD [address] [address] PCP - General 05/20/19 Jensen Lizarraga MD [address] [address] Hand Loom Weaver Cardiovascular Disease 08/14/19 documented as of this encounter
--- OUTSIDE RECORDS SUMMARY | 2025-03-11 11:27 | XMS_ITS | Patient Health Record ---
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
--- OUTSIDE RECORDS SUMMARY | 2025-03-11 11:27 | XMS_ITS | Clinical Summary ---
Author Organization [facility] Address [facility] [place] [address] Care Team Providers Care Lead Android Developer Name Role Phone Les Das MD Unavailable [phone] Rizwan Martinez NP Unavailable Lou Brooks SHOW GIRL Unavailable [phone] Shanice Askew NP Primary Care Provider [phone] Allergies No known active allergies Medications PROAIR HFA 108 (90 Base) MCG/ACT inhaler Inhale 2 puffs into the lungs every 4 (four) hours as needed. Active omeprazole 40 MG capsule Take 1 capsule (40 mg total) by mouth daily. Active pramipexole 0.5 MG tablet Take 1 tablet (0.5 mg total) by mouth 2 (two) times daily. Takes at noon and hs Active ipratropium-albut leslie 0.5-2.5 (3) MG/3ML Solution Take 3 mLs by nebulization 4 (four) times daily as needed. Active DULoxetine 30 MG capsule Take 1 capsule (30 mg total) by mouth daily. Active amitriptyline 50 MG tablet Take 1 tablet (50 mg total) by mouth nightly at bedtime. Active BREO ELLIPTA 100-25 MCG/INH inhaler Inhale 1 puff into the lungs daily. Active ondansetron 4 MG disintegrating tablet Take 1 tablet (4 mg total) by mouth every 8 (eight) hours as needed for Nausea. Active roflumilast (DALIRESP) 500 MCG Tab Take 1 tablet (0.5 mg total) by mouth daily. Active FEROSUL 325 (65 Fe) MG tablet Take 1 tablet (325 mg total) by mouth daily with breakfast. Active HYDROcodone-aceta minophen (NORCO) 10-325 MG tablet Take 1 tablet by mouth every 8 (eight) hours as needed for Pain. Active naloxone (NARCAN) 4 MG/0.1ML nasal spray 1 spray by Nasal route as needed for Opioid reversal. may repeat every 2 to 3 minutes in alternating nostrils until medical assistance becomes available 1 each 024 2024 Active dicyclomine (BENTYL) 10 MG capsule Take 3 capsules (30 mg total) by mouth 3 (three) times daily. Active Mesalamine (LIALDA OR) Take 1.2 mg by mouth 3 (three) times daily. Takes 2 tabs in am and 1 at noon Active carvedilol (COREG) 3.125 MG tablet Take 1 tablet (3.125 mg total) by mouth 2 (two) times daily. 180 tablet 1 Active losartan (COZAAR) 50 MG tablet Take 1 tablet (50 mg total) by mouth nightly. 90 tablet 1 Active apixaban (ELIQUIS) 5 MG tablet Take 1 tablet (5 mg total) by mouth 2 (two) times daily. 180 tablet 1 Active rosuvastatin (CRESTOR) 5 MG tablet Take 1 tablet (5 mg total) by mouth nightly at bedtime. 90 tablet 1 Active MAGNESIUM GLYCINATE OR Take 1 tablet by mouth daily. Active colestipol (COLESTID) 1 g tablet Take 2 tablets (2 g total) by mouth daily. At noon Active azelastine (ASTELIN) 0.1 % nasal spray 025 Active budesonide EC 3 MG capsule Take 2 capsules (6 mg total) by mouth every morning. Unsure of on this 021 2024 Discontinued(E rror) esomeprazole (NEXIUM) 20 MG capsule (20 MG) 2024 Discontinued mesalamine EC (LIALDA) 1.2 g Tab EC tablet 025 2024 Discontinued oxyCODONE-acetami nophen (PERCOCET) 7.5-325 MG tablet (7.5-325 MG) 03/03 Discontinued triamcinolone (KENALOG) 0.1 % ointment APPLY TOPICALLY TO THE AFFECTED AREA TWICE DAILY NEEDED FOR RASH 025 2024 Discontinued Active Problems Problem Noted Date Diagnosed Date Primary osteoarthritis of left hip 11/19/2024 Trigger middle finger of left hand 04/24/2024 Trigger index finger of left hand 04/24/2024 Trigger ring finger of left hand 04/24/2024 Spondylolisthesis 12/10/2023 ADAIR (dyspnea on exertion) 10/08/2023 PAD (peripheral artery disease) 10/08/2023 Essential (primary) hypertension 10/08/2023 Chest discomfort 10/08/2023 Chronic obstructive pulmonar y disease, unspecified COPD type ([facility]) 10/08/2023 Pulmonary hypertension ([facility]) 024 Syncope and collapse 09/23/2023 Overview (09/23/2023): KRIS SILVER implanted 09/23/23 for Syncope. Status post placement of implantable loop record er 09/23/2023 Overview (09/23/2023): KRIS SILVER implanted 09/23/23 for Syncope. Lumbar spondylosis 10/09/2022 Median arcuate ligament syndrome 09/29/2020 Takotsubo cardiomyopathy 03/24/2020 Overview (03/24/2020): Normal coronary arteries 08/12/18. 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 Plan: Follow up with GI. Patient follow up with vascular surgery on as-needed basis. Vasovagal syncope 09/15/2018 Overview (03/24/2020): Last Assessment & Plan: No history of suggestive of aborted sudden cardiac . Repeat echo. NICM (nonischemic cardiomyopathy) ([facility]/ CC) 09/15/2018 Overview (09/29/2020): Last Assessment & [...] Encounters Date Type Department Care Team Description 03/10/2025 Orders Only [facility], [address] [address] Samina Maurer PA 03/09/2025 Telephone [facility], [address] [address] Les Das MD Advise 03/09/2025 Telephone [facility] Medical [facility] - [place] [address] [place] [address] Imer Yen MD Called To Cancel Office Appt.; Surgery Follow Up 03/08/2025 7:40 AM CDT Office Visit [facility] Medical [facility] [place] [address] [place] [address] Temo Peralta PA Follow Up (Pre op Left THR ) 03/08/2025 Travel 03/04/2025 Orders Only [facility] Orth[facility] Sports Medicine [facility] [address] [place] [address] Imer Yen MD 03/03/2025 12:19 PM CDT - 03/03/2025 2:08 PM CDT Hospital Encounter [facility] [place] [address] Imer Yen MD Discharge Disposition: Home or Self Care (Routine Discharge) 03/03/2025 Travel 03/01/2025 4:40 PM CDT Allied Health/Nurse Visit [facility], [place] [address] [place] [address] Les Das MD Remote Device Check 01/25/2025 4:40 PM CDT Allied Health/Nurse Visit [facility] [address] Les Das MD Remote Device Check 01/22/2025 10:30 AM CDT - 01/22/2025 11:59 PM CDT Hospital Encounter [facility] [place] [address] Antonietta Jorge NP Discharge Disposition: Home or Self Care (Routine Discharge) 01/22/2025 Travel 01/21/2025 Telephone [facility], [address] [address] Les Das MD Refill Request (ROSUVASTATIN) 01/05/2025 Telephone [facility], [address] [address] Les Das MD Refill Request (LOSARTAN, ELIQUIS) 12/21/2024 4:45 PM CDT Allied Health/Nurse Visit [facility], [address] [address] Les Das MD Remote Device Check 12/21/2024 Telephone [facility] [address] [address] Les Das MD Refill Request (CARVEDILOL) 12/16/2024 Telephone [facility] Medical [facility] - [place] [address] [place] [address] Imer Yen MD Reschedule; Surgery Follow Up from Last 3 Months Immunizations Immunization Administration [...] 1 971 - 10/07/2018 Smokeless Tobacco: Never Tobacco Cessation:Counseling Given: No Comments:Currently vapes Alcohol Use Standard Drinks/Week Comments Not Currently 0 (1 standard drink = 0.6 oz pur e alcohol) very rarely B1300 Health Literacy Answer Date Recor ded How often do you need to hav e someone help you when you read instructions, pamphlets, or other written material from your doctor or pharmacy? Never 12/10/2023 [facility] Utilities Answer Date Recorded In the past 12 months has e [employer], gas, oil, or water [employer] threatened to shut off services in your [...] Recorded Patient Health Questionnaire-2 Score 1 10/28/2024 [employer] of Occupat ional Health - Occupational Stress [...] in a intermediate (including now)? No 10/09/2022 Housing Stability Vital Sign Answer Benito e Recorded In the last 12 months, was t here a time when you were not able to pay the mortgage or rent on time? No 12/10/2023 In the past 12 months, how m any times have you moved where you were living? 1 12/10/2023 At any time in the past 12 [facility], were you homeless or living in a intermediate (including now)? No 12/10/2023 Comments No Sex and Gender Information Value Date Recorded Sex Assigned at Female 08/06/2024 9:35 AM [facility] Legal Sex Female 6:32 PM CDT Gender Identity Female 06/02/2021 8:12 AM [facility]WR[facility] Sexual Orientation Not on file Last Filed Vital Signs Vital Sign Reading Time Taken Comments Blood Pressure 132/74 03/08/2025 8:12 AM CDT Pulse 59 03/08/2025 8:12 AM CDT Temperature 36.2 C (97.1 F) 03/08/2025 8:12 AM CDT Respiratory Rate 16 03/03/2025 12:00 PM CDT Oxygen Saturation 98% 03/03/2025 12:00 PM CDT Inhaled Oxygen Concentration - - Weight 91.3 kg (201 lb 3.2 oz) 03/08/2025 8:12 A M CDT Height 165.1 cm (5' 5) 03/03/2025 12:00 PM CDT Body Mass Index 33.48 03/03/2025 12:00 PM CDT Plan of Treatment Upcoming Encounters Date Type Department Care Team (Late st Contact Info) Description 03/03/2025 11:[address] [facility] [place], [place] [address] Abiola Turner SENIOR TECHNICAL MANAGER [address] [place] [address] 03/23/[address] [facility] [address] [place], [place] [address] Imer Yen MD [address] [place] [address] 03/24/2025 10:00 AM CDT Appointment [facility] [place] [address] Samina Maurer PA [address] [address] 04/05/2025 4:20 PM CDT Allied Health/Nurse Visit [facility], [address] [address] Les Das MD Three [facility], [address] [place] [address] 05/18/2025 10:15 AM MILLWRIGHT Office Visit [facility], [address] [address] Les Das MD Three [facility], [address] [place] [address] Scheduled Procedures Name Priority Associated Diagnoses Date/Ti me ARTHROPLASTY HIP TOTAL ANTER IOR APPROACH Primary osteoarthritis of left hip Health Maintenance Due Date Last Done Comments Colorectal Cancer Screening Colonoscopy (10 Years) 1955 Hepatitis C 1972 Mammogram Screening 1994 Lung Cancer Screening 2004 RSV Immunization or 60+ Years (1 - Risk 60-74 years 1-dose series) 2014 Annual Medicare Wellness Visit 10/03/2019 Dexa Scan (General) 10/03/2019 ASCVD LDL 10/09/2024 10/10/2023, 09/09, 03/15/2020 COVID-19 Vaccine ( season) 2025 04/15/2022, 06/08/2021, 10/05/2020, Additional history exists Influenza Adult (#1) 2025 03/16/2024, 03/25/2020, 03/25/2020, Additional history exists DTaP, Tdap and Td Vaccines (2 - Td or Tdap) 02/19/2027 02/19/2017 Pneumococcal Vaccine: 50+ Years Completed 08/14/2024, 03/30/2018, 02/23/2015 Zoster Vaccines Completed 08/14/2024, 03/16/2024 PHQ-2 (Physician Grayling) Completed 10/28/2024 Meningococcal B Vaccine Aged Out [...] Dickey RN Medical Devices Implanted Type Area Asbestos Wire Finisher Device Identifier Shelf Expiration Date Model / Serial / Lot Graft Bone Cancellous 5ml Freeze Dried Chips 9.5x4mm - [id number] Implanted:Qty: 1 on 12/10/2023 by Maya Smith MD at [facility] Bone N/A: Spine Lumbar [employer] [id number] 04/05/2028 [id number] / / [id number] Magnetos Implanted:Qty: 1 on 12/10/2023 by Maya Smith MD at [facility] Graft N/A: Spine Lumbar 08/09/2027 [id number] / / [id number] Implantable Loop Recorder Medtronic-09/22 Implanted:Qty: 1 on 09/23/2023 by Thomas Gaona MD Implantable Loop Recorder [employer] 02/23/2025 [id number] / [id number] / Juan Implanted:Qty: 2 on 12/10/2023 by Maya Smith MD at [facility] O'LEXX Juan N/A: Spine Lumbar [id number] / / Orthofix Body Top Loading Implanted:Qty: 4 on 12/10/[facility] Screw N/A: Spine Lumbar 36-2101 / / Orthofix Set Screw Implanted:Qty: 4 on 12/10/2023 by Maya Smith MD at [facility] OLEXX Screw N/A: Spine Lumbar [id number] / / Orthofix Screw Implanted:Qty: 4 on 12/10/2023 by Maya Smith MD at [facility] Screw N/A: Spine Lumbar [id number] / / Tissue Surgiflo 8ml - [id number] Implanted:Qty: 1 on 12/10/2023 by Maya Smith MD at [facility] [employer] [id number] / / Procedures Procedure Name Priority Date/Time Associated Diagnosis Comments XR PELVIS 1 OR 2 VIEWS Routine 03/08/2025 7:40 AM CDT Primary osteoarthritis of left hip TYPE & SCREEN Routine 03/03/2025 12:52 PM CDT Primary osteoarthritis of left hip BASIC METABOLIC PANEL Routine 03/03/2025 12:52 PM CDT Primary osteoarthritis of left hip CBC W/DIFF AUTOMATED Routine 03/03/2025 12:52 PM CDT Primary osteoarthritis of left hip C-REACTIVE PROTEIN Routine 03/03/2025 12 :52 PM CDT Primary osteoarthritis of left hip SED RATE, ERYTHROCYTE (ESR) Routine 03/03/2025 12:52 PM CDT Primary osteoarthritis of left hip CULTURE LOWER RESPIRATORY W/GRAM STAIN Routine 03/03/2025 12:51 PM CDT Primary osteoarthritis of left hip ECG 12-LEAD Routine 03/03/2025 12:30 PM CDT Primary osteoarthritis of left hip XR LUMB SP+FLEX+EXT MIN 4V Routine 01/22/2025 10:55 AM CDT Lumbar spondylosis LIPID PANEL Routine 10/10/2023 8:32 AM CDT PAD (peripheral artery disease) Essential (primary) hypertension from Last 3 Months or Most Recently Relevant to Health Maintenance Results * XR PELVIS 1 OR 2 VIEWS (03/08/2025 7:40 AM CDT) Anatomical Region Laterality Modality Pelvis Radiographic Trini ging 03/08/2025 7:40 AM CDT Narrative 03/08/2025 3:55 PM CDT PROCEDURE: XR PELVIS 1 OR 2 VIEWS HISTORY: Preop left hip replacement. COMPARISON: X-ray pelvis and left hip, 10/28/2024. TECHNIQUE: AP view of the pelvis was obtained. FINDINGS: There is no acute fracture or osseous malalignment identified. Severe left hip osteoarthritis. Moderate right hip osteoarthritis. Multilevel degenerative changes of the lower lumbar spine. IMPRESSION: 1. No acute osseous abnormality is identified. 2. Severe left hip osteoarthritis. 3. Moderate left hip osteoarthritis. Multilevel degenerative changes of the lumbar spine. Referred By: Interpreted By: Rebecca Yen MD, 03/08/2025 3:52 PM Procedure Note Rebecca Yen MD - 03/08/2025 PROCEDURE: XR PELVIS 1 OR 2 VIEWS HISTORY: Preop left hip replacement. COMPARISON: X-ray pelvis and left hip, 10/28/2024. TECHNIQUE: AP view of the pelvis was obtained. FINDINGS: There is no acute fracture or osseous malalignment identified. Severeleft hip osteoarthritis. Moderate right hip osteoarthritis. Multileveldegenerative changes of the lower lumbar spine. IMPRESSION: 1. No acute osseous abnormality is identified. 2. Severe left hip osteoarthritis. 3. Moderate left hip osteoarthritis. Multilevel degenerative changes ofthe lumbar spine. Referred By: Interpreted By: Rebecca Yen MD, 03/08/2025 3:52 PM [facility] Final Result * TYPE & SCREEN - Verify expiration date is current (03/03/2025 12:52 PM CDT) ABO/RH A POSITIVE 03/03/2025 2:17 PM CDT [facility] ANTIBODY SCREEN NEGATIVE 03/03/2025 2:17 PM CDT [facility] SAMPLE EXPIRATION 03/06/2025,2 359 03/03/2025 2:17 PM CDT [facility] 03/03/2025 12:5 2 PM CDT us Imer Yen MD BLOOD BANK TEST ORDERABLES F inal Result [facility] [address] [place] [address], [place] [phone] * SED RATE, ERYTHROCYTE (ESR) (03/03/2025 12:52 PM CDT) ESR 13 <30 MM/HR 03/03/2025 2:31 PM CDT [facility] Comment:Testing performed on Alcsteve iSED. 03/03/2025 12:5 2 PM CDT us Imer Yen MD LABORATORY Final Result [facility] [address] [place] [place] [address], * (ABNORMAL) BASIC METABOLIC PANEL (03/03/2025 12:52 PM CDT) [facility] GLUCOSE 87 70 - 99 MG/DL 03/03/2025 2:18 PM CDT [facility] BUN 12 7 - 18 MG/DL 03/03/2025 2:18 PM CDT [facility] CREATININE S/P/B 0.73 0.55 - 1.02 MG/DL 03/03/2025 2:18 PM CDT [facility] SODIUM S/P/B 139 136 - 145 MMOL/L 03/03/2025 2:18 PM CDT [facility] POTASSIUM S/P/B 4.1 3.5 - 5.1 MMOL/L 03/03/2025 2:18 PM CDT [facility] CHLORIDE S/P/B 108 97 - 115 MMOL/L 03/03/2025 2:18 PM CDT [facility] CO2 26.8 21 - 32 MMOL/L 03/03/2025 2:18 PM CDT [facility] CALCIUM S/P/B 8.8 8.5 - 10.1 MG/DL 03/03/2025 2:18 PM CDT [facility] ANION GAP 4.2 2 - 10 MMOL/L 03/03/2025 2:18 PM CDT [facility] BUN CREATININE RATIO 16.4 6 - 26 03/03/2025 2:18 PM CDT [facility] GFR ESTIMATE 88(L) >90 ML/MIN/1.7 3 M2 03/03/2025 2:18 PM CDT [facility] Comment: NOTE: eGFR is not calculated for patients <18 years of age or gender unknown. This is an estimated GFR calculation using the new CKD EPI creatinine equation without race and so does not require a correction factor for race. This estimated GFR should not be used for calculating drug doses. 03/03/2025 12:5 2 PM CDT us Imer Yen MD LABORATORY Final Result Performing Organization Address City/[facility] Co de Phone Number [facility] [address] [place] [address], [place] [phone] * C-REACTIVE PROTEIN (03/03/2025 12:52 PM CDT) Pathologist [facility] C-REACTIVE PROTEIN <0.29 <0.29 mg/dL 03/03/2025 2:18 PM CDT [facility] 03/03/2025 12:5 2 PM CDT Imer Yen MD LABORATORY Final Result Performing Organization Address [facility] Co de Phone Number [facility] [address] [place] [address], [place] [phone] * (ABNORMAL) CBC W/DIFF AUTOMATED (03/03/2025 12:52 PM CDT) [facility] WBC 6.73 4.5 - 11.0 x10'3/uL 03/03/2025 1:38 PM CDT [facility] RBC 3.44(L) 4.20 - 5.40 x10'6/uL 03/03/2025 1:38 PM CDT [facility] HGB 11.0(L) 12.0 - 16.0 G/DL 03/03/2025 1:38 PM CDT [facility] HCT 32.4(L) 38.0 - 48.0 % 03/03/2025 1:38 PM CDT [facility] MCV 94.2 81.0 - 99.0 FL 03/03/2025 1:38 PM CDT [facility] MCH 32.0(H) 27.0 - 31.0 PG 03/03/2025 1:38 PM CDT [facility] MCHC 34.0 32.0 - 36.0 G/DL 03/03/2025 1:38 PM CDT [facility] RDW 12.9 11.5 - 14.5 % 03/03/2025 1:38 PM CDT [facility] PLT 237 130 - 400 x10'3/uL 03/03/2025 1:38 PM CDT [facility] MPV 9.5 9.3 - 12.2 FL 03/03/2025 1:38 PM CDT [facility] DIFFERENTIAL TYPE AUTOMATED DIFFERENTIAL 03/03/2025 1:38 PM CDT [facility] NEUTROPHILS % 66.4 % 03/03/2025 1:38 PM CDT [facility] LYMPHOCYTES % 22.0 % 03/03/2025 1:38 PM CDT [facility] MONOCYTES % 8.5 % 03/03/2025 1:38 PM CDT [facility] EOSINOPHILS 2.4 % 03/03/2025 1:38 PM CDT [facility] BASOPHILS 0.6 % 03/03/2025 1:38 PM CDT [facility] IMMATURE GRANS % 0.1 % 03/03/20 1:38 PM CDT [facility] ABS. NEUTROPHILS 4.47 1.80 - 7.70 x10'3/uL 03/03/2025 1:38 PM CDT [facility] ABS. LYMPHOCYTES 1.48 1.00 - 4.80 x10'3/uL 03/03/2025 1:38 PM CDT [facility] ABS. MONOCYTES 0.57 0.24 - 0.86 x10'3/uL 03/03/2025 1:38 PM CDT [facility] ABS. EOSINOPHILS 0.16 0.04 - 0.36 x10'3/uL 03/03/2025 1:38 PM CDT [facility] ABS. BASOPHILS 0.04 0.01 - 0.08 x10'3/uL 03/03/2025 1:38 PM CDT [facility] ABS. IMMATURE GRANULOCYTES 0.01 0.00 - 0.49 x10'3/uL 03/03/2025 1:38 PM CDT [facility] 03/03/2025 12:5 2 PM CDT us Imer Yen MD LABORATORY Final Result [facility] [address] [place] [address], [place] [phone] * CULTURE LOWER RESPIRATORY W/GRAM STAIN (03/03/2025 12:51 PM CDT) SPEC DESCRIPTION NASAL 03/03/2025 12:50 PM CDT [facility] SPECIAL REQUESTS NO SPECIAL REQUEST 03/03/2025 12:50 PM CDT [facility] CULTURE RESULT NO STAPHYLOCOCCUS AUREUS ISOLATED 03/05/2025 8:47 AM CDT [facility] SPECIMEN FROM INTERNAL NOSE / Unknown 03/03/2025 12:51 PM CDT 03/03/2025 12:52 PM CDT us Imer Yen MD MICROBIOLOGY - GENERAL ORDER CAIN Final Result [facility] [address] [place] [address], * ECG 12 lead (03/03/2025 12:30 PM CDT) 03/03/2025 12:3 0 PM CDT Narrative [facility] - 03/03/2025 1:00 PM CDT [facility] Test Date: 2025-03-03 Pat Name: 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1955 Requested By: IMER YEN Order Number: [id number] Reading MD: Latrell Ferreira Measurements Intervals [place] Rate: 54 P: 33 NE: 202 QRS: -31 QRSD: 117 T: -40 QT: 425 QTc: 403 Interpretive Statements SINUS BRADYCARDIA LEFT AXIS DEVIATION [QRS AXIS < -30] MODERATE INTRAVENTRICULAR CONDUCTION DELAY [105+ ms QRS DURATION, 80+ ms Q/S IN V1/V2, NO Q AND 60+ ms R IN I/aVL/V5/V6] VOLTAGE CRITERIA FOR LVH [MEETS CRITERIA IN ONE OF: R(aVL), S(V1), R(V5), R(V5/V6)+S(V1)] ST DEVIATION AND MODERATE T-WAVE ABNORMALITY, CONSIDER INFERIOR ISCHEMIA [-0.1+ mV T-WAVE IN II/aVF] Procedure Note Latrell Ferreira MD - 03/03/2025 [facility] Test Date: 2025-03-03 Pat Name: 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1955 Requested By: IMER YEN Order Number: [id number] Reading MD: Latrell Ferreira Measurements Intervals [place] Rate: 54 P: 33 NE: 202 QRS: -31 QRSD: 117 T: -40 QT: 425 QTc: 403 Interpretive Statements SINUS BRADYCARDIA LEFT AXIS DEVIATION [QRS AXIS < -30] MODERATE INTRAVENTRICULAR CONDUCTION DELAY [105+ ms QRS DURATION, 80+ msQ/S IN V1/V2, NO Q AND 60+ ms R IN I/aVL/V5/V6] VOLTAGE CRITERIA FOR LVH [MEETS CRITERIA IN ONE OF: R(aVL), S(V1),R(V5), R(V5/V6)+S(V1)] ST DEVIATION AND MODERATE T-WAVE ABNORMALITY, CONSIDER INFERIOR ISCHEMIA [-0.1+ mV T-WAVE IN II/aVF] us Imer Yen MD ECG ORDERABLES Final Result [facility] RAD * XR LUMB SP+FLEX+EXT MIN 4V (01/22/2025 10:55 AM CDT) Anatomical Region Laterality Modality Spine Radiographic Trini ging 01/27/2025 8:21 AM CDT Impressions 01/27/2025 8:23 AM CDT IMPRESSION: 1) Mild lumbar scoliosis convex to the right with chronic degenerative disc disease/spondylosis L5-S1. Ordered By: ABIOLA WRIGHT Interpreted By: Freddy Daniels MD, 01/27/2025 8:21 AM Narrative 01/27/2025 8:23 AM CDT [address] [address] Examination: XR LUMB SP+FLEX+EXT MIN 4V Exam time: 01/22/2025 10:45 AM Clinical history: Chronic back pain running down both legs Comparison: 08/06/2024 Technique: Standing AP and lateral views lumbar spine. Lateral flexion-extension views Findings: There is mild lumbar scoliosis convex to the right. Lumbar vertebral body heights are well-maintained. No evidence of spondylolysis/spondylolisthesis. There is been previous posterior fusion at L3-4. There is no evidence of complication involving the hardware. There is no evidence of acute fracture or focal lytic bone destructive lesion. The bones are somewhat demineralized. There are chronic changes of degenerative disc disease/spondylosis at L5-S1. There is somewhat limited range of motion between flexion and extension. There is no evidence to suggest significant translational instability between flexion and extension. Procedure Note Freddy Daniels MD - 01/27/[address] [address] Examination: XR LUMB SP+FLEX+EXT MIN 4V Exam time: 01/22/2025 10:45 AM Clinical history: Chronic back pain running down both legs Comparison: 08/06/2024 Technique: Standing AP and lateral views lumbar spine. Lateralflexion-extension views Findings: There is mild lumbar scoliosis convex to the right. Lumbarvertebral body heights are well-maintained. No evidence ofspondylolysis/spondylolisthesis. There is been previous posterior fusionat L3-4. There is no evidence of complication involving the hardware. There is no evidence of acute fracture or focal lytic bone destructivelesion. The bones are somewhat demineralized. There are chronic changes ofdegenerative disc disease/spondylosis at L5-S1. There is somewhat limitedrange of motion between flexion and extension. There is no evidence tosuggest significant translational instability between flexion andextension. IMPRESSION: 1) Mild lumbar scoliosis convex to the right with chronic degenerativedisc disease/spondylosis L5-S1. Ordered By: ABIOLA WRIGTH Interpreted By: Freddy Daniels MD, 01/27/2025 8:21 AM Abiola Wright [facility] Final Result * LIPID PANEL (10/10/2023 8:32 AM CDT) CHOLESTEROL 163 <200 MG/DL 10/10/2023 9:48 AM CDT [facility] TRIGLYCERIDES 90 <150 MG/DL 10/10/2023 9:48 AM CDT [facility] HDL 71 >40.0 MG/DL 10/10/2023 9:48 AM CDT [facility] LDL (CALCULATED) 74 <100 MG/DL 10/10/19 9:48 AM CDT [facility] NON HDL CHOLESTEROL 92 <130 MG/DL 10/09 9:48 AM CDT [facility] CHOL/HDL RATIO 2.3 0.0 - 4.5 10/10/2023 9:48 AM CDT [facility] VLDL CALCULATION 18 5 - 55 MG/DL 10/10/2023 9:48 AM CDT [facility] LIPID INTERPRETATION 10/10/2023 9:48 AM T [facility] Comment: NIH CONCENSUS REPORT RECOMMENDATIONS: ADULT CHILD LOW RISK: CHOLESTEROL <200 <170 TRIGLYCERIDE <150 --- HDL >=60 --- LDL <100 <110 BORDERLINE: CHOLESTEROL 200-239 170-199 TRIGLYCERIDE 150-199 --- HDL 40-59 --- LDL 100-159 110-129 HIGH RISK: CHOLESTEROL >=240 >=200 TRIGLYCERIDE >=200 --- HDL <40 --- LDL >=160 >=130 10/10/2023 8:32 AM CDT us Lashon Bennett OIL WELL FISHING TOOL TECHNICIAN LABORATORY Final Result [facility] [address] [place] [address], [place] [phone] from Last 3 Months or Most Recently Relevant to Health Maintenance Additional Health Concerns Active Problems Noted Date Diagnosed Date Autogenerated Problem 11/19/2024 Insurance [facility] MEDICARE [facility] Advance Directives * Full Code (Latest Code Status on File) Date Activated Date Inactivated Comments 12/10/2023 12:44 PM 12/11/2023 3:46 PM * Full Code Date Activated Date Inactivated Comments 09/29/2020 6:53 PM 10/01/2020 7:31 PM Healthcare Agents on File Name Relationship Healthcare Agent Relationshi p Communication Coy Womack Spouse Health Care Agent Care Teams Lead Android Developer Relationship Specialty Start Date End Date Shanice Askew NP [address] [place] [address] PCP - General Nurse Practitioner Family 05/11/24 Les Das MD [facility], [address] [place] [address] Physician CARDIOVASCULAR DISEASE 09/21/22 Rizwan Martinez NP [address] [place] [id number] PULMONARY DISEASE 05/11/24 Lou Brooks NP [address] [place], [place] [id number] GASTROENTEROLOGY 05/11/24
--- OUTSIDE RECORDS SUMMARY | 2025-03-11 11:27 | XMS_ITS | Encounter Summary ---
Author Organization [facility] Address [address] [place] [address] Care Team Providers Care Divisional Storekeeper Name Role Phone Les Das MD Unavailable [phone] Rizwan Martinez NP Unavailable Lou Brooks SECONDARY SOCIAL STUDIES TEACHER Unavailable [phone] Shanice Askew NP Primary Care Provider Encounter Details Date Type Department Care Team (Late st Contact Info) Description 05/18/2024 Notion Systems Message Enc [facility] [address] [place], [facility] Provider Carelink Transmission Received Social [...] from your doctor or pharmacy? Never 12/10/2023 [facility] Utilities Answer Date Recorded In the past 12 months has [employer], gas, oil, or water [employer] threatened to shut off services in your [...] Recorded Patient Health Questionnaire-2 Score 0 03/23/2024 [facility] Occupat ional Health - Occupational Stress [...] any time in the past 12 m [facility], were you homeless or living in a intermediate (including now)? No 12/10/2023 Comments No Sex and Gender Information Value Date Recorded Sex Assigned at Female 08/06/2024 9:35 AM DRESSAGE INSTRUCTOR Legal Sex Female 6:32 PM CDT Gender Identity Female 06/02/2021 8:12 AM DRESSAGE INSTRUCTOR Sexual Orientation Not on file documented [...] Author Status No 12/10/2023 12:52 PM CDT Sainz, Vidya K, RN Active * Because of a physical, [...] Description 03/03/2025 11:59 PM CDT Anesthesia [place] [address] Abiola Turner, CENTRAL STERILIZATION TECHNICIAN [address] [place] [address] 03/23/[address] [place] [address] Imer Holly MD [address] [place] [address] 03/24/2025 10:00 AM CDT Appointment [facility] [place] [address] Samina Maurer PA [address] [address] 04/05/2025 4:20 PM CDT Allied Health/Nurse Visit [facility]ph [facility] [place] [facility] [address] [place] [address] Les Das MD Three [facility] [address] [place] [address] 05/18/2025 10:15 AM DRESSAGE INSTRUCTOR Office Visit [facility] [facility], [address] [place] [address] Les Das MD Three [facility], [address] [place] [address] Scheduled Procedures Name Priority Associated Diagnoses Date/Ti me ARTHROPLASTY HIP TOTAL ANTER IOR APPROACH Primary osteoarthritis of left hip documented as of this encounter Goals Goal Patient Goal Type Associated Problems Recent Progress Patient-Stated? Author Health - patient able to perform ADLs independently General No Magno Urrutia academic registrar - family caregiver with be involved in care transitions and discharge planning Lifestyle No Oral Springer i, RN documented as of this encounter Visit Diagnoses Not on filedocumented in this encounter Care Teams Divisional Storekeeper Relationship Specialty Start Date End Date Shanice Askew NP [address] [place], [place] [id number] PCP - General Nurse Practitioner Family 05/11/24 Les Das MD Three [facility], [address] [place] [address] Physician CARDIOVASCULAR DISEASE 09/21/22 Rizwan Martinez NP [address] [place] [id number] PULMONARY DISEASE 05/11/24 Lou Brooks NP [address] [place] [address] GASTROENTEROLOGY 05/11/24 documented as of this encounter
--- OUTSIDE RECORDS SUMMARY | 2025-03-11 11:27 | XMS_ITS | Encounter Summary ---
Author Organization [facility] Facility Care Team Providers Care Public Opinion Survey Taker Name Role Phone Xander Patel MD Primary Care Provider [phone] Ruben Felix MD Primary Care Provider [phone] Jensen Lizarraga MD Unavailable [phone] Encounter Details Date Type Department Care Team (Latest Contact Info) Description 08/26/2018 Orders Only [facility] CLINCONV ProviderJohn MD [address] [place] [address] Social History Tobacco Use Types Packs/Day Years Used Date Smoking Tobacco: Never Assessed Comments Unknown Sex and Gender Information Value Date Recorded Sex Assigned at Not on file Legal Sex Female 6:59 PM DUCT 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
[2025-03-11 11:29] LABS: Hematocrit 35.1 % (37.0-47.0); Hemoglobin 11.6 g/dL (12.0-15.0); Immature Granulocyte Percent A 0.4 % (0-0.5); Lymphocytes Absolute Auto 1.55 K/mm3 (0.9-3.2); Mean Corpuscular HGB Conc 33.0 g/dl (32-36); Mean Corpuscular Hemoglobin 31.5 pg (26-34); Mean Corpuscular Volume 95.4 fl (80-100); Nucleated Red Blood Cells Absolute Auto 0.000 K/mm3 (0.0-0.012); Nucleated Red Blood Cells Perc 0.0 % (0.0-0.2); Platelet Count Result 263 k/mm3 (150-375); Red Blood Count 3.68 M/mm3 (4.2-5.4); White Blood Count 8.4 K/mm3 (4.5-10.0)
[2025-03-11 11:51] LABS: Iron 41 ug/dL (37-170)
[2025-03-11 12:00] LABS: Percent Iron Saturation 10 % (20-50)
[2025-03-11 12:32] LABS: Ferritin 15.90 ng/mL (11.1-264)
== END 2025-03-11 10:52 | disposition home or self-care (01) ==
LOC: ANHLAB 10:54
PROVIDERS: PCP Nurse Practitioner Family; Referring Provider Nurse Practitioner Family; Visit Provider Nurse Practitioner Family
DX: D64.9 Anemia, unspecified (principal)
CPT/HCPCS: 36415; 82728; 83540; 83550; 85025

== ENCOUNTER 2025-03-11 11:19 | Outpatient (CLI) | payer MEDICARE, OTHER, SELFPAY ==
--- NOTE | ~2025-03-11 | CT_ITS ---
EXAMINATION:CT lung screening DATE: 03/11/2025 11:34 INDICATION: Personal history of nicotine dependence. TECHNIQUE: Computed tomography (CT) of the chest was performed without intravenous contrast. Automated exposure control and iterative reconstruction technique were employed. The dose-length product (DLP) was 115.33 mGy-cm. COMPARISON: Chest CT 03/02/2024 FINDINGS: There is moderate emphysema. There is a new 9 mm pleural-based nodule in left lower lobe. There are a few scattered stable nodules in the lungs measuring up to 6 mm. No pleural effusion. The heart size is normal. No pericardial effusion. There is an electronic implant in left anterior chest w all. There is severe thoracic spondylosis. There is mild chronic anterior wedging of multiple vertebral bodies. IMPRESSION: 1. Lung-RADS category 4B: Suspicious. Consider PET/CT or 1-month follow-up noncontrast chest CT to exclude inflammation/infection. Reviewed, dictated and finalized at location E. IMPRESSION: 1. Lung-RADS category 4B: Suspicious. Consider PET/CT or 1-month follow-up nonc ontrast chest CT to exclude inflammation/infection.
== END 2025-03-11 11:20 | disposition home or self-care (01) ==
LOC: MICIMG 11:20
PROVIDERS: PCP Nurse Practitioner Family; Visit Provider Nurse Practitioner Family
DX: Z12.2 Encounter for screening for malignant neoplasm of respiratory organs (principal); Z87.891 Personal history of nicotine dependence
CPT/HCPCS: 71271

== ENCOUNTER 2025-03-30 09:22 | Outpatient (CLI) | payer MEDICARE, OTHER, SELFPAY ==
--- NOTE | ~2025-03-30 | PE_ITS ---
EXAMINATION: PET skull to mid thigh DATE: 03/30/2025 11:53 INDICATION: Lung nodules. Other nonspecific abnormal finding of lung field. TECHNIQUE: Blood glucose level was 90 mg/dL. 9.398 mCi of 18-fluorodeoxyglucose (18-FDG) was administered i.v. Low dose computed tomography (CT) images were acquired from the base of the brain to the proximal thighs for attenuation correction and anatomic localization. Automated exposure control was employed. Dose-length product (DLP) was 1228 mGy-cm. Positron emission tomography (PET) images were acquired in the same distribution. COMPARISON: Chest CT 03/11/2025 FINDINGS: Head/neck: There are no pathologically enlarged lymph nodes. Chest: There is moderate emphysema. The previously described left lower lobe nodule has resolved. There are a few scattered nodules in the lungs measuring up to 3 mm without increased activity, likely benign. No pleural effusion. The heart size is normal. No pericardial effusion. There is a mildly enlarged right paratracheal lymph node without increased activity, likely benign. There is a subcutaneous electronic device in left anterior chest wall. Abdomen/pelvis/proximal thighs: The liver and spleen are normal. There are changes of cholecystectomy. The pancreas, adrenal glands, and kidneys are normal. There are no dilated loops of bowel. There are no pathologically enlarged lymph nodes. There is no free intraperitoneal fluid. There are changes of posterior fusion procedure in lumbar spine. IMPRESSION: 1. Lung-RADS category 2: Benign appearance or behavior. Continue annual screening with noncontrast low-dose chest CT in 12 months. Reviewed, dictated and finalized at location E. IMPRESSION: 1. Lung-RADS category 2: Benign appearance or behavior. Continue annual screeni ng with noncontrast low-dose chest CT in 12 months.
--- OUTSIDE RECORDS SUMMARY | 2025-03-30 10:40 | XMS_ITS | Encounter Summary ---
Author Organization [facility] Facility Care Team Providers Care User Interface Developer Name Role Phone Xander Patel MD Primary Care Provider [phone] Ruben Felix MD Primary Care Provider [phone] Jensen Lizarraga MD Unavailable [phone] Encounter Details Date Type Department Care Team (Latest Contact Info) Description 08/11/2018 Orders Only [facility] CLINCONV ProviderJohn MD [address] [place] [address] Social History Tobacco Use Types Packs/Day Years Used Date Smoking Tobacco: Never Assessed Comments Unknown Sex and Gender Information Value Date Recorded Sex Assigned at Not on file Legal Sex Female 6:59 PM ELECTRONICS 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
--- OUTSIDE RECORDS SUMMARY | 2025-03-30 10:40 | XMS_ITS | Clinical Summary ---
Author Organization [facility] Address [address] [place] [address] Care Team Providers Care Social Sciences Instructor Name Role Phone Ruben Felix MD Primary Care Provider [phone] Source Comments [facility] Affiliates and Associated Physician Practices is amultiple site organization consisting of ambulatory clinics and hospital sitesin [place], [place], [place]. This disclosure is being madepursuant to the Care Everywhere program and may not contain all information available regarding this patient. Last updated 18.[facility] Allergies Active Allergy Reactions Criticality Noted Date [...] on file Legal Sex Female 5:24 AM CIGAR MAKING MACHINE OPERATOR Gender Identity Not on file [...] 7 - 26 mg/dL 01/19/2020 9:58 AM [facility] Creatinine 0.9 0.6 - 1.2 mg/dL 01/19/2020 9:58 AM [facility] Sodium 142 136 - 145 mmol/L 01/19/2020 9:58 AM [facility] Potassium 3.8 3.5 - 4.5 mmol/L 01/19/2020 9:58 AM [facility] Chloride 111(H) 98 - 107 mmol/L 01/19/2020 9:58 AM [facility] CO2 24 22 - 29 mmol/L 01/19/2020 9:58 AM [facility] Glucose 82 70 - 115 mg/dL 01/19/2020 9:58 AM [facility] Calcium 8.8 8.4 - 10.2 mg/dL 01/19/2020 9:58 AM [facility] Anion Gap 11 8 - 18 01/19/2020 [...] MD LAB - CHEMISTRY ORDERABLES nal Result [address] [address], [facility] [phone] from Last 3 Months or Most Recently Relevant to Health Maintenance Insurance MEDICARE [facility] Care Teams Social Sciences Instructor Relationship Specialty Start Date End Date Ruben Felix MD [address] [place] [id number] PCP - General 01/02/20
--- OUTSIDE RECORDS SUMMARY | 2025-03-30 10:40 | XMS_ITS | Encounter Summary ---
Author Organization [facility] Facility Care Team Providers Care Stonecutter Apprentice Hand Name Role Phone Xander Patel MD Primary Care Provider [phone] Ruben Felix MD Primary Care Provider [phone] Jensen Lizarraga MD Unavailable [phone] Encounter Details Date Type Department Care Team (Latest Contact Info) Description 08/14/2018 Orders Only [facility] CLINCONV ProviderJohn MD [address] [place] [address] Social History Tobacco Use Types Packs/Day Years Used Date Smoking Tobacco: Never Assessed Comments Unknown Sex and Gender Information Value Date Recorded Sex Assigned at Not on file Legal Sex Female 6:59 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
--- OUTSIDE RECORDS SUMMARY | 2025-03-30 10:40 | XMS_ITS | Encounter Summary ---
Author Organization [facility] Facility Care Team Providers Care Photographer Finish Name Role Phone Xander Patel MD Primary Care Provider [phone] Ruben Felix MD Primary Care Provider [phone] Jensen Lizarraga MD Unavailable [phone] Encounter Details Date Type Department Care Team (Latest Contact Info) Description 08/26/2018 Orders Only [facility] CLINCONV ProviderJohn MD [address] [place] [address] Social History Tobacco Use Types Packs/Day Years Used Date Smoking Tobacco: Never Assessed Comments Unknown Sex and Gender Information Value Date Recorded Sex Assigned at Not on file Legal Sex Female 6:59 PM 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
--- OUTSIDE RECORDS SUMMARY | 2025-03-30 10:40 | XMS_ITS | Clinical Summary ---
Author Organization [facility] Srikanth Baca Address [address] [place] [address] Care Team Providers Care Lead Radiologic Technologist Name Role Phone Rubne Felix MD Primary Care Provider [phone] Allergies Active Allergy Reactions Criticality Noted Date [...] 12/06/2030 Insurance MEDICARE PART A AND B [employer] Care Teams Lead Radiologic Technologist Relationship Specialty [place] [address] [place] [phone] PCP - General Internal Medicine 10/13/20
--- OUTSIDE RECORDS SUMMARY | 2025-03-30 10:40 | XMS_ITS | Patient Health Record ---
Author Organization [facility] Address [address] [place] [address] Care Team Providers Care Special Assets Officer Name Role Phone OLGA STAFFORD Unavailable [phone] Reason For Referral No Information Plan Of Treatment No Information Insurance Providers Payer Name Payer Address Payer Phone Subscriber Number Group Number Insured Name Patient Relationship to Insured Coverage Start Date Coverage End Date [facility] [address] [place], [place] [id number] Cheryl Womack Self - patient is the insured 1
--- OUTSIDE RECORDS SUMMARY | 2025-03-30 10:40 | XMS_ITS | Clinical Summary ---
Author Organization [facility] Address [address] [place] [address] Care Team Providers Care Light Out Examiner Name Role Phone Ruben Felix MD Primary Care Provider [phone] Jensen Lizarraga MD Unavailable [phone] Allergies Active Allergy Reactions Criticality Noted Date [...] 0 Assessment & Plan (08/10/2019 8:30 AM ROUTE SERVICE MANAGER): Continue Lasix. Controlled. Hypotension due to drugs [...] She does report upcoming appointment with her civil litigation attorney with anticipated upper and lower endoscopy. Plan: Follow up with GI. Patient follow up with vascular surgery on as-needed basis. Dilated cardiomyopathy 09/15/2018 Assessment & Plan (08/10/2019 8:28 AM ROUTE SERVICE MANAGER): No syncope. Repeat echocardiogram. Continue losartan and [...] 09/15/2018 Assessment & Plan (08/10/2019 8:29 AM ROUTE SERVICE MANAGER): No history of suggestive of aborted sudden cardiac . Repeat echo. Assessment & Plan (11/12/2018 9:56 AM CDT): Two events not suggestive of arrhythmia Assessment & Plan (09/15/2018 8:51 AM CDT): Not suggestive of arrhythmia. Would not recommend outpatient monitoring at this time. Again follow up with GI and PV. Chest pain 10/28/2017 Assessment & Plan (08/10/2019 8:29 AM ROUTE SERVICE MANAGER): Cardiac catheterization August last year negative. Would [...] on file Legal Sex Female 6:59 PM ROUTE SERVICE MANAGER Gender Identity Not on file Sexual [...] IU/mL 6.9 log IU 7 1:54 PM [facility] [place] HISTORICAL RESULTS Comment: INTERPRETIVE INFORMATION: Hepatitis C [...] RNA IU/mL 7,400,000 IU/mL 01/05/2017 1:54 PM [facility] [place] HISTORICAL RESULTS HCV RNA result Detected( H) Not Detected 01/05/2017 1:54 PM [facility] [place] HISTORICAL RESULTS HCV RNA See Note 01/05/2017 1:54 PM [facility] [place] HISTORICAL RESULTS Comment: Access [employer] Enhanced Report using either link below: -Direct access: [email or web address] -Enter Username, Password: [email or web address] Username: [email or web address] Password: [email or web address] Performed by [employer], [address] [place] [id number] [email or web address], Henrry Ocampo MD, Lab. Director 01/03/2017 8:06 AM CDT 01/03/2017 8:33 AM CDT us Reginald Linn MD LAB MICROBIOLOGY - GENERA L ORDERABLES Final Result [place] HISTORICAL RESULTS from Last 3 Months or Most Recently Relevant to Health Maintenance Additional Health Concerns Infection Onset Date Last Indicated C. difficile 08/25/2019 08/24/2019 Insurance MEDICARE [facility] CLAIMS Care Teams Light Out Examiner Relationship Specialty Start Date End Date Ruben Felix MD [address] [address] PCP - General 05/20/19 Jensen Lizarraga MD [address] [address] Parachute Taper Cardiovascular Disease 08/14/19
== END 2025-03-30 09:23 | disposition home or self-care (01) ==
PROVIDERS: PCP Nurse Practitioner Family; Visit Provider Nurse Practitioner Family
DX: R91.8 Other nonspecific abnormal finding of lung field (principal)
CPT/HCPCS: 78815; A9552

== ENCOUNTER 2025-05-24 10:52 | Outpatient (CLI) | payer MEDICARE, OTHER, SELFPAY ==
--- NOTE | ~2025-05-24 | CT_ITS ---
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 The distal portion of the celiac access and distal arteries are patent. Both mesenteric and renal arteries are patent with moderately severe disease involving all these arteries especially in the renal artery origins. Visualized portions of the lower thoracic, and abdominal aorta appear normal in size and enhancement with mild to moderate scattered atherosclerotic disease. Pelvic inflow and outflow arteries are patent. Nonangiographic findings: Mild bibasilar fibrotic changes in the lower chest. Cholecystectomy clips. Solid organs appear normal. The stomach nondistended and unopacified but no gross acute process. No bulky mesenteric or retroperitoneal lymphadenopathy or masses. Hysterectomy surgical changes. Urinary bladder unremarkable. Diffuse degenerative changes throughout the bones with fusion hardware at L3-4. 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 The degree of compression or stenosis appears to be about 65%. There is moderately severe disease present throughout the remaining arteries especially the origin of the renal arteries. Reviewed, dictated and finalized at location A. NG SERVICE INSPECTOR IMPRESSION: Findings consistent with external celiac compression from what appe ars to be the median arcuate ligament. The degree of compression or stenosis ap pears to be about 65%. There is moderately severe disease present throughout th e remaining arteries especially the origin of the renal arteries.
[2025-05-24 12:44] LABS: Estimated Glomerular Filt Rate > 60
== END 2025-05-24 10:53 | disposition home or self-care (01) ==
PROVIDERS: PCP Nurse Practitioner Family; Visit Provider Nurse Practitioner Family
DX: I77.4 Celiac artery compression syndrome (principal); K51.919 Ulcerative colitis, unspecified with unspecified complications; K52.9 Noninfective gastroenteritis and colitis, unspecified
CPT/HCPCS: 74174; Q9967